=== PATIENT | male | born 1935 | race Caucasian/White ===

== ENCOUNTER 2020-07-15 19:12 | Inpatient (IN) ==
--- OUTSIDE RECORDS SUMMARY | 2020-07-15 19:14 | External Medical Summary | Continuity of Care Document ---
:1935 Author Name Melissa Johns Address Unavailable Unavailable , Care Team Providers Name Role Phone Unavailable Unavailable Unavailable Problems Active medical history not documented Allergies and Adverse Reactions Allergy history not documented Medications Medications not documented Procedures Procedures not documented Immunizations Immunizations not documented Plan of Treatment Planned Observations Planned Goals not documented Results No Known Results Results not documented
[2020-07-15 19:48] LABS: Appearance Urine Clear (Clear); Bacteria Urine Automated Negative (Negative); Bilirubin Urine Negative (Negative); Blood Urine 1+ (Negative); Cast Urine Automated 0 /lpf (0-5); Color Urine Yellow; Epithelial Cell Urine Auto 0-5 /lpf (0-5); Glucose Urine UA Negative (Negative); Ketones Urine Negative (Negative); Leukocyte Esterase Urine Negative (Negative); Nitrite Urine Negative (Negative); RBC Urine Automated 0-4 /hpf (0-4); Specific Gravity Urine 1.013 (1.000-1.030); Urobilinogen Urine Negative (Negative); pH Urine 7.5 (4.5-7.5)
[2020-07-15 19:50] LABS: Protein Urine 3+ (Negative)
[2020-07-15 20:17] LABS: Base Excess VBG 2.8 mEq/L; HCO3 VBG 29 mmol/L; PCO2 VBG 55 mmHg (38-50); PO2 VBG 27 mmHg; pH VBG 7.35 (7.36-7.41)
[2020-07-15 20:19] LABS: Basophils # (auto) 0.01 K/uL (0-0.2); Basophils % (auto) 0.2 %; Eosinophils # (auto) 0.11 K/uL (0-0.5); Eosinophils % (auto) 2.6 %; Hematocrit (blood only) 35.1 % (42-52); Hemoglobin 11.1 g/dL (14.0-18.0); Lymphocytes # (auto) 0.81 K/uL (1.2-3.4); Lymphocytes % (auto) 19.3 %; Mean Corpuscular Hemoglobin 32.7 pg (25-34); Mean Corpuscular Hgb Conc 31.6 g/dL (32-36); Mean Corpuscular Volume 103.5 fL (80-100); Mean Platelet Volume 10.1 fL (7.4-10.4); Monocytes # (auto) 0.31 K/uL (0.11-0.59); Monocytes % (auto) 7.4 %; Neutrophils # (auto) 2.95 K/uL (1.4-6.5); Neutrophils % (auto) 70.5 %; Platelet Count 198 K/uL (130-400); RDW Coefficient of Variation 16.7 % (11.5-14.5); Red Blood Count 3.39 M/uL (4.7-6.1); White Blood Count 4.19 K/uL (4.8-10.8)
--- NOTE | 2020-07-15 20:19 | Emergency Department Note ---
History of Present Illness General Chief Complaint: Shortness of Breath/Dyspnea Stated Complaint: SOB, HX OF CHF Time Seen by Provider: 07/15/20 19:27 History of Present Illness Provider Complaint: shortness of breath Onset (ago): day(s) (4) Severity: moderate Consistency/Duration: + progressively worsening Maximum Pain Intensity: 0 Current Pain Intensity: 0 Relieved By: + upright position Exacerbated By: + lying flat, + exertion and + coughing Context: + medication noncompliance (Recent changes in his medications); no recent illness and no CO exposure Known history of: congestive heart failure Associated symptoms: + cough and + orthopnea; no chest pain, no pain with inspiration, no wheezing, no paresthesias, no palpitations, no diaphoresis, no syncope, no chest congestion, no dizziness and no lightheadedness Home Medications Medication Instructions Recorded Confirmed Type acetaminophen 500 mg PO Q6H PRN 07/15/20 07/15/20 History allopurinol 300 mg PO DAILY 07/15/20 07/15/20 History amoxicillin See Rx Instructions .ROUTE 07/15/20 07/15/20 History .COMPLEX PRN calcitriol 0.25 mcg PO 3XWK 07/15/20 07/15/20 History cholecalciferol (vitamin D3) 50 mcg PO DAILY 07/15/20 07/15/20 History [Vitamin D3] cyanocobalamin (vitamin B-12) 1,000 mcg PO DAILY 07/15/20 07/15/20 History [Vitamin B-12] cyclobenzaprine 10 mg PO TID PRN 07/15/20 07/15/20 History ezetimibe 10 mg PO DAILY 07/15/20 07/15/20 History famotidine 20 mg PO DAILY PRN 07/15/20 07/15/20 History furosemide 40 mg PO BID 07/15/20 07/15/20 History metoprolol succinate 12.5 mg PO DAILY 07/15/20 07/15/20 History multivitamin,zk-[id number]-min 1 tab PO DAILY 07/15/20 07/15/20 History [Multivitamin And Mineral] rosuvastatin 10 mg PO HS 07/15/20 07/15/20 History tamsulosin 0.4 mg PO BID 07/15/20 07/15/20 History vitamin B complex [Super B-50] 1 cap PO DAILY 07/15/20 07/15/20 History warfarin 2.5 mg PO 3XWK 07/15/20 07/15/20 History warfarin 5 mg PO 4XWK 07/15/20 07/15/20 History Allergies Allergy/AdvReac Type Severity Reaction Status Date / Time amlodipine [From [facility]] Allergy Intermediate Edema Verified 07/15/20 21:54 bismuth subsalicylate Allergy Unknown Unknown Verified 07/15/20 21:54 naproxen AdvReac Mild GI UPSET, Verified 07/15/20 21:54 HODGES THROAT Past Med/Surg History Medical History (Updated 07/16/20 @ 00:09 by Jerry Rinaldi) CHF (congestive heart failure) No pertinent family history Surgical History (Updated 07/15/20 @ 20:15 by Jerry Rinaldi) No pertinent past surgical history Social History Smoking Status: Former smoker Feels Safe at Home: Yes Review of Systems A total of 10 systems reviewed and were otherwise negative Physical Exam Vital Signs: Vital Signs - 24 hr 07/15/20 19:21 07/15/20 19:50 07/15/20 20:05 Temperature 36.4 C L Temperature Source Temporal Artery Sc an Pulse Rate 79 Pulse Rate from Sp O2 Sensor Respiratory Rate 18 Respiratory Effort / Characteristics Non-Labored Respiratory Depth Normal Blood Pressure 142/87 H Blood Pressure Bettye n 105 Pulse Oximetry 96 Oxygen Delivery Me thod Room Air Room Air Room Air Oxygen Flow Rate Sepsis Recent Feve r Within 48 Hours No Sepsis New/Unexpla ined Change in Men flako Status No Sepsis Action Take n by Nursing No Action Required Oxygen Flow Rate - Titration Pulse Oximetry Pos t Tiitration 07/15/20 20:30 07/15/20 21:00 07/15/20 21:31 Temperature Temperature Source Pulse Rate 87 89 90 Pulse Rate from Sp O2 Sensor 89 87 90 Respiratory Rate 21 16 19 Respiratory Effort / Characteristics Respiratory Depth Blood Pressure 163/94 H 149/96 H 154/79 H Blood Pressure Bettye n 114 116 101 Pulse Oximetry 95 90 Oxygen Delivery Me thod Room Air Oxygen Flow Rate Sepsis Recent Feve r Within 48 Hours Sepsis New/Unexpla ined Change in Men flako Status Sepsis Action Take n by Nursing Oxygen Flow Rate - Titration Pulse Oximetry Pos t Tiitration 07/15/20 22:00 07/15/20 22:30 07/15/20 23:00 Temperature Temperature Source Pulse Rate 91 H 92 H 92 H Pulse Rate from Sp O2 Sensor 93 H 93 H 91 H Respiratory Rate 24 16 25 H Respiratory Effort / Characteristics Respiratory Depth Blood Pressure 172/101 H 169/88 H 190/110 H Blood Pressure Bettye n 133 132 146 Pulse Oximetry Oxygen Delivery Me thod Oxygen Flow Rate Sepsis Recent Feve r Within 48 Hours Sepsis New/Unexpla ined Change in Men flako Status Sepsis Action Take n by Nursing Oxygen Flow Rate - Titration Pulse Oximetry Pos t Tiitration 07/15/20 23:16 Temperature Temperature Source Pulse Rate Pulse Rate from Sp O2 Sensor Respiratory Rate Respiratory Effort / Characteristics Respiratory Depth Blood Pressure Blood Pressure Bettye n Pulse Oximetry 90 Oxygen Delivery Me thod Nasal Cannula Oxygen Flow Rate 0 Sepsis Recent Feve r Within 48 Hours Sepsis New/Unexpla ined Change in Men flako Status Sepsis Action Take n by Nursing Oxygen Flow Rate - Titration 2 Pulse Oximetry Pos t Tiitration 95 Physical Exam: Physical Exam GENERAL: He is oriented to person, place, and time. He appears well-developed and well-nourished. He does not appear distressed. HENT: Exam performed. - Head: Normocephalic and atraumatic. - Right Ear: External ear normal. No mastoid tenderness. - Left Ear: External ear normal. No mastoid tenderness. - Mouth/Throat: The oropharynx is clear and moist. No trismus in the jaw. No dental abscesses or uvula swelling. No oropharyngeal exudate or tonsillar abscesses. EYES: Conjunctivae and EOM are normal. Pupils are equal, round, and reactive to light. Right eye exhibits no discharge. Left eye exhibits no discharge. No scleral icterus. NECK: Normal range of motion. Neck supple. No JVD present. No spinous process tenderness present. No carotid bruit present. No rigidity. No tracheal deviation and normal range of motion present. No Brudzinski's sign and no Kernig's sign noted. CV: Normal rate, regular rhythm, normal heart sounds and intact distal pulses. Palpable radial pulses bue. PULM/CHEST: Diminished breath sounds bilaterally. - Chest Wall: He exhibits no tenderness. ABD: The abdomen is soft. Bowel sounds are normal. He has no distension. No mass is present. There is no tenderness. There is no rebound, no guarding, no Ayala's sign and no tenderness at McBurney's point. Rovsig negative. MUSC/SKEL: Normal range of motion. 3+ pitting edema of the bilateral lower extremities. LYMPH: No cervical adenopathy. NEURO: He is alert and oriented to person, place, and time. He has normal strength. No cranial nerve deficit or sensory deficit. Coordination and gait normal. GCS eye subscore is 4. GCS verbal subscore is 5. GCS motor subscore is 6. Cerebellar tests wnl. SKIN: Skin is warm and dry. He is not diaphoretic. PSYCH: He has a normal mood and affect. Behavior is normal. Judgment and thought content normal. Course Course 1926: The patient was evaluated in room B9. A complete history and physical exam was performed. Cardiac monitoring: An order was placed for continuous cardiac monitoring. The monitor shows a rate of 80 with sinus rhythm Patient was seen in full airborne precautions. Patient was seen in N95's, gloves, gowns, face shield by myself and staff. 2100: Vital signs stable. Labs show creatinine of 3.55. proBNP elevated 9950 and troponin elevated 0.151. COVID-19 swab negative. Chest x-ray does show cardiomegaly with CHF. Patient will be admitted to the hospitalist service. Dr. Oneal notified. Administered Medications Discontinued Medications Furosemide (Furosemide 40 Mg/4 Ml Vial) 40 mg IV NOW STA Stop: 07/15/20 20:59 Last Admin: 07/15/20 21:13 Dose: 40 mg Documented by: [id number] Lidocaine HCl (Lidocaine 2% Jelly 5 Ml Tube) Confirm Administered Dose 5 ml .ROUTE .STK-MED ONE Stop: 07/15/20 21:24 Last Admin: 07/15/20 21:28 Dose: 5 ml Documented by: [id number] Medical Decision Making Laboratory Data Result diagrams: 07/15/20 19:53 07/15/20 19:53 Lab Results 07/15/20 07/15/20 07/15/20 Range/Units 19:38 19:53 19:53 WBC (4.8-10.8) K/uL RBC (4.7-6.1) M/uL Hgb (14.0-18.0) g/dL Hct (42-52) % MCV (80-100) fL MCH (25-34) pg MCHC (32-36) g/dL RDW Std Deviation (36.4-46.3) fL RDW Coeff of Alan (11.5-14.5) % Plt Count (130-400) K/uL MPV (7.4-10.4) fL Immature Gran % (Auto) % Neut % (Auto) % Lymph % (Auto) % [place] % (Auto) % Eos % (Auto) % Baso % (Auto) % Neut # (Auto) (1.4-6.5) K/uL Lymph # (Auto) (1.2-3.4) K/uL [place] # (Auto) (0.11-0.59) K/uL Eos # (Auto) (0-0.5) K/uL Baso # (Auto) (0-0.2) K/uL Immature Gran # (Auto) (0.00-0.02) K/uL PT (9.0-12.0) Seconds INR (0.9-1.1) APTT (21.0-31.0) Seconds PTT Ratio VBG pH (7.36-7.41) VBG pCO2 (38-50) mmHg VBG pO2 mmHg VBG HCO3 mmol/L VBG O2 Saturation % VBG Base Excess mEq/L Barometric Pressure mm/Hg Sodium 140 (136-145) mmol/L Potassium 4.6 (3.5-5.1) mmol/L Chloride 107 (98-107) mmol/L Carbon Dioxide 29 (21-32) mmol/L Anion Gap 4.0 (3-11) BUN 64 H (7-18) mg/dl Creatinine 3.55 H (0.6-1.4) mg/dl Est Cr Clr Drug Dosing 18.2 ml/min Est GFR ( Amer) 17.2 Est GFR (Non-Af Amer) 14.9 BUN/Creatinine Ratio 17.9 (10-20) Glucose 96 (70-99) mg/dl Lactate (0.4-2.0) mmol/L Calcium 8.8 (8.5-10.1) mg/dl Magnesium 2.5 H (1.8-2.4) mg/dl Total Bilirubin 0.4 (0.2-1) mg/dl AST 33 (15-37) U/L ALT 32 (12-78) U/L Alkaline Phosphatase 127 H (45-117) U/L Troponin I 0.151 H* (0-0.045) ng/ml NT-Pro-B Natriuret Pep 9958 H (0-1800) pg/ml Total Protein 6.9 (6.4-8.2) gm/dl Albumin 3.2 L (3.4-5.0) gm/dl Globulin 3.7 (2.5-4.0) gm/dl Albumin/Globulin Ratio 0.9 (0.9-2) Procalcitonin 0.06 (0-0.5) ng/ml Urine Color Yellow Urine Appearance Clear (Clear) Urine pH 7.5 (4.5-7.5) Ur Specific [place] 1.013 (1.000-1.030) Urine Protein 3+ H (Negative) Urine Glucose (UA) Negative (Negative) Urine Ketones Negative (Negative) Urine Blood 1+ H (Negative) Urine Nitrite Negative (Negative) Urine Bilirubin Negative (Negative) Urine Urobilinogen Negative (Negative) Ur Leukocyte Esterase Negative (Negative) Urine WBC (Auto) 1-5 (0-5) /hpf Urine RBC (Auto) 0-4 (0-4) /hpf U Hyaline Cast (Auto) 0 (0-5) /lpf U Epithel Cells (Auto) 0-5 (0-5) /lpf Urine Bacteria (Auto) Negative (Negative) COVID-19 Eval Order SARS-CoV-2, RNA, NAAT (NEGATIVE) 07/15/20 07/15/20 07/15/20 Range/Units 19:53 19:53 19:53 WBC 4.19 L (4.8-10.8) K/uL RBC 3.39 L (4.7-6.1) M/uL Hgb 11.1 L (14.0-18.0) g/dL Hct 35.1 L (42-52) % MCV 103.5 H (80-100) fL MCH 32.7 (25-34) pg MCHC 31.6 L (32-36) g/dL RDW Std Deviation 63.0 H (36.4-46.3) fL RDW Coeff of Alan 16.7 H (11.5-14.5) % Plt Count 198 (130-400) K/uL MPV 10.1 (7.4-10.4) fL Immature Gran % (Auto) 0.0 % Neut % (Auto) 70.5 % Lymph % (Auto) 19.3 % [place] % (Auto) 7.4 % Eos % (Auto) 2.6 % Baso % (Auto) 0.2 % Neut # (Auto) 2.95 (1.4-6.5) K/uL Lymph # (Auto) 0.81 L (1.2-3.4) K/uL [place] # (Auto) 0.31 (0.11-0.59) K/uL Eos # (Auto) 0.11 (0-0.5) K/uL Baso # (Auto) 0.01 (0-0.2) K/uL Immature Gran # (Auto) 0.00 (0.00-0.02) K/uL PT 30.5 H (9.0-12.0) Seconds INR 3.1 H (0.9-1.1) APTT 35.9 H (21.0-31.0) Seconds PTT Ratio 1.3 VBG pH (7.36-7.41) VBG pCO2 (38-50) mmHg VBG pO2 mmHg VBG HCO3 mmol/L VBG O2 Saturation % VBG Base Excess mEq/L Barometric Pressure mm/Hg Sodium (136-145) mmol/L Potassium (3.5-5.1) mmol/L Chloride (98-107) mmol/L Carbon Dioxide (21-32) mmol/L Anion Gap (3-11) BUN (7-18) mg/dl Creatinine (0.6-1.4) mg/dl Est Cr Clr Drug Dosing ml/min Est GFR ( Amer) Est GFR (Non-Af Amer) BUN/Creatinine Ratio (10-20) Glucose (70-99) mg/dl Lactate 0.7 (0.4-2.0) mmol/L Calcium (8.5-10.1) mg/dl Magnesium (1.8-2.4) mg/dl Total Bilirubin (0.2-1) mg/dl AST (15-37) U/L ALT (12-78) U/L Alkaline Phosphatase (45-117) U/L Troponin I (0-0.045) ng/ml NT-Pro-B Natriuret Pep (0-1800) pg/ml Total Protein (6.4-8.2) gm/dl Albumin (3.4-5.0) gm/dl Globulin (2.5-4.0) gm/dl Albumin/Globulin Ratio (0.9-2) Procalcitonin (0-0.5) ng/ml Urine Color Urine Appearance (Clear) Urine pH (4.5-7.5) Ur Specific [place] (1.000-1.030) Urine Protein (Negative) Urine Glucose (UA) (Negative) Urine Ketones (Negative) Urine Blood (Negative) Urine Nitrite (Negative) Urine Bilirubin (Negative) Urine Urobilinogen (Negative) Ur Leukocyte Esterase (Negative) Urine WBC (Auto) (0-5) /hpf Urine RBC (Auto) (0-4) /hpf U Hyaline Cast (Auto) (0-5) /lpf U Epithel Cells (Auto) (0-5) /lpf Urine Bacteria (Auto) (Negative) COVID-19 Eval Order SARS-CoV-2, RNA, NAAT (NEGATIVE) 07/15/20 07/15/20 07/15/20 Range/Units 19:53 19:55 19:55 WBC (4.8-10.8) K/uL RBC (4.7-6.1) M/uL Hgb (14.0-18.0) g/dL Hct (42-52) % MCV (80-100) fL MCH (25-34) pg MCHC (32-36) g/dL RDW Std Deviation (36.4-46.3) fL RDW Coeff of Alan (11.5-14.5) % Plt Count (130-400) K/uL MPV (7.4-10.4) fL Immature Gran % (Auto) % Neut % (Auto) % Lymph % (Auto) % [place] % (Auto) % Eos % (Auto) % Baso % (Auto) % Neut # (Auto) (1.4-6.5) K/uL Lymph # (Auto) (1.2-3.4) K/uL [place] # (Auto) (0.11-0.59) K/uL Eos # (Auto) (0-0.5) K/uL Baso # (Auto) (0-0.2) K/uL Immature Gran # (Auto) (0.00-0.02) K/uL PT (9.0-12.0) Seconds INR (0.9-1.1) APTT (21.0-31.0) Seconds PTT Ratio VBG pH 7.35 L (7.36-7.41) VBG pCO2 55 H (38-50) mmHg VBG pO2 27 mmHg VBG HCO3 29 mmol/L VBG O2 Saturation < 60.0 % VBG Base Excess 2.8 mEq/L Barometric Pressure 734.0 mm/Hg Sodium (136-145) mmol/L Potassium (3.5-5.1) mmol/L Chloride (98-107) mmol/L Carbon Dioxide (21-32) mmol/L Anion Gap (3-11) BUN (7-18) mg/dl Creatinine (0.6-1.4) mg/dl Est Cr Clr Drug Dosing ml/min Est GFR ( Amer) Est GFR (Non-Af Amer) BUN/Creatinine Ratio (10-20) Glucose (70-99) mg/dl Lactate (0.4-2.0) mmol/L Calcium (8.5-10.1) mg/dl Magnesium (1.8-2.4) mg/dl Total Bilirubin (0.2-1) mg/dl AST (15-37) U/L ALT (12-78) U/L Alkaline Phosphatase (45-117) U/L Troponin I (0-0.045) ng/ml NT-Pro-B Natriuret Pep (0-1800) pg/ml Total Protein (6.4-8.2) gm/dl Albumin (3.4-5.0) gm/dl Globulin (2.5-4.0) gm/dl Albumin/Globulin Ratio (0.9-2) Procalcitonin (0-0.5) ng/ml Urine Color Urine Appearance (Clear) Urine pH (4.5-7.5) Ur Specific [place] (1.000-1.030) Urine Protein (Negative) Urine Glucose (UA) (Negative) Urine Ketones (Negative) Urine Blood (Negative) Urine Nitrite (Negative) Urine Bilirubin (Negative) Urine Urobilinogen (Negative) Ur Leukocyte Esterase (Negative) Urine WBC (Auto) (0-5) /hpf Urine RBC (Auto) (0-4) /hpf U Hyaline Cast (Auto) (0-5) /lpf U Epithel Cells (Auto) (0-5) /lpf Urine Bacteria (Auto) (Negative) COVID-19 Eval Order Covid19 IDNow [facility] SARS-CoV-2, RNA, NAAT NEGATIVE (NEGATIVE) Imaging Data Radiologist's Impression: XR chest 1V portable HISTORY: 85 years-old Male SEPSIS acute sepsis COMPARISON: Chest radiographs 05/01/2006 TECHNIQUE: Portable AP view of the chest FINDINGS: Cardiac silhouette is enlarged. Prior median sternotomy and CABG. Left midlung with bibasilar airspace opacities. Pulmonary vascular congestion. Trace right and small left pleural effusions. No pneumothorax. Degenerative changes of the shoulders and spine. IMPRESSION: 1. Cardiomegaly with pulmonary vascular congestion. 2. Left midlung with bibasilar ill-defined airspace opacities are suspicious for an infectious or inflammatory pneumonitis. 3. Trace right and small left pleural effusions. ACT 112: Negative or not required by law. The above report was generated using voice recognition software. It may contain grammatical, syntax or spelling errors. Electronically signed by: Ketan Ambrose M.D. 07/15/2020 8:42 PM Dictated: 07/15/202039Transcribed: 07/15/202039 ECG Data Interpretation: EKG shows atrial fibrillation with rate of 78. QRS [address] elevation or ST depression. Head Trauma GCS Score: 15 MDM Narrative 192: The patient was evaluated in room B9. A complete history and physical exam was performed. Cardiac monitoring: An order was placed for continuous cardiac monitoring. The monitor shows a rate of 80 with sinus rhythm Patient was seen in full airborne precautions. Patient was seen in N95's, gloves, gowns, face shield by myself and staff. 2100: Vital signs stable. Labs show creatinine of 3.55. proBNP elevated 9950 and troponin elevated 0.151. COVID-19 swab negative. Chest x-ray does show cardiomegaly with CHF. Patient will be admitted to the hospitalist service. Dr. Oneal notified. Impression & Plan CHF (congestive heart failure) Discharge Plan Visit Data Chief Complaint: Shortness of Breath/Dyspnea Stated Complaint: SOB, HX OF CHF ED Provider: Jerry Rinaldi Discharge Problem: CHF (congestive heart failure) Patient Disposition: Being Evaluated by Hospitalist Forms Stand Alone Forms: My [facility] Prescriptions Prescriptions: No Action furosemide 40 mg tablet 40 mg PO BID RF: 0 tamsulosin 0.4 mg capsule 0.4 mg PO BID RF: 0 allopurinol 300 mg tablet 300 mg PO DAILY RF: 0 metoprolol succinate 25 mg tablet extended release 24 hr 12.5 mg PO DAILY RF: 0 ezetimibe 10 mg tablet 10 mg PO DAILY RF: 0 rosuvastatin 10 mg tablet 10 mg PO HS RF: 0 calcitriol 0.25 mcg capsule 0.25 mcg PO 3XWK RF: 0 cyclobenzaprine 10 mg Tablet 10 mg PO TID PRN (Reason: Muscle Spasm) RF: 0 cyanocobalamin (vitamin B-12) [Vitamin B-12] 1,000 mcg Tablet 1,000 mcg PO DAILY RF: 0 acetaminophen 500 mg Tablet 500 mg PO Q6H PRN (Reason: Pain) RF: 0 famotidine 20 mg Tablet 20 mg PO DAILY PRN (Reason: Acid Reflux) RF: 0 warfarin 5 mg Tablet 5 mg PO 4XWK RF: 0 warfarin 5 mg Tablet 2.5 mg PO 3XWK RF: 0 Multivitamin And Mineral Tablet 1 tab PO DAILY RF: 0 cholecalciferol (vitamin D3) [Vitamin D3] 50 mcg (2,000 unit) Capsule 50 mcg PO DAILY RF: 0 vitamin B complex [Super B-50] Capsule 1 cap PO DAILY RF: 0 amoxicillin 500 mg capsule See Rx Instructions .ROUTE .COMPLEX PRN (Reason: Prior to Dental Appointments) RF: 0 Referrals Referrals: Justina Rogers DO [Primary Care Provider] - Discharge Problem: CHF (congestive heart failure) Qualifiers: Heart failure type: unspecified Heart failure chronicity: acute on chronic Qualified Code(s): I50.9 - Heart failure, unspecified
[2020-07-15 20:26] LABS: Oxygen Saturation VBG < 60.0 %
[2020-07-15 20:37] LABS: Albumin Level 3.2 gm/dl (3.4-5.0); BUN Creatinine Ratio 17.9 (10-20); Calcium 8.8 mg/dl (8.5-10.1); Creatinine Clr Calc Pharmacy 18.2 ml/min; Est GFR (African American) 17.2; Est GFR (Non-African American) 14.9; INR 3.1 (0.9-1.1); Magnesium 2.5 mg/dl (1.8-2.4); Partial Thromboplastin Ratio 1.3; Partial Thromboplastin Time 35.9 Seconds (21.0-31.0); Potassium 4.6 mmol/L (3.5-5.1); Prothrombin Time 30.5 Seconds (9.0-12.0)
--- NOTE | 2020-07-15 20:43 | XRay Report ---
XR chest 1V portable HISTORY: 85 years-old Male SEPSIS acute sepsis COMPARISON: Chest radiographs 05/01/2006 TECHNIQUE: Portable AP view of the chest FINDINGS: Cardiac silhouette is enlarged. Prior median sternotomy and CABG. Left midlung with bibasilar airspac e opacities. Pulmonary vascular congestion. Trace right and small left pleural effusions. No pneumoth orax. Degenerative changes of the shoulders and spine. IMPRESSION: 1. Cardiomegaly with pulmonary vascular congestion. 2. Left midlung with bibasilar ill-defined airspace opacities are suspicious for an infectious or inf lammatory pneumonitis. 3. Trace right and small left pleural effusions. ACT 112: Negative or not required by law. The above report was generated using voice recognition software. It may contain grammatical, syntax o r spelling errors. Electronically signed by: Ketan Ambrose M.D. 07/15/2020 8:42 PM
[2020-07-15 20:46] LABS: Albumin Globulin Ratio 0.9 (0.9-2); Bilirubin,Total 0.4 mg/dl (0.2-1); Globulin 3.7 gm/dl (2.5-4.0); Total Protein 6.9 gm/dl (6.4-8.2); Troponin I 0.151 ng/ml (0-0.045)
[2020-07-15] MEDS ORDERED: FUROSEMIDE 40 MG/4 ML VIAL IV STA ×2 (20:58→23:47)
[2020-07-15] MEDS ORDERED: LIDOCAINE 2% JELLY 5 ML TUBE ONE (21:23)
[2020-07-15] MEDS ORDERED: ALBUT/IPRATROP 3MG/0.5MG NEB 3 ML VIAL NEB STA (23:44)
[2020-07-15] MEDS ORDERED: HYDROmorphone INJ 1 MG/ML SYRINGE IV STA (23:44)
[2020-07-15] MEDS ORDERED: METOPROLOL TARTRATE 1 MG/ML VIAL IV STA (23:46)
[2020-07-15] MEDS ORDERED: ALBUMIN 25% 12.5 GM/50 ML VIAL IV ONE (23:47)
--- NOTE | 2020-07-15 23:56 | History & Physical Report ---
Date of Service July 15, 2020 Assessment & Plan (1) Decompensated heart failure: hx chronic diastolic heart failure Secondary to dietary indiscretion HTN, elevated secondary to discomfort and illness Troponin elevation secondary to decompensated heart failure in the setting of elevated blood pressure and baseline chronic kidney dysfunction hx CAD status post CABG valvular heart disease (mild /AR, mild to moderate MR, mild TR) atrial flutter/history of DVT on Coumadin, A. fib rate controlled, INR therapeutic pulmonary hypertension as per records chronic back pain status post surgery, chronic anemia, hemoglobin at baseline prostate cancer status post radiation past tobacco abuse PCU Lasix albumin Cardiology and Nephrology consultations RE decompensated heart failure in the setting of CKD (Patient requesting for coordinated care given potential confusion regarding diu retic regimen directed by multiple providers.) Fluid restriction, strict I/Os, daily weights, CHF education Analgesia, may need titration of home beta-argelia dose for BP control Follow troponin DVT prophylaxis. Coumadin INR goal between 2 and 3 Full code Text document was generated using [employer] voice recognition software. It may contain grammatical or spelling errors. Kindly contact undersigned for clarification of any documentation item in question. History of Present Illness Chief Complaint: Worsening shortness of breath Primary Care Provider: Justina Rogers, History obtained from patient and records. Medical history significant for chronic diastolic heart failure (EF 54%, TTE 2019), CAD status post CABG, valvular heart disease (mild /AR, mild to moderate MR, mild TR), HTN, atrial flutter/history of DVT on Coumadin, pulmonary hypertension as per records, CRI (baseline creatinine 3.5), chronic back pain status post surgery, chronic anemia (baseline hemoglobin 10-11), prostate cancer status post radiation, past tobacco abuse. Patient seen at [facility] Cardiology office on follow-up visit about 3 weeks ago on follow-up for decompensated heart failure. Improved volume status with titration of diuretics as per documentation. Low-dose beta-argelia started for history atrial flutter. Labs to be reviewed with nephrology for possible cardiorenal syndrome as per documentation. Outpatient CXR showed mild pulmonary edema and small bilateral pleural effusions. Irregular densities left lung may represent calcified pleural plaques. Consider follow-up chest CT for further evaluation if clinically ind icated. Patient noted worsening shortness of breath on exertion the last few days despite compliance with diuretic Rx and fluid restriction. Admits to some dietary indiscretion 'because of the holidays' as per patient. Fluid retention, no dramatic weight gain as per patient. No chest pain. No cough symptoms. Worsening back pain. Patient given IV Lasix at the ER for decompensated heart failure. Gross hematuria noted at the ER post Dc catheter placement attempts. 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 [employer] Allergies Allergy/AdvReac Type Severity Reaction Status Date / Time amlodipine [From [facility]] Allergy Intermediate Edema Verified 07/15/20 21:54 bismuth subsalicylate Allergy Unknown Unknown Verified 07/15/20 21:54 naproxen AdvReac Mild GI UPSET, Verified 07/15/20 21:54 HODGES THROAT Home Medications Medication Instructions Recorded Confirmed Type acetaminophen 500 mg PO Q6H PRN 07/15/20 07/15/20 History allopurinol 300 mg PO DAILY 07/15/20 07/15/20 History amoxicillin See Rx Instructions .ROUTE 07/15/20 07/15/20 History .COMPLEX PRN calcitriol 0.25 mcg PO 3XWK 07/15/20 07/15/20 History cholecalciferol (vitamin D3) 50 mcg PO DAILY 07/15/20 07/15/20 History [Vitamin D3] cyanocobalamin (vitamin B-12) 1,000 mcg PO DAILY 07/15/20 07/15/20 History [Vitamin B-12] cyclobenzaprine 10 mg PO TID PRN 07/15/20 07/15/20 History ezetimibe 10 mg PO DAILY 07/15/20 07/15/20 History famotidine 20 mg PO DAILY PRN 07/15/20 07/15/20 History furosemide 40 mg PO BID 07/15/20 07/15/20 History metoprolol succinate 12.5 mg PO DAILY 07/15/20 07/15/20 History multivitamin,tn-ejzi-Ls-FA-min 1 tab PO DAILY 07/15/20 07/15/20 History [Multivitamin And Mineral] rosuvastatin 10 mg PO HS 07/15/20 07/15/20 History tamsulosin 0.4 mg PO BID 07/15/20 07/15/20 History vitamin B complex [Super B-50] 1 cap PO DAILY 07/15/20 07/15/20 History warfarin 2.5 mg PO 3XWK 07/15/20 07/15/20 History warfarin 5 mg PO 4XWK 07/15/20 07/15/20 History Past Med/Surg History Medical History (Updated 07/16/20 @ 06:10 by Rajiv Mmcahon MD) CHF (congestive heart failure) No pertinent family history Surgical History (Updated 07/15/20 @ 20:15 by Jerry Rinaldi) No pertinent past surgical history Social History Smoking Status: Never smoker Second Hand Exposure: No; Do You Dip or Chew Tobacco: No; Tobacco Cessation Education Requested by Patient: No Hx Alcohol Use: Yes Alcohol type: wine Hx Substance Use: No Preferred Language: Hong Konger Communication Ability: Effective Coater Smoking Pipe Required: No Beliefs That Will Affect Care: None Current Living Situation: Spouse Current Living Situation Comment: Other Information That Helps Us Care for You: No Feels Safe at Home: Yes Safety Concerns: Feels Safe At This Time Assistive Devices: Hearing Aid - Bilateral and Walker Review of Systems Review of Systems: As per HPI, all 10 systems reviewed, all other ROS negative Physical Exam Physical Exam: GENERAL: uncomfortable, pleasant, obese, minimal respiratory distress SKIN: Pallor, warm HEENT: Pale palpebral conjunctivae, no ptosis, dry buccal mucosa NECK : Supple, no tenderness CHEST : Decreased breath sounds, no tenderness HEART : Irregular, systolic murmur ABDOMEN: Some distention, nontender BACK : Tenderness right low back EXTREMITIES : Bilateral LE swelling, no LE tenderness, no other conspicuous deformities noted NEUROLOGIC : Coherent, no facial asymmetry, no other gross focality Results & Data Results & Data ([facility]) Vital Signs (Past 12 Hours) Vital Signs Temp Pulse Resp BP Pulse Ox 07/15/20 23:16 90 07/15/20 23:00 92 H 25 H 190/110 H 07/15/20 22:30 92 H 16 169/88 H 07/15/20 22:00 91 H 24 172/101 H 07/15/20 21:31 90 19 154/79 H 07/15/20 21:00 89 16 149/96 H 90 07/15/20 20:30 87 21 163/94 H 95 07/15/20 19:21 36.4 C L 79 18 142/87 H 96 Laboratory Results Laboratory Results WBC 4.19 K/uL (4.8-10.8) L 07/15/20 19:53 RBC 3.39 M/uL (4.7-6.1) L 07/15/20 19:53 Hgb 11.1 g/dL (14.0-18.0) L 07/15/20 19:53 Hct 35.1 % (42-52) L 07/15/20 19:53 MCV 103.5 fL (80-100) H 07/15/20 19:53 MCH 32.7 pg (25-34) 07/15/20 19:53 MCHC 31.6 g/dL (32-36) L 07/15/20 19:53 RDW Std Deviation 63.0 fL (36.4-46.3) H 07/15/20 19:53 RDW Coeff of Alan 16.7 % (11.5-14.5) H 07/15/20 19:53 Plt Count 198 K/uL (130-400) 07/15/20 19:53 MPV 10.1 fL (7.4-10.4) 07/15/20 19:53 Immature Gran % (Auto) 0.0 % 07/15/20 19:53 Neut % (Auto) 70.5 % 07/15/20 19:53 Lymph % (Auto) 19.3 % 07/15/20 19:53 [place] % (Auto) 7.4 % 07/15/20 19:53 Eos % (Auto) 2.6 % 07/15/20 19:53 Baso % (Auto) 0.2 % 07/15/20 19:53 Neut # (Auto) 2.95 K/uL (1.4-6.5) 07/15/20 19:53 Lymph # (Auto) 0.81 K/uL (1.2-3.4) L 07/15/20 19:53 [place] # (Auto) 0.31 K/uL (0.11-0.59) 07/15/20 19:53 Eos # (Auto) 0.11 K/uL (0-0.5) 07/15/20 19:53 Baso # (Auto) 0.01 K/uL (0-0.2) 12/30/20 19:53 Immature Gran # (Auto) 0.00 K/uL (0.00-0.02) 07/15/20 19:53 PT 30.5 Seconds (9.0-12.0) H 07/15/20 19:53 INR 3.1 (0.9-1.1) H 07/15/20 19:53 APTT 35.9 Seconds (21.0-31.0) H 07/15/20 19:53 PTT Ratio 1.3 07/15/20 19:53 VBG pH 7.35 (7.36-7.41) L 07/15/20 19:53 VBG pCO2 55 mmHg (38-50) H 07/15/20 19:53 VBG pO2 27 mmHg 07/15/20 19:53 VBG HCO3 29 mmol/L 07/15/20 19:53 VBG O2 Saturation < 60.0 % 07/15/20 19:53 VBG Base Excess 2.8 mEq/L 07/15/20 19:53 Barometric Pressure 734.0 mm/Hg 07/15/20 19:53 Sodium 140 mmol/L (136-145) 07/15/20 19:53 Potassium 4.6 mmol/L (3.5-5.1) 07/15/20 19:53 Chloride 107 mmol/L (98-107) 07/15/20 19:53 Carbon Dioxide 29 mmol/L (21-32) 07/15/20 19:53 Anion Gap 4.0 (3-11) 07/15/20 19:53 BUN 64 mg/dl (7-18) H 07/15/20 19:53 Creatinine 3.55 mg/dl (0.6-1.4) H 07/15/20 19:53 Est Cr Clr Drug Dosing 18.2 ml/min 07/15/20 19:53 Est GFR ( Amer) 17.2 07/15/20 19:53 Est GFR (Non-Af Amer) 14.9 07/15/20 19:53 BUN/Creatinine Ratio 17.9 (10-20) 07/15/20 19:53 Glucose 96 mg/dl (70-99) 07/15/20 19:53 Lactate 0.7 mmol/L (0.4-2.0) 07/15/20 19:53 Calcium 8.8 mg/dl (8.5-10.1) 07/15/20 19:53 Magnesium 2.5 mg/dl (1.8-2.4) H 07/15/20 19:53 Total Bilirubin 0.4 mg/dl (0.2-1) 07/15/20 19:53 AST 33 U/L (15-37) 07/15/20 19:53 ALT 32 U/L (12-78) 07/15/20 19:53 Alkaline Phosphatase 127 U/L (45-117) H 07/15/20 19:53 Troponin I 0.151 ng/ml (0-0.045) H* 07/15/20 19:53 NT-Pro-B Natriuret Pep 9958 pg/ml (0-1800) H 07/15/20 19:53 Total Protein 6.9 gm/dl (6.4-8.2) 07/15/20 19:53 Albumin 3.2 gm/dl (3.4-5.0) L 07/15/20 19:53 Globulin 3.7 gm/dl (2.5-4.0) 07/15/20 19:53 Albumin/Globulin Ratio 0.9 (0.9-2) 07/15/20 19:53 Procalcitonin 0.06 ng/ml (0-0.5) 07/15/20 19:53 Urine Color Yellow 07/15/20 19:38 Urine Appearance Clear (Clear) 07/15/20 19:38 Urine pH 7.5 (4.5-7.5) 07/15/20 19:38 Ur Specific [place] 1.013 (1.000-1.030) 07/15/20 19:38 Urine Protein 3+ (Negative) H 07/15/20 19:38 Urine Glucose (UA) Negative (Negative) 07/15/20 19:38 Urine Ketones Negative (Negative) 07/15/20 19:38 Urine Blood 1+ (Negative) H 07/15/20 19:38 Urine Nitrite Negative (Negative) 07/15/20 19:38 Urine Bilirubin Negative (Negative) 07/15/20 19:38 Urine Urobilinogen Negative (Negative) 07/15/20 19:38 Ur Leukocyte Esterase Negative (Negative) 07/15/20 19:38 Urine WBC (Auto) 1-5 /hpf (0-5) 07/15/20 19:38 Urine RBC (Auto) 0-4 /hpf (0-4) 07/15/20 19:38 U Hyaline Cast (Auto) 0 /lpf (0-5) 07/15/20 19:38 U Epithel Cells (Auto) 0-5 /lpf (0-5) 07/15/20 19:38 Urine Bacteria (Auto) Negative (Negative) 07/15/20 19:38 COVID-19 Eval Order Covid19 [facility]Now [facility] 07/15/20 19:55 SARS-CoV-2, RNA, NAAT NEGATIVE (NEGATIVE) 07/15/20 19:55 Diagnostic Findings Chest x-ray : 1. Cardiomegaly with pulmonary vascular congestion. 2. Left midlung with bibasilar ill-defined airspace opacities are suspicious for an infectious or inflammatory pneumonitis. 3. Trace right and small left pleural effusions. CT abdomen pelvis initial read: Posterior fusion laminectomy defects L3-L5. No definite acute osseous traumatic injury. Cardiomegaly. Layering bilateral pleural effusions left greater than the right with left effusion measuring approximately 5.9 cm. IVC distention suggestive of positive fluid status/anasarca. Atrophic kidneys. No n ephrolithiasis. Brachytherapy beads prostate gland. Umbilical hernia. Diverticulosis. EKG as per my interpretation : Rate 80, A. fib, LAD, LAFB, LBBB Code Status & VTE Plan VTE Prophylaxis Plan VTE Prophylaxis will be ordered: Yes
[2020-07-16] MEDS: LIDOCAINE 5% 1 PATCH TD SCH ×2 (00:14→20:51)
[2020-07-16] MEDS ORDERED: ACETAMINOPHEN 325 MG TAB PO PRN (01:15)
[2020-07-16] MEDS ORDERED: PROMETHAZINE HCL 6.25 MG in SODIUM CHLORIDE 0.9% 50 ML IV PRN (01:15)
[2020-07-16] MEDS ORDERED: FUROSEMIDE 40 MG/4 ML VIAL IV ONE (01:15)
[2020-07-16] MEDS ORDERED: traMADol HCL 50 MG TABLET PO PRN (01:15)
[2020-07-16] MEDS ORDERED: FAMOTIDINE 20 MG TAB PO PRN (01:15)
[2020-07-16] MEDS ORDERED: CYCLOBENZAPRINE HCL 10 MG TAB PO PRN (01:15)
[2020-07-16] MEDS ORDERED: HYDROmorphone INJ 0.5 MG/0.5 ML SYR IV PRN (01:15)
[2020-07-16] MEDS ORDERED: Nursing to Pharmacy Communication SCH (01:45)
[2020-07-16 06:19] LABS: Basophils # (auto) 0.02 K/uL (0-0.2); Basophils % (auto) 0.5 %; Eosinophils # (auto) 0.09 K/uL (0-0.5); Eosinophils % (auto) 2.2 %; Hematocrit (blood only) 32.3 % (42-52); Hemoglobin 10.3 g/dL (14.0-18.0); Lymphocytes # (auto) 0.95 K/uL (1.2-3.4); Lymphocytes % (auto) 23.5 %; Mean Corpuscular Hemoglobin 32.8 pg (25-34); Mean Corpuscular Hgb Conc 31.9 g/dL (32-36); Mean Corpuscular Volume 102.9 fL (80-100); Mean Platelet Volume 10.4 fL (7.4-10.4); Monocytes % (auto) 7.4 %; Neutrophils # (auto) 2.68 K/uL (1.4-6.5); Neutrophils % (auto) 66.4 %; Platelet Count 187 K/uL (130-400); RDW Coefficient of Variation 16.8 % (11.5-14.5); RDW Standard Deviation 62.3 fL (36.4-46.3); Red Blood Count 3.14 M/uL (4.7-6.1); White Blood Count 4.04 K/uL (4.8-10.8)
[2020-07-16 06:25] LABS: INR 2.4 (0.9-1.1); Prothrombin Time 24.4 Seconds (9.0-12.0)
[2020-07-16 06:58] LABS: BUN Creatinine Ratio 18.7 (10-20); Est GFR (African American) 17.3; Est GFR (Non-African American) 14.9; Potassium 4.1 mmol/L (3.5-5.1)
--- NOTE | 2020-07-16 07:22 | CT Scan Report ---
CT OF THE ABDOMEN AND PELVIS WITHOUT CONTRAST CLINICAL HISTORY: worsening flank/back pain COMPARISON STUDY: No previous studies for comparison. TECHNIQUE: Axial images of the abdomen and pelvis were obtained without IV contrast. Images were revi ewed in the axial, sagittal, and coronal planes. Automated exposure control was utilized for the abundio dy. A dose lowering technique was utilized adhering to the principles of ALARA. FINDINGS: Moderate cardiomegaly is noted. Moderate bilateral pleural effusions are partially imaged. There is mild interlobular septal thickening. Subpleural opacities favor atelectasis. Multiple calcif ied pleural plaques are incidentally noted. No pneumatosis, free air or portal venous gas is present. Evaluation of the abdomen and pelvis is sub optimal on this unenhanced examination. There is anasarca. No biliary or pancreatic ductal dilatation is present. There is no peripancreatic or pericholecystic infiltration. Liver surface is slightly ir regular. There is moderate dilatation of the left renal pelvis without caliectasis. No ureteral calcu li are identified although distal ureters are obscured by streak artifact from bilateral hip arthropl asties. There is moderate to marked bilateral renal atrophy. There is no evidence for a bowel obstruc tion. Extensive left colon diverticulosis is noted without evidence for acute diverticulitis. The justen endix is normal. Brachytherapy seeds within the prostate gland are noted. Note is made of an umbilica l hernia which contains several small bowel loops and trace ascites. There is no resultant bowel obst ruction. Note is made of several mildly enlarged retroperitoneal lymph nodes. Index left iliac node o n image 280 measures 2 x 1 cm. Index left external iliac node on image 359 measures 9 mm in short axi s diameter. Postoperative findings within lumbar spine are noted posterior decompression and L3-L5 bi lateral pedicle screw fusion. There is levoscoliosis. Lumbar spine is suboptimally assessed by CT. Th ere is no acute fracture. Note is made of extensive osteophytosis at the right L1-L2 level. There is apparent bony erosion however the margins are sclerotic. There is mild adjacent infiltration. There i s gas within this disc space. IMPRESSION: 1. Moderate dilatation of the left renal pelvis without caliectasis. No ureteral calculi identified. This dilatation is probably chronic. Moderate to marked bilateral renal atrophy. 2. No acute lumbar spine fracture. Status post L3-L5 posterior decompression bilateral pedicle screw fusion. Levoscoliosis. Extensive osteophytosis at the right L1-L2 level with apparent bony erosion wi th sclerotic margins. Minimal adjacent infiltration. This erosion is chronic appearing and likely deg enerative. Chronic osteomyelitis is considered less likely but is within the differential. If suspici on for infectious process, an MRI is recommended. This finding will be called/faxed to the ordering p rovider at time of dictation. 3. Bilateral pleural effusions. Mild pulmonary edema. Anasarca. 4. Extensive colonic diverticulosis without evidence for acute diverticulitis. 5. Umbilical hernia which contains several small bowel loops. No resultant bowel obstruction. 6. Borderline enlarged retroperitoneal lymph nodes. ACT 112: Negative or not required by law. Electronically signed by: César Vasquez M.D. 07/16/2020 7:20 AM
[2020-07-16] MEDS ORDERED: FUROSEMIDE 80 MG in SYRINGE 0 ML IV ONE (08:00)
[2020-07-16] MEDS ORDERED: ALBUMIN 25% 12.5 GM/50 ML VIAL IV ONE (08:00)
--- NOTE | 2020-07-16 10:00 | Cardiology Consultation ---
Date of Consultation July 16, 2020 Assessment & Plan (1) Acute on chronic diastolic (congestive) heart failure: (2) Cardiorenal syndrome: (3) Atrial flutter, chronic: (4) Moderate aortic stenosis: (5) CKD (chronic kidney disease) stage 4, GFR 15-29 ml/min: 85-year-old patient admitted with acute decompensated diastolic heart failure in the setting of chronic kidney disease stage IV. Refractory to outpatient oral furosemide plus metolazone. Clinically responding to IV furosemide. He received a dose of 80 mg this morning. We will continue 80 mg twice daily today. Repeat basic metabolic panel in a.m. Follow GFR, daily weight, electrolytes. Heart rate controlled on telemetry. Continue low-dose beta-argelia therapy and warfarin for anticoagulation. Goal INR 2.0-3.0 for history of DVT and atrial flutter. No indication for repeat echocardiogram at this time. History of Present Illness Reason for Consultation: CHF Requesting Physician: Dr. Salamanca Attending Physician: Stephanie Harp DO History of Present Illness 85-year-old patient presented emergency department with progressive shortness of breath. Patiently evaluated in the cardiology clinic as a new patient regarding decompensated diastolic heart failure. Carries a history of coronary artery bypass grafting [facility], moderate aortic stenosis, chronic anticoagulation due to history of left lower extremity DVT and stage IV kidney disease. Metoprolol added during recent office visit 06/23/2020. Outpatient furosemide dose 40 mg twice daily. Patient reports progressive dyspnea over the past few days. + Orthopnea. He was having difficulty performing activities of daily living which prompted his evaluation in the ER. In the ED he was treated with 40 of Lasix x2 followed by an 80 mg dose of IV Lasix this morning. His fluid balance is -1500 cc since adm ission. He is feeling better today. Previously noted orthopnea has resolved. Edema improved. Assess his home weight regularly. No recent weight gain, however, notes significant dietary indiscretions over the holiday consuming excessive sodium on nearly a daily basis. Denies chest pain or heaviness. No palpitations, lightheadedness, dizziness, syncope, or near syncope. Telemetry reveals atrial flutter with average heart rate of 80 to 85 bpm. Allergies Allergy/AdvReac Type Severity Reaction Status Date / Time amlodipine [From [facility]] Allergy Intermediate Edema Verified 07/15/20 21:54 bismuth subsalicylate Allergy Unknown Unknown Verified 07/15/20 21:54 naproxen AdvReac Mild GI UPSET, Verified 07/15/20 21:54 HODGES THROAT Home Medications Medication Instructions Recorded Confirmed Type acetaminophen 500 mg PO Q6H PRN 07/15/20 07/15/20 History allopurinol 300 mg PO DAILY 07/15/20 07/15/20 History amoxicillin See Rx Instructions .ROUTE 07/15/20 07/15/20 History .COMPLEX PRN calcitriol 0.25 mcg PO 3XWK 07/15/20 07/15/20 History cholecalciferol (vitamin D3) 50 mcg PO DAILY 07/15/20 07/15/20 History [Vitamin D3] cyanocobalamin (vitamin B-12) 1,000 mcg PO DAILY 07/15/20 07/15/20 History [Vitamin B-12] cyclobenzaprine 10 mg PO TID PRN 07/15/20 07/15/20 History ezetimibe 10 mg PO DAILY 07/15/20 07/15/20 History famotidine 20 mg PO DAILY PRN 07/15/20 07/15/20 History furosemide 40 mg PO BID 07/15/20 07/15/20 History metoprolol succinate 12.5 mg PO DAILY 07/15/20 07/15/20 History multivitamin,go-zpil-Fb-FA-min 1 tab PO DAILY 07/15/20 07/15/20 History [Multivitamin And Mineral] rosuvastatin 10 mg PO HS 07/15/20 07/15/20 History tamsulosin 0.4 mg PO BID 07/15/20 07/15/20 History vitamin B complex [Super B-50] 1 cap PO DAILY 07/15/20 07/15/20 History warfarin 2.5 mg PO 3XWK 07/15/20 07/15/20 History warfarin 5 mg PO 4XWK 07/15/20 07/15/20 History Patient History Medical History CHF (congestive heart failure) No pertinent family history Surgical History No pertinent past surgical history Social History (Reviewed 07/16/20 @ 09:55 by GARLAND Sánchez Smoking Status: Never smoker Second Hand Exposure: No; Do You Dip or Chew Tobacco: No; Tobacco Cessation Education Requested by Patient: No Hx Alcohol Use: Yes Alcohol type: wine Hx Substance Use: No Preferred Language: Lao Communication Ability: Effective 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 Required: No Beliefs That Will Affect Care: None Current Living Situation: Spouse Current Living Situation Comment: Other Information That Helps Us Care for You: No Feels Safe at Home: Yes Safety Concerns: Feels Safe At This Time Assistive Devices: Hearing Aid - Left, Hearing Aid - Right and Walker Review of Systems Review of Systems: All systems reviewed & are unremarkable except as noted in Subjective Physical Exam Constitutional: well nourished and + ill appearing; no acute distress Respiratory: normal respiratory effort; no respiratory distress, no labored breathing and no retractions Auscultation: + crackles (Scant crackles at the right base); no rhonchi and no wheezes Cardiovascular: Rate/Rhythm: regular rhythm (With ectopy) Heart Sounds: normal S1, normal S2 and + murmur (3/6 low pitched mid peaking systolic ejection murmur heard best at the righ) Vessels: no JVD and no carotid bruit Extremities: + edema (Mild, 1+ bilateral pedal and ankle edema with stasis changes) Gastrointestinal (Abdomen): Inspection/Auscultation: normal bowel sounds; abdomen not distended Percussion/Palpation: abdomen soft; abdomen nontender, no guarding and abdomen not rigid Neurologic: moves all extremities; no focal motor deficits Psychiatric: A+Ox3, euthymic affect Results & Data ([facility]) Vital Signs (Past 12 Hours) Vital Signs Temp Pulse Pulse Resp BP BP Pulse Ox 07/16/20 08:16 36.6 C 87 20 124/75 93 07/16/20 03:43 36.8 C 90 16 124/75 93 07/16/20 01:45 80 16 96 07/16/20 01:18 36.5 C 76 20 142/88 H 95 07/16/20 00:28 80 18 150/106 H 93 07/16/20 00:16 92 H 178/104 H 07/16/20 00:00 86 21 178/104 H 94 07/15/20 23:31 20 158/98 H 98 07/15/20 23:16 90 07/15/20 23:00 92 H 25 H 190/110 H 07/15/20 22:30 92 H 16 169/88 H 07/15/20 22:00 91 H 24 172/101 H
[2020-07-16] MEDS: VITAMIN B COMPLEX TAB PO SCH (10:01)
[2020-07-16] MEDS: CEROVITE ADV FORMULA TAB PO SCH (10:02)
[2020-07-16] MEDS: METOPROLOL SUCC 25MG EXT REL TAB PO SCH (10:02)
[2020-07-16] MEDS: TAMSULOSIN HCL 0.4 MG CAP PO SCH ×2 (10:02→20:51)
[2020-07-16] MEDS: EZETIMIBE 10 MG TABLET PO SCH (10:03)
[2020-07-16] MEDS: CYANOCOBALAMIN 500 MCG TABLET (VITAMIN B-12) PO SCH (10:03)
[2020-07-16] MEDS: CHOLECALCIFEROL 1,000 UNITS 25 MCG TAB PO SCH (10:03)
[2020-07-16] MEDS: allopurinoL 300 MG TAB PO SCH (10:04)
--- NOTE | 2020-07-16 11:17 | Electrocardiogram Report ---
Test Reason : Blood Pressure : / mmHG Vent. Rate : 078 BPM Atrial Rate : 089 BPM P-R Int : 000 ms QRS Dur : 126 ms QT Int : 408 ms P-R-T Axes : 000 -64 -23 degrees QTc Int : 465 ms Atrial fibrillation Left axis deviation Non-specific intra-ventricular conduction delay Poor R wave progression, consider anterior VA vs. lead placement vs. LVH Abnormal ECG When compared with ECG of 01-MAY-2006 12:17, Atrial fibrillation has replaced Sinus rhythm Vent. rate has increased BY 26 BPM Criteria for Inferior infarct are no longer Present Confirmed by Sergio Hong ([id number]) on 07/16/2020 11:17:05 AM Referred By: REFERRED SELF Confirmed By:Jhoan Hong
--- NOTE | 2020-07-16 15:28 | Nephrology Consultation ---
Date of Consultation July 16, 2020 Assessment & Plan (1) CKD (chronic kidney disease) stage 4, GFR 15-29 ml/min: Patient with CKD stage IV with nephrotic range proteinuria for several years. Patient is close to needing dialysis although no indication for dialysis at the moment. He is okay with dialysis if needed. Patient is making urine and responding well to diuresis. Renal function remains at baseline. -We will monitor daily for dialysis need -Daily BMP -Monitor input output (2) Acute on chronic diastolic (congestive) heart failure: Patient with acute on chronic diastolic CHF likely due to dietary indiscretion. He failed outpatient diuretic regimen. -Continue Lasix IV 80 mg twice daily with goal net negative at least 1 L. -Monitor daily standing weight -Stop albumin which is extra salt load History of Present Illness Reason for Consultation: CKD, volume overload Requesting Physician: Stephanie Harp DO Attending Physician: Stephanie Harp DO History of Present Illness This is 85-year-old male with history of hypertension, coronary disease status post CABG, a flutter, diastolic CHF with EF of 54%,BPH, remote prostate cancer in 1991 status post brachytherapy and CKD stage IV with baseline creatinine of 3.5 who was admitted on 07/15/2020 with shortness of breath. Home dose of Lasix is 40 mg twice daily. Patient has had progressively worsening shortness of breath and weakness. He was also started on metoprolol 12.5 mg recently. In the emergency room he received Lasix 80 mg and another dose this morning. He has made about a liter of urine. He had 3 failed attempts at catheterization. He now has a condom catheter. Urine in the urine bag is bloody. He has mild shortness of breath. He is leg swelling. He has right leg pain which is chronic. No diarrhea or vomiting. He denied NSAID use. Chest x-ray in the emergency room showed cardiomegaly and pulmonary vascular congestion creatinine on admission around 3.5 and hemoglobin of 10.3. Allergies Allergy/AdvReac Type Severity Reaction Status Date / Time amlodipine [From [facility]] Allergy Intermediate Edema Verified 07/15/20 21:54 bismuth subsalicylate Allergy Unknown Unknown Verified 07/15/20 21:54 naproxen AdvReac Mild GI UPSET, Verified 07/15/20 21:54 [facility]GES THRO[employer] Home Medications Medication Instructions Recorded Confirmed Type acetaminophen 500 mg PO Q6H PRN 07/15/20 07/15/20 History allopurinol 300 mg PO DAILY 07/15/20 07/15/20 History amoxicillin See Rx Instructions .ROUTE 07/15/20 07/15/20 History .COMPLEX PRN calcitriol 0.25 mcg PO 3XWK 07/15/20 07/15/20 History cholecalciferol (vitamin D3) 50 mcg PO DAILY 07/15/20 07/15/20 History [Vitamin D3] cyanocobalamin (vitamin B-12) 1,000 mcg PO DAILY 07/15/20 07/15/20 History [Vitamin B-12] cyclobenzaprine 10 mg PO TID PRN 07/15/20 07/15/20 History ezetimibe 10 mg PO DAILY 07/15/20 07/15/20 History famotidine 20 mg PO DAILY PRN 07/15/20 07/15/20 History furosemide 40 mg PO BID 07/15/20 07/15/20 History metoprolol succinate 12.5 mg PO DAILY 07/15/20 07/15/20 History multivitamin,[id number]-Fc-[id number]-min 1 tab PO DAILY 07/15/20 07/15/20 History [Multivitamin And Mineral] rosuvastatin 10 mg PO HS 07/15/20 07/15/20 History tamsulosin 0.4 mg PO BID 07/15/20 07/15/20 History vitamin B complex [Super B-50] 1 cap PO DAILY 07/15/20 07/15/20 History warfarin 2.5 mg PO 3XWK 07/15/20 07/15/20 History warfarin 5 mg PO 4XWK 07/15/20 07/15/20 History Patient History Medical History CHF (congestive heart failure) No pertinent family history Surgical History No pertinent past surgical history Social History Smoking Status: Never smoker Second Hand Exposure: No; Do You Dip or Chew Tobacco: No; Tobacco Cessation Education Requested by Patient: No Hx Alcohol Use: Yes Alcohol type: wine Hx Substance Use: No Preferred Language: Greenlandic Communication Ability: Effective Instrumental Teacher Required: No Beliefs That Will Affect Care: None Current Living Situation: Spouse Current Living Situation Comment: Other Information That Helps Us Care for You: No Feels Safe at Home: Yes Safety Concerns: Feels Safe At This Time Assistive Devices: Hearing Aid - Left, Hearing Aid - Right and Walker Review of Systems Review of Systems: All systems reviewed & are unremarkable except as noted in HPI & below Physical Exam Physical Exam: General exam: Appears comfortable, no acute distress HEENT: Pupils are equal and reactive to light Neck: No JVD, neck is supple trachea is midline Respiratory system: Clear breath sounds bilaterally. Gastrointestinal: Abdomen is soft, non distended, non tender, bowel sounds are present CVS: Regular rate and rhythm. No murmurs, rubs or gallops Musculoskeletal: No joint or muscle tenderness Extremities: Non tender, 1+ edema, peripheral pulses are present Neuro: Oriented, no tremors, no focal neurological deficits Skin: No rashes Results & Data ([facility]) Vital Signs (Past 12 Hours) Vital Signs Temp Pulse Pulse Resp BP Pulse Ox 07/16/20 15:09 36.4 C L 82 16 92/54 L 100 07/16/20 13:06 36.6 C 84 20 124/72 90 07/16/20 08:16 36.6 C 87 20 124/75 93 07/16/20 08:00 78 07/16/20 03:43 36.8 C 90 16 124/75 93 Laboratory Results 07/16/20 05:58 07/15/20 07/15/20 07/16/20 19:53 19:53 05:58 WBC 4.19 L 4.04 L RBC 3.39 L 3.14 L MCV 103.5 H 102.9 H MCH 32.7 32.8 MCHC 31.6 L 31.9 L RDW Std Deviation 63.0 H 62.3 H RDW Coeff of Alan 16.7 H 16.8 H Plt Count 198 187 MPV 10.1 10.4 Albumin 3.2 L
--- NOTE | 2020-07-16 16:38 | Hospitalist Progress Note ---
Date of Service July 16, 2020 Assessment & Plan (1) Cardiorenal syndrome: per cardiology and nephrology recommendations as below. (2) Acute on chronic diastolic (congestive) heart failure: Recent onset dyspnea and orthopnea refractory to outpatient furosemide and metolazone. Cardiology consulted and patient is now responding to intravenous furosemide. Daily lytes, renal function. (3) CKD (chronic kidney disease) stage 4, GFR 15-29 ml/min: at baseline. Chronic nephrotic range proteinuria (4) Moderate aortic stenosis: (5) Atrial flutter, chronic: Rate controlled on metoprolol. INR therapeutic on warfarin. (6) Low back strain: Patient reports trauma to back followed by pain. No evidence of nw neurologic compromise or infection. Reviewed CT scan. Scheduled Tylenol. PRN valium for muscle relaxer as needed for severe pain-no cyclobenzaprine. Myoflex topical sports gel PRN, ICE TID and as tolerated. PT/OT. (7) DVT prophylaxis: Warfarin Full Code Dispo-per PT/OT recommendations. Stephanie Harp DO [facility] Hospitalist Admission and Anticipated Discharge Date Admission Date: July 15, 2020 Subjective cc: decompensated heart failure -patient is feeling better today -describes extreme fatigue with metolazone at home -feels less somnolent -diuresing well with Lasix IV -reports back pain x 10-14 days after injuring it lifting a heavy object. 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 Last surgery was 3-4 years ago and he denies any pain since that time. -he does use Flexeril for the occasional spasm, but states he hasn't tried that this time. -he feels Tylenol works well for him but he didn't want to take anything he wasn't supposed to. Review of Systems Review of Systems: All systems reviewed & are unremarkable except as noted in Subjective Physical Exam Physical Exam: CONSTITUTIONAL: WNWD, vitals as above, generally well- appearing EYES: normal conjunctivae, no scleral icterus ENT: external ear and nose normal, MMM RESPIRATORY: clear to auscultation bilaterally, no crackles, rales or wheezes, normal respiratory effort CARDIOVASCULAR: regular rate and rhythm, S1 and 2 heard without murmurs, gallops or rubs, no JVD, no peripheral edema GASTROINTESTINAL: soft, nontender, nondistended, no guarding MUSCULOSKELETAL: lower back TTP along paraspinal lumbar musculature and around PSIS bilaterally. Decreased sendation/numbness to left thigh and medial calf compared to right leg. Lower extremities strength 5/5 throughout, head is normocephalic and atraumatic SKIN: warm and dry NEUROLOGIC: CN 2-12 grossly intact, sensory deficit as above (chronic), normal cognition, normal speech PSYCHIATRIC: alert cooperative and oriented to person, place and time. Results & Data Results & Data ([facility]) Vital Signs (Past 12 Hours) Vital Signs Temp Pulse Pulse Resp BP Pulse Ox 07/16/20 15:09 36.4 C L 82 16 92/54 L 100 07/16/20 15:00 81 07/16/20 13:06 36.6 C 84 20 124/72 90 07/16/20 08:16 36.6 C 87 20 124/75 93 07/16/20 08:00 78 Laboratory Results Short CBC 07/15/20 07/16/20 Range/Units 19:53 05:58 WBC 4.19 L 4.04 L (4.8-10.8) K/uL Hgb 11.1 L 10.3 L (14.0-18.0) g/dL Hct 35.1 L 32.3 L (42-52) % Plt Count 198 187 (130-400) K/uL BMP 07/15/20 07/16/20 19:53 05:58 Sodium 140 142 Potassium 4.6 4.1 Chloride 107 108 H Carbon Dioxide 29 29 BUN 64 H 66 H Creatinine 3.55 H 3.54 H Glucose 96 95 Calcium 8.8 9.0 Cardiac Enzymes 07/15/20 07/16/20 Range/Units 19:53 06:47 Troponin I 0.151 H* 0.239 H* (0-0.045) ng/ml Liver Function 07/15/20 Range/Units 19:53 Total Bilirubin 0.4 (0.2-1) mg/dl AST 33 (15-37) U/L ALT 32 (12-78) U/L Alkaline Phosphatase 127 H (45-117) U/L Albumin 3.2 L (3.4-5.0) gm/dl Urine 07/15/20 Range/Units 19:38 Urine Color Yellow Urine Appearance Clear (Clear) Urine pH 7.5 (4.5-7.5) Ur Specific Rice 1.013 (1.000-1.030) Urine Protein 3+ H (Negative) Urine Glucose (UA) Negative (Negative) Medications Administered Current Inpatient Medications Acetaminophen (Acetaminophen 325 Mg Tab) 650 mg PO Q4H PRN PRN Reason: Pain or Fever Stop: 08/15/20 01:14 Allopurinol (Allopurinol 300 Mg Tab) 300 mg PO DAILY [facility] Stop: 08/15/20 08:59 Last Admin: 07/16/20 10:04 Dose: 300 mg Documented by: Calcitriol (Calcitriol 0.25 Mcg Capsule) 0.25 mcg PO MoWeFr@0900 [facility] Stop: 08/16/20 08:59 Cyanocobalamin (Cyanocobalamin 500 Mcg Tablet (Vitamin B-12)) 1,000 mcg PO DAILY [facility] Stop: 08/15/20 08:59 Last Admin: 07/16/20 10:03 Dose: 1,000 mcg Documented by: Cyclobenzaprine HCl (Cyclobenzaprine Hcl 10 Mg Tab) 10 mg PO TID PRN PRN Reason: Muscle Spasm Stop: 08/15/20 01:14 Ezetimibe (Ezetimibe 10 Mg Tablet) 10 mg PO DAILY [facility] Stop: 08/15/20 08:59 Last Admin: 07/16/20 10:03 Dose: 10 mg Documented by: Famotidine (Famotidine 20 Mg Tab) 20 mg PO DAILY PRN PRN Reason: Acid Reflux Stop: 08/15/20 01:14 Hydromorphone HCl (Hydromorphone Inj 0.5 Mg/0.5 Ml Syr) 0.25 mg IV Q3H PRN PRN Reason: Pain Stop: 07/30/20 01:14 Promethazine HCl 6.25 mg/ (Sodium Chloride) 50.25 mls @ 201 mls/hr IV Q6H PRN PRN Reason: Nausea And Vomiting Stop: 08/15/20 01:14 Lidocaine (Lidocaine 5% 1 Patch) 1 patch TD HS [facility] Stop: 08/14/20 23:44 Last Admin: 07/16/20 00:14 Dose: 1 patch Documented by: Metoprolol Succinate (Metoprolol Succ 25mg Ext Rel Tab) 12.5 mg PO DAILY [facility] Stop: 08/15/20 08:59 Last Admin: 07/16/20 10:02 Dose: 12.5 mg Documented by: Miscellaneous (Remove Lidoderm Patch) 1 ea N/A QAM [facility] Stop: 08/15/20 08:59 Last Admin: 07/16/20 10:04 Dose: 1 ea Documented by: Multivitamins/Minerals (Cerovite Adv Formula Tab) 1 tab PO DAILY [facility] Stop: 08/15/20 08:59 Last Admin: 07/16/20 10:02 Dose: 1 tab Documented by: Rosuvastatin Calcium (Rosuvastatin Calcium 10 Mg Tab) 10 mg PO HS [facility] Stop: 08/15/20 20:59 Tamsulosin HCl (Tamsulosin Hcl 0.4 Mg Cap) 0.4 mg PO BID [facility] Stop: 08/15/20 08:59 Last Admin: 07/16/20 10:02 Dose: 0.4 mg Documented by: Tramadol HCl (Tramadol Hcl 50 Mg Tablet) 25 - 50 mg PO Q4H PRN PRN Reason: Pain Stop: 08/15/20 01:14 Vitamin B Complex (Vitamin B Complex Tab) 1 tab PO DAILY [facility] Stop: 08/15/20 08:59 Last Admin: 07/16/20 10:01 Dose: 1 tab Documented by: Vitamin D (Cholecalciferol 1,000 Units 25 Mcg Tab) 2,000 units PO DAILY [facility] Stop: 08/15/20 08:59 Last Admin: 07/16/20 10:03 Dose: 2,000 units Documented by:
[2020-07-16] MEDS ORDERED: TROLAMINE SALICYLATE 10% CRM 255 APPLN/85 GM TUBE EXT PRN (16:39)
[2020-07-16] MEDS: ACETAMINOPHEN 500 MG TAB PO SCH (17:07)
[2020-07-16] MEDS: ROSUVASTATIN CALCIUM 10 MG TAB PO SCH (20:50)
[2020-07-16] MEDS: diazePAM 2 MG TABLET PO PRN (20:56)
[2020-07-17] MEDS: ACETAMINOPHEN 500 MG TAB PO SCH ×4 (00:45→14:55)
[2020-07-17 06:46] LABS: INR 1.8 (0.9-1.1); Prothrombin Time 18.6 Seconds (9.0-12.0)
[2020-07-17 07:24] LABS: BUN Creatinine Ratio 17.8 (10-20); Calcium 8.9 mg/dl (8.5-10.1); Creatinine Clr Calc Pharmacy 17.5 ml/min; Est GFR (Non-African American) 14.7; Magnesium 2.3 mg/dl (1.8-2.4)
[2020-07-17] MEDS ORDERED: CALCITRIOL 0.25 MCG CAPSULE PO SCH (09:00)
[2020-07-17] MEDS: VITAMIN B COMPLEX TAB PO SCH (09:41)
[2020-07-17] MEDS: CEROVITE ADV FORMULA TAB PO SCH (09:41)
[2020-07-17] MEDS: EZETIMIBE 10 MG TABLET PO SCH (09:41)
[2020-07-17] MEDS: allopurinoL 300 MG TAB PO SCH (09:41)
[2020-07-17] MEDS: TAMSULOSIN HCL 0.4 MG CAP PO SCH ×2 (09:41→21:39)
[2020-07-17] MEDS: METOPROLOL SUCC 25MG EXT REL TAB PO SCH (09:42)
[2020-07-17] MEDS: CYANOCOBALAMIN 500 MCG TABLET (VITAMIN B-12) PO SCH (09:42)
[2020-07-17] MEDS: CHOLECALCIFEROL 1,000 UNITS 25 MCG TAB PO SCH (09:43)
--- NOTE | 2020-07-17 12:17 | Cardiology Progress Note ---
Date of Service July 17, 2020 Assessment & Plan (1) Acute on chronic diastolic (congestive) heart failure: (2) Cardiorenal syndrome: (3) Atrial flutter, chronic: (4) Moderate aortic stenosis: (5) CKD (chronic kidney disease) stage 4, GFR 15-29 ml/min: Patient improved with IV diuretic therapy. Edema has nearly resolved with 10 pound weight loss since admission. Respiratory status improved. Recommend two- step prior to discharge for assessment of ambulatory oxygen requirements. Afterward, he may be discharged home from a cardiovascular perspective. Titrate outpatient furosemide to 80 mg in the morning, 40 mg in the evening. Close cardiology follow-up in 1 week. Repeat BMP 1 week post discharge. Other cardiovascular medications may be continued as previously ordered. Dose Coumadin for goal INR of 2.0-3.0. Admission and Anticipated Discharge Date Admission Date: July 15, 2020 Subjective Patient seen and examined the bedside. Fluid balance -1400 cc overnight. Feeling much better from a cardiovascular perspective. Edema improved. Orthopnea has resolved. Renal function remained stable. Requesting discharge if possible. Denies chest pain or shortness of breath. Review of Systems Review of Systems: All systems reviewed & are unremarkable except as noted in Subjective Physical Exam Constitutional: well nourished and + ill appearing; no acute distress Respiratory: normal respiratory effort; no respiratory distress, no labored breathing and no retractions Auscultation: no crackles (Scant crackles at the right base), no rales, no rhonchi and no wheezes Cardiovascular: Rate/Rhythm: regular rhythm (With ectopy) Heart Sounds: normal S1, normal S2 and + murmur (3/6 low pitched mid peaking systolic ejection murmur heard best at the righ) Vessels: no JVD and no carotid bruit Extremities: no edema (Stasis changes noted) Gastrointestinal (Abdomen): Inspection/Auscultation: normal bowel sounds; abdomen not distended Percussion/Palpation: abdomen soft; abdomen nontender, no guarding and abdomen not rigid Neurologic: moves all extremities; no focal motor deficits Psychiatric: A+Ox3, euthymic affect Results & Data ([facility]) Vital Signs (Past 12 Hours) Vital Signs Temp Pulse Resp BP Pulse Ox 07/17/20 11:06 36.8 C 73 20 127/74 94 07/17/20 07:30 36.9 C 87 19 120/66 95 07/17/20 04:26 36.5 C 90 18 109/65 94
[2020-07-17] MEDS ORDERED: WARFARIN SOD 5 MG TAB PO SCH (16:00)
--- NOTE | 2020-07-17 16:29 | Hospitalist Progress Note ---
Date of Service July 17, 2020 Assessment & Plan (1) Cardiorenal syndrome: (2) Acute on chronic diastolic (congestive) heart failure: responded well to overnight diuresis. Switched him over to oral furosemide at a slightly higher dose. Making urine and at his baseline creatinine. BMP in one week per Nephro (3) CKD (chronic kidney disease) stage 4, GFR 15-29 ml/min: at baseline. Chronic nephrotic range proteinuria (4) Moderate aortic stenosis: (5) Atrial flutter, chronic: Rate controlled on metoprolol. INR therapeutic on warfarin. (6) Low back strain: Patient reports trauma to back followed by pain. No evidence of new neurologic compromise or infection. Reviewed CT scan. Cont scheduled Tylenol and PRN valium. Myoflex topical sports gel PRN, ICE TID and as tolerated. PT/OT evaluations with his difficulty with ambulation today. (7) DVT prophylaxis: Warfarin Full Code Dispo-per PT/OT recommendations. Stephanie Harp DO [facility] Hospitalist Admission and Anticipated Discharge Date Admission Date: July 15, 2020 Subjective cc: 85 yo M with CHF and cardiorenal syndrome -improved SOB and swelling with overnight diuresis -still having significant back pain/spasms, states the Valium helped as a muscle relaxer, also likes the ice -2 step performed today and although he did well and didn't require home oxygen, he was having a fair amount of back pain with ambulation -PT/OT ordered to evaluate -he otherwise denies any symptoms Review of Systems Review of Systems: All systems reviewed & are unremarkable except as noted in Subjective Physical Exam Physical Exam: CONSTITUTIONAL: WNWD, vitals as above, generally well- appearing EYES: normal conjunctivae, no scleral icterus ENT: external ear and nose normal, MMM RESPIRATORY: clear to auscultation bilaterally, no crackles, rales or wheezes, normal respiratory effort CARDIOVASCULAR: regular rate and rhythm, S1 and 2 heard without murmurs, gallops or rubs, no JVD, no peripheral edema GASTROINTESTINAL: soft, nontender, nondistended, no guarding MUSCULOSKELETAL: lower back TTP along paraspinal lumbar musculature and around PSIS bilaterally-this is improved somewhat today. He has alot of tenderpoints. Decreased sedation/numbness to left thigh and medial calf compared to right leg. Lower extremities strength 5/5 throughout, head is normocephalic and atraumatic SKIN: warm and dry NEUROLOGIC: CN 2-12 grossly intact, sensory deficit as above (chronic), normal cognition, normal speech PSYCHIATRIC: alert cooperative and oriented to person, place and time. Results & Data Results & Data ([facility]) Vital Signs (Past 12 Hours) Vital Signs Temp Pulse Resp BP Pulse Ox 07/17/20 15:44 36.5 C 97 H 18 124/69 07/17/20 11:06 36.8 C 73 20 127/74 94 07/17/20 07:30 36.9 C 87 19 120/66 95 Laboratory Results BMP 07/17/20 06:21 Sodium 142 Potassium 4.0 Chloride 106 Carbon Dioxide 29 BUN 64 H Creatinine 3.59 H Glucose 92 Calcium 8.9 Medications Administered Current Inpatient Medications Acetaminophen (Acetaminophen 500 Mg Tab) 1,000 mg PO Q8@0000,0800,1600 [facility] Stop: 08/15/20 16:44 Last Admin: 07/17/20 14:55 Dose: 1,000 mg Documented by: Allopurinol (Allopurinol 300 Mg Tab) 300 mg PO DAILY [facility] Stop: 08/15/20 08:59 Last Admin: 07/17/20 09:41 Dose: 300 mg Documented by: Calcitriol (Calcitriol 0.25 Mcg Capsule) 0.25 mcg PO MoWeFr@0900 [facility] Stop: 08/16/20 08:59 Last Admin: 07/17/20 09:40 Dose: 0.25 mcg Documented by: Cyanocobalamin (Cyanocobalamin 500 Mcg Tablet (Vitamin B-12)) 1,000 mcg PO DAILY [facility] Stop: 08/15/20 08:59 Last Admin: 07/17/20 09:42 Dose: 1,000 mcg Documented by: Diazepam (Diazepam 2 Mg Tablet) 2 mg PO BID PRN PRN Reason: back spasm/pain Stop: 08/15/20 16:39 Last Admin: 07/17/20 21:39 Dose: 2 mg Documented by: Ezetimibe (Ezetimibe 10 Mg Tablet) 10 mg PO DAILY [facility] Stop: 08/15/20 08:59 Last Admin: 07/17/20 09:41 Dose: 10 mg Documented by: Famotidine (Famotidine 20 Mg Tab) 20 mg PO DAILY PRN PRN Reason: Acid Reflux Stop: 08/15/20 01:14 Furosemide (Furosemide 80 Mg Tab) 80 mg PO QAM [facility] Stop: 08/17/20 08:59 Furosemide (Furosemide 40 Mg Tab) 40 mg PO DAILY@1700 [facility] Stop: 08/16/20 16:59 Last Admin: 07/17/20 17:17 Dose: 40 mg Documented by: Promethazine HCl 6.25 mg/ (Sodium Chloride) 50.25 mls @ 201 mls/hr IV Q6H PRN PRN Reason: Nausea And Vomiting Stop: 08/15/20 01:14 Lidocaine (Lidocaine 5% 1 Patch) 1 patch TD [facility] Stop: 08/14/20 23:44 Last Admin: 07/17/20 21:39 Dose: 1 patch Documented by: Metoprolol Succinate (Metoprolol Succ 25mg Ext Rel Tab) 12.5 mg PO DAILY [facility] Stop: 08/15/20 08:59 Last Admin: 07/17/20 09:42 Dose: 12.5 mg Documented by: Miscellaneous (Remove Lidoderm Patch) 1 ea N/A [facility] Stop: 08/15/20 08:59 Last Admin: 07/17/20 09:43 Dose: 1 ea Documented by: Multivitamins/Minerals (Cerovite Adv Formula Tab) 1 tab PO DAILY [facility] Stop: 08/15/20 08:59 Last Admin: 07/17/20 09:41 Dose: 1 tab Documented by: Rosuvastatin Calcium (Rosuvastatin Calcium 10 Mg Tab) 10 mg PO [facility] Stop: 08/15/20 20:59 Last Admin: 07/17/20 21:38 Dose: 10 mg Documented by: Tamsulosin HCl (Tamsulosin Hcl 0.4 Mg Cap) 0.4 mg PO BID [facility] Stop: 08/15/20 08:59 Last Admin: 07/17/20 21:39 Dose: 0.4 mg Documented by: Trolamine Salicylate (Trolamine Salicylate 10% Crm 255 Appln/85 Gm Tube) 1 appln EXT TID PRN PRN Reason: back pain Stop: 08/15/20 16:38 Vitamin B Complex (Vitamin B Complex Tab) 1 tab PO DAILY [facility] Stop: 08/15/20 08:59 Last Admin: 07/17/20 09:41 Dose: 1 tab Documented by: Vitamin D (Cholecalciferol 1,000 Units 25 Mcg Tab) 2,000 units PO DAILY [facility] Stop: 08/15/20 08:59 Last Admin: 07/17/20 09:43 Dose: 2,000 units Documented by: Warfarin Sodium (Warfarin Sod 5 Mg Tab) 5 mg PO DAILY@1600 [facility] Stop: 08/16/20 15:59 Last Admin: 07/17/20 14:53 Dose: 5 mg Documented by:
[2020-07-17] MEDS ORDERED: FUROSEMIDE 40 MG TAB PO SCH (17:00)
--- NOTE | 2020-07-17 19:08 | Nephrology Progress Note ---
Date of Service July 17, 2020 Assessment & Plan (1) CKD (chronic kidney disease) stage 4, GFR 15-29 ml/min: Patient with CKD stage IV with nephrotic range proteinuria for several years>> baseline creatinien about 3-3.5. Patient is close to needing dialysis although no indication for dialysis at the moment. He is okay with dialysis if needed. Patient is making urine and responding well to diuresis. Renal function remains just above baseline. for possible d/c in am he tells me -Daily BMP -Monitor input output >>needs f/u appt w/ me w/in 2 wks of d/c -bmp w/in a week of d/c (2) Acute on chronic diastolic (congestive) heart failure: Patient with acute on chronic diastolic CHF likely due to dietary indiscretion. He failed outpatient diuretic regimen. now 1.8 L negative as of this am and has diuresed 5+ kg -agree w/ cardiology po diuretic regimen 80/40 -Monitor daily standing weight Admission and Anticipated Discharge Date Admission Date: July 15, 2020 Subjective seen on late afternoon rounds about 1640; on RA; c/o back strain/pain; did 2 step and no home 02 needed; confused ; also c/o PND/sinus L frontal pressure (chronic) Review of Systems Review of Systems: All systems reviewed & are unremarkable except as noted in Subjective Physical Exam Constitutional: well developed and well nourished; no acute distress Eyes: EOM intact bilaterally ENMT: Ears: no external ear abnormality Nose: no external nose abnormality Mouth: + dry oral mucous membranes Neck: no nuchal rigidity Respiratory: normal respiratory effort Auscultation: lungs clear to auscultation bilaterally and + diminished lung sounds Cardiovascular: Rate/Rhythm: regular rate and regular rhythm Heart Sounds: + murmur Extremities: + edema (trace ble) Gastrointestinal (Abdomen): Inspection/Auscultation: normal bowel sounds Percussion/Palpation: abdomen soft; abdomen nontender Musculoskeletal: Extremities: strength 5/5 throughout Skin: no rashes, warm and dry Neurologic: cabral, fluent speech, no tremor Psychiatric: Orientation: alert, oriented to person, oriented to place and cooperative Apperance: appropriately dressed Eye Contact: good eye contact Affect: + anxious affect Mood: + anxious mood Insight: + limited insight Judgement: + limited judgement Genitourinary: no pop Results & Data ([facility]) Vital Signs (Past 12 Hours) Vital Signs Temp Pulse Pulse Pulse Pulse Resp Resp 07/17/20 16:26 96 H 91 H 91 H 20 07/17/20 15:44 36.5 C 97 H 18 07/17/20 11:06 36.8 C 73 20 07/17/20 07:30 36.9 C 87 19 Resp Resp BP Pulse Ox Pulse Ox Pulse Ox Pulse Ox 07/17/20 16:26 18 18 91 92 93 07/17/20 15:44 124/69 07/17/20 11:06 127/74 94 07/17/20 07:30 120/66 95
[2020-07-17] MEDS: ROSUVASTATIN CALCIUM 10 MG TAB PO SCH (21:38)
[2020-07-17] MEDS: diazePAM 2 MG TABLET PO PRN (21:39)
[2020-07-17] MEDS: LIDOCAINE 5% 1 PATCH TD SCH (21:39)
[2020-07-18] MEDS: ACETAMINOPHEN 500 MG TAB PO SCH ×2 (00:39→08:24)
[2020-07-18 07:37] LABS: BUN Creatinine Ratio 17.5 (10-20); Calcium 9.4 mg/dl (8.5-10.1); Creatinine Clr Calc Pharmacy 18.7 ml/min; Est GFR (African American) 18.4; Est GFR (Non-African American) 15.9; Potassium 4.2 mmol/L (3.5-5.1)
[2020-07-18] MEDS: CYANOCOBALAMIN 500 MCG TABLET (VITAMIN B-12) PO SCH (08:24)
[2020-07-18] MEDS: EZETIMIBE 10 MG TABLET PO SCH (08:24)
[2020-07-18] MEDS: CHOLECALCIFEROL 1,000 UNITS 25 MCG TAB PO SCH (08:24)
[2020-07-18] MEDS: allopurinoL 300 MG TAB PO SCH (08:24)
[2020-07-18] MEDS: CEROVITE ADV FORMULA TAB PO SCH (08:24)
[2020-07-18] MEDS: VITAMIN B COMPLEX TAB PO SCH (08:25)
[2020-07-18] MEDS: METOPROLOL SUCC 25MG EXT REL TAB PO SCH (08:25)
[2020-07-18] MEDS: TAMSULOSIN HCL 0.4 MG CAP PO SCH (08:25)
[2020-07-18] MEDS ORDERED: FUROSEMIDE 80 MG TAB PO SCH (09:00)
--- NOTE | 2020-07-18 11:28 | Discharge Summary ---
Date of Service July 18, 2020 Admission HPI Per Admitting Provider History obtained from patient and records. Medical history significant for chronic diastolic heart failure (EF 54%, TTE 2019), CAD status post CABG, valvular heart disease (mild /AR, mild to moderate MR, mild TR), HTN, atrial flutter/history of DVT on Coumadin, pulmonary hypertension as per records, CRI (baseline creatinine 3.5), chronic back pain status post surgery, chronic anemia (baseline hemoglobin 10-11), prostate cancer status post radiation, past tobacco abuse. Patient seen at [facility] Cardiology office on follow-up visit about 3 weeks ago on follow-up for decompensated heart failure. Improved volume status with titration of diuretics as per documentation. Low-dose beta-argelia started for history atrial flutter. Labs to be reviewed with nephrology for possible cardiorenal syndrome as per documentation. Outpatient CXR showed mild pulmonary edema and small bilateral pleural effusions. Irregular densities left lung may represent calcified pleural plaques. Consider follow-up chest CT for further evaluation if clinically indicated. Patient noted worsening shortness of breath on exertion the last few days despite compliance with diuretic Rx and fluid restriction. Admits to some dietary indiscretion 'because of the holidays' as per patient. Fluid retention, no dramatic weight gain as per patient. No chest pain. No cough symptoms. Worsening back pain. Patient given IV Lasix at the ER for decompensated heart failure. Gross hematuria noted at the ER post Dc catheter placement attempts. Medical History as above Surgical History : Shoulder surgery, hip replacement, back surgery, urologic procedure Family History : Stroke, pancreatic cancer, heart disease Personal/Social history : Past tobacco abuse, occasional EtOH intake, retired [employer] Admission Exam Per Admitting Provider GENERAL: uncomfortable, pleasant, obese, minimal respiratory distress SKIN: Pallor, warm HEENT: Pale palpebral conjunctivae, no ptosis, dry buccal mucosa NECK : Supple, no tenderness CHEST : Decreased breath sounds, no tenderness HEART : Irregular, systolic murmur ABDOMEN: Some distention, nontender BACK : Tenderness right low back EXTREMITIES : Bilateral LE swelling, no LE tenderness, no other conspicuous deformities noted NEUROLOGIC : Coherent, no facial asymmetry, no other gross focality Principal Diagnosis Acute on chronic diastolic heart failure exacerbation Cardiorenal syndrome Acute back sprain CKD Stage IV Discharge Exam CONSTITUTIONAL: WNWD, vitals as above, generally well-appearing EYES: normal conjunctivae, no scleral icterus ENT: external ear and nose normal, MMM RESPIRATORY: clear to auscultation bilaterally, no crackles, rales or wheezes, normal respiratory effort CARDIOVASCULAR: regular rate and rhythm, S1 and 2 heard without murmurs, gallops or rubs, no JVD, no peripheral edema GASTROINTESTINAL: soft, nontender, nondistended, no guarding MUSCULOSKELETAL: numbness to right leg, moves all extremities equally, ambulates with walker at his baseline with physical therapy. SKIN: warm and dry NEUROLOGIC: CN 2-12 grossly intact, sensory deficit as above (chronic), normal cognition, normal speech PSYCHIATRIC: alert cooperative and oriented to person, place and time. Discharge Data Allergies Allergy/AdvReac Type Severity Reaction Status Date / Time amlodipine [From [facility]] Allergy Intermediate Edema Verified 07/15/20 21:54 bismuth subsalicylate Allergy Unknown Unknown Verified 07/15/20 21:54 naproxen AdvReac Mild GI UPSET, Verified 07/15/20 21:54 HODGES THROAT Consultations 07/15/20 21:09 ED Decision to Admit Stat 07/16/20 01:15 Consult Cardiology Routine 07/16/20 06:09 Consult Nephrology Routine Ordered Studies 07/15/20 23:46 CT abd pelvis wo con Urgent Hospital Course (1) Cardiorenal syndrome: Intravenous diuretic therapy started and was very effective overnight with resolution of peripheral edema and a 10 lb weight loss. Respiratory status improved. Oral Lasix was adjusted to 80mg qAM and 40mg qPM. Nephrology was consulted and monitored his status during this hospitalization. (2) Acute on chronic diastolic (congestive) heart failure: as above. (3) Low back strain: Patient reports trauma to back followed by pain. No evidence of new neurologic compromise or infection. Reviewed CT scan which revealed no acute lumbar spinal fracture, post operative state s/p L3-5 posterior decompression bilateral pedicle screw fusion, levoscoliosis, extensive osteophytosis at the right L1-2 level with bony erosion and sclerotic margins. The erosion appeared chronic and likely degenerative. Chronic osteomyelitis was in the differential diagnosis but was considered less likely. There was no suspicion of infection without fevers, chills, and with the history of a recent traumatic strain so MRI was not performed. He was placed on scheduled Tylenol with PRN Valium. He admittedly had not used cyclobenzaprine for this pain at home. He felt this was helpful for him in conjunction with Myoflex topical sports gel PRN, ICE TID and as tolerated. Physical therapy evaluated him prior to discharge and he was ambulating at his baseline with a walker. Outpatient PCP followup recommended. May benefit from an outpatient PT regimen. (4) CKD (chronic kidney disease) stage 4, GFR 15-29 ml/min: at baseline. Chronic nephrotic range proteinuria (5) Atrial flutter, chronic: Rate controlled on metoprolol. INR therapeutic on warfarin. At time of discharge he was mentating and ambulating at baseline and was tolerating PO. His original symptoms were improved and he was oxygenating well on room air, having passed a two step respiratory test. He was hemodynamically stable and afebrile and was sent home in stable condition with close primary care followup recommeded. Total Time Total Time Spent Total Time Spent (In Minutes): 60 Total Time Includes: Examination of the Patient, Discharge Planning, Medication Reconciliation and Communication With Other Providers Discharge Plan Discharge Items Patient Disposition: Home - Home Health Services Reason For Visit: CHF Discharge Diagnosis: Acute on chronic diastolic heart failure exacerbation Cardiorenal syndrome Acute back sprain CKD Stage IV Condition on Discharge: Good Activity: Resume your previous activity Non-emergency contact: Primary Care Provider Call non-emergency contact if: you have any medication questions, your symptoms worsen, your pain is not controlled, your pain is worsening, your pain is unusual for you, your pain is concerning for you and you have a fever Follow-up/Referrals: Justina Rogers DO [Primary Care Provider] - 07/20/20 12:20 pm Diet: Heart Healthy Fluids: 2000ml (8 cups) Addtl Attending Provider Instructions: Please take all medications as instructed below. Please note the change in your FUROSEMIDE dosage. Per Dr. Johnson's request, please have your primary care physician (PCP) order each BASIC METABOLIC PANEL and cc the results to Dr. Stephy Figueroa. It is recommended that you follow-up with your PCP within one week of discharge. You are currently scheduled at the following time and date: 07/20/2020 12:20 P Justina Rogers DO [facility] It is recommended that you continue taking TYLENOL (ACETAMINOPHEN) 1000mg every 8 hours for the next week. DO NOT EXCEED 3000MG (3 GRAMS) IN 24 HOURS. Additionally, continue using Biofreeze and ice as tolerated and consider an outpatient scheduled physical therapy regimen. Please follow-up closely with your anticoagulation clinic some time in the next week to recheck your INR level for goal 2-3. It was a pleasure taking care of you! Please call if you have any questions or problems. You can reach a [facility] hospitalist on duty at [facility] 24 hours a day by calling [phone]. Take care of yourself. Stephanie Harp, [facility] Pending Studies at Discharge: No Stand-Alone Forms: My [facility] Medications and DC Order Prescriptions: New furosemide 40 mg Tablet 40 mg PO DAILY@1700 Qty: 30 RF: 1 furosemide 80 mg Tablet 80 mg PO QAM Qty: 30 RF: 1 Continued tamsulosin 0.4 mg capsule 0.4 mg PO BID RF: 0 allopurinol 300 mg tablet 300 mg PO DAILY RF: 0 metoprolol succinate 25 mg tablet extended release 24 hr 12.5 mg PO DAILY RF: 0 ezetimibe 10 mg tablet 10 mg PO DAILY RF: 0 rosuvastatin 10 mg tablet 10 mg PO HS RF: 0 calcitriol 0.25 mcg capsule 0.25 mcg PO 3XWK RF: 0 cyclobenzaprine 10 mg Tablet 10 mg PO TID PRN (Reason: Muscle Spasm) RF: 0 cyanocobalamin (vitamin B-12) [Vitamin B-12] 1,000 mcg Tablet 1,000 mcg PO DAILY RF: 0 acetaminophen 500 mg Tablet 500 mg PO Q6H PRN (Reason: Pain) RF: 0 famotidine 20 mg Tablet 20 mg PO DAILY PRN (Reason: Acid Reflux) RF: 0 warfarin 5 mg Tablet 5 mg PO 4XWK RF: 0 warfarin 5 mg Tablet 2.5 mg PO 3XWK RF: 0 multivitamin,ci-jvll-Dx-FA-min Tablet 1 tab PO DAILY RF: 0 cholecalciferol (vitamin D3) [Vitamin D3] 50 mcg (2,000 unit) Capsule 50 mcg PO DAILY RF: 0 vitamin B complex Capsule 1 cap PO DAILY RF: 0 amoxicillin 500 mg capsule See Rx Instructions .ROUTE .COMPLEX PRN (Reason: Prior to Dental Appointments) RF: 0 Discontinued furosemide 40 mg tablet 40 mg PO BID RF: 0 Discharge Orders: Discharge Order (Routine); Ordered 07/18/20 Ordered By: Stephanie Jones/Other Patient Handouts: Heart Failure: Tracking Your Weight, Heart Failure Dc Admission Data Admit Date/Time: 07/15/20 23:50 Attending Provider: Stephanie Harp Admit Provider: Rajiv Mcmahon Primary Care Provider: Justina Rogers Other Providers: Jesse Camarena Japheth E. Other Interventions: Discharge Summary Assessment (RN) Last Done: 07/18/20 11:38
== END 2020-07-18 12:05 | disposition home health service (06) | DRG 291 ==
LOC: ED 19:12 → 2S 23:50

== ENCOUNTER 2022-11-25 20:35 | Inpatient (IN) ==
[2022-11-25] MEDS ORDERED: fentaNYL citrate PF 100 MCG/2 ML VIAL IV STA (21:42)
[2022-11-25] MEDS ORDERED: ONDANSETRON INJ 2 MG/ML 2 ML VIAL IV STA (21:42)
[2022-11-25 22:13] LABS: Basophils # (auto) 0.03 K/uL (0-0.2); Basophils % (auto) 0.6 %; Eosinophils # (auto) 0.09 K/uL (0-0.50); Eosinophils % (auto) 1.9 %; Hematocrit (blood only) 32.9 % (42.0-52.0); Hemoglobin 10.8 g/dl (14.0-18.0); Immature Granulocytes # (auto) 0.04 K/uL (0.01-0.20); Immature Granulocytes % (auto) 0.8 %; Lymphocytes % (auto) 14.6 %; Mean Corpuscular Hemoglobin 33.6 pg (25.0-34.0); Mean Corpuscular Hgb Conc 32.8 g/dL (32.0-36.0); Mean Corpuscular Volume 102.5 fL (80.0-100.0); Mean Platelet Volume 10.9 fL (9.4-12.4); Monocytes # (auto) 0.38 K/uL (0.11-0.59); Monocytes % (auto) 7.9 %; Neutrophils # (auto) 3.57 K/uL (1.40-6.50); Neutrophils % (auto) 74.2 %; Platelet Count 189 K/uL (130-400); RDW Coefficient of Variation 15.9 % (11.5-14.5); Red Blood Count 3.21 M/uL (4.70-6.10); White Blood Count 4.81 K/ul (4.8-10.8)
[2022-11-25 22:28] LABS: Albumin Globulin Ratio 1.3 (0.9-2); Albumin Level 3.8 gm/dl (3.4-5.0); BUN Creatinine Ratio 17.7 (10-20); Bilirubin,Total 0.5 mg/dl (0.2-1.0); Calcium 8.9 mg/dl (8.6-10.3); Creatinine Clr Calc Pharmacy 14.2 ml/min; Est GFR (African American) 13.3 ml/min; Est GFR (Non-African American) 11.4 ml/min; Potassium 4.7 mmol/L (3.5-5.1); Total Protein 6.8 gm/dl (6.0-8.3)
[2022-11-25 22:43] LABS: INR 2.7 (0.9-1.1); Prothrombin Time 27.5 Seconds (9.0-12.0)
--- NOTE | 2022-11-25 22:43 | CT Scan Report ---
Exam(s): CT L SPINE EXAM: CT Lumbar Spine Without Intravenous Contrast CLINICAL HISTORY: Trauma. TECHNIQUE: Axial computed tomography images of the lumbar spine without intravenous contrast. Automated exposure control was utilized for the study. A dose lowering technique was utilized adhering to the principles of ALARA. COMPARISON: No relevant prior studies available. FINDINGS: Vertebrae: No definite acute osseous traumatic injury. There is scoliosis, convex left, centered at the L3 vertebral body level with the modified Mendoza angle measuring 30 between the superior endplate of T12 and the superior endplate of L5. There is partial degenerative fusion of the right lateral L2-3 intervertebral disc. There is severe degenerative changes at L1-2. There is moderately severe degenerative changes at T12- L1 and mild degenerative changes of the L1-2. Discs/spinal canal/neural foramina: There is posterior fusion with pedicle screws and paraspinal rods from L3-L5 levels. Interbody cages noted at L4-5 level. Laminectomy defects are identified at these levels. Evaluation the central canal is limited without intrathecal contrast. However, there is suggestion of some canal narrowing at L1-2 level secondary to annular disc bulge and facet hypertrophic changes with a trefoil appearance. There is at least moderate osseous neural foraminal encroachment suggested involving the right L1-2 neural foramina. Soft tissues: No significant acute paraspinal soft tissue abnormality identified. IMPRESSION: 1. No acute osseous traumatic injury involving the lumbar spine. Postsurgical changes from L3-L5 with posterior fusion and laminectomies noted. 3. Multilevel chronic disc spondylosis, most severe at L1-2 level. Scoliosis, convex left. Chronic canal narrowing and neural foraminal encroachment, as noted above. No acute component suspected. Electronically signed by: Sam Baldwin MD 11/25/22 22:43 PM
--- NOTE | 2022-11-25 22:45 | CT Scan Report ---
Exam(s): CT C SPINE EXAM: CT Cervical Spine Without Intravenous Contrast CLINICAL HISTORY: Trauma. TECHNIQUE: Axial computed tomography images of the cervical spine without intravenous contrast. Automated exposure control was utilized for the study. A dose lowering technique was utilized adhering to the principles of ALARA. COMPARISON: No relevant prior studies available. FINDINGS: Vertebrae: The vertebral bodies are intact without acute osseous traumatic injury. No anterolisthesis or retrolisthesis is identified. The facet joints are well aligned without subluxation or dislocation. The pedicles, transverse processes and spinous processes are intact. Facet hypertrophic changes noted at several levels, chronic in appearance. Discs/spinal canal/neural foramina: Disc space narrowing with marginal hypertrophic changes noted from C3-4 through C6-7. No acute osseous canal narrowing noted. Chronic appearing osseous neural foraminal encroachment noted at several levels bilaterally. Soft tissues: Unremarkable. IMPRESSION: No acute osseous traumatic injury or significant abnormal alignment involving the cervical spine. Incidental multilevel chronic degenerative changes. Electronically signed by: Sam Baldwin MD 11/25/22 22:44 PM
--- NOTE | 2022-11-25 22:47 | CT Scan Report ---
Exam(s): CT HEAD Without Contrast EXAM: CT Head Without Intravenous Contrast CLINICAL HISTORY: Trauma. TECHNIQUE: Axial computed tomography images of the head/brain without intravenous contrast. Automated exposure control was utilized for the study. A dose lowering technique was utilized adhering to the principles of ALARA. COMPARISON: No relevant prior studies available. FINDINGS: Brain: No intracranial hemorrhage. No significant mass effect. No cortical infarct. Underlying parenchymal involutional changes and periventricular deep white matter hypodense changes noted. Ventricles: Unremarkable. No ventriculomegaly. Bones/joints: Unremarkable. No acute fracture. Soft tissues: No significant overlying acute traumatic soft tissue abnormality. No radiopaque foreign body. Sinuses: Unremarkable as visualized. No acute sinusitis. Mastoid air cells: Unremarkable as visualized. No mastoid effusion. IMPRESSION: No acute intracranial process identified. Chronic underlying presumed incidental age-related findings, as noted above. Electronically signed by: Sam Baldwin MD 11/25/22 22:46 PM
[2022-11-25] MEDS ORDERED: XYLOCAINE 1%/SOD BICARB 20 ML VIAL INFIL ONE (23:05)
--- NOTE | 2022-11-25 23:23 | Emergency Department Note ---
Impression & Plan Accidental fall, Low back strain, CHI (closed head injury), Laceration of left ear, Skin tear of left forearm without complication ED Provider Note INFORMANT: Patient and ED PROVIDER(S): Oral Maurice MD CHIEF COMPLAINT: Fall PLAN: Disposition: Admitted Condition: Good Outpatient prescription management: none Referral: None MEDICAL DECISION MAKING: Patient presented because of a fall. He had a laceration to the left ear and skin tear noted on the left arm. No bony deformity of the left arm. Patient underwent head CT and neck CT imaging. This was negative. Patient had low back pain and spasms as well. He has had a problem with spasms in the past per the and patient. He was treated with a dose of fentanyl. He was also noted prior to that to have fluctuating O2 levels. Patient was placed on nasal cannula oxygen. Patient has significant degenerative changes and postsurgical changes in the lumbar spine but no evidence of acute fracture per radiology. Patient was barely able to ambulate but had significant hypoxia with this. I discussed the issue with the patient's and patient. I do not believe the patient will be safe for discharge given the oxygen level. I believe is related to his CHF. On record review the patient does have a significant cardiac history. I discussed this with the and patient and the was in agree ment. Eventually the patient agreed to stay in the hospital. Chest x-ray does show cardiomegaly and CHF. No pneumothorax. [facility] was evaluated and admitted for further management. Patient's skin tears and ear laceration closed by my PA Jesus Manuel. Please see his note. Discussed with manager consumer After review of the information above and other included data, I feel the patient requires admission Triage Nursing notes reviewed and agree them. Vital Signs: reviewed and remarkable for hypoxia. Prior /Outside records reviewed: Prior cardiology admission record reviewed. Differential diagnosis: Fracture, dislocation, contusion, intra-abdominal, pneumothorax, intrathoracic, intracranial, neurologic, compartment syndrome, rhabdomyolysis, as well as other pathologies. Diagnostics, as interpreted by me: ECG: Twelve-lead ECG reveals atrial fibrillation at 72 bpm. Left axis deviation left bundle branch block. No ST elevation. Cardiac Monitoring: Cardiac monitoring ordered by me: The patient was placed on continuous cardiac monitoring and observed. It revealed a atrial fibrillation at 95 beats per minute. Medical decision rules: none Imaging studies: CT scan of the head, neck and lumbar spine negative for acute trauma. Chest x-ray reveals cardiomegaly and mild pulmonary edema. HPI: The patient is a 87year old male who presents to the Emergency Room with complaints of a fall. This started just prior to arrival and is described as accidental. Patient states his walker caught on the sidewalk and he fell over. He struck the left side of his head.. The patient also notes the following associated symptoms, low back pain in the lumbar region, laceration to the left ear, and skin tears on the left forearm. The patient has had a c-collar placed and dressings applied to the wounds for relieving factors. Current pain is rated as 9/10. Patient states his back feels like it spasming. He notes having a problem with back spasms. He normally takes Flexeril. Pt denies LOC, headache, visual changes, neck pain, chest pain, breathing difficulties, nausea, vomiting, abdominal pain, extremity pain, numbness, weakness, active bleeding, or other complaints. PAST MEDICAL HISTORY: See Below, CHF, CKD PAST SURGICAL HISTORY: See Below, lumbar fusion x2 SOCIAL HISTORY: See Below, HOME MEDICATIONS: See Below ALLERGIES: See Below VITALS: See Below PHYSICAL EXAMINATION: GENERAL: Awake, alert, uncomfortable appearing, mild distress HEAD: Normocephalic, atraumatic. No stephens sign. No raccoon eyes. EYES: Normal conjunctiva. PERRL. EARS: Contusion and laceration noted the left pinna. NOSE: Atraumatic OROPHARYNX: Lips, tongue, and mucosa unremarkable. No erythema or exudate. NECK: Inspection normal. No tracheal deviation or JVD. No posterior midline tenderness. No step offs noted. Cervical collar in place RESPIRATORY: CTA bilaterally. Breath sounds equal. No wheezes. No rhonchi. Normal respiratory effort. CARDIAC: Reg rate, irregular rhythm. No murmurs. No rubs. ABDOMEN: Inspection reveals no abnormalities. Soft, non distended. No tenderness to palpation. No hernias. BACK: No midline step offs but moderate tenderness to palpation. Unremarkable. PELVIS: Stable to rock. SKIN: Normal. LYMPH: No adenopathy. MUSCULOSKELETAL: Upper and lower extremities are atraumatic. 2-3+ lower extremity edema which patient states is chronic. NEURO: GCS 15. Normal sensorium. No sensory or motor deficits noted. Past Med/Surg History Medical History CHF (congestive heart failure) Decompensated heart failure No pertinent family history Surgical History No pertinent past surgical history Social History Smoking Status: Former smoker Tobacco Type: Smokeless Tobacco (Dip or Chew) Second Hand Exposure: No; Do You Dip or Chew Tobacco: No; Hx Alcohol Use: Yes Alcohol type: wine Hx Substance Use: No Preferred Language: Burkinan Communication Ability: Effective Hearing Ability: Use of Hearing Aid Central Services Tech Required: No Beliefs That Will Affect Care: None marital status: Current Living Situation: Spouse Current Living Situation Comment: Feels Safe at Home: Yes Diet: low salt caffeine: Yes during the past year weight has: remained stable Assistive Devices: Glasses and Hearing Aid - Bilateral Allergies Allergies Allergy/AdvReac Type Severity Reaction Status Date / Time amlodipine [From [facility]] Allergy Intermediate Edema Verified 11/26/22 03:03 bismuth subsalicylate Allergy Unknown Unknown Verified 11/26/22 03:03 naproxen AdvReac Mild GI UPSET, Verified 11/26/22 03:03 HODGES THROAT Home Meds Home Medications Medication Instructions Recorded Confirmed acetaminophen 500 mg tablet 500 mg PO Q6H PRN Pain 07/15/20 11/26/22 amoxicillin 500 mg capsule See Rx Instructions .Route 07/15/20 11/26/22 .COMPLEX PRN Prior to Dental Appointments cholecalciferol (vitamin D3) 50 50 mcg PO DAILY 07/15/20 11/26/22 mcg (2,000 unit) capsule (Vitamin D3) cyclobenzaprine 10 mg tablet 10 mg PO TID PRN Muscle Spasm 07/15/20 11/26/22 ezetimibe 10 mg tablet 10 mg PO DAILY 07/15/20 11/26/22 famotidine 20 mg tablet 20 mg PO DAILY PRN Acid Reflux 07/15/20 11/26/22 metoprolol succinate 25 mg 12.5 mg PO DAILY 07/15/20 11/26/22 tablet,extended release 24 hr multivitamin,oc-xest-Ai-FA-min 1 tab PO DAILY 07/15/20 11/26/22 rosuvastatin 10 mg tablet 10 mg PO HS 07/15/20 11/26/22 tamsulosin 0.4 mg capsule 0.4 mg PO BID 07/15/20 11/26/22 warfarin 5 mg tablet 5 mg PO DIRECTED 07/15/20 11/26/22 furosemide 80 mg tablet 80 mg PO BID 10/04/22 11/26/22 allopurinol 100 mg tablet 200 mg PO QAM 11/26/22 11/26/22 ceramides 1,3,6-II (CeraVe topical 1 applic topical DIRECTED PRN 11/26/22 11/26/22 cream) .affected area diclofenac sodium 1 % topical gel 1 ea topical BID PRN .back pain, 11/26/22 11/26/22 muscle pain melatonin 5 mg tablet 5 mg PO HS PRN Sleep 11/26/22 11/26/22 montelukast 10 mg tablet 10 mg PO QPM 11/26/22 11/26/22 triamcinolone acetonide 0.1 % 1 applic topical BID PRN .itchy 11/26/22 11/26/22 topical ointment legs Results & Data (ED) Vital Signs Vital Signs - 24 hr 11/25/22 20:43 11/25/22 21:12 11/26/22 01:23 Temperature 36.4 C L Temperature Source Oral Pulse Rate 78 76 96 H Pulse Rate [Apical] Blood Pressure 132/75 Blood Pressure Mean 94 Pulse Oximetry 92 Oxygen Delivery Method Room Air Oxygen Flow Rate Sepsis Recent Fever Within 48 Hours No Sepsis New/Unexplained Change in Mental Status No Sepsis Action Taken by Nursing No Action Required 11/26/22 02:30 11/26/22 02:35 Temperature Temperature Source Pulse Rate 90 Pulse Rate [Apical] 95 H Blood Pressure Blood Pressure Mean Pulse Oximetry 81 L 94 Oxygen Delivery Method Room Air Nasal Cannula Oxygen Flow Rate 3 4 Sepsis Recent Fever Within 48 Hours Sepsis New/Unexplained Change in Mental Status Sepsis Action Taken by Nursing Laboratory Data 11/25/22 20:50 11/25/22 20:50 Lab Results 11/25/22 11/25/22 11/25/22 Range/Units 20:50 20:50 20:50 WBC 4.81 (4.8-10.8) K/ul RBC 3.21 L (4.70-6.10) M/uL Hgb 10.8 L (14.0-18.0) g/dl Hct 32.9 L (42.0-52.0) % MCV 102.5 H (80.0-100.0) fL MCH 33.6 (25.0-34.0) pg MCHC 32.8 (32.0-36.0) g/dL RDW Std Deviation 60.0 H (36.4-46.3) fL RDW Coeff of Alan 15.9 H (11.5-14.5) % Plt Count 189 (130-400) K/uL MPV 10.9 (9.4-12.4) fL Immature Gran % (Auto) 0.8 % Neut % (Auto) 74.2 % Lymph % (Auto) 14.6 % Livingston % (Auto) 7.9 % Eos % (Auto) 1.9 % Baso % (Auto) 0.6 % Neut # (Auto) 3.57 (1.40-6.50) K/uL Lymph # (Auto) 0.70 L (1.2-3.4) K/uL Livingston # (Auto) 0.38 (0.11-0.59) K/uL Eos # (Auto) 0.09 (0-0.50) K/uL Baso # (Auto) 0.03 (0-0.2) K/uL Immature Gran # (Auto) 0.04 (0.01-0.20) K/uL PT 27.5 H (9.0-12.0) Seconds INR 2.7 H (0.9-1.1) ABG pH (7.35-7.45) ABG pCO2 (35-46) mmHg ABG pO2 (80-95) mmHg ABG HCO3 (19-24) mmol/L ABG O2 Saturation (90-95) % ABG Base Excess (-9-1.8) mEq/L Sodium 134 L (136-145) mmol/L Potassium 4.7 (3.5-5.1) mmol/L Chloride 97 L (98-107) mmol/L Carbon Dioxide 27 (21-32) mmol/L Anion Gap 10 (3-11) BUN 77 H (6-23) mg/dl Creatinine 4.36 H (0.6-1.4) mg/dl Est Cr Clr Drug Dosing 14.2 ml/min Est GFR ( Amer) 13.3 ml/min Est GFR (Non-Af Amer) 11.4 ml/min BUN/Creatinine Ratio 17.7 (10-20) Glucose 102 H (70-99(Fasting)) mg/dl Calcium 8.9 (8.6-10.3) mg/dl Magnesium 2.4 (1.7-2.4) mg/dl Total Bilirubin 0.5 (0.2-1.0) mg/dl AST 40 H (13-39) U/L ALT 28 (7-52) U/L Alkaline Phosphatase 132 H (34-104) U/L Total Protein 6.8 (6.0-8.3) gm/dl Albumin 3.8 (3.4-5.0) gm/dl Globulin 3.0 (2.5-4.0) gm/dl Albumin/Globulin Ratio 1.3 (0.9-2) SARS-CoV-2, RNA, NAAT (NEGATIVE) 11/25/22 11/26/22 Range/Units 21:51 02:57 WBC (4.8-10.8) K/ul RBC (4.70-6.10) M/uL Hgb (14.0-18.0) g/dl Hct (42.0-52.0) % MCV (80.0-100.0) fL MCH (25.0-34.0) pg MCHC (32.0-36.0) g/dL RDW Std Deviation (36.4-46.3) fL RDW Coeff of Alan (11.5-14.5) % Plt Count (130-400) K/uL MPV (9.4-12.4) fL Immature Gran % (Auto) % Neut % (Auto) % Lymph % (Auto) % Livingston % (Auto) % Eos % (Auto) % Baso % (Auto) % Neut # (Auto) (1.40-6.50) K/uL Lymph # (Auto) (1.2-3.4) K/uL Livingston # (Auto) (0.11-0.59) K/uL Eos # (Auto) (0-0.50) K/uL Baso # (Auto) (0-0.2) K/uL Immature Gran # (Auto) (0.01-0.20) K/uL PT (9.0-12.0) Seconds INR (0.9-1.1) ABG pH 7.35 (7.35-7.45) ABG pCO2 48 H (35-46) mmHg ABG pO2 64 L (80-95) mmHg ABG HCO3 27 H (19-24) mmol/L ABG O2 Saturation 92.3 (90-95) % ABG Base Excess 0.3 (-9-1.8) mEq/L Sodium (136-145) mmol/L Potassium (3.5-5.1) mmol/L Chloride (98-107) mmol/L Carbon Dioxide (21-32) mmol/L Anion Gap (3-11) BUN (6-23) mg/dl Creatinine (0.6-1.4) mg/dl Est Cr Clr Drug Dosing ml/min Est GFR ( Amer) ml/min Est GFR (Non-Af Amer) ml/min BUN/Creatinine Ratio (10-20) Glucose (70-99(Fasting)) mg/dl Calcium (8.6-10.3) mg/dl Magnesium (1.7-2.4) mg/dl Total Bilirubin (0.2-1.0) mg/dl AST (13-39) U/L ALT (7-52) U/L Alkaline Phosphatase (34-104) U/L Total Protein (6.0-8.3) gm/dl Albumin (3.4-5.0) gm/dl Globulin (2.5-4.0) gm/dl Albumin/Globulin Ratio (0.9-2) SARS-CoV-2, RNA, NAAT NEGATIVE (NEGATIVE) Administered Medications Discontinued Medications Fentanyl Citrate (Fentanyl Citrate Pf 100 Mcg/2 Ml Vial) 50 mcg IV NOW STA Stop: 11/25/22 21:43 Last Admin: 11/25/22 21:46 Dose: 50 mcg Documented By: MED Lidocaine HCl (Xylocaine 1%/Sod Bicarb 20 Ml Vial) 20 ml INFIL NOW ONE Stop: 11/25/22 23:06 Last Admin: 11/25/22 23:22 Dose: 20 ml Documented By: MED Ondansetron HCl (Ondansetron Inj 2 Mg/Ml 2 Ml Vial) 4 mg IV NOW STA Stop: 11/25/22 21:43 Last Admin: 11/25/22 21:48 Dose: 4 mg Documented By: ROSITA Imaging Data Radiologist's Impression: Cervical Spine CT 11/25/22 21:42 Exam(s): CT C SPINE EXAM: CT Cervical Spine Without Intravenous Contrast CLINICAL HISTORY: Trauma. TECHNIQUE: Axial computed tomography images of the cervical spine without intravenous contrast. Automated exposure control was utilized for the study. A dose lowering technique was utilized adhering to the principles of ALARA. COMPARISON: No relevant prior studies available. FINDINGS: Vertebrae: The vertebral bodies are intact without acute osseous traumatic injury. No anterolisthesis or retrolisthesis is identified. The facet joints are well aligned without subluxation or dislocation. The pedicles, transverse processes and spinous processes are intact. Facet hypertrophic changes noted at several levels, chronic in appearance. Discs/spinal canal/neural foramina: Disc space narrowing with marginal hypertrophic changes noted from C3-4 through C6-7. No acute osseous canal narrowing noted. Chronic appearing osseous neural foraminal encroachment noted at several levels bilaterally. Soft tissues: Unremarkable. IMPRESSION: No acute osseous traumatic injury or significant abnormal alignment involving the cervical spine. Incidental multilevel chronic degenerative changes. Electronically signed by: Sam Baldwin MD 11/25/22 22:[address] 11/25/22 21:42 Exam(s): CT HEAD Without Contrast EXAM: CT Head Without Intravenous Contrast CLINICAL HISTORY: Trauma. TECHNIQUE: Axial computed tomography images of the head/brain without intravenous contrast. Automated exposure control was utilized for the study. A dose lowering technique was utilized adhering to the principles of ALARA. COMPARISON: No relevant prior studies available. FINDINGS: Brain: No intracranial hemorrhage. No significant mass effect. No cortical infarct. Underlying parenchymal involutional changes and periventricular deep white matter hypodense changes noted. Ventricles: Unremarkable. No ventriculomegaly. Bones/joints: Unremarkable. No acute fracture. Soft tissues: No significant overlying acute traumatic soft tissue abnormality. No radiopaque foreign body. Sinuses: Unremarkable as visualized. No acute sinusitis. Mastoid air cells: Unremarkable as visualized. No mastoid effusion. IMPRESSION: No acute intracranial process identified. Chronic underlying presumed incidental age-related findings, as noted above. Electronically signed by: Sam Baldwin MD 11/25/22 22:[address] 11/25/22 21:42 Exam(s): CT L SPINE EXAM: CT Lumbar Spine Without Intravenous Contrast CLINICAL HISTORY: Trauma. TECHNIQUE: Axial computed tomography images of the lumbar spine without intravenous contrast. Automated exposure control was utilized for the study. A dose lowering technique was utilized adhering to the principles of ALARA. COMPARISON: No relevant prior studies available. FINDINGS: Vertebrae: No definite acute osseous traumatic injury. There is scoliosis, convex left, centered at the L3 vertebral body level with the modified Mendoza angle measuring 30 between the superior endplate of T12 and the superior endplate of L5. There is partial degenerative fusion of the right lateral L2-3 intervertebral disc. There is severe degenerative changes at L1-2. There is moderately severe degenerative changes at T12- L1 and mild degenerative changes of the L1-2. Discs/spinal canal/neural foramina: There is posterior fusion with pedicle screws and paraspinal rods from L3-L5 levels. Interbody cages noted at L4-5 level. Laminectomy defects are identified at these levels. Evaluation the central canal is limited without intrathecal contrast. However, there is suggestion of some canal narrowing at L1-2 level secondary to annular disc bulge and facet hypertrophic changes with a trefoil appearance. There is at least moderate osseous neural foraminal encroachment suggested involving the right L1-2 neural foramina. Soft tissues: No significant acute paraspinal soft tissue abnormality identified. IMPRESSION: 1. No acute osseous traumatic injury involving the lumbar spine. Postsurgical changes from L3-L5 with posterior fusion and laminectomies noted. 3. Multilevel chronic disc spondylosis, most severe at L1-2 level. Scoliosis, convex left. Chronic canal narrowing and neural foraminal encroachment, as noted above. No acute component suspected. Electronically signed by: Sam Baldwin MD 11/25/22 22:43 PM Discharge Plan Visit Data Chief Complaint: Fall Stated Complaint: FALL, HIT HEAD AND HIP ED Provider: Oral Maurice Discharge Problem: Accidental fall, Low back strain, CHI (closed head injury), Laceration of left ear, Skin tear of left forearm without complication Discharge Instructions Krames/Other Patient Handouts: ED FACIAL LACERATION Suture Tape, ED Skin Tear (Skin Avulsion) Activity Restrictions/Additional Instructions: Ear laceration Keep a thin layer of bacitracin ointment applied to the ear until the sutures are removed. Do not do anything that would cause the stitches to pull out. Do not swim or submerge your head under water. Suture removal should occur in 7-10 days. You can shower after 24 hours. Once the stitches are removed, the laceration is most prone to opening back up because it is not fully healed. Be cautious with the laceration until it is fully healed. Watch for signs and symptoms of infection including but not limited to: spreading skin redness, worsening pain, worsening swelling, red streaks, pus drainage, wound pulling apart. Forearm skin tear For the forearm wounds, gently change the dressing every 24-48 hours with Telfa nonstick gauze and wrapped with roll gauze. You may need to gently irrigate the gauze to allow it to detach from the wound. May need to follow-up with wound care Forms Stand Alone Forms: My [facility] Prescriptions Prescriptions: No Action furosemide 80 mg tablet 80 mg PO BID tamsulosin 0.4 mg capsule 0.4 mg PO BID metoprolol succinate 25 mg tablet extended release 24 hr 12.5 mg PO DAILY Rx Instructions: TAKE HALF A TABLET (12.5 MG) DAILY ezetimibe 10 mg tablet 10 mg PO DAILY rosuvastatin 10 mg tablet 10 mg PO HS cyclobenzaprine 10 mg Tablet 10 mg PO TID PRN (Reason: Muscle Spasm) acetaminophen 500 mg Tablet 500 mg PO Q6H PRN (Reason: Pain) famotidine 20 mg Tablet 20 mg PO DAILY PRN (Reason: Acid Reflux) warfarin 5 mg Tablet 5 mg PO DIRECTED Rx Instructions: DIRECTED TO TAKE BY ANTICOAGULATION CLINIC/ multivitamin,ik-wdov-Ku-FA-min Tablet 1 tab PO DAILY cholecalciferol (vitamin D3) [Vitamin D3] 50 mcg (2,000 unit) Capsule 50 mcg PO DAILY amoxicillin 500 mg capsule See Rx Instructions .ROUTE .COMPLEX PRN (Reason: Prior to Dental Appointments) Rx Instructions: TAKE 4 CAPSULES (2000 MG) ONE HOUR PRIOR TO DENTAL APPOINTMENT allopurinol 100 mg tablet 200 mg PO QAM triamcinolone acetonide 0.1 % ointment 1 applic TOPICAL BID PRN (Reason: .itchy legs) montelukast 10 mg tablet 10 mg PO QPM CeraVe Cream 1 applic TOPICAL DIRECTED PRN (Reason: .affected area) diclofenac sodium 1 % gel 1 ea TOPICAL BID PRN (Reason: .back pain, muscle pain) melatonin 5 mg Tablet 5 mg PO HS PRN (Reason: Sleep) Referrals Referrals: Wojciech Palmer MD [Primary Care Provider] -
--- NOTE | 2022-11-26 01:15 | Emergency Department Note ---
ED Visit Note I was asked by ED attending Dr. Maurice to evaluate and potentially repair the patient's wounds located on his left ear and left forearm. Most recent tetanus 2017 per chart review Left ear laceration repair performed by myself: Description: 1.5 cm, irregular right angle laceration located on the helix extending onto the antihelix. Persistent venous bleeding present. Not through and through. Procedure: Wound was anesthetized with 2 mL lidocaine 1%. Wound was copiously irrigated with sterile saline. Draped with a sterile towel. Repaired with 3, 5-0 nylon simple interrupted sutures. Dressed with bacitracin ointment. Hemostasis achieved. No evidence of an auricular hematoma. Skin tears on left forearm repaired by myself: Description: Multiple skin tears on the left forearm with persistent capillary bleeding. Procedure: Irregular nonsalvageable pieces of skin were resected. Wound bed was copiously irrigated with sterile saline. Skin tear was reapproximated as best as possible with what was where the remaining. A total of 8 Steri-Strips were secured using tincture of benzoin and then Dermabond was placed on either side of the wound to further secure the Steri-Strips. Dressed with Telfa and roll gauze. Ear sutures will need to be removed in 7 to 10 days. May need to follow-up with wound care secondary to the skin tears. Wound care instructions outlined Please refer to Dr. Maurice's note for full details on ED evaluation, management, and disposition - HALEIGH Kumar
[2022-11-26 03:08] LABS: Base Excess ABG 0.3 mEq/L (-9-1.8); HCO3 ABG 27 mmol/L (19-24); Oxygen Saturation ABG 92.3 % (90-95); PCO2 ABG 48 mmHg (35-46); PO2 ABG 64 mmHg (80-95); pH ABG 7.35 (7.35-7.45)
[2022-11-26] MEDS ORDERED: FUROSEMIDE 40 MG/4 ML VIAL IV ONE (03:16)
[2022-11-26] MEDS ORDERED: ALBUMIN 25% 25 GM/100 ML VIAL IV ONE (03:16)
[2022-11-26 03:17] LABS: Magnesium 2.4 mg/dl (1.7-2.4)
[2022-11-26] MEDS ORDERED: LEVALBUTEROL 1.25 MG/3 ML NEB NEB STA (03:32)
[2022-11-26] MEDS ORDERED: IPRATROPIUM BROMIDE NEB SOLN 0.02% 2.5 ML VIAL INH STA (03:32)
[2022-11-26] MEDS ORDERED: XOPENEX/ATROVENT 1.25mg/0.5MG NEB COMBO NEB STA (03:32)
--- NOTE | 2022-11-26 03:35 | History & Physical Report ---
Date of Service November 26, 2022 Assessment & Plan (1) Acute hypoxemic respiratory failure: Plan: Secondary to subacute decompensated heart failure History diastolic dysfunction/cardiorenal syndrome Underlying pulmonary hypertension Troponin elevation secondary to above hx CAD status post CABG valvular heart disease (moderate /AR, mild MR/MS) HTN, stable AF/history of DVT on Coumadin, INR therapeutic chronic back pain status post surgery chronic anemia, hemoglobin at baseline chronic venous insufficiency prostate cancer status post radiation Ambulatory dysfunction past tobacco abuse PCU Supplemental O2 Lasix albumin, stat nebs Fluid restriction Nephrology consultations RE cardiorenal syndrome Fluid restriction, strict I/Os, daily weights, CHF education Follow troponin PT OT eval once medically stable DVT prophylaxis. Coumadin INR goal between 2 and 3 if hemoglobin stable following recent injuries DNR Total critical care time was 40 minutes. Patient requests for to be updated of plan of care. Ms. Lyudmila Carrion, [phone]. Text document was generated using [employer] voice recognition software. It may contain grammatical or spelling errors. Kindly contact undersigned for clarification of any documentation item in question. History of Present Illness Chief Complaint: Fall Primary Care Provider: Wojciech Palmer MD History obtained from patient and records. Medical history significant for chronic diastolic heart failure (EF 55-59%, TTE 2022), CAD status post CABG, valvular heart disease (moderate /AR, mild MR/MS), HTN, atrial flutter/history of DVT on Coumadin, pulmonary hypertension as per records, CRI (baseline creatinine 4s), chronic back pain status post surgery, chronic anemia (baseline hemoglobin 10-11), chronic venous insufficiency, prostate cancer status post radiation, past tobacco abuse. Last confinement August 06 for decompensated heart failure, cardiorenal syndrome. Patient falling at home the last few weeks. Shortness of breath on exertion/fatigue with motion. Fluid retention. Patient denies chest pain. Trying to comply with instructions from deputy attorney general. Some discussion about peritoneal dialysis as per patient. [facility]. Volume overload attributed to end-stage kidney disease, mixed valvular heart disease. Refractory Specialist was to contact patient's deputy attorney general to expedite dialysis preparations as per documentation. Last night, patient walker got caught on the carpet causing him to fall over. Left sided head trauma resulting in left ear laceration and left forearm skin tears. No syncope/LOC. Patient denies chest pain. Usual SOB. Achy back pain. Patient brought to the ER for evaluation. Left ear and forearm lacerations repaired. O2 sats noted to be 80s on room air. 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 Allergies Allergy/AdvReac Type Severity Reaction Status Date / Time amlodipine [From [facility]] Allergy Intermediate Edema Verified 11/26/22 03:03 bismuth subsalicylate Allergy Unknown Unknown Verified 11/26/22 03:03 naproxen AdvReac Mild GI UPSET, Verified 11/26/22 03:03 HODGES THROAT Home Medications Medication Instructions Recorded Confirmed Type acetaminophen 500 mg tablet 500 mg PO Q6H PRN Pain 07/15/20 11/26/22 History amoxicillin 500 mg capsule See Rx Instructions .Route 07/15/20 11/26/22 History .COMPLEX PRN Prior to Dental Appointments cholecalciferol (vitamin D3) 50 50 mcg PO DAILY 07/15/20 11/26/22 History mcg (2,000 unit) capsule (Vitamin D3) cyclobenzaprine 10 mg tablet 10 mg PO TID PRN Muscle Spasm 07/15/20 11/26/22 History ezetimibe 10 mg tablet 10 mg PO DAILY 07/15/20 11/26/22 History famotidine 20 mg tablet 20 mg PO DAILY PRN Acid Reflux 07/15/20 11/26/22 History metoprolol succinate 25 mg 12.5 mg PO DAILY 07/15/20 11/26/22 History tablet,extended release 24 hr multivitamin,px-etlh-Au-FA-min 1 tab PO DAILY 07/15/20 11/26/22 History rosuvastatin 10 mg tablet 10 mg PO HS 07/15/20 11/26/22 History tamsulosin 0.4 mg capsule 0.4 mg PO BID 07/15/20 11/26/22 History warfarin 5 mg tablet 5 mg PO DIRECTED 07/15/20 11/26/22 History furosemide 80 mg tablet 80 mg PO BID 10/04/22 11/26/22 History allopurinol 100 mg tablet 200 mg PO QAM 11/26/22 11/26/22 History ceramides 1,3,6-II (CeraVe topical 1 applic topical DIRECTED PRN 11/26/22 11/26/22 History cream) .affected area diclofenac sodium 1 % topical gel 1 ea topical BID PRN .back pain, 11/26/22 11/26/22 History muscle pain melatonin 5 mg tablet 5 mg PO HS PRN Sleep 11/26/22 11/26/22 History montelukast 10 mg tablet 10 mg PO QPM 11/26/22 11/26/22 History triamcinolone acetonide 0.1 % 1 applic topical BID PRN .itchy 11/26/22 11/26/22 History topical ointment legs Past Med/Surg History Medical History CHF (congestive heart failure) Decompensated heart failure No pertinent family history Surgical History No pertinent past surgical history Social History Smoking Status: Former smoker Tobacco Type: Smokeless Tobacco (Dip or Chew) Second Hand Exposure: No; Do You Dip or Chew Tobacco: No; Preferred Language: Armenian Communication Ability: Effective Hearing Ability: Use of Hearing Aid Surgeon Chief Required: No Beliefs That Will Affect Care: None marital status: Current Living Situation: Spouse Current Living Situation Comment: Other Information That Helps Us Care for You: No Feels Safe at Home: Yes Safety Concerns: Feels Safe At This Time Diet: low salt caffeine: Yes during the past year weight has: remained stable Assistive Devices: Hearing Aid - Bilateral Review of Systems Review of Systems: As per HPI, all other systems reviewed and negative Physical Exam Physical Exam: GENERAL: pleasant, obese, hard of hearing, minimal respiratory distress SKIN: Pallor, warm HEENT: Pale palpebral conjunctivae, no ptosis, dry buccal mucosa, nasal cannula in place NECK : Supple, short neck, no tenderness CHEST : Decreased breath sounds, scattered crackles, no tenderness HEART : Irregular, systolic murmur ABDOMEN: Some distention, nontender EXTREMITIES : Bilateral LE swelling, no LE tenderness, no other conspicuous deformities noted NEUROLOGIC : Coherent, no facial asymmetry, hard of hearing, gait and stance not assessed Results & Data Results & Data Vital Signs (Past 12 Hours) Vital Signs Temp Pulse Pulse BP Pulse Ox O2 Del Method O2 Flow Rate 11/26/22 02:35 95 H 94 Nasal Cannula 4 11/26/22 02:30 90 81 L Room Air 3 11/26/22 01:23 96 H 11/25/22 21:12 76 11/25/22 20:43 36.4 C L 78 132/75 92 Room Air Laboratory Results Laboratory Results WBC 4.81 K/ul (4.8-10.8) 11/25/22 20:50 RBC 3.21 M/uL (4.70-6.10) L 11/25/22 20:50 Hgb 10.8 g/dl (14.0-18.0) L 11/25/22 20:50 Hct 32.9 % (42.0-52.0) L 11/25/22 20:50 MCV 102.5 fL (80.0-100.0) H 11/25/22 20:50 MCH 33.6 pg (25.0-34.0) 11/25/22 20:50 MCHC 32.8 g/dL (32.0-36.0) 11/25/22 20:50 RDW Std Deviation 60.0 fL (36.4-46.3) H 11/25/22 20:50 RDW Coeff of Alan 15.9 % (11.5-14.5) H 11/25/22 20:50 Plt Count 189 K/uL (130-400) 11/25/22 20:50 MPV 10.9 fL (9.4-12.4) 11/25/22 20:50 Immature Gran % (Auto) 0.8 % 11/25/22 20:50 Neut % (Auto) 74.2 % 11/25/22 20:50 Lymph % (Auto) 14.6 % 11/25/22 20:50 [place] % (Auto) 7.9 % 11/25/22 20:50 Eos % (Auto) 1.9 % 11/25/22 20:50 Baso % (Auto) 0.6 % 11/25/22 20:50 Neut # (Auto) 3.57 K/uL (1.40-6.50) 11/25/22 20:50 Lymph # (Auto) 0.70 K/uL (1.2-3.4) L 11/25/22 20:50 [place] # (Auto) 0.38 K/uL (0.11-0.59) 11/25/22 20:50 Eos # (Auto) 0.09 K/uL (0-0.50) 11/25/22 20:50 Baso # (Auto) 0.03 K/uL (0-0.2) 11/25/22 20:50 Immature Gran # (Auto) 0.04 K/uL (0.01-0.20) 11/25/22 20:50 PT 27.5 Seconds (9.0-12.0) H 11/25/22 20:50 INR 2.7 (0.9-1.1) H 11/25/22 20:50 ABG pH 7.35 (7.35-7.45) 11/26/22 02:57 ABG pCO2 48 mmHg (35-46) H 11/26/22 02:57 ABG pO2 64 mmHg (80-95) L 11/26/22 02:57 ABG HCO3 27 mmol/L (19-24) H 11/26/22 02:57 ABG O2 Saturation 92.3 % (90-95) 11/26/22 02:57 ABG Base Excess 0.3 mEq/L (-9-1.8) 11/26/22 02:57 Sodium 134 mmol/L (136-145) L 11/25/22 20:50 Potassium 4.7 mmol/L (3.5-5.1) 11/25/22 20:50 Chloride 97 mmol/L (98-107) L 11/25/22 20:50 Carbon Dioxide 27 mmol/L (21-32) 11/25/22 20:50 Anion Gap 10 (3-11) 11/25/22 20:50 BUN 77 mg/dl (6-23) H 11/25/22 20:50 Creatinine 4.36 mg/dl (0.6-1.4) H 11/25/22 20:50 Est Cr Clr Drug Dosing 14.2 ml/min 11/25/22 20:50 Est GFR ( Amer) 13.3 ml/min 11/25/22 20:50 Est GFR (Non-Af Amer) 11.4 ml/min 11/25/22 20:50 BUN/Creatinine Ratio 17.7 (10-20) 11/25/22 20:50 Glucose 102 mg/dl (70-99(Fasting)) H 11/25/22 20:50 Calcium 8.9 mg/dl (8.6-10.3) 11/25/22 20:50 Magnesium 2.4 mg/dl (1.7-2.4) 11/25/22 20:50 Total Bilirubin 0.5 mg/dl (0.2-1.0) 11/25/22 20:50 AST 40 U/L (13-39) H 11/25/22 20:50 ALT 28 U/L (7-52) 11/25/22 20:50 Alkaline Phosphatase 132 U/L (34-104) H 11/25/22 20:50 Total Protein 6.8 gm/dl (6.0-8.3) 11/25/22 20:50 Albumin 3.8 gm/dl (3.4-5.0) 11/25/22 20:50 Globulin 3.0 gm/dl (2.5-4.0) 11/25/22 20:50 Albumin/Globulin Ratio 1.3 (0.9-2) 11/25/22 20:50 SARS-CoV-2, RNA, NAAT NEGATIVE (NEGATIVE) 11/25/22 21:[address] 11/25/22 21:42 Exam(s): CT C SPINE EXAM: CT Cervical Spine Without Intravenous Contrast CLINICAL HISTORY: Trauma. TECHNIQUE: Axial computed tomography images of the cervical spine without intravenous contrast. Automated exposure control was utilized for the study. A dose lowering technique was utilized adhering to the principles of ALARA. COMPARISON: No relevant prior studies available. FINDINGS: Vertebrae: The vertebral bodies are intact without acute osseous traumatic injury. No anterolisthesis or retrolisthesis is identified. The facet joints are well aligned without subluxation or dislocation. The pedicles, transverse processes and spinous processes are intact. Facet hypertrophic changes noted at several levels, chronic in appearance. Discs/spinal canal/neural foramina: Disc space narrowing with marginal hypertrophic changes noted from C3-4 through C6-7. No acute osseous canal narrowing noted. Chronic appearing osseous neural foraminal encroachment noted at several levels bilaterally. Soft tissues: Unremarkable. IMPRESSION: No acute osseous traumatic injury or significant abnormal alignment involving the cervical spine. Incidental multilevel chronic degenerative changes. Electronically signed by: Sam Baldwin MD 11/25/22 22:[address] 11/25/22 21:42 Exam(s): CT HEAD Without Contrast EXAM: CT Head Without Intravenous Contrast CLINICAL HISTORY: Trauma. TECHNIQUE: Axial computed tomography images of the head/brain without intravenous contrast. Automated exposure control was utilized for the study. A dose lowering technique was utilized adhering to the principles of ALARA. COMPARISON: No relevant prior studies available. FINDINGS: Brain: No intracranial hemorrhage. No significant mass effect. No cortical infarct. Underlying parenchymal involutional changes and periventricular deep white matter hypodense changes noted. Ventricles: Unremarkable. No ventriculomegaly. Bones/joints: Unremarkable. No acute fracture. Soft tissues: No significant overlying acute traumatic soft tissue abnormality. No radiopaque foreign body. Sinuses: Unremarkable as visualized. No acute sinusitis. Mastoid air cells: Unremarkable as visualized. No mastoid effusion. IMPRESSION: No acute intracranial process identified. Chronic underlying presumed incidental age-related findings, as noted above. Electronically signed by: Sam Baldwin MD 11/25/22 22:[address] 11/25/22 21:42 Exam(s): CT L SPINE EXAM: CT Lumbar Spine Without Intravenous Contrast CLINICAL HISTORY: Trauma. TECHNIQUE: Axial computed tomography images of the lumbar spine without intravenous contrast. Automated exposure control was utilized for the study. A dose lowering technique was utilized adhering to the principles of ALARA. COMPARISON: No relevant prior studies available. FINDINGS: Vertebrae: No definite acute osseous traumatic injury. There is scoliosis, convex left, centered at the L3 vertebral body level with the modified Mendoza angle measuring 30 between the superior endplate of T12 and the superior endplate of L5. There is partial degenerative fusion of the right lateral L2-3 intervertebral disc. There is severe degenerative changes at L1-2. There is moderately severe degenerative changes at T12- L1 and mild degenerative changes of the L1-2. Discs/spinal canal/neural foramina: There is posterior fusion with pedicle screws and paraspinal rods from L3-L5 levels. Interbody cages noted at L4-5 level. Laminectomy defects are identified at these levels. Evaluation the central canal is limited without intrathecal contrast. However, there is suggestion of some canal narrowing at L1-2 level secondary to annular disc bulge and facet hypertrophic changes with a trefoil appearance. There is at least moderate osseous neural foraminal encroachment suggested involving the right L1-2 neural foramina. Soft tissues: No significant acute paraspinal soft tissue abnormality identified. IMPRESSION: 1. No acute osseous traumatic injury involving the lumbar spine. Postsurgical changes from L3-L5 with posterior fusion and laminectomies noted. 3. Multilevel chronic disc spondylosis, most severe at L1-2 level. Scoliosis, convex left. Chronic canal narrowing and neural foraminal encroachment, as noted above. No acute component suspected. Electronically signed by: Sam Baldwin MD 11/25/22 22:43 PM Diagnostic Findings Chest x-ray per my interpretation cardiomegaly, congestion EKG as per my interpretation : Rate 70, A-fib, LAD, LAFB, LBBB
[2022-11-26 03:56] LABS: Troponin I High Sensitivity 140.6 pg/ml (0-20)
[2022-11-26 04:30] LABS: Allen Test Pos (Pos)
[2022-11-26] MEDS ORDERED: LIDOCAINE 2% JELLY 5 ML TUBE EXT ONE (05:01)
[2022-11-26] MEDS ORDERED: NITROGLYCERIN SL 0.4 MG/TAB TAB SL PRN (06:05)
[2022-11-26] MEDS ORDERED: traMADol HCL 50 MG TABLET PO PRN (06:05)
[2022-11-26] MEDS ORDERED: DICLOFENAC SOD 1% GEL 100 GM TUBE EXT PRN (06:16)
[2022-11-26 06:50] LABS: Calcium 9.1 mg/dl (8.6-10.3); Creatinine Clr Calc Pharmacy 14.3 ml/min; Est GFR (African American) 13.4 ml/min; Est GFR (Non-African American) 11.5 ml/min; Potassium 4.7 mmol/L (3.5-5.1)
[2022-11-26 07:02] LABS: Basophils # (auto) 0.02 K/uL (0-0.2); Basophils % (auto) 0.3 %; Eosinophils # (auto) 0.05 K/uL (0-0.50); Eosinophils % (auto) 0.7 %; Hemoglobin 10.7 g/dl (14.0-18.0); Immature Granulocytes # (auto) 0.03 K/uL (0.01-0.20); Immature Granulocytes % (auto) 0.4 %; Lymphocytes # (auto) 0.38 K/uL (1.2-3.4); Lymphocytes % (auto) 5.2 %; Mean Corpuscular Hemoglobin 33.2 pg (25.0-34.0); Mean Corpuscular Hgb Conc 33.4 g/dL (32.0-36.0); Mean Corpuscular Volume 99.4 fL (80.0-100.0); Mean Platelet Volume 10.9 fL (9.4-12.4); Monocytes # (auto) 0.42 K/uL (0.11-0.59); Monocytes % (auto) 5.8 %; Neutrophils # (auto) 6.34 K/uL (1.40-6.50); Neutrophils % (auto) 87.6 %; Platelet Count 183 K/uL (130-400); RDW Coefficient of Variation 15.8 % (11.5-14.5); RDW Standard Deviation 57.6 fL (36.4-46.3); Red Blood Count 3.22 M/uL (4.70-6.10); White Blood Count 7.24 K/ul (4.8-10.8)
[2022-11-26 07:26] LABS: INR 2.7 (0.9-1.1); Prothrombin Time 27.7 Seconds (9.0-12.0)
--- NOTE | 2022-11-26 08:57 | Nephrology Consultation ---
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 Renal function remains just above baseline, 2/ Progression of ckd / Acutr on chronic HF - Increase lasix to 80 mg IV bid. -Daily BMP/ I/O and weights prefebly on the same scale. >>needs f/u appt w/ Dr Orr w/in 1 wks of d/c with repeat CMP. (2) Acute hypoxemic respiratory failure: 2/ ckd Progression/ CHF excerbation - Diuretic as above (3) Acute on chronic diastolic (congestive) heart failure: History of Present Illness Reason for Consultation: Fluid overload, Rafael on CKD 4/5 Attending Physician: Connor Patrick MD History of Present Illness 87-year-old male who presented to the ER with increased shortness of breath with fatigue over the last few days.He also had repeated epidosed of " falls' over the last few weeks.Colten suffered a mechanical fall last night leading to L ear lacerations and L forearm skin tears , He was noted to have saturations of 80% in the ER.He receive one dose to 80 mg Iv lasix.Still passing urine, Sr was elevated to mid 4.0's ( basline mid to late3.0's), k was safe.Bilateral pedal edema as before.He is on home dose of lasix 80 mg bid PMH of hypertension, coronary disease status post CABG, a flutter, diastolic CHF with EF of 54%,BPH, remote prostate cancer in 1991 status post brachytherapy and CKD stage IV with baseline creatinine of 3.5 He has right leg pain and wounds which is chronic. No diarrhea or vomiting. He denied NSAID use. Chest x-ray in the emergency room showed cardiomegaly and pulmonary vascular congestion.He is been worked up for PD. Allergies Allergy/AdvReac Type Severity Reaction Status Date / Time amlodipine [From [facility]] Allergy Intermediate Edema Verified 11/26/22 03:03 bismuth subsalicylate Allergy Unknown Unknown Verified 11/26/22 03:03 naproxen AdvReac Mild GI UPSET, Verified 11/26/22 03:03 HODGES THROAT Home Medications Medication Instructions Recorded Confirmed Type acetaminophen 500 mg tablet 500 mg PO Q6H PRN Pain 07/15/20 11/26/22 History amoxicillin 500 mg capsule See Rx Instructions .Route 07/15/20 11/26/22 History .COMPLEX PRN Prior to Dental Appointments cholecalciferol (vitamin D3) 50 50 mcg PO DAILY 07/15/20 11/26/22 History mcg (2,000 unit) capsule (Vitamin D3) cyclobenzaprine 10 mg tablet 10 mg PO TID PRN Muscle Spasm 07/15/20 11/26/22 History ezetimibe 10 mg tablet 10 mg PO DAILY 07/15/20 11/26/22 History famotidine 20 mg tablet 20 mg PO DAILY PRN Acid Reflux 07/15/20 11/26/22 History metoprolol succinate 25 mg 12.5 mg PO DAILY 07/15/20 11/26/22 History tablet,extended release 24 hr multivitamin,mo-sojq-Ls-FA-min 1 tab PO DAILY 07/15/20 11/26/22 History rosuvastatin 10 mg tablet 10 mg PO HS 07/15/20 11/26/22 History tamsulosin 0.4 mg capsule 0.4 mg PO BID 07/15/20 11/26/22 History warfarin 5 mg tablet 5 mg PO DIRECTED 07/15/20 11/26/22 History furosemide 80 mg tablet 80 mg PO BID 10/04/22 11/26/22 History allopurinol 100 mg tablet 200 mg PO QAM 11/26/22 11/26/22 History ceramides 1,3,6-II (CeraVe topical 1 applic topical DIRECTED PRN 11/26/22 11/26/22 History cream) .affected area diclofenac sodium 1 % topical gel 1 ea topical BID PRN .back pain, 11/26/22 11/26/22 History muscle pain melatonin 5 mg tablet 5 mg PO HS PRN Sleep 11/26/22 11/26/22 History montelukast 10 mg tablet 10 mg PO QPM 11/26/22 11/26/22 History triamcinolone acetonide 0.1 % 1 applic topical BID PRN .itchy 11/26/22 11/26/22 History topical ointment legs Patient History Medical History CHF (congestive heart failure) Decompensated heart failure No pertinent family history Surgical History No pertinent past surgical history Social History Smoking Status: Former smoker Tobacco Type: Smokeless Tobacco (Dip or Chew) Second Hand Exposure: No; Do You Dip or Chew Tobacco: No; Preferred Language: Syriac Communication Ability: Effective Hearing Ability: Use of Hearing Aid Stopperer Assembler Required: No Beliefs That Will Affect Care: None marital status: Current Living Situation: Spouse Current Living Situation Comment: Other Information That Helps Us Care for You: No Feels Safe at Home: Yes Safety Concerns: Feels Safe At This Time Diet: low salt caffeine: Yes during the past year weight has: remained stable Assistive Devices: Hearing Aid - Bilateral Review of Systems Review of Systems: SOB at baseline. Bilateral pedal edema Physical Exam Physical Exam: General exam:In mild Respiratory distress HEENT: Pupils are equal and reactive to light Neck: No JVD, neck is supple trachea is midline Respiratory system: decreased entry bilaterally, Gastrointestinal: Abdomen is soft, non distended, non tender, bowel sounds are present CVS: Regular rate and rhythm. No murmurs, rubs or gallops Musculoskeletal: No joint or muscle tenderness Extremities: Non tender, 1+ edema, peripheral pulses are present Results & Data Vital Signs (Past 12 Hours) Vital Signs Temp Pulse Pulse Resp BP Pulse Ox Pulse Ox 11/26/22 07:10 36.9 C 115 H 20 138/96 94 11/26/22 05:45 99 H 11/26/22 06:36 36.5 C 101 H 20 137/92 92 11/26/22 06:21 11/26/22 06:05 91 11/26/22 04:27 93 H 122/70 97 11/26/22 02:35 95 H 94 11/26/22 02:30 90 81 L 11/26/22 01:23 96 H 11/25/22 21:12 76 O2 Del Method O2 Del Method O2 Flow Rate O2 Flow Rate 11/26/22 07:10 Oxymask 6 11/26/22 05:45 11/26/22 06:36 Oxymask 6 11/26/22 06:21 Oxymask 6 11/26/22 06:05 Oxymask 6 11/26/22 04:27 Nasal Cannula 4 11/26/22 02:35 Nasal Cannula 4 11/26/22 02:30 Room Air 3 11/26/22 01:23 11/25/22 21:12 Laboratory Results 11/26/22 06:12 11/26/22 06:12
--- NOTE | 2022-11-26 09:07 | XRay Report ---
XR chest 1V portable CLINICAL HISTORY: hypoxia TECHNIQUE: Single frontal radiograph of the chest was obtained. Comparison: Comparison is made to chest radiograph 07/15/2020 FINDINGS: Median sternotomy wires are unchanged. Cardiomegaly is noted. There is prominence and cephalization o f the vasculature with Mary Lou B lines seen. Retrocardiac airspace opacity is seen. IMPRESSION: 1. Cardiomegaly and moderate pulmonary edema. 2. Left retrocardiac airspace opacity may represent atelectasis, pneumonia, and/or aspiration. ACT 112: Negative or not required by law. Electronically signed by: Gilberto Toth M.D. 11/26/2022 9:06 AM
[2022-11-26] MEDS: allopurinoL 100 MG TAB PO SCH (10:44)
[2022-11-26] MEDS: TAMSULOSIN HCL 0.4 MG CAP PO SCH ×2 (10:45→20:10)
[2022-11-26] MEDS: METOPROLOL SUCC 25MG EXT REL TAB PO SCH (10:45)
[2022-11-26] MEDS: MULTIVITAMIN CHEWABLE TAB PO SCH (10:45)
[2022-11-26] MEDS: EZETIMIBE 10 MG TABLET PO SCH (10:46)
--- NOTE | 2022-11-26 14:24 | Communication Note ---
Date of Service: November 26, 2022 Patient seen and examined at bedside. He appears to be slightly lethargic but easily awake able. He is oriented to self and place. On examination Constitutional: Lethargic, easily awake able. Oriented to self and place. Respiratory: Bilateral basilar crackles Cardiovascular: RRR, no murmur, no edema Vessels: no JVD or carotid bruit Chest: normal inspection of chest Abdomen: normal bowel sounds, soft, nontender, no hepatosplenomegaly Musculoskeletal: no cyanosis or clubbing, extremities motor strength 5/5 Skin: no rashes, warm and dry normal turgor Neurologic: Grossly intact Psychiatric: A+Ox3, euthymic affect Lymphatic: no cervical or axillary lymphadenopathy : deferred Acute hypoxic respiratory failure secondary to diastolic heart failure Cardiorenal syndrome On Lasix 80 mg IV twice daily Strict ROXANA's Daily weights PT OT digna
[2022-11-26] MEDS: FUROSEMIDE 40 MG/4 ML VIAL IV SCH (16:50)
[2022-11-26] MEDS: MONTELUKAST SODIUM 10 MG TABLET PO SCH (20:10)
[2022-11-26] MEDS: ROSUVASTATIN CALCIUM 10 MG TAB PO SCH (20:10)
[2022-11-27 03:51] LABS: Basophils # (auto) 0.02 K/uL (0-0.2); Basophils % (auto) 0.3 %; Eosinophils # (auto) 0.11 K/uL (0-0.50); Eosinophils % (auto) 1.8 %; Hematocrit (blood only) 30.5 % (42.0-52.0); Hemoglobin 9.5 g/dl (14.0-18.0); Immature Granulocytes # (auto) 0.02 K/uL (0.01-0.20); Immature Granulocytes % (auto) 0.3 %; Lymphocytes # (auto) 0.38 K/uL (1.2-3.4); Lymphocytes % (auto) 6.1 %; Mean Corpuscular Hemoglobin 33.1 pg (25.0-34.0); Mean Corpuscular Hgb Conc 31.1 g/dL (32.0-36.0); Mean Corpuscular Volume 106.3 fL (80.0-100.0); Monocytes # (auto) 0.44 K/uL (0.11-0.59); Monocytes % (auto) 7.1 %; Neutrophils # (auto) 5.24 K/uL (1.40-6.50); Neutrophils % (auto) 84.4 %; Platelet Count 154 K/uL (130-400); RDW Standard Deviation 62.1 fL (36.4-46.3); Red Blood Count 2.87 M/uL (4.70-6.10); White Blood Count 6.21 K/ul (4.8-10.8)
[2022-11-27 04:24] LABS: Albumin Globulin Ratio 1.3 (0.9-2); Albumin Level 3.3 gm/dl (3.4-5.0); BUN Creatinine Ratio 17.9 (10-20); Bilirubin,Total 0.6 mg/dl (0.2-1.0); Calcium 8.6 mg/dl (8.6-10.3); Creatinine Clr Calc Pharmacy 13.5 ml/min; Est GFR (African American) 12.5 ml/min; Est GFR (Non-African American) 10.8 ml/min; Globulin 2.6 gm/dl (2.5-4.0); Potassium 4.7 mmol/L (3.5-5.1); Total Protein 5.9 gm/dl (6.0-8.3)
[2022-11-27] MEDS: allopurinoL 100 MG TAB PO SCH (07:23)
[2022-11-27] MEDS: FUROSEMIDE 40 MG/4 ML VIAL IV SCH ×2 (07:24→17:27)
[2022-11-27] MEDS: EZETIMIBE 10 MG TABLET PO SCH (07:24)
[2022-11-27] MEDS: METOPROLOL SUCC 25MG EXT REL TAB PO SCH (07:24)
[2022-11-27] MEDS: TAMSULOSIN HCL 0.4 MG CAP PO SCH ×2 (07:25→20:52)
[2022-11-27] MEDS: MULTIVITAMIN CHEWABLE TAB PO SCH (07:25)
[2022-11-27] MEDS: ACETAMINOPHEN 500 MG TAB PO PRN ×2 (07:27→14:05)
--- NOTE | 2022-11-27 08:52 | Nephrology Progress Note ---
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 Renal function remains above baseline, 2/ Progression of ckd / Acute on chronic HF - Renal functions continue to decline, UOP improved but not as expected -Continue on lasix to 80 mg IV bid.He will need dialysis fairly soon, e lectrolytes wnl -Daily BMP/ I/O and weights prefebly on the same scale. -Will be assesed in am regarding starting dialysis this admission/ discharge with early f/u. (2) Acute hypoxemic respiratory failure: Plan: 2/ ckd Progression/ CHF excerbation - Diuretic as above (3) Acute on chronic diastolic (congestive) heart failure: Admission and Anticipated Discharge Date Admission Date: November 26, 2022 Subjective Sob at and pedal edema at baseline. Review of Systems Review of Systems: SOB at baseline. Bilateral pedal edema Physical Exam Physical Exam: General exam:In mild Respiratory distress HEENT: Pupils are equal and reactive to light Neck: No JVD, neck is supple trachea is midline Respiratory system: decreased entry bilaterally, Gastrointestinal: Abdomen is soft, non distended, non tender, bowel sounds are present CVS: Regular rate and rhythm. No murmurs, rubs or gallops Musculoskeletal: No joint or muscle tenderness Extremities: Non tender, 1+ edema, peripheral pulses are present Results & Data Vital Signs (Past 12 Hours) Vital Signs Temp Pulse Pulse Resp BP BP Pulse Ox 11/27/22 07:17 37 C 85 18 106/74 98 11/27/22 03:51 36.5 C 82 18 111/55 L 95 11/26/22 22:09 73 11/26/22 23:19 36.9 C 87 22 120/69 97 O2 Del Method O2 Flow Rate 11/27/22 07:17 Oxymask 7 11/27/22 03:51 Oxymask 15 11/26/22 22:09 11/26/22 23:19 Oxymask 14 Laboratory Results 11/27/22 02:49 11/27/22 02:49
--- NOTE | 2022-11-27 12:25 | Hospitalist Progress Note ---
Date of Service November 27, 2022 Assessment & Plan (1) Acute hypoxemic respiratory failure: Plan: Secondary to acute decompensated heart failure CKD stage IV Past medical history of chronic diastolic heart failure, CAD status post CABG, valvular heart disease, a flutter, DVT on Coumadin, CKD (baseline creatinine of 4) presented to the hospital after a fall at home when his walker got caught on the carpet. No loss of consciousness/syncope. Also reported shortness of breath on presentation On presentation, he was saturating 81% in room air Underwent laceration repair on left ear in the ED Recently seen in cardiology office 3 days prior to admission. Cardiology contacted patient's nephrology to expedite dialysis in preparation. Chest x-ray on admission personally reviewed; cardiomegaly with pulmonary edema BNP of 559 Creatinine of 4.3-4.5 which is his baseline Nephrology on board recommend Lasix 80 mg IV twice daily. Strict ROXANA's. Weaned off supplemental oxygenation as tolerated. Dialysis to be started this admission/discharge with early follow-up. Fluid restriction. PT OT ordered Elevated troponin secondary to demand ischemia Moderate to severe EKG on admission personally reviewed; A-fib with ventricular rate of 72. QTc of 453. High sensitive troponin peaked to 282 and down trended to 241. 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 Chronic conditions; A-fib/history of DVT on Coumadincontinue on Coumadin; INR therapeutic chronic back pain status post surgery chronic anemia, hemoglobin at baseline chronic venous insufficiency prostate cancer status post radiation Ambulatory dysfunction past tobacco abuse DVT prophylaxis; Coumadin CODE STATUS DNR/DNI Dispositiondepending on PT OT recommendation and following clinical course. Time spent evaluating patient, direct bedside care, chart review, placing orders, interpretation of diagnostic studies, discussion with consultants, patient, and family members, as well as other required patient management activities is 60 minutes Please note the above document was generated using voice recognition software. It may contain grammatical, syntax or spelling errors. Any formal questions or concerns about the content, text or information contained within the body of this dictation should be directly addressed to the provider for clarification Admission and Anticipated Discharge Date Admission Date: November 26, 2022 Subjective Patient seen and examined at bedside. He is sitting up on the bed; not in any distress. Oxygen requirement slightly improved to 4L/min by nasal cannula. Urine output of 1200 cc in last 24 hours. Review of Systems Review of Systems: All systems reviewed & are unremarkable except as noted in Subjective Physical Exam Physical Exam: Constitutional: Awake, alert, oriented x3. Head: Normocephalic, Atraumatic Eyes: PERRL, conjunctivae normal, anicteric sclerae ENMT: Sutures intact in left ear. Neck: trachea midline, no thyromegaly normal visual inspection Respiratory: Bilateral basilar crackles. Cardiovascular: RRR, no murmur, no edema Vessels: no JVD or carotid bruit Chest: normal inspection of chest Abdomen: normal bowel sounds, soft, nontender, no hepatosplenomegaly Musculoskeletal: no cyanosis or clubbing, extremities motor strength 5/5. Trace pitting edema Skin: no rashes, warm and dry normal turgor Neurologic: PERRL, EOMI, accommodation nl, no face palsy, no dysarthria CN's II- XI intact bilaterally and moves all extremities Psychiatric: A+Ox3, euthymic affect Lymphatic: no cervical or axillary lymphadenopathy : deferred Results & Data Results & Data Vital Signs (Past 12 Hours) Vital Signs Temp Pulse Resp BP BP Pulse Ox O2 Del Method 11/27/22 11:04 37.4 C 74 18 93/50 L 98 Nasal Cannula 11/27/22 10:04 Nasal Cannula 11/27/22 07:17 37 C 85 18 106/74 98 Oxymask 11/27/22 03:51 36.5 C 82 18 111/55 L 95 Oxymask O2 Flow Rate 11/27/22 11:04 4 11/27/22 10:04 6 11/27/22 07:17 7 11/27/22 03:51 15 Laboratory Results Laboratory Results WBC 6.21 K/ul (4.8-10.8) 11/27/22 02:49 RBC 2.87 M/uL (4.70-6.10) L 11/27/22 02:49 Hgb 9.5 g/dl (14.0-18.0) L 11/27/22 02:49 Hct 30.5 % (42.0-52.0) L 11/27/22 02:49 MCV 106.3 fL (80.0-100.0) H D 11/27/22 02:49 MCH 33.1 pg (25.0-34.0) 11/27/22 02:49 MCHC 31.1 g/dL (32.0-36.0) L 11/27/22 02:49 RDW Std Deviation 62.1 fL (36.4-46.3) H 11/27/22 02:49 RDW Coeff of Alan 16.0 % (11.5-14.5) H 11/27/22 02:49 Plt Count 154 K/uL (130-400) 11/27/22 02:49 MPV 11.0 fL (9.4-12.4) 11/27/22 02:49 Immature Gran % (Auto) 0.3 % 11/27/22 02:49 Neut % (Auto) 84.4 % 11/27/22 02:49 Lymph % (Auto) 6.1 % 11/27/22 02:49 Crenshaw % (Auto) 7.1 % 11/27/22 02:49 Eos % (Auto) 1.8 % 11/27/22 02:49 Baso % (Auto) 0.3 % 11/27/22 02:49 Neut # (Auto) 5.24 K/uL (1.40-6.50) 11/27/22 02:49 Lymph # (Auto) 0.38 K/uL (1.2-3.4) L 11/27/22 02:49 [place] # (Auto) 0.44 K/uL (0.11-0.59) 11/27/22 02:49 Eos # (Auto) 0.11 K/uL (0-0.50) 11/27/22 02:49 Baso # (Auto) 0.02 K/uL (0-0.2) 11/27/22 02:49 Immature Gran # (Auto) 0.02 K/uL (0.01-0.20) 11/27/22 02:49 PT 27.7 Seconds (9.0-12.0) H 11/26/22 06:12 INR 2.7 (0.9-1.1) H 11/26/22 06:12 ABG pH 7.35 (7.35-7.45) 11/26/22 02:57 ABG pCO2 48 mmHg (35-46) H 11/26/22 02:57 ABG pO2 64 mmHg (80-95) L 11/26/22 02:57 ABG HCO3 27 mmol/L (19-24) H 11/26/22 02:57 ABG O2 Saturation 92.3 % (90-95) 11/26/22 02:57 ABG Base Excess 0.3 mEq/L (-9-1.8) 11/26/22 02:57 Devin Test Pos (Pos) 11/26/22 02:57 Oxygen Given 4L 11/26/22 02:57 Sodium 136 mmol/L (136-145) 11/27/22 02:49 Potassium 4.7 mmol/L (3.5-5.1) 11/27/22 02:49 Chloride 100 mmol/L (98-107) 11/27/22 02:49 Carbon Dioxide 29 mmol/L (21-32) 11/27/22 02:49 Anion Gap 7 (3-11) 11/27/22 02:49 BUN 82 mg/dl (6-23) H 11/27/22 02:49 Creatinine 4.57 mg/dl (0.6-1.4) H* 11/27/22 02:49 Est Cr Clr Drug Dosing 13.5 ml/min 11/27/22 02:49 Est GFR ( Amer) 12.5 ml/min 11/27/22 02:49 Est GFR (Non-Af Amer) 10.8 ml/min 11/27/22 02:49 BUN/Creatinine Ratio 17.9 (10-20) 11/27/22 02:49 Glucose 106 mg/dl (70-99(Fasting)) H 11/27/22 02:49 Calcium 8.6 mg/dl (8.6-10.3) 11/27/22 02:49 Magnesium 2.4 mg/dl (1.7-2.4) 11/25/22 20:50 Total Bilirubin 0.6 mg/dl (0.2-1.0) 11/27/22 02:49 AST 24 U/L (13-39) 11/27/22 02:49 ALT 18 U/L (7-52) 11/27/22 02:49 Alkaline Phosphatase 91 U/L (34-104) 11/27/22 02:49 Total Creatine Kinase 266 U/L (30-223) H 11/25/22 20:50 Troponin I High Sens 241.6 pg/ml (0-20) H* 11/27/22 07:56 B-Natriuretic Peptide 559 pg/ml (0-100) H 11/26/22 02:57 Total Protein 5.9 gm/dl (6.0-8.3) L 11/27/22 02:49 Albumin 3.3 gm/dl (3.4-5.0) L 11/27/22 02:49 Globulin 2.6 gm/dl (2.5-4.0) 11/27/22 02:49 Albumin/Globulin Ratio 1.3 (0.9-2) 11/27/22 02:49 SARS-CoV-2, RNA, NAAT NEGATIVE (NEGATIVE) 11/25/22 21:[address] 11/25/22 21:42 Exam(s): CT C SPINE EXAM: CT Cervical Spine Without Intravenous Contrast CLINICAL HISTORY: Trauma. TECHNIQUE: Axial computed tomography images of the cervical spine without intravenous contrast. Automated exposure control was utilized for the study. A dose lowering technique was utilized adhering to the principles of ALARA. COMPARISON: No relevant prior studies available. FINDINGS: Vertebrae: The vertebral bodies are intact without acute osseous traumatic injury. No anterolisthesis or retrolisthesis is identified. The facet joints are well aligned without subluxation or dislocation. The pedicles, transverse processes and spinous processes are intact. Facet hypertrophic changes noted at several levels, chronic in appearance. Discs/spinal canal/neural foramina: Disc space narrowing with marginal hypertrophic changes noted from C3-4 through C6-7. No acute osseous canal narrowing noted. Chronic appearing osseous neural foraminal encroachment noted at several levels bilaterally. Soft tissues: Unremarkable. IMPRESSION: No acute osseous traumatic injury or significant abnormal alignment involving the cervical spine. Incidental multilevel chronic degenerative changes. Electronically signed by: Sam Baldwin MD 11/25/22 22:[address] 11/25/22 21:42 Exam(s): CT HEAD Without Contrast EXAM: CT Head Without Intravenous Contrast CLINICAL HISTORY: Trauma. TECHNIQUE: Axial computed tomography images of the head/brain without intravenous contrast. Automated exposure control was utilized for the study. A dose lowering technique was utilized adhering to the principles of ALARA. COMPARISON: No relevant prior studies available. FINDINGS: Brain: No intracranial hemorrhage. No significant mass effect. No cortical infarct. Underlying parenchymal involutional changes and periventricular deep white matter hypodense changes noted. Ventricles: Unremarkable. No ventriculomegaly. Bones/joints: Unremarkable. No acute fracture. Soft tissues: No significant overlying acute traumatic soft tissue abnormality. No radiopaque foreign body. Sinuses: Unremarkable as visualized. No acute sinusitis. Mastoid air cells: Unremarkable as visualized. No mastoid effusion. IMPRESSION: No acute intracranial process identified. Chronic underlying presumed incidental age-related findings, as noted above. Electronically signed by: Sam Baldwin MD 11/25/22 22:[address] 11/25/22 21:42 Exam(s): CT L SPINE EXAM: CT Lumbar Spine Without Intravenous Contrast CLINICAL HISTORY: Trauma. TECHNIQUE: Axial computed tomography images of the lumbar spine without intravenous contrast. Automated exposure control was utilized for the study. A dose lowering technique was utilized adhering to the principles of ALARA. COMPARISON: No relevant prior studies available. FINDINGS: Vertebrae: No definite acute osseous traumatic injury. There is scoliosis, convex left, centered at the L3 vertebral body level with the modified Mendoza angle measuring 30 between the superior endplate of T12 and the superior endplate of L5. There is partial degenerative fusion of the right lateral L2-3 intervertebral disc. There is severe degenerative changes at L1-2. There is moderately severe degenerative changes at T12- L1 and mild degenerative changes of the L1-2. Discs/spinal canal/neural foramina: There is posterior fusion with pedicle screws and paraspinal rods from L3-L5 levels. Interbody cages noted at L4-5 level. Laminectomy defects are identified at these levels. Evaluation the central canal is limited without intrathecal contrast. However, there is suggestion of some canal narrowing at L1-2 level secondary to annular disc bulge and facet hypertrophic changes with a trefoil appearance. There is at least moderate osseous neural foraminal encroachment suggested involving the right L1-2 neural foramina. Soft tissues: No significant acute paraspinal soft tissue abnormality identified. IMPRESSION: 1. No acute osseous traumatic injury involving the lumbar spine. Postsurgical changes from L3-L5 with posterior fusion and laminectomies noted. 3. Multilevel chronic disc spondylosis, most severe at L1-2 level. Scoliosis, convex left. Chronic canal narrowing and neural foraminal encroachment, as noted above. No acute component suspected. Electronically signed by: Sam Baldwin MD 11/25/22 22:43 PM Chest X-Ray 11/26/22 02:13 XR chest 1V portable CLINICAL HISTORY: hypoxia TECHNIQUE: Single frontal radiograph of the chest was obtained. Comparison: Comparison is made to chest radiograph 07/15/2020 FINDINGS: Median sternotomy wires are unchanged. Cardiomegaly is noted. There is prominence and cephalization of the vasculature with Mary Lou B lines seen. Retrocardiac airspace opacity is seen. IMPRESSION: 1. Cardiomegaly and moderate pulmonary edema. 2. Left retrocardiac airspace opacity may represent atelectasis, pneumonia, and/or aspiration. ACT 112: Negative or not required by law. Electronically signed by: Gilberto Toth M.D. 11/26/2022 9:06 AM
--- NOTE | 2022-11-27 20:14 | Electrocardiogram Report ---
Test Reason : Blood Pressure : / mmHG Vent. Rate : 072 BPM Atrial Rate : 000 BPM P-R Int : 000 ms QRS Dur : 136 ms QT Int : 414 ms P-R-T Axes : 000 -61 026 degrees QTc Int : 453 ms Atrial fibrillation Left axis deviation Left bundle branch block Abnormal ECG When compared with ECG of 15-JUL-2020 19:44, No significant change was found Confirmed by David Alamo ([id number]) on 11/27/2022 8:13:58 PM Referred By: REFERRED SELF Confirmed By:David Alamo
[2022-11-27] MEDS: ROSUVASTATIN CALCIUM 10 MG TAB PO SCH (20:52)
[2022-11-27] MEDS: MONTELUKAST SODIUM 10 MG TABLET PO SCH (20:52)
--- NOTE | 2022-11-28 06:35 | Electrocardiogram Report ---
Test Reason : Blood Pressure : / mmHG Vent. Rate : 057 BPM Atrial Rate : 054 BPM P-R Int : 000 ms QRS Dur : 148 ms QT Int : 462 ms P-R-T Axes : 000 -51 -10 degrees QTc Int : 449 ms Sinus rhythm with PACs Left axis deviation Left bundle branch block Abnormal ECG When compared with ECG of 25-NOV-2022 20:53, (unconfirmed) No significant change Confirmed by David Alamo ([id number]) on 11/28/2022 6:34:56 AM Referred By: REFERRED SELF Confirmed By:David Alamo
[2022-11-28] MEDS: TAMSULOSIN HCL 0.4 MG CAP PO SCH ×2 (07:58→20:17)
[2022-11-28] MEDS: allopurinoL 100 MG TAB PO SCH (07:58)
[2022-11-28] MEDS: FAMOTIDINE 20 MG TAB PO PRN (07:58)
[2022-11-28] MEDS: METOPROLOL SUCC 25MG EXT REL TAB PO SCH (07:59)
[2022-11-28] MEDS: MULTIVITAMIN CHEWABLE TAB PO SCH (07:59)
[2022-11-28] MEDS: EZETIMIBE 10 MG TABLET PO SCH (08:00)
[2022-11-28 08:04] LABS: Basophils # (auto) 0.03 K/uL (0-0.2); Basophils % (auto) 0.5 %; Eosinophils # (auto) 0.16 K/uL (0-0.50); Eosinophils % (auto) 2.5 %; Hematocrit (blood only) 29.2 % (42.0-52.0); Hemoglobin 9.6 g/dl (14.0-18.0); Immature Granulocytes # (auto) 0.02 K/uL (0.01-0.20); Immature Granulocytes % (auto) 0.3 %; Lymphocytes # (auto) 0.51 K/uL (1.2-3.4); Mean Corpuscular Hemoglobin 33.6 pg (25.0-34.0); Mean Corpuscular Hgb Conc 32.9 g/dL (32.0-36.0); Mean Corpuscular Volume 102.1 fL (80.0-100.0); Mean Platelet Volume 10.9 fL (9.4-12.4); Monocytes # (auto) 0.56 K/uL (0.11-0.59); Monocytes % (auto) 8.8 %; Neutrophils # (auto) 5.08 K/uL (1.40-6.50); Neutrophils % (auto) 79.9 %; Platelet Count 148 K/uL (130-400); RDW Coefficient of Variation 15.9 % (11.5-14.5); RDW Standard Deviation 59.4 fL (36.4-46.3); Red Blood Count 2.86 M/uL (4.70-6.10); White Blood Count 6.36 K/ul (4.8-10.8)
[2022-11-28] MEDS: ACETAMINOPHEN 500 MG TAB PO PRN (08:09)
--- NOTE | 2022-11-28 08:27 | Cardiology Consultation ---
Date of Consultation November 28, 2022 Assessment & Plan (1) Acute hypoxemic respiratory failure: (2) CKD (chronic kidney disease) stage 4, GFR 15-29 ml/min: (3) Acute on chronic diastolic (congestive) heart failure: (4) Cardiorenal syndrome: -Cause of hypoxic respiratory failure multifactorial given end-stage renal disease resulting in fluid retention/acute on chronic HFpEF. Not responding well to IV diuretics. Nephrology following. (5) Afib: -Paroxysmal atrial fibrillation, known diagnosis. On Coumadin as an outpatient. Also on Coumadin due to history of DVT. -Currently maintaining sinus rhythm on monitor. Converted from A-fib to sinus rhythm with PACs on 11/27 around 8 AM. (6) LBBB (left bundle branch block): -Chronic (7) CAD (coronary artery disease): -History of coronary artery disease status post CABG in 2000. History of ischemic cardiomyopathy. LVEF preserved at 55 to 60% on recent echo. (8) Aortic stenosis: -Valvular heart disease with mild to moderate MR and TR in the past. Moderate to severe aortic stenosis with aortic regurgitation. Plan PLAN: Medically complex 87-year-old male with a past medical history of chronic diastolic CHF to secondary mixed valvular heart disease with preserved LV systolic function, history of coronary artery disease status post CABG as well as end-stage renal disease who presented with acute respiratory failure. 1. Appreciate nephrology input regarding IV diuretic dosing. Currently being evaluated for possible dialysis. 2. 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 No changes/recommendations from a cardiology standpoint at this time. Will continue to monitor valve as an outpatient. Case discussed with Dr. Jordan. Supervising Physician Co-Signing Physician Notes Patient was seen and personally examined. Full assessment as above he is an 87-year-old male with longstanding stage IV5 renal disease disease with nephrotic syndrome. Underlying cardiac issues include ischemic heart disease with preserved LV systolic function mixed aortic valve disease with aortic insufficiency and moderate to severe aortic stenosis. Patient has had declining function overall gradually over the past several months and presented after mechanical fall and hypoxic respiratory failure secondary to volume overload. Patient has responded symptomatically to diuretics though renal function to the point where requiring dialysis is imminent. Volume status will be addressed at dialysis. Aortic valve disease will affect blood pressures during dialysis but hypertension history will certainly aid Troponins are elevated but flat and not consistent with acute coronary syndrome History of Present Illness Reason for Consultation: Respiratory failure Requesting Physician: Geovany Ericksonist Attending Physician: Connor Patrick MD History of Present Illness Medically complex 87-year-old male with a past medical history of chronic diastolic CHF to secondary mixed valvular heart disease with preserved LV systolic function, history of coronary artery disease status post CABG as well as end-stage renal disease. Was evaluated by Dr. Norman in our outpatient clinic on 11/23- at this time he was volume overloaded, given end-stage renal disease he reached out to nephrology who adjusted diuretics with tentative plans for dialysis in the near future. Unfortunately symptoms progressed and he presented to the [facility] emergency department, treated with IV Lasix in the emergency department. Nephrology was consulted-IV Lasix was increased. Patient not responding to IV Lasix and was transitioned to IV Bumex plus metolazone. Plans to start dialysis this admission versus at discharge. Not PD candidate due to large umbilical hernia- per nephro. An echocardiogram was performed showing preserved LV systolic function of 55 to 60%, moderate aortic stenosis and mild mitral regurgitation. High-sensitivity troponins elevated chronically. Peaked at 289, trending down. Upon entrance into the room patient sitting in the chair- expresses frustration with "medical care". Denies shortness of breath, but is requiring supplemental o2 to maintain o2 sats. Becomes mildly dyspneic with conversation. States "I am ready for dialysis". + orthopnea and lower extremity edema. Has chronic venous insufficiency. No chest pain, palpitations, or lightheadedness. I&O: -1L Weight: 96.8 kg >> 97 kg TELE: SR with PACs 60-70s. Converted from PAF to NSR on 11/27 at 0753 am. Primary outpatient retanner: Dr. Norman Past medical History: Chronic diastolic CHF Mixed valvular heart disease, aortic and mitral stenosis/regurgitation Coronary artery disease with h/o ischemic cardiomyopathy, [place] [facility] [place] block Permanent atrial fibrillation, on Coumadin History of DVT Chronic venous insufficiency CKD stage 4 vs ESRD, follows with nephrology Allergies Allergy/AdvReac Type Severity Reaction Status Date / Time amlodipine [From Norvasc] Allergy Intermediate Edema Verified 11/26/22 03:03 bismuth subsalicylate Allergy Unknown Unknown Verified 11/26/22 03:03 naproxen AdvReac Mild GI UPSET, Verified 11/26/22 03:03 HODGES THROAT Home Medications Medication Instructions Recorded Confirmed Type acetaminophen 500 mg tablet 500 mg PO Q6H PRN Pain 07/15/20 11/26/22 History amoxicillin 500 mg capsule See Rx Instructions .Route 07/15/20 11/26/22 History .COMPLEX PRN Prior to Dental Appointments cholecalciferol (vitamin D3) 50 50 mcg PO DAILY 07/15/20 11/26/22 History mcg (2,000 unit) capsule (Vitamin D3) cyclobenzaprine 10 mg tablet 10 mg PO TID PRN Muscle Spasm 07/15/20 11/26/22 History ezetimibe 10 mg tablet 10 mg PO DAILY 07/15/20 11/26/22 History famotidine 20 mg tablet 20 mg PO DAILY PRN Acid Reflux 07/15/20 11/26/22 History metoprolol succinate 25 mg 12.5 mg PO DAILY 07/15/20 11/26/22 History tablet,extended release 24 hr multivitamin,nn-dnee-Qu-FA-min 1 tab PO DAILY 07/15/20 11/26/22 History rosuvastatin 10 mg tablet 10 mg PO HS 07/15/20 11/26/22 History tamsulosin 0.4 mg capsule 0.4 mg PO BID 07/15/20 11/26/22 History warfarin 5 mg tablet 5 mg PO DIRECTED 07/15/20 11/26/22 History furosemide 80 mg tablet 80 mg PO BID 10/04/22 11/26/22 History allopurinol 100 mg tablet 200 mg PO QAM 11/26/22 11/26/22 History ceramides 1,3,6-II (CeraVe topical 1 applic topical DIRECTED PRN 11/26/22 11/26/22 History cream) .affected area diclofenac sodium 1 % topical gel 1 ea topical BID PRN .back pain, 11/26/22 11/26/22 History muscle pain melatonin 5 mg tablet 5 mg PO HS PRN Sleep 11/26/22 11/26/22 History montelukast 10 mg tablet 10 mg PO QPM 11/26/22 11/26/22 History triamcinolone acetonide 0.1 % 1 applic topical BID PRN .itchy 11/26/22 11/26/22 History topical ointment legs Patient History Medical History CHF (congestive heart failure) Decompensated heart failure ESRD (end stage renal disease) No pertinent family history Surgical History No pertinent past surgical history Social History Smoking Status: Former smoker Tobacco Type: Smokeless Tobacco (Dip or Chew) Second Hand Exposure: No; Do You Dip or Chew Tobacco: No; Preferred Language: Cuban Communication Ability: Effective Hearing Ability: Use of Hearing Aid Supervisor Solder Making Required: No Beliefs That Will Affect Care: None marital status: Current Living Situation: Spouse Current Living Situation Comment: Other Information That Helps Us Care for You: No Feels Safe at Home: Yes Safety Concerns: Feels Safe At This Time Diet: low salt caffeine: Yes during the past year weight has: remained stable Assistive Devices: Walker Review of Systems Review of Systems: All systems reviewed & are unremarkable except as noted in HPI & below Physical Exam Constitutional: WD/WN, vitals as above no acute distress Eyes: PERRL, conjunctivae normal, anicteric sclerae Neck: normal visual inspection and trachea midline Respiratory: + tachypneic; no cough Auscultation: + diminished lung sounds Cardiovascular: Rate/Rhythm: regular rate and regular rhythm Heart Sounds: normal S1, normal S2 and + murmur (+3/6 systolic murmur) Vessels: + JVD Extremities: + edema (+2 BL pitting with venous stasis changes. ) Gastrointestinal (Abdomen): Inspection/Auscultation: + abdomen distended Skin: Trauma: + abrasion (LEFT arm, dressing intact ) Psychiatric: A+Ox3, euthymic affect Results & Data Vital Signs (Past 12 Hours) Vital Signs Temp Pulse Pulse Resp BP Pulse Ox O2 Del Method 11/28/22 07:51 36.7 C 73 18 119/77 92 Nasal Cannula 11/28/22 07:22 75 11/28/22 04:27 36.7 C 73 18 109/58 L 90 Oxymask 11/27/22 22:06 67 11/27/22 23:09 36.6 C 68 18 120/65 95 Nasal Cannula 11/27/22 20:50 Nasal Cannula O2 Flow Rate 11/28/22 07:51 4 11/28/22 07:22 11/28/22 04:27 8 11/27/22 22:06 11/27/22 23:09 11/27/22 20:50 4 Laboratory Results Cardiac Enzymes 11/27/22 11/28/22 Range/Units 07:56 07:06 AST 22 (13-39) U/L Troponin I High Sens 241.6 H* (0-20) pg/ml CBC 11/28/22 Range/Units 07:06 WBC 6.36 (4.8-10.8) K/ul RBC 2.86 L (4.70-6.10) M/uL Hgb 9.6 L (14.0-18.0) g/dl Hct 29.2 L (42.0-52.0) % Plt Count 148 (130-400) K/uL Neut # (Auto) 5.08 (1.40-6.50) K/uL Lymph # (Auto) 0.51 L (1.2-3.4) K/uL [place] # (Auto) 0.56 (0.11-0.59) K/uL Eos # (Auto) 0.16 (0-0.50) K/uL Baso # (Auto) 0.03 (0-0.2) K/uL Comprehensive Metabolic Panel 11/28/22 Range/Units 07:06 Sodium 135 L (136-145) mmol/L Potassium 4.7 (3.5-5.1) mmol/L Chloride 98 (98-107) mmol/L Carbon Dioxide 29 (21-32) mmol/L BUN 84 H (6-23) mg/dl Creatinine 4.87 H* D (0.6-1.4) mg/dl Glucose 90 (70-99(Fasting)) mg/dl Calcium 9.0 (8.6-10.3) mg/dl AST 22 (13-39) U/L ALT 19 (7-52) U/L Alkaline Phosphatase 77 (34-104) U/L Total Protein 5.9 L (6.0-8.3) gm/dl Albumin 3.3 L (3.4-5.0) gm/dl Intake and Output 11/27/22 11/28/22 11/28/22 22:59 06:59 14:59 Intake Total 200 / 550 Output Total 450 / 750 Balance -250 / -200 Intake: Oral 200 / 550 Output: Urine Amount (Catheter) 450 / 750 External 450 / 750 Other: Weight 97 kg Diagnostic Findings ECHO INPATIENT [facility] 11/26/2022 LVEF 55-60% Left and right atrium moderately dilated Mod to severe Mild MR and TR Echo OUTPATIENT 10/2022 The qualitative LV ejection fraction is 55-59% (normal). The right ventricular cavity is moderately dilated. The right ventricular systolic function is qualitatively normal. Moderate aortic valve stenosis is present. Moderate aortic valve regurgitation is present. [id number] mitral regurgitation. Mild mitral stenosis is present. Mild pulmonary hypertension is present. The estimated pulmonary artery systolic pressure is 46mm Hg. The aortic root is mildly enlarged. The proximal ascending thoracic aorta is mildly enlarged.
[2022-11-28 08:29] LABS: Albumin Globulin Ratio 1.3 (0.9-2); Albumin Level 3.3 gm/dl (3.4-5.0); BUN Creatinine Ratio 17.2 (10-20); Bilirubin,Total 0.6 mg/dl (0.2-1.0); Creatinine Clr Calc Pharmacy 12.7 ml/min; Est GFR (African American) 11.6 ml/min; Globulin 2.6 gm/dl (2.5-4.0); Potassium 4.7 mmol/L (3.5-5.1); Total Protein 5.9 gm/dl (6.0-8.3)
--- NOTE | 2022-11-28 10:15 | Nephrology Progress Note ---
Date of Service November 28, 2022 Assessment & Plan (1) ESRD (end stage renal disease): Plan: CKD5 w/ several years of nephrotic range proteinuria for several years>> volume overloaded with cardiorenal syndrome; PD planned; pt needs surgical eval of abdomen. >appreciate vascular eval both for possible PD catheter and for temporary HD access >> pt w/ large umbilical hernia/ not a PD candidate. >>not responding to 80 IV bid lasix >> changed to bumex 3 mg tid IV plus 2.5 mg daily metolazone -no indication at this time for K supplements -daily bmp >>daily STANDING weight ordered -tightened FR to 1.5L >>for tunneled dialysis catheter placement tomorrow and first treatment if there's time; pt wishes to dialyze at [facility] after hospital/rehab under my care; dialysis consent signed/ on chart. I spent > 40 minutes discussing dialysis modalties and goals of care with the patient and his as well as particulars of vascular access and outpatient hemodialysis plans/protocols w/ pt and his . (2) Acute hypoxemic respiratory failure: Plan: 2/2 ckd Progression/ HF exacerbation - Diuretic as above Admission and Anticipated Discharge Date Admission Date: November 26, 2022 Subjective RN reports minimal UOP; pt denies sob or orthopnea. endorses exertional dyspnea. no edema. + generslized weakness. Review of Systems Review of Systems: All systems reviewed & are unremarkable except as noted in Subjective Physical Exam Constitutional: well developed, well nourished, + frail appearing and cooperative; no acute distress Eyes: EOM intact bilaterally ENMT: Ears: no external ear abnormality Nose: no external nose abnormality Mouth: + dry oral mucous membranes Neck: no nuchal rigidity Respiratory: normal respiratory effort Auscultation: + diminished lung sounds Cardiovascular: Rate/Rhythm: regular rate and regular rhythm Heart Sounds: + murmur Extremities: no edema Gastrointestinal (Abdomen): Inspection/Auscultation: normal bowel sounds Percussion/Palpation: abdomen soft; abdomen nontender Musculoskeletal: Extremities: strength 5/5 throughout Skin: no rashes, warm and dry Neurologic: cabral, fluent speech, no tremor Psychiatric: Orientation: alert and oriented x 3 Speech: normal rate/rhythm/volume of speech Insight: + limited insight Judgment: + limited judgement Results & Data Vital Signs (Past 12 Hours) Vital Signs Temp Pulse Pulse Resp BP Pulse Ox O2 Del Method 11/28/22 07:51 36.7 C 73 18 119/77 92 Nasal Cannula 11/28/22 07:22 75 11/28/22 04:27 36.7 C 73 18 109/58 L 90 Oxymask 11/27/22 22:06 67 11/27/22 23:09 36.6 C 68 18 120/65 95 Nasal Cannula O2 Flow Rate 11/28/22 07:51 4 11/28/22 07:22 11/28/22 04:27 8 11/27/22 22:06 11/27/22 23:09 Laboratory Results 11/28/22 07:06 11/28/22 07:06
[2022-11-28] MEDS: BUMETANIDE 3 MG in SYRINGE 0 ML IV SCH ×3 (10:18→17:54)
--- NOTE | 2022-11-28 12:47 | Hospitalist Progress Note ---
Date of Service November 28, 2022 Assessment & Plan (1) Acute hypoxemic respiratory failure: Plan: Secondary to acute decompensated heart failure CKD stage V Past medical history of chronic diastolic heart failure, CAD status post CABG, valvular heart disease, a flutter, DVT on Coumadin, CKD (baseline creatinine of 4) presented to the hospital after a fall at home when his walker got caught on the carpet. No loss of consciousness/syncope. Also reported shortness of breath on presentation On presentation, he was saturating 81% in room air Underwent laceration repair on left ear in the ED Recently seen in cardiology office 3 days prior to admission. Cardiology contacted patient's nephrology to expedite dialysis in preparation. Chest x-ray on admission personally reviewed; cardiomegaly with pulmonary edema BNP of 559 Creatinine uptrending to 4.87. Discussed with nephrology; continue diuretics. Currently on Bumex 3 mg 3 times daily IV + 2.5 mg daily metolazone. Vascular surgery consulted for placement of HD catheter tomorrow AM. Weaned off supplemental oxygenation as tolerated. Fluid restriction. PT OT recommended rehab. Elevated troponin secondary to demand ischemia Moderate to severe EKG on admission personally reviewed; A-fib with ventricular rate of 72. QTc of 453. High sensitive troponin peaked to 282 and down trended to 241. 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 Cardiology consulted; appreciate recommendation. Chronic conditions; A-fib/history of DVT on CoumadinCoumadin on hold due to fall and laceration. Obtain PT/INR. Resume after procedure. chronic back pain status post surgery chronic anemia, hemoglobin at baseline chronic venous insufficiency prostate cancer status post radiation Ambulatory dysfunction past tobacco abuse DVT prophylaxis; Coumadin currently on hold for possible procedure tomorrow. CODE STATUS DNR/DNI Time spent evaluating patient, direct bedside care, chart review, placing orders, interpretation of diagnostic studies, discussion with consultants, patient, and family members, as well as other required patient management activities is 60 minutes Please note the above document was generated using voice recognition software. It may contain grammatical, syntax or spelling errors. Any formal questions or concerns about the content, text or information contained within the body of this dictation should be directly addressed to the provider for clarification Admission and Anticipated Discharge Date Admission Date: November 26, 2022 Subjective Patient seen and examined at bedside. He is sitting up on the bed at the side of the chair; not in any distress. Telemetry reviewed; maintaining sinus rhythm. No alarms. Review of Systems Review of Systems: All systems reviewed & are unremarkable except as noted in Subjective Physical Exam Physical Exam: Constitutional: Awake, alert, oriented x3. Head: Normocephalic, Atraumatic Eyes: PERRL, conjunctivae normal, anicteric sclerae ENMT: Sutures intact in left ear. Neck: trachea midline, no thyromegaly normal visual inspection Respiratory: Bilateral basilar crackles. Cardiovascular: RRR, no murmur, no edema Vessels: no JVD or carotid bruit Chest: normal inspection of chest Abdomen: normal bowel sounds, soft, nontender, no hepatosplenomegaly Musculoskeletal: no cyanosis or clubbing, extremities motor strength 5/5. Trace pitting edema Skin: no rashes, warm and dry normal turgor Neurologic: PERRL, EOMI, accommodation nl, no face palsy, no dysarthria CN's II- XI intact bilaterally and moves all extremities Psychiatric: A+Ox3, euthymic affect Lymphatic: no cervical or axillary lymphadenopathy : deferred Results & Data Results & Data Vital Signs (Past 12 Hours) Vital Signs Temp Pulse Pulse Resp BP Pulse Ox O2 Del Method 11/28/22 11:36 36.7 C 64 18 132/69 98 Nasal Cannula 11/28/22 09:45 Nasal Cannula 11/28/22 07:51 36.7 C 73 18 119/77 92 Nasal Cannula 11/28/22 07:22 75 11/28/22 04:27 36.7 C 73 18 109/58 L 90 Oxymask O2 Flow Rate 11/28/22 11:36 3 11/28/22 09:45 4 11/28/22 07:51 4 11/28/22 07:22 11/28/22 04:27 8 Laboratory Results Laboratory Results WBC 6.36 K/ul (4.8-10.8) 11/28/22 07:06 RBC 2.86 M/uL (4.70-6.10) L 11/28/22 07:06 Hgb 9.6 g/dl (14.0-18.0) L 11/28/22 07:06 Hct 29.2 % (42.0-52.0) L 11/28/22 07:06 MCV 102.1 fL (80.0-100.0) H 11/28/22 07:06 MCH 33.6 pg (25.0-34.0) 11/28/22 07:06 MCHC 32.9 g/dL (32.0-36.0) 11/28/22 07:06 RDW Std Deviation 59.4 fL (36.4-46.3) H 11/28/22 07:06 RDW Coeff of Alan 15.9 % (11.5-14.5) H 11/28/22 07:06 Plt Count 148 K/uL (130-400) 11/28/22 07:06 MPV 10.9 fL (9.4-12.4) 11/28/22 07:06 Immature Gran % (Auto) 0.3 % 11/28/22 07:06 Neut % (Auto) 79.9 % 11/28/22 07:06 Lymph % (Auto) 8.0 % 11/28/22 07:06 [place] % (Auto) 8.8 % 11/28/22 07:06 Eos % (Auto) 2.5 % 11/28/22 07:06 Baso % (Auto) 0.5 % 11/28/22 07:06 Neut # (Auto) 5.08 K/uL (1.40-6.50) 11/28/22 07:06 Lymph # (Auto) 0.51 K/uL (1.2-3.4) L 11/28/22 07:06 [place] # (Auto) 0.56 K/uL (0.11-0.59) 11/28/22 07:06 Eos # (Auto) 0.16 K/uL (0-0.50) 11/28/22 07:06 Baso # (Auto) 0.03 K/uL (0-0.2) 11/28/22 07:06 Immature Gran # (Auto) 0.02 K/uL (0.01-0.20) 11/28/22 07:06 PT 27.7 Seconds (9.0-12.0) H 11/26/22 06:12 INR 2.7 (0.9-1.1) H 11/26/22 06:12 ABG pH 7.35 (7.35-7.45) 11/26/22 02:57 ABG pCO2 48 mmHg (35-46) H 11/26/22 02:57 ABG pO2 64 mmHg (80-95) L 11/26/22 02:57 ABG HCO3 27 mmol/L (19-24) H 11/26/22 02:57 ABG O2 Saturation 92.3 % (90-95) 11/26/22 02:57 ABG Base Excess 0.3 mEq/L (-9-1.8) 11/26/22 02:57 Devin Test Pos (Pos) 11/26/22 02:57 Oxygen Given 4L 11/26/22 02:57 Sodium 135 mmol/L (136-145) L 11/28/22 07:06 Potassium 4.7 mmol/L (3.5-5.1) 11/28/22 07:06 Chloride 98 mmol/L (98-107) 11/28/22 07:06 Carbon Dioxide 29 mmol/L (21-32) 11/28/22 07:06 Anion Gap 8 (3-11) 11/28/22 07:06 BUN 84 mg/dl (6-23) H 11/28/22 07:06 Creatinine 4.87 mg/dl (0.6-1.4) H* D 11/28/22 07:06 Est Cr Clr Drug Dosing 12.7 ml/min 11/28/22 07:06 Est GFR ( Amer) 11.6 ml/min 11/28/22 07:06 Est GFR (Non-Af Amer) 10.0 ml/min 11/28/22 07:06 BUN/Creatinine Ratio 17.2 (10-20) 11/28/22 07:06 Glucose 90 mg/dl (70-99(Fasting)) 11/28/22 07:06 Calcium 9.0 mg/dl (8.6-10.3) 11/28/22 07:06 Magnesium 2.4 mg/dl (1.7-2.4) 11/25/22 20:50 Total Bilirubin 0.6 mg/dl (0.2-1.0) 11/28/22 07:06 AST 22 U/L (13-39) 11/28/22 07:06 ALT 19 U/L (7-52) 11/28/22 07:06 Alkaline Phosphatase 77 U/L (34-104) 11/28/22 07:06 Total Creatine Kinase 266 U/L (30-223) H 11/25/22 20:50 Troponin I High Sens 241.6 pg/ml (0-20) H* 11/27/22 07:56 B-Natriuretic Peptide 559 pg/ml (0-100) H 11/26/22 02:57 Total Protein 5.9 gm/dl (6.0-8.3) L 11/28/22 07:06 Albumin 3.3 gm/dl (3.4-5.0) L 11/28/22 07:06 Globulin 2.6 gm/dl (2.5-4.0) 11/28/22 07:06 Albumin/Globulin Ratio 1.3 (0.9-2) 11/28/22 07:06 SARS-CoV-2, RNA, NAAT NEGATIVE (NEGATIVE) 11/25/22 21:[address] 11/25/22 21:42 Exam(s): CT C SPINE EXAM: CT Cervical Spine Without Intravenous Contrast CLINICAL HISTORY: Trauma. TECHNIQUE: Axial computed tomography images of the cervical spine without intravenous contrast. Automated exposure control was utilized for the study. A dose lowering technique was utilized adhering to the principles of ALARA. COMPARISON: No relevant prior studies available. FINDINGS: Vertebrae: The vertebral bodies are intact without acute osseous traumatic injury. No anterolisthesis or retrolisthesis is identified. The facet joints are well aligned without subluxation or dislocation. The pedicles, transverse processes and spinous processes are intact. Facet hypertrophic changes noted at several levels, chronic in appearance. Discs/spinal canal/neural foramina: Disc space narrowing with marginal hypertrophic changes noted from C3-4 through C6-7. No acute osseous canal narrowing noted. Chronic appearing osseous neural foraminal encroachment noted at several levels bilaterally. Soft tissues: Unremarkable. IMPRESSION: No acute osseous traumatic injury or significant abnormal alignment involving the cervical spine. Incidental multilevel chronic degenerative changes. Electronically signed by: Sam Baldwin MD 11/25/22 22:[address] 11/25/22 21:42 Exam(s): CT HEAD Without Contrast EXAM: CT Head Without Intravenous Contrast CLINICAL HISTORY: Trauma. TECHNIQUE: Axial computed tomography images of the head/brain without intravenous contrast. Automated exposure control was utilized for the study. A dose lowering technique was utilized adhering to the principles of ALARA. COMPARISON: No relevant prior studies available. FINDINGS: Brain: No intracranial hemorrhage. No significant mass effect. No cortical infarct. Underlying parenchymal involutional changes and periventricular deep white matter hypodense changes noted. Ventricles: Unremarkable. No ventriculomegaly. Bones/joints: Unremarkable. No acute fracture. Soft tissues: No significant overlying acute traumatic soft tissue abnormality. No radiopaque foreign body. Sinuses: Unremarkable as visualized. No acute sinusitis. Mastoid air cells: Unremarkable as visualized. No mastoid effusion. IMPRESSION: No acute intracranial process identified. Chronic underlying presumed incidental age-related findings, as noted above. Electronically signed by: Sam Baldwin MD 11/25/22 22:[address] 11/25/22 21:42 Exam(s): CT L SPINE EXAM: CT Lumbar Spine Without Intravenous Contrast CLINICAL HISTORY: Trauma. TECHNIQUE: Axial computed tomography images of the lumbar spine without intravenous contrast. Automated exposure control was utilized for the study. A dose lowering technique was utilized adhering to the principles of ALARA. COMPARISON: No relevant prior studies available. FINDINGS: Vertebrae: No definite acute osseous traumatic injury. There is scoliosis, convex left, centered at the L3 vertebral body level with the modified Mendoza angle measuring 30 between the superior endplate of T12 and the superior endplate of L5. There is partial degenerative fusion of the right lateral L2-3 intervertebral disc. There is severe degenerative changes at L1-2. There is moderately severe degenerative changes at T12- L1 and mild degenerative changes of the L1-2. Discs/spinal canal/neural foramina: There is posterior fusion with pedicle screws and paraspinal rods from L3-L5 levels. Interbody cages noted at L4-5 level. Laminectomy defects are identified at these levels. Evaluation the central canal is limited without intrathecal contrast. However, there is suggestion of some canal narrowing at L1-2 level secondary to annular disc bulge and facet hypertrophic changes with a trefoil appearance. There is at least moderate osseous neural foraminal encroachment suggested involving the right L1-2 neural foramina. Soft tissues: No significant acute paraspinal soft tissue abnormality identified. IMPRESSION: 1. No acute osseous traumatic injury involving the lumbar spine. Postsurgical changes from L3-L5 with posterior fusion and laminectomies noted. 3. Multilevel chronic disc spondylosis, most severe at L1-2 level. Scoliosis, convex left. Chronic canal narrowing and neural foraminal encroachment, as noted above. No acute component suspected. Electronically signed by: Sam Baldwin MD 11/25/22 22:43 PM Chest X-Ray 11/26/22 02:13 XR chest 1V portable CLINICAL HISTORY: hypoxia TECHNIQUE: Single frontal radiograph of the chest was obtained. Comparison: Comparison is made to chest radiograph 07/15/2020 FINDINGS: Median sternotomy wires are unchanged. Cardiomegaly is noted. There is prominence and cephalization of the vasculature with Mary Lou B lines seen. Retrocardiac airspace opacity is seen. IMPRESSION: 1. Cardiomegaly and moderate pulmonary edema. 2. Left retrocardiac airspace opacity may represent atelectasis, pneumonia, and/or aspiration. ACT 112: Negative or not required by law. Electronically signed by: Gilberto Toth M.D. 11/26/2022 9:06 AM
[2022-11-28] MEDS: metOLazone 2.5 MG TABLET PO SCH (13:39)
[2022-11-28 15:07] LABS: INR 1.8 (0.9-1.1); Prothrombin Time 19.3 Seconds (9.0-12.0)
[2022-11-28] MEDS: MONTELUKAST SODIUM 10 MG TABLET PO SCH (20:17)
[2022-11-28] MEDS: ROSUVASTATIN CALCIUM 10 MG TAB PO SCH (20:18)
[2022-11-29] MEDS: BUMETANIDE 3 MG in SYRINGE 0 ML IV SCH ×3 (05:45→18:23)
[2022-11-29 07:48] LABS: Basophils # (auto) 0.02 K/uL (0-0.2); Basophils % (auto) 0.4 %; Eosinophils % (auto) 1.9 %; Hematocrit (blood only) 30.1 % (42.0-52.0); Hemoglobin 9.7 g/dl (14.0-18.0); Immature Granulocytes # (auto) 0.02 K/uL (0.01-0.20); Immature Granulocytes % (auto) 0.4 %; Lymphocytes # (auto) 0.39 K/uL (1.2-3.4); Lymphocytes % (auto) 7.5 %; Mean Corpuscular Hgb Conc 32.2 g/dL (32.0-36.0); Mean Corpuscular Volume 102.4 fL (80.0-100.0); Mean Platelet Volume 11.2 fL (9.4-12.4); Monocytes # (auto) 0.43 K/uL (0.11-0.59); Monocytes % (auto) 8.2 %; Neutrophils # (auto) 4.26 K/uL (1.40-6.50); Neutrophils % (auto) 81.6 %; Platelet Count 159 K/uL (130-400); RDW Coefficient of Variation 15.7 % (11.5-14.5); RDW Standard Deviation 59.1 fL (36.4-46.3); Red Blood Count 2.94 M/uL (4.70-6.10); White Blood Count 5.22 K/ul (4.8-10.8)
[2022-11-29] MEDS ORDERED: SODIUM CHLORIDE 0.9% 1000ML 1,000 ML IV PRN (08:05)
[2022-11-29] MEDS: EZETIMIBE 10 MG TABLET PO SCH (08:07)
[2022-11-29] MEDS: METOPROLOL SUCC 25MG EXT REL TAB PO SCH (08:07)
[2022-11-29] MEDS: MULTIVITAMIN CHEWABLE TAB PO SCH (08:08)
[2022-11-29 08:15] LABS: Albumin Globulin Ratio 1.2 (0.9-2); Albumin Level 3.2 gm/dl (3.4-5.0); Bilirubin,Total 0.8 mg/dl (0.2-1.0); Calcium 9.1 mg/dl (8.6-10.3); Creatinine Clr Calc Pharmacy 12.8 ml/min; Est GFR (African American) 11.7 ml/min; Est GFR (Non-African American) 10.1 ml/min; Globulin 2.7 gm/dl (2.5-4.0); Potassium 4.4 mmol/L (3.5-5.1); Total Protein 5.9 gm/dl (6.0-8.3)
[2022-11-29 08:43] LABS: INR 1.6 (0.9-1.1)
[2022-11-29] MEDS ORDERED: ceFAZolin 2000MG 2,000 MG/15 ML SYR IV ONE (09:00)
[2022-11-29] MEDS ORDERED: MIDAZOLAM HCL 1 MG/ML 2ML VIAL ONE (09:52)
[2022-11-29] MEDS ORDERED: LIDOCAINE 1% LOCAL 20 ML VIAL ONE (09:53)
[2022-11-29] MEDS ORDERED: HEPARIN SOD (PORCINE) 5,000 UNITS/ML VIAL ONE (09:53)
[2022-11-29] MEDS ORDERED: fentaNYL citrate PF 100 MCG/2 ML VIAL ONE (09:53)
--- NOTE | 2022-11-29 10:04 | Consultation ---
Date of Consultation November 29, 2022 Assessment & Plan (1) ESRD (end stage renal disease): At this point being that he has had increase in oxygen needs and now on 6l, would recommend a temporary catheter at this time for dialysis and plan on a permcath later this week after dialysis and his oxygen requirement has improved. I have discussed the risks options and benefits of the procedure with the patient. The patient understands the risks options and benefits and agrees to the procedure. History of Present Illness Reason for Consultation: End stage renal disease Attending Physician: Connor Patrick MD History of Present Illness This is an 87yo male with end stage renal disease. He is requiring increased oxygen due to retaining fluid. He is in need of acute dialysis at this time. Allergies Allergy/AdvReac Type Severity Reaction Status Date / Time amlodipine [From [facility]] Allergy Intermediate Edema Verified 11/26/22 03:03 bismuth subsalicylate Allergy Unknown Unknown Verified 11/26/22 03:03 naproxen AdvReac Mild GI UPSET, Verified 11/26/22 03:03 HODGES THROAT Home Medications Medication Instructions Recorded Confirmed Type acetaminophen 500 mg tablet 500 mg PO Q6H PRN Pain 07/15/20 11/26/22 History amoxicillin 500 mg capsule See Rx Instructions .Route 07/15/20 11/26/22 History .COMPLEX PRN Prior to Dental Appointments cholecalciferol (vitamin D3) 50 50 mcg PO DAILY 07/15/20 11/26/22 History mcg (2,000 unit) capsule (Vitamin D3) cyclobenzaprine 10 mg tablet 10 mg PO TID PRN Muscle Spasm 07/15/20 11/26/22 History ezetimibe 10 mg tablet 10 mg PO DAILY 07/15/20 11/26/22 History famotidine 20 mg tablet 20 mg PO DAILY PRN Acid Reflux 07/15/20 11/26/22 History metoprolol succinate 25 mg 12.5 mg PO DAILY 07/15/20 11/26/22 History tablet,extended release 24 hr multivitamin,bl-[id number]-min 1 tab PO DAILY 07/15/20 11/26/22 History rosuvastatin 10 mg tablet 10 mg PO HS 07/15/20 11/26/22 History tamsulosin 0.4 mg capsule 0.4 mg PO BID 07/15/20 11/26/22 History warfarin 5 mg tablet 5 mg PO DIRECTED 07/15/20 11/26/22 History furosemide 80 mg tablet 80 mg PO BID 10/04/22 11/26/22 History allopurinol 100 mg tablet 200 mg PO QAM 11/26/22 11/26/22 History ceramides 1,3,6-II (CeraVe topical 1 applic topical DIRECTED PRN 11/26/22 11/26/22 History cream) .affected area diclofenac sodium 1 % topical gel 1 ea topical BID PRN .back pain, 11/26/22 11/26/22 History muscle pain melatonin 5 mg tablet 5 mg PO HS PRN Sleep 11/26/22 11/26/22 History montelukast 10 mg tablet 10 mg PO QPM 11/26/22 11/26/22 History triamcinolone acetonide 0.1 % 1 applic topical BID PRN .itchy 11/26/22 11/26/22 History topical ointment legs Patient History Medical History CHF (congestive heart failure) Decompensated heart failure ESRD (end stage renal disease) No pertinent family history Surgical History No pertinent past surgical history Social History Smoking Status: Former smoker Tobacco Type: Smokeless Tobacco (Dip or Chew) Second Hand Exposure: No; Do You Dip or Chew Tobacco: No; Hx Substance Use: No Preferred Language: Chinese Communication Ability: Effective Hearing Ability: Use of Hearing Aid Job Superintendent Required: No Beliefs That Will Affect Care: None marital status: Current Living Situation: Spouse Current Living Situation Comment: Other Information That Helps Us Care for You: No Feels Safe at Home: Yes Safety Concerns: Feels Safe At This Time Diet: low salt caffeine: Yes during the past year weight has: remained stable Assistive Devices: Walker Review of Systems Review of Systems: All systems reviewed & are unremarkable except as noted in HPI & below Physical Exam Constitutional: WD/WN, vitals as above Respiratory: normal respiratory effort; no respiratory distress Auscultation: + diminished lung sounds Cardiovascular: Rate/Rhythm: regular rate and regular rhythm Extremities: normal capillary refill Gastrointestinal (Abdomen): Inspection/Auscultation: abdomen normal to inspection; abdomen not distended Percussion/Palpation: abdomen soft and + hernia Musculoskeletal: no cyanosis or clubbing, extremities motor strength 5/5 Neurologic: CN's II-XI intact bilaterally and moves all extremities Psychiatric: Orientation: alert and oriented x 3 Results & Data Vital Signs (Past 12 Hours) Vital Signs Temp Pulse Pulse Pulse Resp BP BP 11/29/22 08:00 72 11/29/22 08:00 11/29/22 08:00 11/29/22 08:36 36.7 C 72 22 133/68 11/29/22 07:04 37.1 C 74 19 115/63 11/29/22 03:17 36.8 C 81 105/61 11/28/22 22:18 70 11/28/22 23:00 36.4 C L 70 19 128/67 Pulse Ox Pulse Ox O2 Del Method O2 Del Method O2 Flow Rate O2 Flow Rate 11/29/22 08:00 11/29/22 08:00 Nasal Cannula 6 11/29/22 08:00 95 Nasal Cannula 6 11/29/22 08:36 91 Nasal Cannula 6 11/29/22 07:04 89 L Nasal Cannula 6 11/29/22 03:17 91 Nasal Cannula 4 11/28/22 22:18 11/28/22 23:00 91 Nasal Cannula 4
--- NOTE | 2022-11-29 10:26 | Pre Anesthesia Assessment ---
Date of Service November 29, 2022 Pre Sedation Assessment Vital Signs Temp Pulse Pulse Pulse Resp BP BP 11/29/22 08:00 72 11/29/22 08:00 11/29/22 08:00 11/29/22 08:36 36.7 C 72 22 133/68 11/29/22 07:04 37.1 C 74 19 115/63 11/29/22 03:17 36.8 C 81 105/61 11/28/22 22:18 70 11/28/22 23:00 36.4 C L 70 19 128/67 11/28/22 20:20 11/28/22 19:45 36.5 C 66 16 137/72 11/28/22 16:02 36.7 C 61 18 128/74 11/28/22 15:09 60 11/28/22 11:36 36.7 C 64 18 132/69 Pulse Ox Pulse Ox O2 Del Method O2 Del Method O2 Flow Rate O2 Flow Rate 11/29/22 08:00 11/29/22 08:00 Nasal Cannula 6 11/29/22 08:00 95 Nasal Cannula 6 11/29/22 08:36 91 Nasal Cannula 6 11/29/22 07:04 89 L Nasal Cannula 6 11/29/22 03:17 91 Nasal Cannula 4 11/28/22 22:18 11/28/22 23:00 91 Nasal Cannula 4 11/28/22 20:20 Nasal Cannula 4 11/28/22 19:45 91 Nasal Cannula 2 11/28/22 16:02 94 Nasal Cannula 3 11/28/22 15:09 11/28/22 11:36 98 Nasal Cannula 3 Cardiovascular RRR, no murmur, no edema Respiratory normal respiratory effort, lungs clear to auscultation Pre-Sedation Airway Assessment Smoking Status: Former smoker Hx Sleep Apnea: No Short, Thick Neck: No Thyromental Distance: > or= 3.5 Finger Breadths Oral Cavity: + Dentures Mallampati Class: III ASA: ASA3 NPO Status Date of Last Intake of Fluids: 11/29/22 Time of Last Intake of Fluids: 06:00 Date of Last Intake of Solid Food: 11/28/22 Time of Last Intake of Solid Foods: 17:00 Procedure Planning Contraindications for Sedation: none Current Medications Reviewed: Yes Notes The planned sedation has been discussed with the patient. Informed Consent was obtained. I have identified the patient, determined the appropriateness of sedation and have assessed the patient immediately prior to the procedure. All medicine(s) and interventions are by my order.
--- NOTE | 2022-11-29 10:44 | Post Anesthesia Assessment ---
Date of Service November 29, 2022 Post Sedation Assessment Vital Signs Temp Pulse Pulse Pulse Resp BP BP 11/29/22 10:42 67 18 119/69 11/29/22 10:40 70 18 131/64 11/29/22 10:35 69 18 146/76 H 11/29/22 10:30 68 18 147/78 H 11/29/22 08:00 72 11/29/22 08:00 11/29/22 08:00 11/29/22 08:36 36.7 C 72 22 133/68 11/29/22 07:04 37.1 C 74 19 115/63 11/29/22 03:17 36.8 C 81 105/61 11/28/22 22:18 70 11/28/22 23:00 36.4 C L 70 19 128/67 11/28/22 20:20 11/28/22 19:45 36.5 C 66 16 137/72 11/28/22 16:02 36.7 C 61 18 128/74 11/28/22 15:09 60 11/28/22 11:36 36.7 C 64 18 132/69 Pulse Ox Pulse Ox O2 Del Method O2 Del Method O2 Flow Rate O2 Flow Rate 11/29/22 10:42 93 Oxymask 10 11/29/22 10:40 92 Oxymask 10 11/29/22 10:35 92 Oxymask 10 11/29/22 10:30 94 Oxymask 6 11/29/22 08:00 11/29/22 08:00 Nasal Cannula 6 11/29/22 08:00 95 Nasal Cannula 6 11/29/22 08:36 91 Nasal Cannula 6 11/29/22 07:04 89 L Nasal Cannula 6 11/29/22 03:17 91 Nasal Cannula 4 11/28/22 22:18 11/28/22 23:00 91 Nasal Cannula 4 11/28/22 20:20 Nasal Cannula 4 11/28/22 19:45 91 Nasal Cannula 2 11/28/22 16:02 94 Nasal Cannula 3 11/28/22 15:09 11/28/22 11:36 98 Nasal Cannula 3 Recovery Score Activity: Moves 4 extremities Respiration: Deep Breath/Cough Circulation: +/-20% PreAnes Value Consciousness: Arouseable (by name) Oxygen Saturation: O2 needed for >90% Post Anesthesia Score: 8 Discharge Sedation Level of Care: Fast Track Phase II Post Sedation Plan On clinical assessment, the patient appears to have tolerated the sedation without complications. Patient is recovering as anticipated. Patient will continue to be monitored by nursing and may be discharged when sedation discharge criteria are met per below protocol. Upon Completions of procedure up to 15 minutes continue every 5 minute vital signs and the P.A.R. score; then discharge to a Phase I or Fast Track to Phase II per the following guidelines: * Discharge Patient to appropriate Phase II area if PAR is 8 or greater or return to pre- procedure baseline. The post - procedure orders will be as directed. * If PAR score is less than 8 or not return to pre-procedure baseline then patient will follow Phase I monitoring till PAR is reached for Phase II. The Phase I may be done in procedure room or may call to secure a Phase I area. * If naloxone or flumazenil are used for reversal, hold in Phase I for continued monitoring from when last reversal dose was given for a minimum of 60 minutes or longer pending the nurse and/or physician discretion of patient condition before discharge to Phase II. Please call the Sedation Physician to re-evaluate and complete post-note for discharge to Phase II area. Do NOT discharge from procedure sedation or Phase 1 until post- sedation evaluation note is complete by procedure /sedation MD Sedation Discharge Instructions to be given to the patient at discharge to home.
--- NOTE | 2022-11-29 10:52 | Operative Report ---
Post Operative Report Pre & Post Diagnosis Operation Date: 11/29/22 09:00 Pre-Op Diagnosis: Acute Kidney Injury Post-Op Diagnosis: Acute Kidney Injury I identified the patient and participated in the time-out.: Yes Procedure Operation Date: 11/29/22 09:00 Actual Procedures p Insertion of Temporary Dialysis Catheter, Ultrasound Localization of Right Femoral Vein, Moderate Sedation [id number](Right) - Benny Barroso MD Surgeon Benny Barroso MD Electronic Scale Assembler And Tester none Estimated Blood Loss 3 Findings Consistent with Post-Op Diagnosis Specimens none Anesthesia Type RN Sedation Complications none Disposition Accompanied Patient To Recovery: No Disposition: Recovery Room Indications This is an 87-year-old gentleman with end-stage renal disease with acute renal failure requiring dialysis. His oxygen requirements have increased and has difficulty laying flat. We therefore recommend a temporary catheter to be placed for dialysis purposes. I have discussed the risks options and benefits of the procedure with the patient. The patient understands the risks options and benefits and agrees to the procedure. Description of Procedure Patient was taken to the angio suite and placed in the supine position. The groin were prepped and draped in a sterile manner. The patient was identified and a timeout performed. Local anesthesia was then administered to the appropriate areas right groin. Ultrasound was then used to locate the right common femoral vein. The vein compressed easily, had no filing defects, and was patent. The vein was then punctured under direct ultrasound imaging. A guidewire was then passed centrally under fluoroscopic imaging. A stab wound was then made in the anterior chest wall and a 24 cm Mahurkar was passed. The catheter was then inserted over the wire and positioned in the iliac vein. The catheter was then sutured in place using nylon sutures. Both ports aspirated and flushed easily and were then packed with heparin. A sterile dressing was applied to the catheter. The patient left the operation room in satisfactory condition and tolerated the procedure well. All needle and sponge counts were correct at the end of the procedure. I attest to the content of the Intraoperative Record and any orders documented therein. Any exceptions are noted below.
[2022-11-29] MEDS: metOLazone 2.5 MG TABLET PO SCH (11:20)
[2022-11-29] MEDS: allopurinoL 100 MG TAB PO SCH (11:21)
[2022-11-29] MEDS: TAMSULOSIN HCL 0.4 MG CAP PO SCH ×2 (11:21→20:55)
[2022-11-29] MEDS ORDERED: WARFARIN SOD 5 MG TAB PO SCH ×2 (14:15→16:00)
--- NOTE | 2022-11-29 14:16 | Hospitalist Progress Note ---
Date of Service November 29, 2022 Assessment & Plan (1) Acute hypoxemic respiratory failure: Plan: Secondary to acute decompensated heart failure CKD stage V status post temporary HD catheter placement on 11/29/2022 Past medical history of chronic diastolic heart failure, CAD status post CABG, valvular heart disease, a flutter, DVT on Coumadin, CKD (baseline creatinine of 4) presented to the hospital after a fall at home when his walker got caught on the carpet. No loss of consciousness/syncope. Also reported shortness of breath on presentation On presentation, he was saturating 81% in room air Underwent laceration repair on left ear in the ED Recently seen in cardiology office 3 days prior to admission. Cardiology contacted patient's nephrology to expedite dialysis in preparation. Chest x-ray on admission personally reviewed; cardiomegaly with pulmonary edema BNP of 559 Creatinine is stable at 4.83. Discussed with nephrology; patient underwent HD catheter placement today. Will undergo hemodialysis. Weaned off supplemental oxygenation as tolerated. Fluid restriction. PT OT recommended rehab; case management on board Elevated troponin secondary to demand ischemia Moderate to severe EKG on admission personally reviewed; A-fib with ventricular rate of 72. QTc of 453. High sensitive troponin peaked to 282 and down trended to 241. He is maintaining sinus rhythm presently. 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 Discussed with cardiology; continue current management. Chronic conditions; A-fib/history of DVT on CoumadinPT/INR reviewed. Resume warfarin today. chronic back pain status post surgery chronic anemia, hemoglobin at baseline chronic venous insufficiency prostate cancer status post radiation Ambulatory dysfunction past tobacco abuse DVT prophylaxis; Coumadin CODE STATUS DNR/DNI Time spent evaluating patient, direct bedside care, chart review, placing orders, interpretation of diagnostic studies, discussion with consultants, patient, and family members, as well as other required patient management activities is 60 minutes Please note the above document was generated using voice recognition software. It may contain grammatical, syntax or spelling errors. Any formal questions or concerns about the content, text or information contained within the body of this dictation should be directly addressed to the provider for clarification Admission and Anticipated Discharge Date Admission Date: November 26, 2022 Subjective Patient seen and examined at bedside. He is lying in the bed; appears to be in mild respiratory distress. Review of Systems Review of Systems: All systems reviewed & are unremarkable except as noted in Subjective Physical Exam Physical Exam: Constitutional: Awake; appears slightly lethargic. ENMT: Sutures intact in left ear. Respiratory: Bilateral basilar crackles. Cardiovascular: RRR, no murmur, no edema Vessels: no JVD or carotid bruit Chest: normal inspection of chest Abdomen: normal bowel sounds, soft, nontender, no hepatosplenomegaly. Right femoral temporary HD catheter in place. Musculoskeletal: no cyanosis or clubbing, extremities motor strength 5/5. Trace pitting edema Skin: no rashes, warm and dry normal turgor Neurologic: PERRL, EOMI, accommodation nl, no face palsy, no dysarthria CN's II- XI intact bilaterally and moves all extremities Psychiatric: A+Ox3, euthymic affect Lymphatic: no cervical or axillary lymphadenopathy : deferred Results & Data Results & Data Vital Signs (Past 12 Hours) Vital Signs Temp Pulse Pulse Pulse Resp BP BP 11/29/22 12:33 71 20 115/59 L 11/29/22 12:10 70 18 104/59 L 11/29/22 11:34 68 15 94/57 L 11/29/22 11:07 37.1 C 68 20 118/72 11/29/22 10:50 71 18 118/59 L 11/29/22 10:42 67 18 119/69 11/29/22 10:40 70 18 131/64 11/29/22 10:35 69 18 146/76 H 11/29/22 10:30 68 18 147/78 H 11/29/22 08:00 72 11/29/22 08:00 11/29/22 08:00 11/29/22 08:36 36.7 C 72 22 133/68 11/29/22 07:04 37.1 C 74 19 115/63 11/29/22 03:17 36.8 C 81 105/61 Pulse Ox Pulse Ox O2 Del Method O2 Del Method O2 Flow Rate O2 Flow Rate 11/29/22 12:33 94 Oxymask 7 11/29/22 12:10 94 Oxymask 7 11/29/22 11:34 93 Oxymask 7 11/29/22 11:07 92 Oxymask 7 11/29/22 10:50 93 Oxymask 10 11/29/22 10:42 93 Oxymask 10 11/29/22 10:40 92 Oxymask 10 11/29/22 10:35 92 Oxymask 10 11/29/22 10:30 94 Oxymask 6 11/29/22 08:00 11/29/22 08:00 Nasal Cannula 6 11/29/22 08:00 95 Nasal Cannula 6 11/29/22 08:36 91 Nasal Cannula 6 11/29/22 07:04 89 L Nasal Cannula 6 11/29/22 03:17 91 Nasal Cannula 4 Laboratory Results Laboratory Results WBC 5.22 K/ul (4.8-10.8) 11/29/22 06:56 RBC 2.94 M/uL (4.70-6.10) L 11/29/22 06:56 Hgb 9.7 g/dl (14.0-18.0) L 11/29/22 06:56 Hct 30.1 % (42.0-52.0) L 11/29/22 06:56 MCV 102.4 fL (80.0-100.0) H 11/29/22 06:56 MCH 33.0 pg (25.0-34.0) 11/29/22 06:56 MCHC 32.2 g/dL (32.0-36.0) 11/29/22 06:56 RDW Std Deviation 59.1 fL (36.4-46.3) H 11/29/22 06:56 RDW Coeff of Alan 15.7 % (11.5-14.5) H 11/29/22 06:56 Plt Count 159 K/uL (130-400) 11/29/22 06:56 MPV 11.2 fL (9.4-12.4) 11/29/22 06:56 Immature Gran % (Auto) 0.4 % 11/29/22 06:56 Neut % (Auto) 81.6 % 11/29/22 06:56 Lymph % (Auto) 7.5 % 11/29/22 06:56 [place] % (Auto) 8.2 % 11/29/22 06:56 Eos % (Auto) 1.9 % 11/29/22 06:56 Baso % (Auto) 0.4 % 11/29/22 06:56 Neut # (Auto) 4.26 K/uL (1.40-6.50) 11/29/22 06:56 Lymph # (Auto) 0.39 K/uL (1.2-3.4) L 11/29/22 06:56 [place] # (Auto) 0.43 K/uL (0.11-0.59) 11/29/22 06:56 Eos # (Auto) 0.10 K/uL (0-0.50) 11/29/22 06:56 Baso # (Auto) 0.02 K/uL (0-0.2) 11/29/22 06:56 Immature Gran # (Auto) 0.02 K/uL (0.01-0.20) 11/29/22 06:56 PT 17.0 Seconds (9.0-12.0) H 11/29/22 06:56 INR 1.6 (0.9-1.1) H 11/29/22 06:56 ABG pH 7.35 (7.35-7.45) 11/26/22 02:57 ABG pCO2 48 mmHg (35-46) H 11/26/22 02:57 ABG pO2 64 mmHg (80-95) L 11/26/22 02:57 ABG HCO3 27 mmol/L (19-24) H 11/26/22 02:57 ABG O2 Saturation 92.3 % (90-95) 11/26/22 02:57 ABG Base Excess 0.3 mEq/L (-9-1.8) 11/26/22 02:57 Devin Test Pos (Pos) 11/26/22 02:57 Oxygen Given 4L 11/26/22 02:57 Sodium 137 mmol/L (136-145) 11/29/22 06:56 Potassium 4.4 mmol/L (3.5-5.1) 11/29/22 06:56 Chloride 98 mmol/L (98-107) 11/29/22 06:56 Carbon Dioxide 27 mmol/L (21-32) 11/29/22 06:56 Anion Gap 12 (3-11) H 11/29/22 06:56 BUN 87 mg/dl (6-23) H 11/29/22 06:56 Creatinine 4.83 mg/dl (0.6-1.4) H* 11/29/22 06:56 Est Cr Clr Drug Dosing 12.8 ml/min 11/29/22 06:56 Est GFR ( Amer) 11.7 ml/min 11/29/22 06:56 Est GFR (Non-Af Amer) 10.1 ml/min 11/29/22 06:56 BUN/Creatinine Ratio 18.0 (10-20) 11/29/22 06:56 Glucose 82 mg/dl (70-99(Fasting)) 11/29/22 06:56 Calcium 9.1 mg/dl (8.6-10.3) 11/29/22 06:56 Magnesium 2.4 mg/dl (1.7-2.4) 11/25/22 20:50 Total Bilirubin 0.8 mg/dl (0.2-1.0) 11/29/22 06:56 AST 29 U/L (13-39) 11/29/22 06:56 ALT 22 U/L (7-52) 11/29/22 06:56 Alkaline Phosphatase 92 U/L (34-104) 11/29/22 06:56 Total Creatine Kinase 266 U/L (30-223) H 11/25/22 20:50 Troponin I High Sens 241.6 pg/ml (0-20) H* 11/27/22 07:56 B-Natriuretic Peptide 559 pg/ml (0-100) H 11/26/22 02:57 Total Protein 5.9 gm/dl (6.0-8.3) L 11/29/22 06:56 Albumin 3.2 gm/dl (3.4-5.0) L 11/29/22 06:56 Globulin 2.7 gm/dl (2.5-4.0) 11/29/22 06:56 Albumin/Globulin Ratio 1.2 (0.9-2) 11/29/22 06:56 SARS-CoV-2, RNA, NAAT NEGATIVE (NEGATIVE) 11/25/22 21:[address] 11/25/22 21:42 Exam(s): CT C SPINE EXAM: CT Cervical Spine Without Intravenous Contrast CLINICAL HISTORY: Trauma. TECHNIQUE: Axial computed tomography images of the cervical spine without intravenous contrast. Automated exposure control was utilized for the study. A dose lowering technique was utilized adhering to the principles of ALARA. COMPARISON: No relevant prior studies available. FINDINGS: Vertebrae: The vertebral bodies are intact without acute osseous traumatic injury. No anterolisthesis or retrolisthesis is identified. The facet joints are well aligned without subluxation or dislocation. The pedicles, transverse processes and spinous processes are intact. Facet hypertrophic changes noted at several levels, chronic in appearance. Discs/spinal canal/neural foramina: Disc space narrowing with marginal hypertrophic changes noted from C3-4 through C6-7. No acute osseous canal narrowing noted. Chronic appearing osseous neural foraminal encroachment noted at several levels bilaterally. Soft tissues: Unremarkable. IMPRESSION: No acute osseous traumatic injury or significant abnormal alignment involving the cervical spine. Incidental multilevel chronic degenerative changes. Electronically signed by: Sam Baldwin MD 11/25/22 22:[address] 11/25/22 21:42 Exam(s): CT HEAD Without Contrast EXAM: CT Head Without Intravenous Contrast CLINICAL HISTORY: Trauma. TECHNIQUE: Axial computed tomography images of the head/brain without intravenous contrast. Automated exposure control was utilized for the study. A dose lowering technique was utilized adhering to the principles of ALARA. COMPARISON: No relevant prior studies available. FINDINGS: Brain: No intracranial hemorrhage. No significant mass effect. No cortical infarct. Underlying parenchymal involutional changes and periventricular deep white matter hypodense changes noted. Ventricles: Unremarkable. No ventriculomegaly. Bones/joints: Unremarkable. No acute fracture. Soft tissues: No significant overlying acute traumatic soft tissue abnormality. No radiopaque foreign body. Sinuses: Unremarkable as visualized. No acute sinusitis. Mastoid air cells: Unremarkable as visualized. No mastoid effusion. IMPRESSION: No acute intracranial process identified. Chronic underlying presumed incidental age-related findings, as noted above. Electronically signed by: Sam Baldwin MD 11/25/22 22:[address] 11/25/22 21:42 Exam(s): CT L SPINE EXAM: CT Lumbar Spine Without Intravenous Contrast CLINICAL HISTORY: Trauma. TECHNIQUE: Axial computed tomography images of the lumbar spine without intravenous contrast. Automated exposure control was utilized for the study. A dose lowering technique was utilized adhering to the principles of ALARA. COMPARISON: No relevant prior studies available. FINDINGS: Vertebrae: No definite acute osseous traumatic injury. There is scoliosis, convex left, centered at the L3 vertebral body level with the modified Mendoza angle measuring 30 between the superior endplate of T12 and the superior endplate of L5. There is partial degenerative fusion of the right lateral L2-3 intervertebral disc. There is severe degenerative changes at L1-2. There is moderately severe degenerative changes at T12- L1 and mild degenerative changes of the L1-2. Discs/spinal canal/neural foramina: There is posterior fusion with pedicle screws and paraspinal rods from L3-L5 levels. Interbody cages noted at L4-5 level. Laminectomy defects are identified at these levels. Evaluation the central canal is limited without intrathecal contrast. However, there is suggestion of some canal narrowing at L1-2 level secondary to annular disc bulge and facet hypertrophic changes with a trefoil appearance. There is at least moderate osseous neural foraminal encroachment suggested involving the right L1-2 neural foramina. Soft tissues: No significant acute paraspinal soft tissue abnormality identified. IMPRESSION: 1. No acute osseous traumatic injury involving the lumbar spine. Postsurgical changes from L3-L5 with posterior fusion and laminectomies noted. 3. Multilevel chronic disc spondylosis, most severe at L1-2 level. Scoliosis, convex left. Chronic canal narrowing and neural foraminal encroachment, as noted above. No acute component suspected. Electronically signed by: Sam Baldwin MD 11/25/22 22:43 PM Chest X-Ray 11/26/22 02:13 XR chest 1V portable CLINICAL HISTORY: hypoxia TECHNIQUE: Single frontal radiograph of the chest was obtained. Comparison: Comparison is made to chest radiograph 07/15/2020 FINDINGS: Median sternotomy wires are unchanged. Cardiomegaly is noted. There is prominence and cephalization of the vasculature with Mary Lou B lines seen. Retrocardiac airspace opacity is seen. IMPRESSION: 1. Cardiomegaly and moderate pulmonary edema. 2. Left retrocardiac airspace opacity may represent atelectasis, pneumonia, and/or aspiration. ACT 112: Negative or not required by law. Electronically signed by: Gilberto Toth M.D. 11/26/2022 9:06 AM
--- NOTE | 2022-11-29 14:42 | Cardiology Progress Note ---
Date of Service November 29, 2022 Assessment & Plan (1) Acute hypoxemic respiratory failure: (2) CKD (chronic kidney disease) stage 4, GFR 15-29 ml/min: (3) Acute on chronic diastolic (congestive) heart failure: (4) Cardiorenal syndrome: Plan: -Cause of hypoxic respiratory failure multifactorial given end-stage renal disease resulting in fluid retention/acute on chronic HFpEF. Not responding well to IV diuretics. Nephrology following. (5) Afib: Plan: -Paroxysmal atrial fibrillation, known diagnosis. On Coumadin as an outpatient. Also on Coumadin due to history of DVT. -Currently maintaining sinus rhythm on monitor. Converted from A-fib to sinus rhythm with PACs on 11/27 around 8 AM. (6) LBBB (left bundle branch block): Plan: -Chronic (7) CAD (coronary artery disease): Plan: -History of coronary artery disease status post CABG in 2000. History of ischemic cardiomyopathy. LVEF preserved at 55 to 60% on recent echo. (8) Aortic stenosis: Plan: -Valvular heart disease with mild to moderate MR and TR in the past. Moderate to severe aortic stenosis with aortic regurgitation. Plan PLAN: Medically complex 87-year-old male with a past medical history of chronic diastolic CHF to secondary mixed valvular heart disease with preserved LV systolic function, history of coronary artery disease status post CABG as well as end-stage renal disease who presented with acute respiratory failure. 1. Appreciate nephrology input regarding IV diuretic dosing. Currently being evaluated for possible dialysis. 2. Elevated HS troponin in the setting of ESRD and volume overload- not consumer sales representative of ACS. No changes/recommendations from a cardiology standpoint at this time. Will continue to monitor valve as an outpatient. Agree with plans for dialysis as part of ongoing management will follow with adjustment in medical therapies as volume status improved Admission and Anticipated Discharge Date Admission Date: November 26, 2022 Subjective Patient seen and examined after recently returning from surgical placement of dialysis catheter No current complaints. Wearing oxygen due to mild hypoxia Review of Systems Review of Systems: Unobtainable due to cognitive status Physical Exam Constitutional: + obese; no acute distress Eyes: PERRL, conjunctivae normal, anicteric sclerae Neck: trachea midline, no thyromegaly normal visual inspection and trachea midline Respiratory: + tachypneic; no cough Auscultation: + diminished lung sounds Cardiovascular: Rate/Rhythm: regular rate and regular rhythm Heart Sounds: normal S1, normal S2 and + murmur (+3/6 systolic murmur) Vessels: + JVD Extremities: + edema (+2 BL pitting with venous stasis changes. ) Chest (Breasts): Additional Comments: Dialysis catheter in place Gastrointestinal (Abdomen): Inspection/Auscultation: + abdomen distended Skin: Trauma: + abrasion (LEFT arm, dressing intact ) Psychiatric: A+Ox3, euthymic affect Results & Data Vital Signs (Past 12 Hours) Vital Signs Temp Pulse Pulse Pulse Resp BP BP 11/29/22 12:33 71 20 115/59 L 11/29/22 12:10 70 18 104/59 L 11/29/22 11:34 68 15 94/57 L 11/29/22 11:07 37.1 C 68 20 118/72 11/29/22 10:50 71 18 118/59 L 11/29/22 10:42 67 18 119/69 11/29/22 10:40 70 18 131/64 11/29/22 10:35 69 18 146/76 H 11/29/22 10:30 68 18 147/78 H 11/29/22 08:00 72 11/29/22 08:00 11/29/22 08:00 11/29/22 08:36 36.7 C 72 22 133/68 11/29/22 07:04 37.1 C 74 19 115/63 11/29/22 03:17 36.8 C 81 105/61 Pulse Ox Pulse Ox O2 Del Method O2 Del Method O2 Flow Rate O2 Flow Rate 11/29/22 12:33 94 Oxymask 7 11/29/22 12:10 94 Oxymask 7 11/29/22 11:34 93 Oxymask 7 11/29/22 11:07 92 Oxymask 7 11/29/22 10:50 93 Oxymask 10 11/29/22 10:42 93 Oxymask 10 11/29/22 10:40 92 Oxymask 10 11/29/22 10:35 92 Oxymask 10 11/29/22 10:30 94 Oxymask 6 11/29/22 08:00 11/29/22 08:00 Nasal Cannula 6 11/29/22 08:00 95 Nasal Cannula 6 11/29/22 08:36 91 Nasal Cannula 6 11/29/22 07:04 89 L Nasal Cannula 6 11/29/22 03:17 91 Nasal Cannula 4 Laboratory Results Laboratory Results - last 24 hr 11/28/22 11/29/22 11/29/22 14:02 06:56 06:56 WBC 5.22 RBC 2.94 L Hgb 9.7 L Hct 30.1 L MCV 102.4 H MCH 33.0 MCHC 32.2 RDW Std Deviation 59.1 H RDW Coeff of Alan 15.7 H Plt Count 159 MPV 11.2 Immature Gran % (Auto) 0.4 Neut % (Auto) 81.6 Lymph % (Auto) 7.5 [place] % (Auto) 8.2 Eos % (Auto) 1.9 Baso % (Auto) 0.4 Neut # (Auto) 4.26 Lymph # (Auto) 0.39 L [place] # (Auto) 0.43 Eos # (Auto) 0.10 Baso # (Auto) 0.02 Immature Gran # (Auto) 0.02 PT 19.3 H INR 1.8 H Sodium 137 Potassium 4.4 Chloride 98 Carbon Dioxide 27 Anion Gap 12 H BUN 87 H Creatinine 4.83 H* Est Cr Clr Drug Dosing 12.8 Est GFR ( Amer) 11.7 Est GFR (Non-Af Amer) 10.1 BUN/Creatinine Ratio 18.0 Glucose 82 Calcium 9.1 Total Bilirubin 0.8 AST 29 ALT 22 Alkaline Phosphatase 92 Total Protein 5.9 L Albumin 3.2 L Globulin 2.7 Albumin/Globulin Ratio 1.2 11/29/22 06:56 WBC RBC Hgb Hct MCV MCH MCHC RDW Std Deviation RDW Coeff of Alan Plt Count MPV Immature Gran % (Auto) Neut % (Auto) Lymph % (Auto) [place] % (Auto) Eos % (Auto) Baso % (Auto) Neut # (Auto) Lymph # (Auto) [place] # (Auto) Eos # (Auto) Baso # (Auto) Immature Gran # (Auto) PT 17.0 H INR 1.6 H Sodium Potassium Chloride Carbon Dioxide Anion Gap BUN Creatinine Est Cr Clr Drug Dosing Est GFR ( Amer) Est GFR (Non-Af Amer) BUN/Creatinine Ratio Glucose Calcium Total Bilirubin AST ALT Alkaline Phosphatase Total Protein Albumin Globulin Albumin/Globulin Ratio
[2022-11-29] MEDS: MONTELUKAST SODIUM 10 MG TABLET PO SCH (20:56)
[2022-11-29] MEDS: ROSUVASTATIN CALCIUM 10 MG TAB PO SCH (20:57)
--- NOTE | 2022-11-29 21:34 | Dialysis Progress Note ---
Date of Service November 29, 2022 Assessment & Plan (1) ESRD (end stage renal disease): Plan: CKD5 w/ several years of nephrotic range proteinuria for several years>> volume overloaded with cardiorenal syndrome; PD had been planned but he is not a PD candidate d/t large hernia >failed diuretics and w/ worsening hypoxia > temp line placed 11/29 w/ first HD same day -he wishes for referral [facility] HD after hospital/rehab -will eval in AM for further HD >appreciate vascular eval both for possible TDC later this week -daily bmp, daily cbc >>daily STANDING weight ordered -cont tightened FR to 1.5L continue diuretics for now though alone they have minimal effect (2) Acute hypoxemic respiratory failure: Plan: 2/2 ckd Progression/ HF exacerbation - Diuretic as above and dialysis Admission and Anticipated Discharge Date Admission Date: November 26, 2022 Subjective was to get TDC today but too hypoxic; had groin line instead; seen and evaluated on HD; extremely confused Review of Systems Review of Systems: Unobtainable due to cognitive status Physical Exam Constitutional: well developed, well nourished, + altered mental status, + frail appearing and cooperative Eyes: EOM intact bilaterally ENMT: Ears: no external ear abnormality Nose: no external nose abnormality Mouth: + dry oral mucous membranes Neck: no nuchal rigidity Respiratory: normal respiratory effort Auscultation: + diminished lung sounds Cardiovascular: Rate/Rhythm: regular rate and regular rhythm Heart Sounds: + murmur Extremities: no edema Gastrointestinal (Abdomen): Inspection/Auscultation: normal bowel sounds Percussion/Palpation: abdomen soft; abdomen nontender Musculoskeletal: Extremities: strength 5/5 throughout Skin: no rashes, warm and dry Psychiatric: Orientation: alert and oriented to person Speech: normal rate/rhythm/volume of speech Insight: + limited insight Judgment: + limite d judgement Results & Data Vital Signs (Past 12 Hours) Vital Signs Temp Pulse Pulse Pulse Resp BP BP 11/29/22 19:31 75 20 11/29/22 18:05 36.6 C 80 11/29/22 17:30 66 121/59 L 11/29/22 17:00 60 112/76 11/29/22 16:30 52 L 100/60 11/29/22 16:00 52 L 138/75 11/29/22 15:30 54 L 104/58 L 11/29/22 15:00 73 117/68 11/29/22 14:53 36.5 C 72 11/29/22 15:59 73 11/29/22 12:33 71 20 115/59 L 11/29/22 12:10 70 18 104/59 L 11/29/22 11:34 68 15 94/57 L 11/29/22 11:07 37.1 C 68 20 118/72 11/29/22 10:50 71 18 11/29/22 10:42 67 18 11/29/22 10:40 70 18 11/29/22 10:35 69 18 11/29/22 10:30 68 18 BP Pulse Ox O2 Del Method O2 Flow Rate 11/29/22 19:31 101/67 92 Nasal Cannula 5.0 11/29/22 18:05 118/70 11/29/22 17:30 11/29/22 17:00 11/29/22 16:30 11/29/22 16:00 11/29/22 15:30 11/29/22 15:00 11/29/22 14:53 11/29/22 15:59 11/29/22 12:33 94 Oxymask 7 11/29/22 12:10 94 Oxymask 7 11/29/22 11:34 93 Oxymask 7 11/29/22 11:07 92 Oxymask 7 11/29/22 10:50 118/59 L 93 Oxymask 10 11/29/22 10:42 119/69 93 Oxymask 10 11/29/22 10:40 131/64 92 Oxymask 10 11/29/22 10:35 146/76 H 92 Oxymask 10 11/29/22 10:30 147/78 H 94 Oxymask 6 Laboratory Results 11/29/22 06:56 11/29/22 06:56
[2022-11-29] MEDS: MELATONIN 3 MG TAB PO PRN (23:26)
[2022-11-30] MEDS: BUMETANIDE 3 MG in SYRINGE 0 ML IV SCH ×3 (06:47→16:44)
[2022-11-30 06:57] LABS: Basophils # (auto) 0.02 K/uL (0-0.2); Basophils % (auto) 0.4 %; Eosinophils # (auto) 0.08 K/uL (0-0.50); Eosinophils % (auto) 1.7 %; Hematocrit (blood only) 31.6 % (42.0-52.0); Hemoglobin 10.4 g/dl (14.0-18.0); Immature Granulocytes # (auto) 0.02 K/uL (0.01-0.20); Immature Granulocytes % (auto) 0.4 %; Lymphocytes # (auto) 0.48 K/uL (1.2-3.4); Lymphocytes % (auto) 10.1 %; Mean Corpuscular Hemoglobin 33.1 pg (25.0-34.0); Mean Corpuscular Hgb Conc 32.9 g/dL (32.0-36.0); Mean Corpuscular Volume 100.6 fL (80.0-100.0); Monocytes # (auto) 0.54 K/uL (0.11-0.59); Monocytes % (auto) 11.4 %; Neutrophils # (auto) 3.61 K/uL (1.40-6.50); Platelet Count 174 K/uL (130-400); RDW Coefficient of Variation 15.6 % (11.5-14.5); RDW Standard Deviation 57.7 fL (36.4-46.3); Red Blood Count 3.14 M/uL (4.70-6.10); White Blood Count 4.75 K/ul (4.8-10.8)
[2022-11-30 07:15] LABS: Albumin Globulin Ratio 1.2 (0.9-2); Albumin Level 3.2 gm/dl (3.4-5.0); BUN Creatinine Ratio 16.7 (10-20); Bilirubin,Total 0.6 mg/dl (0.2-1.0); Calcium 9.1 mg/dl (8.6-10.3); Creatinine Clr Calc Pharmacy 15.8 ml/min; Est GFR (African American) 15.5 ml/min; Est GFR (Non-African American) 13.3 ml/min; Globulin 2.7 gm/dl (2.5-4.0); Potassium 4.1 mmol/L (3.5-5.1); Total Protein 5.9 gm/dl (6.0-8.3)
[2022-11-30 07:21] LABS: INR 1.6 (0.9-1.1); Prothrombin Time 16.7 Seconds (9.0-12.0)
[2022-11-30] MEDS: FAMOTIDINE 20 MG TAB PO PRN (07:42)
[2022-11-30] MEDS: MULTIVITAMIN CHEWABLE TAB PO SCH (07:42)
[2022-11-30] MEDS: METOPROLOL SUCC 25MG EXT REL TAB PO SCH (07:42)
[2022-11-30] MEDS: allopurinoL 100 MG TAB PO SCH (07:43)
[2022-11-30] MEDS: TAMSULOSIN HCL 0.4 MG CAP PO SCH ×2 (07:43→20:53)
[2022-11-30] MEDS: EZETIMIBE 10 MG TABLET PO SCH (07:43)
[2022-11-30] MEDS ORDERED: SODIUM CHLORIDE 0.9% 1000ML 1,000 ML IV PRN (07:53)
[2022-11-30] MEDS ORDERED: HEPARIN SOD (PORCINE) 1000 UNIT/ML IV SCH (08:00)
[2022-11-30] MEDS ORDERED: EPOETIN ALFA 10,000 UNITS/ML VIAL IV SCH (08:00)
[2022-11-30] MEDS: metOLazone 2.5 MG TABLET PO SCH (11:32)
--- NOTE | 2022-11-30 14:52 | Cardiology Progress Note ---
Date of Service November 30, 2022 Assessment & Plan (1) Acute hypoxemic respiratory failure: (2) CKD (chronic kidney disease) stage 4, GFR 15-29 ml/min: (3) Acute on chronic diastolic (congestive) heart failure: (4) Cardiorenal syndrome: Plan: -Cause of hypoxic respiratory failure multifactorial given end-stage renal disease resulting in fluid retention/acute on chronic HFpEF. Not responding well to IV diuretics. Nephrology following. (5) Afib: Plan: -Paroxysmal atrial fibrillation, known diagnosis. On Coumadin as an outpatient. Also on Coumadin due to history of DVT. (6) LBBB (left bundle branch block): Plan: -Chronic (7) CAD (coronary artery disease): Plan: -History of coronary artery disease status post CABG in 2000. History of ischemic cardiomyopathy. LVEF preserved at 55 to 60% on recent echo. (8) Aortic stenosis: Plan: -Valvular heart disease with mild to moderate MR and TR in the past. Moderate to severe aortic stenosis with aortic regurgitation. Plan PLAN: Medically complex 87-year-old male with a past medical history of chronic diastolic CHF to secondary mixed valvular heart disease with preserved LV systolic function, history of coronary artery disease status post CABG as well as end-stage renal disease who presented with acute respiratory failure. Has initiated dialysis. Hemodynamically and respiratory status improving Paroxysmal atrial fibrillation has been noted although asymptomatic. Patient chronically anticoagulated with warfarin but trending downward pending dialysis formal catheter insertion. Would resume full anticoagulation once complete Admission and Anticipated Discharge Date Admission Date: November 26, 2022 Subjective Patient seen and examined, chart, medications, telemetry reviewed Patient more alert and conversant today Telemetry did demonstrate change back into atrial fibrillation though with controlled ventricular sponsor rate this morning Physical Exam Constitutional: + obese; no acute distress Eyes: PERRL, conjunctivae normal, anicteric sclerae Neck: trachea midline, no thyromegaly normal visual inspection and trachea midline Respiratory: + tachypneic; no cough Auscultation: + diminished lung sounds Cardiovascular: Rate/Rhythm: regular rate and regular rhythm Heart Sounds: normal S1, normal S2 and + murmur (+3/6 systolic murmur) Vessels: + JVD Extremities: + edema (+2 BL pitting with venous stasis changes. ) Gastrointestinal (Abdomen): Inspection/Auscultation: + abdomen distended Skin: Trauma: + abrasion (LEFT arm, dressing intact ) Psychiatric: A+Ox3, euthymic affect Results & Data Vital Signs (Past 12 Hours) Vital Signs Temp Pulse Pulse Pulse Resp BP Pulse Ox 11/30/22 08:00 83 11/30/22 08:00 11/30/22 07:11 36.3 C L 82 22 119/85 96 11/30/22 03:08 36.5 C 79 20 109/62 93 O2 Del Method O2 Flow Rate 11/30/22 08:00 11/30/22 08:00 Nasal Cannula 6 11/30/22 07:11 Nasal Cannula 5 11/30/22 03:08 Nasal Cannula 5.0 Laboratory Results Laboratory Results - last 24 hr 11/30/22 11/30/22 11/30/22 06:03 06:03 06:03 WBC 4.75 L RBC 3.14 L Hgb 10.4 L Hct 31.6 L MCV 100.6 H MCH 33.1 MCHC 32.9 RDW Std Deviation 57.7 H RDW Coeff of Alan 15.6 H Plt Count 174 MPV 11.0 Immature Gran % (Auto) 0.4 Neut % (Auto) 76.0 Lymph % (Auto) 10.1 Chester % (Auto) 11.4 Eos % (Auto) 1.7 Baso % (Auto) 0.4 Neut # (Auto) 3.61 Lymph # (Auto) 0.48 L Chester # (Auto) 0.54 Eos # (Auto) 0.08 Baso # (Auto) 0.02 Immature Gran # (Auto) 0.02 PT 16.7 H INR 1.6 H Sodium 139 Potassium 4.1 Chloride 101 Carbon Dioxide 27 Anion Gap 11 BUN 64 H D Creatinine 3.84 H D Est Cr Clr Drug Dosing 15.8 Est GFR ( Amer) 15.5 Est GFR (Non-Af Amer) 13.3 BUN/Creatinine Ratio 16.7 Glucose 100 H Calcium 9.1 Total Bilirubin 0.6 AST 41 H ALT 23 Alkaline Phosphatase 97 Total Protein 5.9 L Albumin 3.2 L Globulin 2.7 Albumin/Globulin Ratio 1.2 Hep Bs Antigen Hep Bs Ag Confirmation Hep Bs Antibody, Quant Hep B Core IgM Ab 11/30/22 14:06 WBC RBC Hgb Hct MCV MCH MCHC RDW Std Deviation RDW Coeff of Alan Plt Count MPV Immature Gran % (Auto) Neut % (Auto) Lymph % (Auto) Chester % (Auto) Eos % (Auto) Baso % (Auto) Neut # (Auto) Lymph # (Auto) Chester # (Auto) Eos # (Auto) Baso # (Auto) Immature Gran # (Auto) PT INR Sodium Potassium Chloride Carbon Dioxide Anion Gap BUN Creatinine Est Cr Clr Drug Dosing Est GFR ( Amer) Est GFR (Non-Af Amer) BUN/Creatinine Ratio Glucose Calcium Total Bilirubin AST ALT Alkaline Phosphatase Total Protein Albumin Globulin Albumin/Globulin Ratio Hep Bs Antigen Pending Hep Bs Ag Confirmation Pending Hep Bs Antibody, Quant Pending Hep B Core IgM Ab Pending
--- NOTE | 2022-11-30 15:55 | Hospitalist Progress Note ---
Date of Service November 30, 2022 Assessment & Plan (1) Acute hypoxemic respiratory failure: Plan: per Dr. Patrick's notes with addendum: Secondary to acute decompensated heart failure CKD stage V status post temporary HD catheter placement on 11/29/2022 Past medical history of chronic diastolic heart failure, CAD status post CABG, valvular heart disease, a flutter, DVT on Coumadin, CKD (baseline creatinine of 4) presented to the hospital after a fall at home when his walker got caught on the carpet. No loss of consciousness/syncope. Also reported shortness of breath on presentation On presentation, he was saturating 81% in room air Underwent laceration repair on left ear in the ED Recently seen in cardiology office 3 days prior to admission. Cardiology contacted patient's nephrology to expedite dialysis in preparation. Chest x-ray on admission personally reviewed; cardiomegaly with pulmonary edema BNP of 559 Creatinine is stable at 4.83. Discussed with nephrology; patient underwent HD catheter placement today. Will undergo hemodialysis. Weaned off supplemental oxygenation as tolerated. Fluid restriction. PT OT recommended rehab; case management on board 11/30 Remains on 6 L of oxygen via nasal cannula For HD today Elevated troponin secondary to demand ischemia Moderate to severe EKG on admission personally reviewed; A-fib with ventricular rate of 72. QTc of 453. High sensitive troponin peaked to 282 and down trended to 241. He is maintaining sinus rhythm presently. 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 Discussed with cardiology; continue current management. 11/30 No chest pain Chronic conditions; A-fib/history of DVT on Coumadin -- INR 1.6 For permacath insertion tomorrow Hold Coumadin chronic back pain status post surgery chronic anemia, hemoglobin at baseline chronic venous insufficiency prostate cancer status post radiation Ambulatory dysfunction past tobacco abuse DVT prophylaxis; INR 1.6 Coumadin on hold for procedure tomorrow CODE STATUS DNR/DNI Admission and Anticipated Discharge Date Admission Date: November 26, 2022 Subjective Follow-up for acute respiratory failure, CHF exacerbation, CKD stage V, etc. Seen while HD is in progress Sleeping but easily awakened States he feels fine overall Reports some discomfort over the femoral catheter site no chest pain, dyspnea, palpitations, dizziness No other new symptom Review of Systems Review of Systems: all noted and negative except for above Physical Exam Physical Exam: General- oriented x 2, not in distress, speaks in sentences with no effort or accessory muscle use Eyes- anicteric Neck- no JVD Lungs- clear breath sounds bilaterally, no rales/wheezes Heart- normal rate, regular rhythm; no murmurs Abdomen- normal bowel sounds, nondistended, soft, nontender Extremities- no pretibial edema, no calf tenderness Neuro- alert, oriented x 2; no gross focal neurologic deficits Skin- warm & dry Results & Data Results & Data Vital Signs (Past 12 Hours) Vital Signs Temp Pulse Pulse Pulse Resp BP BP 11/30/22 15:30 92 H 95/64 L 11/30/22 15:00 91 H 102/73 11/30/22 14:30 91 H 102/67 11/30/22 14:00 89 114/74 11/30/22 13:30 101 H 122/84 11/30/22 13:07 36.5 C 77 11/30/22 08:00 83 11/30/22 08:00 11/30/22 07:11 36.3 C L 82 22 119/85 Pulse Ox O2 Del Method O2 Flow Rate 11/30/22 15:30 11/30/22 15:00 11/30/22 14:30 11/30/22 14:00 11/30/22 13:30 11/30/22 13:07 11/30/22 08:00 11/30/22 08:00 Nasal Cannula 6 11/30/22 07:11 96 Nasal Cannula 5 all noted and reviewed including below
[2022-11-30] MEDS ORDERED: WARFARIN SOD 2.5 MG TAB PO SCH (16:00)
[2022-11-30] MEDS: HEPARIN SOD (PORCINE) 1000 UNIT/ML IV SCH ×2 (16:27→16:28)
--- NOTE | 2022-11-30 18:17 | Dialysis Progress Note ---
Date of Service November 30, 2022 Assessment & Plan (1) ESRD (end stage renal disease): Plan: CKD5 w/ several years of nephrotic range proteinuria for several years>> volume overloaded with cardiorenal syndrome; PD had been planned but he is not a PD candidate d/t large abdominal wall hernia >failed diuretics and w/ worsening hypoxia > temp line placed /16 w/ first HD same day; today is second treatment -he wishes for referral [place] [facility] [place] HD after hospital/rehab -will eval in AM for further HD >appreciate vascular eval both for possible TDC later this week -daily bmp, daily cbc >>daily STANDING weight ordered -cont tightened FR to 1.5L continue diuretics for now though alone they have minimal effect >> UOP markedly improved now which is good as not tolerating much UF (2) Acute hypoxemic respiratory failure: Plan: 2/2 ckd Progression/ HF exacerbation - Diuretic as above and dialysis Admission and Anticipated Discharge Date Admission Date: November 26, 2022 Subjective seen on HD at about 1430; lying flat (insists on this) for treatment; 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; still confused Review of Systems Review of Systems: All systems reviewed & are unremarkable except as noted in Subjective Physical Exam Constitutional: well developed, well nourished, + altered mental status, + frail appearing and cooperative; no acute distress Eyes: EOM intact bilaterally ENMT: Ears: no external ear abnormality Nose: no external nose abnormality Mouth: + dry oral mucous membranes Neck: no nuchal rigidity Respiratory: normal respiratory effort Auscultation: + diminished lung sounds Cardiovascular: Rate/Rhythm: regular rate and regular rhythm Heart Sounds: + murmur Extremities: no edema Gastrointestinal (Abdomen): Inspection/Auscultation: normal bowel sounds Percussion/Palpation: abdomen soft; abdomen nontender Musculoskeletal: Extremities: strength 5/5 throughout Skin: no rashes, warm and dry Psychiatric: Orientation: alert, oriented x 3 and oriented to person Speech: normal rate/rhythm/volume of speech Insight: + limited insight Judgment: + limited judgement Results & Data Vital Signs (Past 12 Hours) Vital Signs Temp Pulse Pulse Pulse Resp BP BP 11/30/22 16:25 36.5 C 68 11/30/22 16:38 36.8 C 82 20 111/72 11/30/22 16:00 68 108/74 11/30/22 15:30 92 H 95/64 L 11/30/22 15:00 91 H 102/73 11/30/22 14:30 91 H 102/67 11/30/22 14:00 89 114/74 11/30/22 13:30 101 H 122/84 11/30/22 13:07 36.5 C 77 11/30/22 08:00 83 11/30/22 08:00 11/30/22 07:11 36.3 C L 82 22 119/85 BP Pulse Ox O2 Del Method O2 Flow Rate 11/30/22 16:25 106/74 11/30/22 16:38 96 Nasal Cannula 2 11/30/22 16:00 11/30/22 15:30 11/30/22 15:00 11/30/22 14:30 11/30/22 14:00 11/30/22 13:30 11/30/22 13:07 11/30/22 08:00 11/30/22 08:00 Nasal Cannula 6 11/30/22 07:11 96 Nasal Cannula 5 Laboratory Results 11/30/22 06:03 11/30/22 06:03
[2022-11-30] MEDS: ROSUVASTATIN CALCIUM 10 MG TAB PO SCH (20:53)
[2022-11-30] MEDS: MONTELUKAST SODIUM 10 MG TABLET PO SCH (20:53)
[2022-12-01] MEDS: BUMETANIDE 3 MG in SYRINGE 0 ML IV SCH ×3 (05:36→17:25)
[2022-12-01 06:41] LABS: Basophils # (auto) 0.04 K/uL (0-0.2); Basophils % (auto) 0.9 %; Eosinophils # (auto) 0.08 K/uL (0-0.50); Eosinophils % (auto) 1.9 %; Hematocrit (blood only) 29.9 % (42.0-52.0); Hemoglobin 9.6 g/dl (14.0-18.0); Immature Granulocytes # (auto) 0.01 K/uL (0.01-0.20); Immature Granulocytes % (auto) 0.2 %; Lymphocytes # (auto) 0.49 K/uL (1.2-3.4); Lymphocytes % (auto) 11.4 %; Mean Corpuscular Hemoglobin 33.1 pg (25.0-34.0); Mean Corpuscular Hgb Conc 32.1 g/dL (32.0-36.0); Mean Corpuscular Volume 103.1 fL (80.0-100.0); Mean Platelet Volume 10.5 fL (9.4-12.4); Monocytes # (auto) 0.66 K/uL (0.11-0.59); Monocytes % (auto) 15.4 %; Neutrophils # (auto) 3.01 K/uL (1.40-6.50); Neutrophils % (auto) 70.2 %; Platelet Count 147 K/uL (130-400); RDW Coefficient of Variation 15.6 % (11.5-14.5); RDW Standard Deviation 58.2 fL (36.4-46.3); White Blood Count 4.29 K/ul (4.8-10.8)
[2022-12-01 06:52] LABS: Albumin Globulin Ratio 1.1 (0.9-2); Albumin Level 3.1 gm/dl (3.4-5.0); BUN Creatinine Ratio 13.9 (10-20); Bilirubin,Total 0.6 mg/dl (0.2-1.0); Creatinine Clr Calc Pharmacy 18.6 ml/min; Est GFR (Non-African American) 16.4 ml/min; Globulin 2.7 gm/dl (2.5-4.0); Potassium 3.8 mmol/L (3.5-5.1); Total Protein 5.8 gm/dl (6.0-8.3)
[2022-12-01 07:21] LABS: INR 1.7 (0.9-1.1)
[2022-12-01] MEDS: EZETIMIBE 10 MG TABLET PO SCH (08:20)
[2022-12-01] MEDS: MULTIVITAMIN CHEWABLE TAB PO SCH (08:20)
[2022-12-01] MEDS: allopurinoL 100 MG TAB PO SCH (08:20)
[2022-12-01] MEDS: TAMSULOSIN HCL 0.4 MG CAP PO SCH ×2 (08:20→20:06)
[2022-12-01] MEDS: FAMOTIDINE 20 MG TAB PO PRN (08:21)
[2022-12-01] MEDS ORDERED: SODIUM CHLORIDE 0.9% 1000ML 1,000 ML IV PRN (08:21)
[2022-12-01] MEDS: METOPROLOL SUCC 25MG EXT REL TAB PO SCH (08:21)
--- NOTE | 2022-12-01 08:21 | Nephrology Progress Note ---
Date of Service December 01, 2022 Assessment & Plan (1) ESRD (end stage renal disease): Plan: CKD5 w/ several years of nephrotic range proteinuria for several years>> volume overloaded with cardiorenal syndrome; PD had been planned but he is not a PD candidate d/t large abdominal wall hernia >>> Still with significant hypoxia: Plan another short treatment today with goal toward optimizing oxygen needs in preparation for tunneled dialysis catheter which was deferred earlier this week due to high oxygen requirement >failed diuretics, though urine output has increased substantially since starting dialysis > temp line placed 5/16 w/ first HD same day; for TDC tomorrow -Please refer to [facility] center HD after hospital/rehab >appreciate vascular evals -daily bmp, daily cbc >>daily STANDING weight ordered -cont tightened FR to 1.5L continue diuretics for now though alone they have minimal effect >> UOP markedly improved now which is good as not tolerating much UF (2) Acute hypoxemic respiratory failure: Plan: 2/2 ckd Progression/ HF exacerbation - Diuretic as above and dialysis Admission and Anticipated Discharge Date Admission Date: November 26, 2022 Subjective for dialysis catheter tomorrow morning; remains on 5 L oxygen; tolerated 1 L UF yesterday with significant cramping; overall on the day 2.3 L negative; lying flat on 5L when I saw him; no c/o pain; confused/unreliable Review of Systems Review of Systems: All systems reviewed & are unremarkable except as noted in Subjective Physical Exam Constitutional: well developed, well nourished, + altered mental status, + frail appearing and cooperative; no acute distress Eyes: EOM intact bilaterally ENMT: Ears: no external ear abnormality Nose: no external nose abnormality Mouth: + dry oral mucous membranes Neck: no nuchal rigidity Respiratory: normal respiratory effort Auscultation: + diminished lung sounds Cardiovascular: Rate/Rhythm: regular rate and regular rhythm Heart Sounds: + murmur Extremities: no edema Gastrointestinal (Abdomen): Inspection/Auscultation: normal bowel sounds Percussion/Palpation: abdomen soft; abdomen nontender Musculoskeletal: Extremities: strength 5/5 throughout Skin: no rashes, warm and dry Psychiatric: Orientation: alert, oriented x 3 and oriented to person Speech: normal rate/rhythm/volume of speech Insight: + limited insight Judgment: + limited judgement Results & Data Vital Signs (Past 12 Hours) Vital Signs Temp Pulse Pulse Pulse Resp BP Pulse Ox 12/01/22 07:12 36.5 C 71 19 109/59 L 98 12/01/22 03:00 36.6 C 74 20 115/67 97 11/30/22 23:31 71 11/30/22 23:00 37.0 C 68 24 103/64 96 O2 Del Method O2 Flow Rate 12/01/22 07:12 Nasal Cannula 5 12/01/22 03:00 Nasal Cannula 11/30/22 23:31 11/30/22 23:00 Nasal Cannula Laboratory Results 12/01/22 05:52 12/01/22 05:52
[2022-12-01] MEDS ORDERED: HEPARIN SOD (PORCINE) 1000 UNIT/ML IV ONE (08:24)
[2022-12-01] MEDS ORDERED: EPOETIN ALFA 10,000 UNITS/ML VIAL IV ONE (08:25)
[2022-12-01] MEDS ORDERED: ceFAZolin 2000MG 2,000 MG/15 ML SYR IV SCH (08:43)
--- NOTE | 2022-12-01 08:44 | Communication Note ---
Date of Service: December 01, 2022 We plan on doing a PermCath tomorrow and removing the temporary femoral catheter tomorrow.
[2022-12-01] MEDS: metOLazone 2.5 MG TABLET PO SCH (11:10)
--- NOTE | 2022-12-01 18:00 | Hospitalist Progress Note ---
Date of Service December 01, 2022 Assessment & Plan (1) Acute hypoxemic respiratory failure: Plan: per Dr. Patrick's notes with addendum: Secondary to acute decompensated heart failure CKD stage V status post temporary HD catheter placement on 11/29/2022 Past medical history of chronic diastolic heart failure, CAD status post CABG, valvular heart disease, a flutter, DVT on Coumadin, CKD (baseline creatinine of 4) presented to the hospital after a fall at home when his walker got caught on the carpet. No loss of consciousness/syncope. Also reported shortness of breath on presentation On presentation, he was saturating 81% in room air Underwent laceration repair on left ear in the ED Recently seen in cardiology office 3 days prior to admission. Cardiology contacted patient's nephrology to expedite dialysis in preparation. Chest x-ray on admission personally reviewed; cardiomegaly with pulmonary edema BNP of 559 Creatinine is stable at 4.83. Discussed with nephrology; patient underwent HD catheter placement today. Will undergo hemodialysis. Weaned off supplemental oxygenation as tolerated. Fluid restriction. PT OT recommended rehab; case management on board 11/30 Remains on 5 L of oxygen via nasal cannula For permacath insertion tomorrow Elevated troponin secondary to demand ischemia Moderate to severe EKG on admission personally reviewed; A-fib with ventricular rate of 72. QTc of 453. High sensitive troponin peaked to 282 and down trended to 241. He is maintaining sinus rhythm presently. 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 Discussed with cardiology; continue current management. 12/01 No chest pain Chronic conditions; A-fib/history of DVT on Coumadin -- INR 1.7 For permacath insertion tomorrow Hold Coumadin chronic back pain status post surgery chronic anemia, hemoglobin at baseline chronic venous insufficiency prostate cancer status post radiation Ambulatory dysfunction past tobacco abuse DVT prophylaxis; INR 1.7 Coumadin on hold for procedure tomorrow CODE STATUS DNR/DNI Admission and Anticipated Discharge Date Admission Date: November 26, 2022 Subjective ff up for volume overload etc seen resting in bed, comfortable s/p HD today at bedside oriented x 2 answers most questions appropriately States he feels fine overall no chest pain, dyspnea, palpitations, dizziness No other new symptom Review of Systems Review of Systems: all noted and negative except for above Physical Exam Physical Exam: General- oriented x 2, not in distress, speaks in sentences with no effort or accessory muscle use Eyes- anicteric Neck- no JVD Lungs-mild rales at the bases Heart- normal rate, regular rhythm; no murmurs Abdomen- normal bowel sounds, nondistended, soft, nontender Extremities- no pretibial edema, no calf tenderness Neuro- alert, oriented x 2; no gross focal neurologic deficits Skin- warm & dry Results & Data Results & Data Vital Signs (Past 12 Hours) Vital Signs Temp Pulse Pulse Pulse Resp BP BP 12/01/22 15:25 36.7 C 70 12/01/22 15:00 66 111/66 12/01/22 14:30 65 109/68 12/01/22 15:55 36.3 C L 67 18 108/65 12/01/22 14:00 51 L 108/70 12/01/22 13:30 65 131/57 L 12/01/22 13:00 77 130/106 H 12/01/22 12:30 65 115/80 12/01/22 12:12 36.6 C 68 12/01/22 10:55 36.4 C L 67 19 129/67 12/01/22 08:00 66 12/01/22 08:00 12/01/22 07:12 36.5 C 71 19 109/59 L BP Pulse Ox O2 Del Method O2 Flow Rate 12/01/22 15:25 138/68 12/01/22 15:00 12/01/22 14:30 12/01/22 15:55 97 Nasal Cannula 5 12/01/22 14:00 12/01/22 13:30 12/01/22 13:00 12/01/22 12:30 12/01/22 12:12 12/01/22 10:55 95 Nasal Cannula 2 12/01/22 08:00 12/01/22 08:00 Nasal Cannula 5 12/01/22 07:12 98 Nasal Cannula 5 all noted and reviewed including below
[2022-12-01] MEDS: ACETAMINOPHEN 500 MG TAB PO PRN (20:05)
[2022-12-01] MEDS: ROSUVASTATIN CALCIUM 10 MG TAB PO SCH (20:06)
[2022-12-01] MEDS: MELATONIN 3 MG TAB PO PRN (20:06)
[2022-12-01] MEDS: MONTELUKAST SODIUM 10 MG TABLET PO SCH (20:06)
[2022-12-02] MEDS: BUMETANIDE 3 MG in SYRINGE 0 ML IV SCH ×3 (05:07→17:36)
[2022-12-02] MEDS ORDERED: ceFAZolin 2000MG 2,000 MG/15 ML SYR IV SCH (06:00)
[2022-12-02 06:27] LABS: Basophils # (auto) 0.01 K/uL (0-0.2); Basophils % (auto) 0.2 %; Eosinophils # (auto) 0.11 K/uL (0-0.50); Eosinophils % (auto) 2.5 %; Hematocrit (blood only) 29.8 % (42.0-52.0); Hemoglobin 9.6 g/dl (14.0-18.0); Immature Granulocytes # (auto) 0.01 K/uL (0.01-0.20); Immature Granulocytes % (auto) 0.2 %; Lymphocytes # (auto) 0.56 K/uL (1.2-3.4); Mean Corpuscular Hemoglobin 33.6 pg (25.0-34.0); Mean Corpuscular Hgb Conc 32.2 g/dL (32.0-36.0); Mean Corpuscular Volume 104.2 fL (80.0-100.0); Mean Platelet Volume 10.4 fL (9.4-12.4); Monocytes # (auto) 0.65 K/uL (0.11-0.59); Neutrophils # (auto) 2.98 K/uL (1.40-6.50); Neutrophils % (auto) 69.1 %; Platelet Count 139 K/uL (130-400); RDW Coefficient of Variation 15.7 % (11.5-14.5); Red Blood Count 2.86 M/uL (4.70-6.10); White Blood Count 4.32 K/ul (4.8-10.8)
[2022-12-02 06:49] LABS: INR 1.7 (0.9-1.1); Prothrombin Time 17.9 Seconds (9.0-12.0)
[2022-12-02 06:53] LABS: Albumin Globulin Ratio 1.2 (0.9-2); BUN Creatinine Ratio 10.9 (10-20); Bilirubin,Total 0.5 mg/dl (0.2-1.0); Calcium 9.1 mg/dl (8.6-10.3); Creatinine Clr Calc Pharmacy 21.2 ml/min; Est GFR (African American) 22.3 ml/min; Est GFR (Non-African American) 19.2 ml/min; Globulin 2.5 gm/dl (2.5-4.0); Potassium 3.9 mmol/L (3.5-5.1); Total Protein 5.5 gm/dl (6.0-8.3)
--- NOTE | 2022-12-02 07:41 | History & Physical Bridge Note ---
Date of Service December 02, 2022 History & Physical Bridge Note Patient for an insertion of a tunneled dialysis catheter today. I have discussed the risks options and benefits of the procedure with the patient. The patient understands the risks options and benefits and agrees to the procedure. I have examined the patient, reviewed the History & Physical and in the interval since the performance of the History & Physical I have noted the following changes of clinical significance: no changes noted
[2022-12-02] MEDS: FAMOTIDINE 20 MG TAB PO PRN (08:26)
[2022-12-02] MEDS: EZETIMIBE 10 MG TABLET PO SCH (08:26)
[2022-12-02] MEDS: MULTIVITAMIN CHEWABLE TAB PO SCH (08:26)
[2022-12-02] MEDS: allopurinoL 100 MG TAB PO SCH (08:26)
[2022-12-02] MEDS: METOPROLOL SUCC 25MG EXT REL TAB PO SCH (08:26)
[2022-12-02] MEDS: TAMSULOSIN HCL 0.4 MG CAP PO SCH ×2 (08:26→20:37)
[2022-12-02] MEDS ORDERED: MIDAZOLAM HCL 1 MG/ML 2ML VIAL ONE (09:02)
[2022-12-02] MEDS ORDERED: LIDOCAINE 1% LOCAL 20 ML VIAL ONE (09:02)
[2022-12-02] MEDS ORDERED: fentaNYL citrate PF 100 MCG/2 ML VIAL ONE (09:02)
[2022-12-02] MEDS ORDERED: HEPARIN SOD (PORCINE) 5,000 UNITS/ML VIAL ONE (09:02)
[2022-12-02] MEDS ORDERED: oxyCODONE/ACETAMINOPHEN 5mg/325mg TAB PO STA (09:21)
--- NOTE | 2022-12-02 09:26 | Pre Anesthesia Assessment ---
Date of Service December 02, 2022 Pre Sedation Assessment Vital Signs Temp Pulse Pulse Pulse Resp BP BP 12/02/22 08:47 36.6 C 67 20 121/61 12/02/22 07:49 36.9 C 60 20 131/64 12/02/22 03:00 37.3 C 65 20 112/68 12/01/22 23:47 67 12/01/22 23:00 36.9 C 70 21 100/53 L 12/01/22 20:30 12/01/22 19:07 36.5 C 68 18 121/69 12/01/22 15:25 36.7 C 70 12/01/22 15:00 66 111/66 12/01/22 14:30 65 109/68 12/01/22 15:55 36.3 C L 67 18 108/65 12/01/22 14:00 51 L 108/70 12/01/22 13:30 65 131/57 L 12/01/22 13:00 77 130/106 H 12/01/22 12:30 65 115/80 12/01/22 12:12 36.6 C 68 12/01/22 10:55 36.4 C L 67 19 129/67 BP Pulse Ox O2 Del Method O2 Flow Rate 12/02/22 08:47 97 Nasal Cannula 3 12/02/22 07:49 94 Room Air 12/02/22 03:00 92 Nasal Cannula 2 12/01/22 23:47 12/01/22 23:00 96 Nasal Cannula 2 12/01/22 20:30 Nasal Cannula 5 12/01/22 19:07 95 Nasal Cannula 2 12/01/22 15:25 138/68 12/01/22 15:00 12/01/22 14:30 12/01/22 15:55 97 Nasal Cannula 5 12/01/22 14:00 12/01/22 13:30 12/01/22 13:00 12/01/22 12:30 12/01/22 12:12 12/01/22 10:55 95 Nasal Cannula 2 Cardiovascular RRR, no murmur, no edema Respiratory normal respiratory effort, lungs clear to auscultation Pre-Sedation Airway Assessment Smoking Status: Former smoker Hx Sleep Apnea: No Short, Thick Neck: No Thyromental Distance: > or= 3.5 Finger Breadths Oral Cavity: + Dentures Mallampati Class: III ASA: ASA3 NPO Status Date of Last Intake of Fluids: 12/01/22 Time of Last Intake of Fluids: 23:00 Date of Last Intake of Solid Food: 12/01/22 Time of Last Intake of Solid Foods: 23:00 Procedure Planning Contraindications for Sedation: none Current Medications Reviewed: Yes Notes The planned sedation has been discussed with the patient. Informed Consent was obtained. I have identified the patient, determined the appropriateness of sedation and have assessed the patient immediately prior to the procedure. All medicine(s) and interventions are by my order.
--- NOTE | 2022-12-02 10:22 | Operative Report ---
Post Operative Report Pre & Post Diagnosis Operation Date: 12/02/22 09:10 Pre-Op Diagnosis: Acute Kidney Injury Post-Op Diagnosis: Acute Kidney Injury I identified the patient and participated in the time-out.: Yes Procedure Operation Date: 12/02/22 09:10 Actual Procedures p Attempted insertion permcath right internal jugular vein, Insertion of Perm Catheter, Left Jugular Approach, Ultrasound Localization of Left Internal Jugular Vein, Fluroscopy for Positioning, Removal of Temporary Dialysis Catheter, Moderate Sedation [id number](Right) - Benny Barroso MD Surgeon Benny Barroso MD Employment Clerk none Estimated Blood Loss 10 Findings Consistent with Post-Op Diagnosis Specimens none Anesthesia Type RN Sedation Complications none Disposition Accompanied Patient To Recovery: No Disposition: Recovery Room Indications This is a 87-year-old gentleman who had a temporary catheter placed in his right groin for dialysis on an emergent basis. He is now brought back for insertion of a PermCath and removal of temporary catheter. I have discussed the risks options and benefits of the procedure with the patient. The patient understands the risks options and benefits and agrees to the procedure. Description of Procedure Patient was taken to the angio suite and placed in the supine position. The right side of the neck and chest wall were prepped and draped in a sterile manner. The patient was identified and a timeout performed. Local anesthesia was then administered to the appropriate areas of the neck and chest wall. Ultrasound was then used to locate the right internal jugular vein. The right internal jugular vein proper was not seen. There was a few collaterals in this area. Under ultrasound guidance the collaterals punctured. A wire was passed but cannot be passed centrally. We then abandon the approach on the right side and decided to place a left internal jugular vein PermCath. The left side of the neck and chest wall were prepped and draped in a sterile manner. Local anesthesia was then administered to the appropriate areas of the neck and chest wall. Ultrasound was then used to locate the left internal jugular vein. The vein compressed easily, had no filing defects, and was patent. The vein was then punctured under direct ultrasound imaging. A guidewire was then passed centrally under fluoroscopic imaging. A stab wound was then made in the anterior chest wall and a 19 cm permcath was passed from the stab wound on the chest wall to the puncture site on the neck. The puncture site was then dilated till the 14Fr peel away sheath was inserted. The permcath was then inserted through the sheath to a central position in the distal superior vena cava. The peel away sheath was then removed. The catheter was then sutured in place using nylon sutures. The puncture was then closed using a 4-0 Vicryl subcuticular suture. Dermabond was used for a dressing on the puncture site. Both ports aspirated and flushed easily and were then packed with heparin. A sterile dressing was applied to the catheter. The patient left the operation room in satisfactory condition and tolerated the procedure well. All needle and sponge counts were correct at the end of the procedure. I attest to the content of the Intraoperative Record and any orders documented therein. Any exceptions are noted below.
--- NOTE | 2022-12-02 10:23 | Post Anesthesia Assessment ---
Date of Service December 02, 2022 Post Sedation Assessment Vital Signs Temp Pulse Pulse Pulse Resp BP BP 12/02/22 10:17 63 16 114/63 12/02/22 10:12 65 16 116/62 12/02/22 10:10 64 16 118/64 12/02/22 10:05 61 16 110/60 12/02/22 09:55 60 16 121/63 12/02/22 09:50 62 16 111/61 12/02/22 09:45 60 16 113/59 L 12/02/22 09:40 60 16 113/56 L 12/02/22 09:35 64 16 130/73 12/02/22 10:00 63 16 111/58 L 12/02/22 09:34 62 16 137/73 12/02/22 08:47 36.6 C 67 20 121/61 12/02/22 07:49 36.9 C 60 20 131/64 12/02/22 03:00 37.3 C 65 20 112/68 12/01/22 23:47 67 12/01/22 23:00 36.9 C 70 21 100/53 L 12/01/22 20:30 12/01/22 19:07 36.5 C 68 18 121/69 12/01/22 15:25 36.7 C 70 12/01/22 15:00 66 111/66 12/01/22 14:30 65 109/68 12/01/22 15:55 36.3 C L 67 18 108/65 12/01/22 14:00 51 L 108/70 12/01/22 13:30 65 131/57 L 12/01/22 13:00 77 130/106 H 12/01/22 12:30 65 115/80 12/01/22 12:12 36.6 C 68 12/01/22 10:55 36.4 C L 67 19 129/67 BP Pulse Ox O2 Del Method O2 Flow Rate 12/02/22 10:17 96 Oxymask 4 12/02/22 10:12 96 Oxymask 4 12/02/22 10:10 96 Oxymask 4 12/02/22 10:05 100 Oxymask 4 12/02/22 09:55 100 Oxymask 4 12/02/22 09:50 97 Oxymask 4 12/02/22 09:45 97 Oxymask 4 12/02/22 09:40 98 Oxymask 4 12/02/22 09:35 100 Oxymask 4 12/02/22 10:00 100 Oxymask 4 12/02/22 09:34 100 Oxymask 4 12/02/22 08:47 97 Nasal Cannula 3 12/02/22 07:49 94 Room Air 12/02/22 03:00 92 Nasal Cannula 2 12/01/22 23:47 12/01/22 23:00 96 Nasal Cannula 2 12/01/22 20:30 Nasal Cannula 5 12/01/22 19:07 95 Nasal Cannula 2 12/01/22 15:25 138/68 12/01/22 15:00 12/01/22 14:30 12/01/22 15:55 97 Nasal Cannula 5 12/01/22 14:00 12/01/22 13:30 12/01/22 13:00 12/01/22 12:30 12/01/22 12:12 12/01/22 10:55 95 Nasal Cannula 2 Recovery Score Activity: Moves 4 extremities Respiration: Deep Breath/Cough Circulation: +/-20% PreAnes Value Consciousness: Fully Awake Oxygen Saturation: <90% w/ supp O2 Post Anesthesia Score: 8 Discharge Sedation Level of Care: Fast Track Phase II Post Sedation Plan On clinical assessment, the patient appears to have tolerated the sedation without complications. Patient is recovering as anticipated. Patient will continue to be monitored by nursing and may be discharged when sedation discharge criteria are met per below protocol. Upon Completions of procedure up to 15 minutes continue every 5 minute vital signs and the P.A.R. score; then discharge to a Phase I or Fast Track to Phase II per the following guidelines: * Discharge Patient to appropriate Phase II area if PAR is 8 or greater or return to pre- procedure baseline. The post - procedure orders will be as directed. * If PAR score is less than 8 or not return to pre-procedure baseline then patient will follow Phase I monitoring till PAR is reached for Phase II. The Phase I may be done in procedure room or may call to secure a Phase I area. * If naloxone or flumazenil are used for reversal, hold in Phase I for continued monitoring from when last reversal dose was given for a minimum of 60 minutes or longer pending the nurse and/or physician discretion of patient condition before discharge to Phase II. Please call the Sedation Physician to re-evaluate and complete post-note for discharge to Phase II area. Do NOT discharge from procedure sedation or Phase 1 until post- sedation evaluation note is complete by procedure /sedation MD Sedation Discharge Instructions to be given to the patient at discharge to home.
[2022-12-02 10:47] LABS: HBSAG NON-REACTIVE (NON-REACTIVE); Hepatitis B Core Antibody IgM NON-REACTIVE (NON-REACTIVE); Hepatitis B Surface Ab, Quant <5 mIU/mL (> OR = 10)
--- NOTE | 2022-12-02 12:13 | Nephrology Progress Note ---
Date of Service December 02, 2022 Assessment & Plan (1) ESRD (end stage renal disease): Plan: CKD5 w/ several years of nephrotic range proteinuria for several years>> volume overloaded with cardiorenal syndrome; PD had been planned but he is not a PD candidate d/t large abdominal wall hernia >>> Still with significant hypoxia: for HD tomorrow then likely Tuesday 12/05 as IP here or at [facility] depending on transfer timing >failed diuretics, though urine output has increased substantially since starting dialysis > temp line placed 11/29 w/ first HD same day; had to have temp cath d/t in hypoxia before permacath -Please refer to [facility] Coles in center HD after hospital/rehab >appreciate vascular evals -daily bmp, daily cbc >>daily STANDING weight ordered -cont tightened FR to 1.5L continue diuretics for now though alone they have minimal effect >> UOP markedly improved now which is good as not tolerating much UF (2) Acute hypoxemic respiratory failure: Plan: 2/2 ckd Progression/ HF exacerbation - Diuretic as above and dialysis Admission and Anticipated Discharge Date Admission Date: November 26, 2022 Subjective got TDC today; eating lunch; no c/o; looking forward to getting moving Review of Systems Review of Systems: All systems reviewed & are unremarkable except as noted in Subjective Physical Exam Constitutional: well developed, well nourished, + altered mental status, + frail appearing and cooperative; no acute distress Eyes: EOM intact bilaterally ENMT: Ears: no external ear abnormality Nose: no external nose abnormality Mouth: + dry oral mucous membranes Neck: no nuchal rigidity Respiratory: normal respiratory effort Auscultation: + diminished lung sounds Cardiovascular: Rate/Rhythm: regular rate and regular rhythm Heart Sounds: + murmur Extremities: no edema Gastrointestinal (Abdomen): Inspection/Auscultation: normal bowel sounds Percussion/Palpation: abdomen soft; abdomen nontender Musculoskeletal: Extremities: strength 5/5 throughout Skin: no rashes, warm and dry Psychiatric: Orientation: alert and oriented x 3 Speech: normal rate/rhythm/volume of speech Insight: + limited insight Judgment: + limited judgement Results & Data Vital Signs (Past 12 Hours) Vital Signs Temp Pulse Pulse Pulse Resp BP Pulse Ox 12/02/22 11:57 36.5 C 59 L 20 127/63 90 12/02/22 10:17 63 16 114/63 96 12/02/22 10:12 65 16 116/62 96 12/02/22 10:10 64 16 118/64 96 12/02/22 10:05 61 16 110/60 100 12/02/22 09:55 60 16 121/63 100 12/02/22 09:50 62 16 111/61 97 12/02/22 09:45 60 16 113/59 L 97 12/02/22 09:40 60 16 113/56 L 98 12/02/22 09:35 64 16 130/73 100 12/02/22 10:00 63 16 111/58 L 100 12/02/22 09:34 62 16 137/73 100 12/02/22 08:47 36.6 C 67 20 121/61 97 12/02/22 07:49 36.9 C 60 20 131/64 94 12/02/22 03:00 37.3 C 65 20 112/68 92 O2 Del Method O2 Flow Rate 12/02/22 11:57 Nasal Cannula 4 12/02/22 10:17 Oxymask 4 12/02/22 10:12 Oxymask 4 12/02/22 10:10 Oxymask 4 12/02/22 10:05 Oxymask 4 12/02/22 09:55 Oxymask 4 12/02/22 09:50 Oxymask 4 12/02/22 09:45 Oxymask 4 12/02/22 09:40 Oxymask 4 12/02/22 09:35 Oxymask 4 12/02/22 10:00 Oxymask 4 12/02/22 09:34 Oxymask 4 12/02/22 08:47 Nasal Cannula 3 12/02/22 07:49 Room Air 12/02/22 03:00 Nasal Cannula 2 Laboratory Results 12/02/22 05:39 12/02/22 05:39
[2022-12-02] MEDS: metOLazone 2.5 MG TABLET PO SCH (12:33)
--- NOTE | 2022-12-02 16:06 | Cardiology Progress Note ---
Date of Service December 02, 2022 Assessment & Plan (1) Acute hypoxemic respiratory failure: (2) CKD (chronic kidney disease) stage 4, GFR 15-29 ml/min: (3) Acute on chronic diastolic (congestive) heart failure: (4) Cardiorenal syndrome: Plan: -Cause of hypoxic respiratory failure multifactorial given end-stage renal disease resulting in fluid retention/acute on chronic HFpEF. Not responding well to IV diuretics. Nephrology following. (5) Afib: Plan: -Paroxysmal atrial fibrillation, known diagnosis. On Coumadin as an outpatient. Also on Coumadin due to history of DVT. (6) LBBB (left bundle branch block): Plan: -Chronic (7) CAD (coronary artery disease): Plan: -History of coronary artery disease status post CABG in 2000. History of ischemic cardiomyopathy. LVEF preserved at 55 to 60% on recent echo. (8) Aortic stenosis: Plan: -Valvular heart disease with mild to moderate MR and TR in the past. Moderate to severe aortic stenosis with aortic regurgitation. Plan PLAN: Medically complex 87-year-old male with a past medical history of chronic diastolic CHF to secondary mixed valvular heart disease with preserved LV systolic function, history of coronary artery disease status post CABG as well as end-stage renal disease who presented with acute respiratory failure. Has initiated dialysis. Hemodynamically and respiratory status improving slowly Paroxysmal atrial fibrillation has been noted although asymptomatic. Patient chronically anticoagulated with warfarin held for procedures. Would resume during hospitalization if hemodynamically stable Admission and Anticipated Discharge Date Admission Date: November 26, 2022 Subjective Patient seen and examined, chart reviewed. Predominantly in sinus rhythm Confused today post dialysis catheter insertion but no acute complaints Review of Systems Review of Systems: Unobtainable due to cognitive status Physical Exam Constitutional: + obese; no acute distress Eyes: PERRL, conjunctivae normal, anicteric sclerae Neck: trachea midline, no thyromegaly normal visual inspection and trachea midline Respiratory: + tachypneic; no cough Auscultation: + diminished lung sounds Cardiovascular: Rate/Rhythm: regular rate and regular rhythm Heart Sounds: normal S1, normal S2 and + murmur (+3/6 systolic murmur) Vessels: + JVD Extremities: + edema (+2 BL pitting with venous stasis changes. ) Chest (Breasts): Additional Comments: Dialysis catheter left shoulder surrounding ecchymosis but no hematoma Gastrointestinal (Abdomen): Inspection/Auscultation: + abdomen distended (Mild) Skin: Trauma: + abrasion (LEFT arm, dressing intact ) Diffuse ecchymoses Psychiatric: A+Ox3, euthymic affect Results & Data Vital Signs (Past 12 Hours) Vital Signs Temp Pulse Pulse Pulse Resp BP Pulse Ox 12/02/22 15:55 57 L 12/02/22 15:53 36.5 C 58 L 18 123/60 92 12/02/22 08:00 69 12/02/22 08:00 12/02/22 11:57 36.5 C 59 L 20 127/63 90 12/02/22 10:17 63 16 114/63 96 12/02/22 10:12 65 16 116/62 96 12/02/22 10:10 64 16 118/64 96 12/02/22 10:05 61 16 110/60 100 12/02/22 09:55 60 16 121/63 100 12/02/22 09:50 62 16 111/61 97 12/02/22 09:45 60 16 113/59 L 97 12/02/22 09:40 60 16 113/56 L 98 12/02/22 09:35 64 16 130/73 100 12/02/22 10:00 63 16 111/58 L 100 12/02/22 09:34 62 16 137/73 100 12/02/22 08:47 36.6 C 67 20 121/61 97 12/02/22 07:49 36.9 C 60 20 131/64 94 O2 Del Method O2 Flow Rate 12/02/22 15:55 12/02/22 15:53 Room Air 12/02/22 08:00 12/02/22 08:00 Nasal Cannula 5 12/02/22 11:57 Nasal Cannula 4 12/02/22 10:17 Oxymask 4 12/02/22 10:12 Oxymask 4 12/02/22 10:10 Oxymask 4 12/02/22 10:05 Oxymask 4 12/02/22 09:55 Oxymask 4 12/02/22 09:50 Oxymask 4 12/02/22 09:45 Oxymask 4 12/02/22 09:40 Oxymask 4 12/02/22 09:35 Oxymask 4 12/02/22 10:00 Oxymask 4 12/02/22 09:34 Oxymask 4 12/02/22 08:47 Nasal Cannula 3 12/02/22 07:49 Room Air
--- NOTE | 2022-12-02 16:38 | Hospitalist Progress Note ---
Date of Service December 02, 2022 Assessment & Plan (1) Acute hypoxemic respiratory failure: Plan: per Dr. Patrick's notes with addendum: Secondary to acute decompensated heart failure CKD stage V status post temporary HD catheter placement on 11/29/2022 Past medical history of chronic diastolic heart failure, CAD status post CABG, valvular heart disease, a flutter, DVT on Coumadin, CKD (baseline creatinine of 4) presented to the hospital after a fall at home when his walker got caught on the carpet. No loss of consciousness/syncope. Also reported shortness of breath on presentation On presentation, he was saturating 81% in room air Underwent laceration repair on left ear in the ED Recently seen in cardiology office 3 days prior to admission. Cardiology contacted patient's nephrology to expedite dialysis in preparation. Chest x-ray on admission personally reviewed; cardiomegaly with pulmonary edema BNP of 559 Creatinine is stable at 4.83. Discussed with nephrology; patient underwent HD catheter placement today. Will undergo hemodialysis. Weaned off supplemental oxygenation as tolerated. Fluid restriction. PT OT recommended rehab; case management on board 12/02 s/p permcath insertion continue diuretics on room air this afternoon Elevated troponin secondary to demand ischemia Moderate to severe EKG on admission personally reviewed; A-fib with ventricular rate of 72. QTc of 453. High sensitive troponin peaked to 282 and down trended to 241. He is maintaining sinus rhythm presently. 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 Discussed with cardiology; continue current management. 12/02 No chest pain Chronic conditions; A-fib/history of DVT on Coumadin -- INR 1.7 resume coumadin tomorrow chronic back pain status post surgery chronic anemia, hemoglobin at baseline chronic venous insufficiency prostate cancer status post radiation Ambulatory dysfunction past tobacco abuse DVT prophylaxis; INR 1.7 resume coumadin tomorrow CODE STATUS DNR/DNI Admission and Anticipated Discharge Date Admission Date: November 26, 2022 Subjective ff up for volume overload, etc seen resting in bed, comfortable states he feels fine overall denies pain no chest pain, dyspnea, palpitations, dizziness no other new symptoms Review of Systems Review of Systems: all noted and negative except for above Physical Exam Physical Exam: General- oriented x2, not in distress, speaks in sentences with no effort or accessory muscle use Eyes- anicteric Neck- no JVD Lungs- clear breath sounds bilaterally, no rales/wheezes Permcath in place: left upper chest wall Heart- normal rate, regular rhythm; no murmurs Abdomen- normal bowel sounds, nondistended, soft, nontender Extremities- no pretibial edema, no calf tenderness Neuro- alert, oriented x 2; no gross focal neurologic deficits Skin- warm & dry Results & Data Results & Data Vital Signs (Past 12 Hours) Vital Signs Temp Pulse Pulse Pulse Resp BP Pulse Ox 12/02/22 15:55 57 L 12/02/22 15:53 36.5 C 58 L 18 123/60 92 12/02/22 08:00 69 12/02/22 08:00 12/02/22 11:57 36.5 C 59 L 20 127/63 90 12/02/22 10:17 63 16 114/63 96 12/02/22 10:12 65 16 116/62 96 12/02/22 10:10 64 16 118/64 96 12/02/22 10:05 61 16 110/60 100 12/02/22 09:55 60 16 121/63 100 12/02/22 09:50 62 16 111/61 97 12/02/22 09:45 60 16 113/59 L 97 12/02/22 09:40 60 16 113/56 L 98 12/02/22 09:35 64 16 130/73 100 12/02/22 10:00 63 16 111/58 L 100 12/02/22 09:34 62 16 137/73 100 12/02/22 08:47 36.6 C 67 20 121/61 97 12/02/22 07:49 36.9 C 60 20 131/64 94 O2 Del Method O2 Flow Rate 12/02/22 15:55 12/02/22 15:53 Room Air 12/02/22 08:00 12/02/22 08:00 Nasal Cannula 5 12/02/22 11:57 Nasal Cannula 4 12/02/22 10:17 Oxymask 4 12/02/22 10:12 Oxymask 4 12/02/22 10:10 Oxymask 4 12/02/22 10:05 Oxymask 4 12/02/22 09:55 Oxymask 4 12/02/22 09:50 Oxymask 4 12/02/22 09:45 Oxymask 4 12/02/22 09:40 Oxymask 4 12/02/22 09:35 Oxymask 4 12/02/22 10:00 Oxymask 4 12/02/22 09:34 Oxymask 4 12/02/22 08:47 Nasal Cannula 3 12/02/22 07:49 Room Air all noted and reviewed including below
[2022-12-02] MEDS: ROSUVASTATIN CALCIUM 10 MG TAB PO SCH (20:37)
[2022-12-02] MEDS: MONTELUKAST SODIUM 10 MG TABLET PO SCH (20:37)
[2022-12-03] MEDS: BUMETANIDE 3 MG in SYRINGE 0 ML IV SCH ×3 (05:38→17:32)
[2022-12-03 06:53] LABS: INR 1.8 (0.9-1.1); Prothrombin Time 18.6 Seconds (9.0-12.0)
[2022-12-03] MEDS ORDERED: HEPARIN SOD (PORCINE) 1000 UNIT/ML IV ONE (07:00)
[2022-12-03] MEDS ORDERED: SODIUM CHLORIDE 0.9% 1000ML 1,000 ML IV PRN (07:00)
[2022-12-03] MEDS ORDERED: EPOETIN ALFA 10,000 UNITS/ML VIAL IV ONE (07:00)
[2022-12-03] MEDS: METOPROLOL SUCC 25MG EXT REL TAB PO SCH (13:54)
[2022-12-03] MEDS: allopurinoL 100 MG TAB PO SCH (13:54)
[2022-12-03] MEDS: EZETIMIBE 10 MG TABLET PO SCH (13:54)
[2022-12-03] MEDS: metOLazone 2.5 MG TABLET PO SCH (13:55)
[2022-12-03] MEDS: MULTIVITAMIN CHEWABLE TAB PO SCH (13:55)
[2022-12-03] MEDS: TAMSULOSIN HCL 0.4 MG CAP PO SCH ×2 (13:55→20:29)
--- NOTE | 2022-12-03 14:39 | Cardiology Progress Note ---
Date of Service December 03, 2022 Assessment & Plan (1) Acute hypoxemic respiratory failure: (2) CKD (chronic kidney disease) stage 4, GFR 15-29 ml/min: (3) Acute on chronic diastolic (congestive) heart failure: (4) Cardiorenal syndrome: Plan: -Cause of hypoxic respiratory failure multifactorial given end-stage renal disease resulting in fluid retention/acute on chronic HFpEF. Continue HD , bumex, metolazone. (5) Afib: Plan: -Paroxysmal atrial fibrillation, known diagnosis. On Coumadin as an outpatient. Also on Coumadin due to history of DVT. (6) LBBB (left bundle branch block): Plan: -Chronic (7) CAD (coronary artery disease): Plan: -History of coronary artery disease status post CABG in 2000. History of ischemic cardiomyopathy. LVEF preserved at 55 to 60% on recent echo. (8) Aortic stenosis: Plan: -Valvular heart disease with mild to moderate MR and TR in the past. Moderate to severe aortic stenosis with aortic regurgitation. Plan PLAN: Medically complex 87-year-old male with a past medical history of chronic diastolic CHF to secondary mixed valvular heart disease with preserved LV systolic function, history of coronary artery disease status post CABG as well as end-stage renal disease who presented with acute respiratory failure. Has initiated dialysis. Hemodynamically and respiratory status improving slowly Paroxysmal atrial fibrillation has been noted although asymptomatic. Patient chronically anticoagulated with warfarin held for procedures. Resume coumadin , dose 2.5 mg today. Check INR tomorrow. Admission and Anticipated Discharge Date Admission Date: November 26, 2022 Subjective Patient without acute complaint. Underwent dialysis this am, and he knows he is a little confused however he was able to have a conversation with me. 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 He denies chest pain or shortness of breath. Denies palpitations. Telemetry reveals SR in the 70s with occasional PACs and PVCs. Brief episodes of PAF. Review of Systems Review of Systems: All systems reviewed & are unremarkable except as noted in HPI & below Physical Exam Constitutional: no acute distress Respiratory: normal respiratory effort, lungs clear to auscultation Cardiovascular: RRR, no murmur, no edema Chest (Breasts): Additional Comments: left sided tunnelled catheter without drainage at site. Gastrointestinal (Abdomen): normal bowel sounds, soft, nontender, no hepatosplenomegaly Neurologic: PERRL, EOMI, accommodation nl, no face palsy, no dysarthria Results & Data Vital Signs (Past 12 Hours) Vital Signs Temp Pulse Pulse Pulse Resp BP BP 12/03/22 13:45 36.8 C 58 L 18 96/61 L 12/03/22 12:59 36.4 C L 65 12/03/22 12:30 50 L 114/61 12/03/22 12:00 61 102/62 12/03/22 11:30 68 113/70 12/03/22 11:00 54 L 122/70 12/03/22 09:00 12/03/22 10:30 62 106/61 12/03/22 09:30 72 12/03/22 10:00 69 99/59 L 12/03/22 09:30 50 L 93/52 L 12/03/22 09:26 50 L 91/54 L 12/03/22 09:25 36.6 C 71 12/03/22 07:18 36.8 C 64 19 104/60 12/03/22 04:16 36.6 C 68 20 126/72 BP Pulse Ox O2 Del Method O2 Flow Rate 12/03/22 13:45 96 Nasal Cannula 4 12/03/22 12:59 114/67 12/03/22 12:30 12/03/22 12:00 12/03/22 11:30 12/03/22 11:00 12/03/22 09:00 Nasal Cannula 4 12/03/22 10:30 12/03/22 09:30 12/03/22 10:00 12/03/22 09:30 12/03/22 09:26 12/03/22 09:25 12/03/22 07:18 95 Nasal Cannula 4 12/03/22 04:16 97 Nasal Cannula 4 Laboratory Results Coagulation 12/03/22 Range/Units 06:03 PT 18.6 H (9.0-12.0) Seconds Intake and Output 12/02/22 12/03/22 12/03/22 22:59 06:59 14:59 Intake Total 120 / 120 240 / 240 Output Total 650 / 1650 350 / 1650 350 / 350 Balance -530 / -1530 -350 / -1530 -110 / -110 Intake: Oral 120 / 120 240 / 240 Output: Urine Amount (Catheter) 650 / 1650 350 / 1650 350 / 350 External 650 / 1650 350 / 1650 350 / 350 Other: Hemodialysis Ultrafiltration 2,200 Amount Weight 87.2 kg 87.2 kg Weight Measurement Method Built in [facility] Built in [facility] Patient Weight 12/04/22 06:59 Weight 87.2 kg
[2022-12-03] MEDS: WARFARIN SOD 2.5 MG TAB PO SCH (16:36)
--- NOTE | 2022-12-03 16:45 | Hospitalist Progress Note ---
Date of Service December 03, 2022 Assessment & Plan (1) Acute hypoxemic respiratory failure: Plan: per Dr. Patrick's notes with addendum: Secondary to acute decompensated heart failure CKD stage V status post temporary HD catheter placement on 11/29/2022 Past medical history of chronic diastolic heart failure, CAD status post CABG, valvular heart disease, a flutter, DVT on Coumadin, CKD (baseline creatinine of 4) presented to the hospital after a fall at home when his walker got caught on the carpet. No loss of consciousness/syncope. Also reported shortness of breath on presentation On presentation, he was saturating 81% in room air Underwent laceration repair on left ear in the ED Recently seen in cardiology office 3 days prior to admission. Cardiology contacted patient's nephrology to expedite dialysis in preparation. Chest x-ray on admission personally reviewed; cardiomegaly with pulmonary edema BNP of 559 Creatinine is stable at 4.83. Discussed with nephrology; patient underwent HD catheter placement today. Will undergo hemodialysis. Weaned off supplemental oxygenation as tolerated. Fluid restriction. PT OT recommended rehab; case management on board 12/03 s/p permcath insertion continue diuretics wean off o2 accordingly Elevated troponin secondary to demand ischemia Moderate to severe EKG on admission personally reviewed; A-fib with ventricular rate of 72. QTc of 453. High sensitive troponin peaked to 282 and down trended to 241. He is maintaining sinus rhythm presently. 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 Discussed with cardiology; continue current management. 12/03 No chest pain Chronic conditions; A-fib/history of DVT on Coumadin -- INR 1.8 resume coumadin tomorrow chronic back pain status post surgery chronic anemia, hemoglobin at baseline chronic venous insufficiency prostate cancer status post radiation Ambulatory dysfunction Past tobacco abuse DVT prophylaxis; INR 1.8 resume coumadin CODE STATUS DNR/DNI Admission and Anticipated Discharge Date Admission Date: November 26, 2022 Subjective ff up for volume overload, etc seen resting in bed, comfortable sitting up oriented, asking and answering questions appropriately states he feels no chest pain, dyspnea, palpitations, dizziness Review of Systems Review of Systems: all noted and negative except for above Physical Exam Physical Exam: General- oriented x 3, not in distress, speaks in sentences with no effort or accessory muscle use Eyes- anicteric Neck- no JVD Lungs- clear BS Bilaterally Heart- normal rate, regular rhythm; no murmurs Abdomen- normal bowel sounds, nondistended, soft, nontender Extremities- no pretibial edema, no calf tenderness Neuro- alert, oriented x 3; no gross focal neurologic deficits Skin- warm & dry Results & Data Results & Data Vital Signs (Past 12 Hours) Vital Signs Temp Pulse Pulse Pulse Resp BP BP 12/03/22 15:38 36.6 C 75 18 118/53 L 12/03/22 15:35 12/03/22 13:45 36.8 C 58 L 18 96/61 L 12/03/22 12:59 36.4 C L 65 12/03/22 12:30 50 L 114/61 12/03/22 12:00 61 102/62 12/03/22 11:30 68 113/70 12/03/22 11:00 54 L 122/70 12/03/22 09:00 12/03/22 10:30 62 106/61 12/03/22 09:30 72 12/03/22 10:00 69 99/59 L 12/03/22 09:30 50 L 93/52 L 12/03/22 09:26 50 L 91/54 L 12/03/22 09:25 36.6 C 71 12/03/22 07:18 36.8 C 64 19 104/60 BP Pulse Ox O2 Del Method O2 Flow Rate 12/03/22 15:38 95 Nasal Cannula 2 12/03/22 15:35 Nasal Cannula 2 12/03/22 13:45 96 Nasal Cannula 4 12/03/22 12:59 114/67 12/03/22 12:30 12/03/22 12:00 12/03/22 11:30 12/03/22 11:00 12/03/22 09:00 Nasal Cannula 4 12/03/22 10:30 12/03/22 09:30 12/03/22 10:00 12/03/22 09:30 12/03/22 09:26 12/03/22 09:25 12/03/22 07:18 95 Nasal Cannula 4 all noted and reviewed including below
[2022-12-03] MEDS ORDERED: SODIUM CHLORIDE 0.65% NA SOLN 45 ML (OCEAN) ONE (17:05)
[2022-12-03] MEDS: ROSUVASTATIN CALCIUM 10 MG TAB PO SCH (20:29)
[2022-12-03] MEDS: MONTELUKAST SODIUM 10 MG TABLET PO SCH (20:29)
[2022-12-04] MEDS: BUMETANIDE 3 MG in SYRINGE 0 ML IV SCH ×3 (06:30→19:11)
[2022-12-04 06:58] LABS: INR 1.5 (0.9-1.1); Prothrombin Time 16.4 Seconds (9.0-12.0)
[2022-12-04] MEDS: MULTIVITAMIN CHEWABLE TAB PO SCH (08:32)
[2022-12-04] MEDS: allopurinoL 100 MG TAB PO SCH (08:33)
[2022-12-04] MEDS: TAMSULOSIN HCL 0.4 MG CAP PO SCH ×2 (08:33→20:56)
[2022-12-04] MEDS: METOPROLOL SUCC 25MG EXT REL TAB PO SCH (08:33)
[2022-12-04] MEDS: EZETIMIBE 10 MG TABLET PO SCH (08:34)
[2022-12-04] MEDS: metOLazone 2.5 MG TABLET PO SCH (12:45)
--- NOTE | 2022-12-04 15:05 | Nephrology Progress Note ---
Date of Service December 04, 2022 Assessment & Plan Admission and Anticipated Discharge Date Admission Date: November 26, 2022 Subjective Assessment & Plan (1) ESRD (end stage renal disease): Plan: CKD5 w/ several years of nephrotic range proteinuria for several years>> volume overloaded with cardiorenal syndrome; PD had been planned but he is not a PD candidate d/t large abdominal wall hernia Stated on maintenance HD. getting HD first at [facility] and then at [facility]--both places do MWF so will do him tomorrow. cont tightened FR to 1.5L continue diuretics for now (2) Acute hypoxemic respiratory failure: Plan: 2/2 ckd Progression/ HF exacerbation - Diuretic same for now but at discharge can be torsemide 100 daily and metolazone 5 daily. s Subjective had Dialysis yesterday no issues. Feels weak. Still has the pop cath Review of Systems Review of Systems: All systems reviewed & are unremarkable except as noted in Subjective Physical Exam Constitutional: well developed, well nourished, + altered mental status, + frail appearing and cooperative; no acute distress Eyes: EOM intact bilaterally ENMT: Ears: no external ear abnormality Nose: no external nose abnormality Mouth: + dry oral mucous membranes Neck: no nuchal rigidity Respiratory: normal respiratory effort Auscultation: + diminished lung sounds Cardiovascular: Rate/Rhythm: regular rate and regular rhythm Heart Sounds: + murmur Extremities: no edema Gastrointestinal (Abdomen): Inspection/Auscultation: normal bowel sounds Percussion/Palpation: abdomen soft; abdomen nontender Musculoskeletal: Extremities: strength 5/5 throughout Skin: no rashes, warm and dry Psychiatric: Orientation: alert and oriented x 3 Speech: normal rate/rhythm/volume of speech Insight: + limited insight Judgment: + limited judgement Results & Data Vital Signs (Past 12 Hours) Vital Signs Temp Pulse Pulse Resp BP Pulse Ox O2 Del Method 12/04/22 11:19 94 Nasal Cannula 12/04/22 11:14 36.5 C 69 16 118/65 90 Room Air 12/04/22 07:35 36.9 C 60 18 107/64 94 Room Air O2 Flow Rate 12/04/22 11:19 2 12/04/22 11:14 12/04/22 07:35
--- NOTE | 2022-12-04 15:56 | Cardiology Progress Note ---
Date of Service December 04, 2022 Assessment & Plan (1) Acute hypoxemic respiratory failure: (2) CKD (chronic kidney disease) stage 4, GFR 15-29 ml/min: (3) Acute on chronic diastolic (congestive) heart failure: (4) Cardiorenal syndrome: Plan: -Cause of hypoxic respiratory failure multifactorial given end-stage renal disease resulting in fluid retention/acute on chronic HFpEF. Continue HD , bumex, metolazone. (5) Afib: Plan: -Paroxysmal atrial fibrillation, known diagnosis. On Coumadin as an outpatient. Also on Coumadin due to history of DVT. (6) LBBB (left bundle branch block): Plan: -Chronic (7) CAD (coronary artery disease): Plan: -History of coronary artery disease status post CABG in 2000. History of ischemic cardiomyopathy. LVEF preserved at 55 to 60% on recent echo. (8) Aortic stenosis: Plan: -Valvular heart disease with mild to moderate MR and TR in the past. Moderate to severe aortic stenosis with aortic regurgitation. Plan PLAN: Medically complex 87-year-old male with a past medical history of chronic diastolic CHF to secondary mixed valvular heart disease with preserved LV systolic function, history of coronary artery disease status post CABG as well as end-stage renal disease who presented with acute respiratory failure. Has initiated dialysis. Paroxysmal atrial fibrillation has been noted although asymptomatic. Patient chronically anticoagulated with warfarin held for procedures. Resume coumadin , dose 2.5 mg, administered on 12/03/2020, INR 1.5 today, 12/04/2022. Continue Coumadin 2.5 mg daily. Check INR tomorrow. Admission and Anticipated Discharge Date Admission Date: November 26, 2022 Subjective Patient seen in cardiology follow-up. Denies chest discomfort or shortness of breath. He states he feels like the clarity of his thinking and his overall energy is improved today compared to yesterday. Telemetry reveals sinus rhythm in the 70s with occasional PVCs. Physical Exam Constitutional: no acute distress Respiratory: normal respiratory effort, lungs clear to auscultation Cardiovascular: RRR, no murmur, no edema Gastrointestinal (Abdomen): normal bowel sounds, soft, nontender, no hepatosplenomegaly Neurologic: PERRL, EOMI, accommodation nl, no face palsy, no dysarthria Results & Data Vital Signs (Past 12 Hours) Vital Signs Temp Pulse Pulse Resp BP Pulse Ox O2 Del Method 12/04/22 15:19 36.5 C 70 16 111/65 95 Nasal Cannula 12/04/22 11:19 94 Nasal Cannula 12/04/22 11:14 36.5 C 69 16 118/65 90 Room Air 12/04/22 07:35 36.9 C 60 18 107/64 94 Room Air O2 Flow Rate 12/04/22 15:19 2 12/04/22 11:19 2 12/04/22 11:14 12/04/22 07:35 Laboratory Results INR today 12/04/2022: 1.5
--- NOTE | 2022-12-04 16:00 | Hospitalist Progress Note ---
Date of Service December 04, 2022 Assessment & Plan (1) Acute hypoxemic respiratory failure: Plan: per Dr. Patrick's notes with addendum: Secondary to acute decompensated heart failure CKD stage V status post temporary HD catheter placement on 11/29/2022 Past medical history of chronic diastolic heart failure, CAD status post CABG, valvular heart disease, a flutter, DVT on Coumadin, CKD (baseline creatinine of 4) presented to the hospital after a fall at home when his walker got caught on the carpet. No loss of consciousness/syncope. Also reported shortness of breath on presentation On presentation, he was saturating 81% in room air Underwent laceration repair on left ear in the ED Recently seen in cardiology office 3 days prior to admission. Cardiology contacted patient's nephrology to expedite dialysis in preparation. Chest x-ray on admission personally reviewed; cardiomegaly with pulmonary edema BNP of 559 Creatinine is stable at 4.83. Discussed with nephrology; patient underwent HD catheter placement today. Will undergo hemodialysis. Weaned off supplemental oxygenation as tolerated. Fluid restriction. PT OT recommended rehab; case management on board 12/02 s/p permcath insertion 12/04 continue diuretics wean off o2 accordingly Elevated troponin secondary to demand ischemia Moderate to severe EKG on admission personally reviewed; A-fib with ventricular rate of 72. QTc of 453. High sensitive troponin peaked to 282 and down trended to 241. He is maintaining sinus rhythm presently. 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 Discussed with cardiology; continue current management. 12/04 No chest pain Chronic conditions; A-fib/history of DVT on Coumadin -- INR 1.5 on coumadin chronic back pain status post surgery chronic anemia, hemoglobin at baseline chronic venous insufficiency prostate cancer status post radiation Ambulatory dysfunction Past tobacco abuse DVT prophylaxis;coumadin CODE STATUS DNR/DNI Admission and Anticipated Discharge Date Admission Date: November 26, 2022 Subjective ff up for volume overload, etc seen resting in bed, comfortable on 2 L states he feels fine overall no chest pain, dyspnea, palpitations, dizziness no pain no other new symptoms Review of Systems Review of Systems: all noted and negative except for above Physical Exam Physical Exam: General- oriented x 3, not in distress, speaks in sentences with no effort or accessory muscle use Eyes- anicteric Neck- no JVD Lungs- clear BS BL Permcath on L upper chest wall: no signs of infection, bleeding Heart- normal rate, regular rhythm; no murmurs Abdomen- normal bowel sounds, nondistended, soft, nontender Extremities- no pretibial edema, no calf tenderness Neuro- alert, oriented x 3; no gross focal neurologic deficits Skin- warm & dry Results & Data Results & Data Vital Signs (Past 12 Hours) Vital Signs Temp Pulse Pulse Resp BP Pulse Ox O2 Del Method 12/04/22 15:19 36.5 C 70 16 111/65 95 Nasal Cannula 12/04/22 11:19 94 Nasal Cannula 12/04/22 11:14 36.5 C 69 16 118/65 90 Room Air 12/04/22 07:35 36.9 C 60 18 107/64 94 Room Air O2 Flow Rate 12/04/22 15:19 2 12/04/22 11:19 2 12/04/22 11:14 12/04/22 07:35 all noted and reviewed including below
[2022-12-04] MEDS: WARFARIN SOD 2.5 MG TAB PO SCH (16:21)
[2022-12-04] MEDS: MONTELUKAST SODIUM 10 MG TABLET PO SCH (20:56)
[2022-12-04] MEDS: ROSUVASTATIN CALCIUM 10 MG TAB PO SCH (20:57)
[2022-12-05] MEDS: BUMETANIDE 3 MG in SYRINGE 0 ML IV SCH ×3 (06:15→17:34)
[2022-12-05] MEDS ORDERED: EPOETIN ALFA 4,000 UNIT/ML VIAL IV ONE (07:00)
[2022-12-05] MEDS ORDERED: SODIUM CHLORIDE 0.9% 1000ML 1,000 ML IV PRN (07:00)
[2022-12-05 07:29] LABS: INR 1.4 (0.9-1.1); Prothrombin Time 15.3 Seconds (9.0-12.0)
--- NOTE | 2022-12-05 10:25 | Dialysis Progress Note ---
Date of Service December 05, 2022 Assessment & Plan Admission and Anticipated Discharge Date Admission Date: November 26, 2022 Subjective Assessment & Plan (1) ESRD (end stage renal disease): Plan: CKD5 w/ several years of nephrotic range proteinuria for several years>> volume overloaded with cardiorenal syndrome; PD had been planned but he is not a PD candidate d/t large abdominal wall hernia Stated on maintenance HD. Getting HD first at [facility] and then at [facility]--both places do MWF so will do him tomorrow. cont tightened FR to 1.5L continue diuretics for now Will do labs tomorrow. (2) Acute hypoxemic respiratory failure: Plan: 2/2 ckd Progression/ HF exacerbation Diuretic same for now but at discharge can be torsemide 100 daily and metolazone 5 daily. s Subjective Seen in dialysis. feels fine but BP is low as usual. Review of Systems Review of Systems: All systems reviewed & are unremarkable except as noted in Subjective Physical Exam Constitutional: well developed, well nourished, + altered mental status, + frail appearing and cooperative; no acute distress Eyes: EOM intact bilaterally ENMT: Ears: no external ear abnormality Nose: no external nose abnormality Mouth: + dry oral mucous membranes Neck: no nuchal rigidity Respiratory: normal respiratory effort Auscultation: + diminished lung sounds Cardiovascular: Rate/Rhythm: regular rate and regular rhythm Heart Sounds: + murmur Extremities: no edema Gastrointestinal (Abdomen): Inspection/Auscultation: normal bowel sounds Percussion/Palpation: abdomen soft; abdomen nontender Musculoskeletal: Extremities: strength 5/5 throughout Skin: no rashes, warm and dry Psychiatric: Orientation: alert and oriented x 3 Speech: normal rate/rhythm/volume of speech Insight: + limited insight Judgment: + limited judgement Results & Data Vital Signs (Past 12 Hours) Vital Signs Temp Pulse Pulse Pulse Resp BP BP 12/05/22 10:00 64 105/61 12/05/22 09:30 62 91/52 L 12/05/22 07:30 12/05/22 09:00 70 77/56 L 12/05/22 08:30 63 82/49 L 12/05/22 08:15 74 74/49 L 12/05/22 08:07 36.9 C 79 12/05/22 07:21 37.1 C 62 16 104/58 L 12/05/22 02:58 36.7 C 62 20 115/64 12/04/22 22:42 36.6 C 69 18 BP Pulse Ox O2 Del Method O2 Flow Rate 12/05/22 10:00 12/05/22 09:30 12/05/22 07:30 Room Air 12/05/22 09:00 12/05/22 08:30 12/05/22 08:15 12/05/22 08:07 12/05/22 07:21 94 Nasal Cannula 2 12/05/22 02:58 95 Nasal Cannula 2 12/04/22 22:42 117/76 99 Nasal Cannula 2
[2022-12-05] MEDS: allopurinoL 100 MG TAB PO SCH (12:29)
[2022-12-05] MEDS: TAMSULOSIN HCL 0.4 MG CAP PO SCH ×2 (12:29→21:26)
[2022-12-05] MEDS: metOLazone 2.5 MG TABLET PO SCH (12:29)
[2022-12-05] MEDS: EZETIMIBE 10 MG TABLET PO SCH (12:29)
[2022-12-05] MEDS: METOPROLOL SUCC 25MG EXT REL TAB PO SCH (12:30)
[2022-12-05] MEDS: MULTIVITAMIN CHEWABLE TAB PO SCH (12:30)
--- NOTE | 2022-12-05 15:46 | Cardiology Progress Note ---
Date of Service December 05, 2022 Assessment & Plan (1) CHF (congestive heart failure): (2) ESRD (end stage renal disease): (3) LBBB (left bundle branch block): (4) CAD (coronary artery disease): (5) Aortic stenosis: (6) Afib: Plan: History of paroxysmal atrial fibrillation, Coumadin has been held for invasive procedures including temporary dialysis line and tunneled dialysis line. Coumadin been reinitiated at a dose of 2.5 mg daily, prior to hospital dose was 5 mg daily. His INR continues to trend down to 1.4 today. Agree with increasing Coumadin dose to 5 mg daily. Check INR tomorrow. Patient tolerated dialysis well this morning 12/05/2021. Continue current treatment with metolazone Bumex. Dc catheter remains in place. Continue metoprolol succinate 12.5 mg daily, rosuvastatin 10 mg daily, ezetimibe 10 mg daily. Admission and Anticipated Discharge Date Admission Date: November 26, 2022 Subjective Patient seen in cardiology follow-up. He is comfortable, no shortness of breath. Telemetry reveals sinus rhythm in the 70s. Physical Exam Constitutional: WD/WN, vitals as above Respiratory: normal respiratory effort, lungs clear to auscultation Cardiovascular: Rate/Rhythm: regular rate and regular rhythm Heart Sounds: + murmur (2/6 systolic murmur) Extremities: no edema Neurologic: PERRL, EOMI, accommodation nl, no face palsy, no dysarthria Results & Data Vital Signs (Past 12 Hours) Vital Signs Temp Pulse Pulse Pulse Resp BP BP 12/05/22 15:06 36.8 C 68 21 113/62 12/05/22 11:48 36.9 C 68 12/05/22 11:30 58 L 105/67 12/05/22 11:00 58 L 96/48 L 12/05/22 10:30 58 L 91/58 L 12/05/22 10:00 64 105/61 12/05/22 09:30 62 91/52 L 12/05/22 07:30 12/05/22 09:00 70 77/56 L 12/05/22 08:30 63 82/49 L 12/05/22 08:15 74 74/49 L 12/05/22 08:07 36.9 C 79 12/05/22 07:21 37.1 C 62 16 104/58 L BP Pulse Ox O2 Del Method O2 Flow Rate 12/05/22 15:06 93 Room Air 12/05/22 11:48 103/60 12/05/22 11:30 12/05/22 11:00 12/05/22 10:30 12/05/22 10:00 12/05/22 09:30 12/05/22 07:30 Room Air 12/05/22 09:00 12/05/22 08:30 12/05/22 08:15 12/05/22 08:07 12/05/22 07:21 94 Nasal Cannula 2 Laboratory Results Coagulation 12/05/22 Range/Units 06:00 PT 15.3 H (9.0-12.0) Seconds Intake and Output 12/05/22 12/05/22 12/05/22 06:59 14:59 22:59 Intake Total 180 / 180 Output Total 450 / 1100 250 / 250 Balance -450 / -490 -70 / -70 Intake: Oral 180 / 180 Output: Urine Amount (Catheter) 450 / 1100 250 / 250 External 450 / 1100 250 / 250 Other: Hemodialysis Ultrafiltration 2,000 Amount Weight 84.3 kg 84.3 kg Weight Measurement Method Built in [facility] Patient Weight 12/06/22 06:59 Weight 84.3 kg
--- NOTE | 2022-12-05 15:58 | Hospitalist Progress Note ---
Date of Service December 05, 2022 Assessment & Plan (1) Acute hypoxemic respiratory failure: Plan: per Dr. Patrick's notes with addendum: Secondary to acute decompensated heart failure CKD stage V status post temporary HD catheter placement on 11/29/2022 Past medical history of chronic diastolic heart failure, CAD status post CABG, valvular heart disease, a flutter, DVT on Coumadin, CKD (baseline creatinine of 4) presented to the hospital after a fall at home when his walker got caught on the carpet. No loss of consciousness/syncope. Also reported shortness of breath on presentation On presentation, he was saturating 81% in room air Underwent laceration repair on left ear in the ED Recently seen in cardiology office 3 days prior to admission. Cardiology contacted patient's nephrology to expedite dialysis in preparation. Chest x-ray on admission personally reviewed; cardiomegaly with pulmonary edema BNP of 559 Creatinine is stable at 4.83. Discussed with nephrology; patient underwent HD catheter placement today. Will undergo hemodialysis. Weaned off supplemental oxygenation as tolerated. Fluid restriction. PT OT recommended rehab; case management on board 12/02 s/p permcath insertion 12/04 continue diuretics wean off o2 accordingly 12/05 s/p HD today continue diuretics Elevated troponin secondary to demand ischemia Moderate to severe EKG on admission personally reviewed; A-fib with ventricular rate of 72. QTc of 453. High sensitive troponin peaked to 282 and down trended to 241. He is maintaining sinus rhythm presently. 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 Discussed with cardiology; continue current management. 12/05 No chest pain Chronic conditions; A-fib/history of DVT on Coumadin -- INR 1.4 on coumadin 5 mg chronic back pain status post surgery chronic anemia, hemoglobin at baseline chronic venous insufficiency prostate cancer status post radiation Ambulatory dysfunction Past tobacco abuse DVT prophylaxis;coumadin CODE STATUS DNR/DNI Admission and Anticipated Discharge Date Admission Date: November 26, 2022 Subjective ff up for volume overload esrd, etc seen resting in bed sitting up having PT states he feels fine overall no chest pain, dyspnea, palpitations, dizziness no other new symptoms Review of Systems Review of Systems: all noted and negative except for above Physical Exam Physical Exam: General- oriented x 3, not in distress, speaks in sentences with no effort or accessory muscle use Eyes- anicteric Neck- no JVD Lungs- clear BS bilaterally, no rales/wheezes Heart- normal rate, regular rhythm; no murmurs Abdomen- normal bowel sounds, nondistended, soft, nontender Extremities- no pretibial edema, no calf tenderness Neuro- alert, oriented x 3; no gross focal neurologic deficits Skin- warm & dry Results & Data Results & Data Vital Signs (Past 12 Hours) Vital Signs Temp Pulse Pulse Pulse Resp BP BP 12/05/22 15:06 36.8 C 68 21 113/62 12/05/22 11:48 36.9 C 68 12/05/22 11:30 58 L 105/67 12/05/22 11:00 58 L 96/48 L 12/05/22 10:30 58 L 91/58 L 12/05/22 10:00 64 105/61 12/05/22 09:30 62 91/52 L 12/05/22 07:30 12/05/22 09:00 70 77/56 L 12/05/22 08:30 63 82/49 L 12/05/22 08:15 74 74/49 L 12/05/22 08:07 36.9 C 79 12/05/22 07:21 37.1 C 62 16 104/58 L BP Pulse Ox O2 Del Method O2 Flow Rate 12/05/22 15:06 93 Room Air 12/05/22 11:48 103/60 12/05/22 11:30 12/05/22 11:00 12/05/22 10:30 12/05/22 10:00 12/05/22 09:30 12/05/22 07:30 Room Air 12/05/22 09:00 12/05/22 08:30 12/05/22 08:15 12/05/22 08:07 12/05/22 07:21 94 Nasal Cannula 2 all noted and reviewed including below
[2022-12-05] MEDS ORDERED: WARFARIN SOD 5 MG TAB PO ONE (16:00)
[2022-12-05] MEDS: ACETAMINOPHEN 500 MG TAB PO PRN (21:25)
[2022-12-05] MEDS: ROSUVASTATIN CALCIUM 10 MG TAB PO SCH (21:26)
[2022-12-05] MEDS: MONTELUKAST SODIUM 10 MG TABLET PO SCH (21:26)
[2022-12-06] MEDS: BUMETANIDE 3 MG in SYRINGE 0 ML IV SCH ×3 (06:14→18:25)
[2022-12-06 06:29] LABS: INR 1.4 (0.9-1.1); Prothrombin Time 15.4 Seconds (9.0-12.0)
[2022-12-06 06:42] LABS: BUN Creatinine Ratio 12.2 (10-20); Calcium 8.9 mg/dl (8.6-10.3); Creatinine Clr Calc Pharmacy 17.6 ml/min; Est GFR (African American) 19.9 ml/min; Est GFR (Non-African American) 17.2 ml/min; Phosphorus 3.2 mg/dl (2.5-4.9); Potassium 3.6 mmol/L (3.5-5.1)
[2022-12-06] MEDS: METOPROLOL SUCC 25MG EXT REL TAB PO SCH (07:57)
[2022-12-06] MEDS: FAMOTIDINE 20 MG TAB PO PRN (07:57)
[2022-12-06] MEDS: allopurinoL 100 MG TAB PO SCH (07:57)
[2022-12-06] MEDS: TAMSULOSIN HCL 0.4 MG CAP PO SCH ×2 (07:58→20:25)
[2022-12-06] MEDS: EZETIMIBE 10 MG TABLET PO SCH (07:58)
[2022-12-06] MEDS: MULTIVITAMIN CHEWABLE TAB PO SCH (07:58)
[2022-12-06] MEDS: metOLazone 2.5 MG TABLET PO SCH (11:33)
--- NOTE | 2022-12-06 16:54 | Hospitalist Progress Note ---
Date of Service December 06, 2022 Assessment & Plan (1) Acute hypoxemic respiratory failure: Plan: per Dr. Patrick's notes with addendum: Secondary to acute decompensated heart failure CKD stage V status post temporary HD catheter placement on 11/29/2022 Past medical history of chronic diastolic heart failure, CAD status post CABG, valvular heart disease, a flutter, DVT on Coumadin, CKD (baseline creatinine of 4) presented to the hospital after a fall at home when his walker got caught on the carpet. No loss of consciousness/syncope. Also reported shortness of breath on presentation On presentation, he was saturating 81% in room air Underwent laceration repair on left ear in the ED Recently seen in cardiology office 3 days prior to admission. Cardiology contacted patient's nephrology to expedite dialysis in preparation. Chest x-ray on admission personally reviewed; cardiomegaly with pulmonary edema BNP of 559 Creatinine is stable at 4.83. 12/02 s/p permcath insertion 12/06 Weaned off oxygen supplement Continue HD for volume management Upon discharge nephrology service recommends torsemide 100 mg p.o. daily and metolazone 5 mg p.o. daily Awaiting insurance Auth for [facility] facility Elevated troponin secondary to demand ischemia Moderate to severe EKG on admission personally reviewed; A-fib with ventricular rate of 72. QTc of 453. High sensitive troponin peaked to 282 and down trended to 241. He is maintaining sinus rhythm presently. 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 Discussed with cardiology; continue current management. 12/06 No chest pain Chronic conditions; A-fib/history of DVT on Coumadin -- INR 1.4 coumadin 5 mg today -- Continue metoprolol 12.5 mg p.o. daily chronic back pain status post surgery chronic anemia, hemoglobin at baseline chronic venous insufficiency prostate cancer status post radiation Ambulatory dysfunction Past tobacco abuse DVT prophylaxis;coumadin CODE STATUS DNR/DNI Disposition Discharge to [facility] facility when insurance Auth has been Admission and Anticipated Discharge Date Admission Date: November 26, 2022 Subjective Follow-up for end-stage renal disease, volume overload, etc. Seen resting in bed, comfortable, not in distress In good spirits States he feels fine overall next no chest pain, dyspnea, palpitations, dizziness No other new symptoms Review of Systems Review of Systems: all noted and negative except for above Physical Exam Physical Exam: General- oriented x 2, not in distress, speaks in sentences with no effort or accessory muscle use Eyes- anicteric Neck- no JVD Lungs- clear breath sounds bilaterally Heart- normal rate, regular rhythm; no murmurs Abdomen- normal bowel sounds, nondistended, soft, nontender Extremities- no pretibial edema, no calf tenderness Neuro- alert, oriented x 2; no gross focal neurologic deficits Skin- warm & dry Results & Data Results & Data Vital Signs (Past 12 Hours) Vital Signs Temp Pulse Resp BP Pulse Ox O2 Del Method O2 Flow Rate 12/06/22 15:35 36.5 C 76 17 104/53 L 91 Room Air 12/06/22 11:43 36.5 C 70 17 115/63 91 Room Air 12/06/22 09:06 Room Air 12/06/22 07:15 36.3 C L 74 18 107/55 L 94 Nasal Cannula 2 all noted and reviewed including below
[2022-12-06] MEDS ORDERED: WARFARIN SOD 5 MG TAB PO ONE (17:15)
--- NOTE | 2022-12-06 18:03 | Cardiology Progress Note ---
Date of Service December 06, 2022 Assessment & Plan (1) CHF (congestive heart failure): (2) ESRD (end stage renal disease): (3) LBBB (left bundle branch block): (4) CAD (coronary artery disease): (5) Aortic stenosis: (6) Afib: Plan: -INR continues to be subtherapeutic at 1.4. Received Coumadin 5 mg on 12/05/2022 and again today 12/06/2022. Repeat INR tomorrow. Patient tolerated dialysis well on 12/05/2021. Next session due 12/07/2022. Continue current treatment with metolazone Bumex. Dc catheter remains in place. Continue metoprolol succinate 12.5 mg daily, rosuvastatin 10 mg daily, ezetimibe 10 mg daily. Dc catheter remains in place. Per case management note, authorization submitted for [facility], [facility]. Planning for transfer after authorization obtained, perhaps 12/07/2022. Admission and Anticipated Discharge Date Admission Date: November 26, 2022 Subjective Patient seen in cardiology follow-up. He feels well. He is somewhat frustrated with still being in the hospital and is looking forward to discharge. Telemetry reveals sinus rhythm in the 70s to 80s. Physical Exam Constitutional: WD/WN, vitals as above no acute distress Respiratory: normal respiratory effort, lungs clear to auscultation Cardiovascular: RRR, no murmur, no edema Rate/Rhythm: regular rate and regular rhythm Heart Sounds: + murmur (2/6 systolic murmur) Extremities: no edema Gastrointestinal (Abdomen): normal bowel sounds, soft, nontender, no hepatosplenomegaly Neurologic: PERRL, EOMI, accommodation nl, no face palsy, no dysarthria Results & Data Vital Signs (Past 12 Hours) Vital Signs Temp Pulse Resp BP Pulse Ox O2 Del Method O2 Flow Rate 12/06/22 15:35 36.5 C 76 17 104/53 L 91 Room Air 12/06/22 11:43 36.5 C 70 17 115/63 91 Room Air 12/06/22 09:06 Room Air 12/06/22 07:15 36.3 C L 74 18 107/55 L 94 Nasal Cannula 2 Laboratory Results Coagulation 12/06/22 Range/Units 05:56 PT 15.4 H (9.0-12.0) Seconds INR: 1.4 Comprehensive Metabolic Panel 12/06/22 Range/Units 05:56 Sodium 137 (136-145) mmol/L Potassium 3.6 (3.5-5.1) mmol/L Chloride 100 (98-107) mmol/L Carbon Dioxide 31 (21-32) mmol/L BUN 38 H (6-23) mg/dl Creatinine 3.11 H (0.6-1.4) mg/dl Glucose 91 (70-99(Fasting)) mg/dl Calcium 8.9 (8.6-10.3) mg/dl Albumin 3.0 L (3.4-5.0) gm/dl Intake and Output 12/06/22 12/06/22 12/06/22 06:59 14:59 22:59 Intake Total 50 / 920 240 / 240 Output Total 375 / 1050 400 / 400 Balance -325 / -130 -160 / -160 Intake: Oral 50 / 920 240 / 240 Output: Urine 375 / 375 Urine Amount (Catheter) 400 / 400 External 400 / 400 Other: Weight 81.9 kg Weight Measurement Method Built in [facility]
[2022-12-06] MEDS: MONTELUKAST SODIUM 10 MG TABLET PO SCH (20:25)
[2022-12-06] MEDS: ROSUVASTATIN CALCIUM 10 MG TAB PO SCH (20:25)
[2022-12-07] MEDS: ACETAMINOPHEN 500 MG TAB PO PRN (04:29)
[2022-12-07] MEDS: BUMETANIDE 3 MG in SYRINGE 0 ML IV SCH (05:43)
[2022-12-07 06:34] LABS: Albumin Level 2.9 gm/dl (3.4-5.0); BUN Creatinine Ratio 13.5 (10-20); Calcium 8.8 mg/dl (8.6-10.3); Creatinine Clr Calc Pharmacy 14.2 ml/min; Est GFR (African American) 15.4 ml/min; Est GFR (Non-African American) 13.3 ml/min; Phosphorus 3.3 mg/dl (2.5-4.9); Potassium 3.7 mmol/L (3.5-5.1)
[2022-12-07 06:44] LABS: INR 1.6 (0.9-1.1); Prothrombin Time 17.1 Seconds (9.0-12.0)
[2022-12-07] MEDS ORDERED: SODIUM CHLORIDE 0.9% 1000ML 1,000 ML IV PRN (07:00)
[2022-12-07] MEDS ORDERED: EPOETIN ALFA 4,000 UNIT/ML VIAL IV ONE (07:00)
[2022-12-07] MEDS ORDERED: WARFARIN SOD 7.5 MG TAB PO ONE (08:30)
--- NOTE | 2022-12-07 09:46 | Dialysis Progress Note ---
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 Getting HD first at [facility] and then at [facility]--both places do MWF so will do him tomorrow. cont tightened FR to 1.5L continue diuretics for now. for discharge usse torsemide 100 daily and metolazone 5 daily Will do labs tomorrow. HD at [facility]--MWF. (2) Acute hypoxemic respiratory failure: Plan: 2/2 ckd Progression/ HF exacerbation Diuretic same for now but at discharge can be torsemide 100 daily and metolazone 5 daily. s Subjective Seen in dialysis. feels fine but BP is low as usual. Review of Systems Review of Systems: All systems reviewed & are unremarkable except as noted in Subjective Physical Exam Constitutional: well developed, well nourished, + altered mental status, + frail appearing and cooperative; no acute distress Eyes: EOM intact bilaterally ENMT: Ears: no external ear abnormality Nose: no external nose abnormality Mouth: + dry oral mucous membranes Neck: no nuchal rigidity Respiratory: normal respiratory effort Auscultation: + diminished lung sounds Cardiovascular: Rate/Rhythm: regular rate and regular rhythm Heart Sounds: + murmur Extremities: no edema Gastrointestinal (Abdomen): Inspection/Auscultation: normal bowel sounds Percussion/Palpation: abdomen soft; abdomen nontender Musculoskeletal: Extremities: strength 5/5 throughout Skin: no rashes, warm and dry Psychiatric: Orientation: alert and oriented x 3 Speech: normal rate/rhythm/volume of speech Insight: + limited insight Judgment: + limited judgement Results & Data Vital Signs (Past 12 Hours) Vital Signs Temp Pulse Pulse Pulse Resp BP Pulse Ox 12/07/22 08:00 37.1 C 93 H 22 90/42 L 96 12/07/22 04:01 36.9 C 75 18 92/52 L 92 12/06/22 22:48 89 12/06/22 23:51 36.8 C 82 16 105/61 90 O2 Del Method O2 Flow Rate 12/07/22 08:00 Nasal Cannula 2 12/07/22 04:01 Nasal Cannula 2 12/06/22 22:48 12/06/22 23:51 Room Air
--- NOTE | 2022-12-07 10:34 | Discharge Summary ---
Date of Service December 07, 2022 Admission HPI Per Admitting Provider History obtained from patient and records. Medical history significant for chronic diastolic heart failure (EF 55-59%, TTE 2022), CAD status post CABG, valvular heart disease (moderate /AR, mild MR/MS), HTN, atrial flutter/history of DVT on Coumadin, pulmonary hypertension as per records, CRI (baseline creatinine 4s), chronic back pain status post surgery, chronic anemia (baseline hemoglobin 10-11), chronic venous insufficiency, prostate cancer status post radiation, past tobacco abuse. Last confinement August 06 for decompensated heart failure, cardiorenal syndrome. Patient falling at home the last few weeks. Shortness of breath on exertion/fatigue with motion. Fluid retention. Patient denies chest pain. Trying to comply with instructions from envelope addresser. Some discussion about peritoneal dialysis as per patient. Patient seen by Patrice shop laborer at the office 3 days ago. Volume overload attributed to end-stage kidney disease, mixed valvular heart disease. Warehouse Engineer was to contact patient's envelope addresser to expedite dialysis preparations as per documentation. Last night, patient walker got caught on the carpet causing him to fall over. Left sided head trauma resulting in left ear laceration and left forearm skin tears. No syncope/LOC. Patient denies chest pain. Usual SOB. Achy back pain. Patient brought to the ER for evaluation. Left ear and forearm lacerations repaired. O2 sats noted to be 80s on room air. 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 Admission Exam Per Admitting Provider GENERAL: pleasant, obese, hard of hearing, minimal respiratory distress SKIN: Pallor, warm HEENT: Pale palpebral conjunctivae, no ptosis, dry buccal mucosa, nasal cannula in place NECK : Supple, short neck, no tenderness CHEST : Decreased breath sounds, scattered crackles, no tenderness HEART : Irregular, systolic murmur ABDOMEN: Some distention, nontender EXTREMITIES : Bilateral LE swelling, no LE tenderness, no other conspicuous deformities noted NEUROLOGIC : Coherent, no facial asymmetry, hard of hearing, gait and stance not assessed Principal Diagnosis Acute CHF (diastolic) ESRD on HD aortic stenosis, atrial fib LBBB Discharge Exam General- elderly male in NAD, on RA (pt seen on HD) Eyes- EOMI, anicteric Neck- no JVD Lungs- clear breath sounds bilaterally Heart- normal rate, regular rhythm; + syst. murmur Abdomen- normal bowel sounds, nondistended, soft, nontender Extremities- no pretibial edema, moves extremities Neuro- awake and alert, answering appropriately, moves extremities Skin- warm & dry Discharge Data Allergies Allergy/AdvReac Type Severity Reaction Status Date / Time amlodipine [From [facility]] Allergy Intermediate Edema Verified 11/26/22 03:03 bismuth subsalicylate Allergy Unknown Unknown Verified 11/26/22 03:03 naproxen AdvReac Mild GI UPSET, Verified 11/26/22 03:03 HODGES THROAT Consultations 11/26/22 06:05 Consult Nephrology Routine 11/28/22 07:26 Consult Cardiology Routine 11/28/22 07:54 Consult Vascular Surgery Routine Procedures Performed Operation Date: 12/02/22 09:10 Actual Procedures p Insertion of Perm Catheter, Left Jugular Approach, Ultrasound Localization of Left Internal Jugular Vein, Fluroscopy for Positioning, Removal of Temporary Dialysis Catheter, Moderate Sedation [id number](Right) - Benny Barroso MD Ordered Studies 11/25/22 21:42 CT cervical spine wo con Stat FINDINGS: Vertebrae: The vertebral bodies are intact without acute osseous traumatic injury. No anterolisthesis or retrolisthesis is identified. The facet joints are well aligned without subluxation or dislocation. The pedicles, transverse processes and spinous processes are intact. Facet hypertrophic changes noted at several levels, chronic in appearance. Discs/spinal canal/neural foramina: Disc space narrowing with marginal hypertrophic changes noted from C3-4 through C6-7. No acute osseous canal narrowing noted. Chronic appearing osseous neural foraminal encroachment noted at several levels bilaterally. Soft tissues: Unremarkable. IMPRESSION: No acute osseous traumatic injury or significant abnormal alignment involving the cervical spine. Incidental multilevel chronic degenerative changes. CT head/brain wo con Stat FINDINGS: Brain: No intracranial hemorrhage. No significant mass effect. No cortical infarct. Underlying parenchymal involutional changes and periventricular deep white matter hypodense changes noted. Ventricles: Unremarkable. No ventriculomegaly. Bones/joints: Unremarkable. No acute fracture. Soft tissues: No significant overlying acute traumatic soft tissue abnormality. No radiopaque foreign body. Sinuses: Unremarkable as visualized. No acute sinusitis. Mastoid air cells: Unremarkable as visualized. No mastoid effusion. IMPRESSION: No acute intracranial process identified. Chronic underlying presumed incidental age-related findings, as noted above. CT lumbar spine wo con Stat FINDINGS: Vertebrae: No definite acute osseous traumatic injury. There is scoliosis, convex left, centered at the L3 vertebral body level with the modified Mendoza angle measuring 30 between the superior endplate of T12 and the superior endplate of L5. There is partial degenerative fusion of the right lateral L2-3 intervertebral disc. There is severe degenerative changes at L1-2. There is moderately severe degenerative changes at T12- L1 and mild degenerative changes of the L1-2. Discs/spinal canal/neural foramina: There is posterior fusion with pedicle screws and paraspinal rods from L3-L5 levels. Interbody cages noted at L4-5 level. Laminectomy defects are identified at these levels. Evaluation the central canal is limited without intrathecal contrast. However, there is suggestion of some canal narrowing at L1-2 level secondary to annular disc bulge and facet hypertrophic changes with a trefoil appearance. There is at least moderate osseous neural foraminal encroachment suggested involving the right L1-2 neural foramina. Soft tissues: No significant acute paraspinal soft tissue abnormality identified. IMPRESSION: 1. No acute osseous traumatic injury involving the lumbar spine. Postsurgical changes from L3-L5 with posterior fusion and laminectomies noted. 3. Multilevel chronic disc spondylosis, most severe at L1-2 level. Scoliosis, convex left. Chronic canal narrowing and neural foraminal encroachment, as noted above. No acute component suspected. 11/29/22 07:26 EV cvc insrt tunnel wo prt/director of community services Routine US EV guide vascular access Routine 12/02/22 07:09 EV cvc insrt tunnel wo prt/director of community services Routine US EV guide vascular access Routine Hospital Course (1) Acute hypoxemic respiratory failure: Secondary to acute decompensated heart failure CKD stage V status post temporary HD catheter placement on 11/29/2022 Past medical history of chronic diastolic heart failure, CAD status post CABG, valvular heart disease, a flutter, DVT on Coumadin, CKD (baseline creatinine of 4) presented to the hospital after a fall at home when his walker got caught on the carpet. No loss of consciousness/syncope. Also reported shortness of breath on presentation On presentation, he was saturating 81% on room air Underwent laceration repair on left ear in the ED Recently seen in cardiology office 3 days prior to admission. Cardiology contacted patient's nephrology to expedite dialysis in preparation. Chest x-ray on admission personally reviewed; cardiomegaly with pulmonary edema BNP of 559 Creatinine is stable at 4.83. 12/02 s/p permcath insertion 12/06 Weaned off oxygen supplement Continue HD for volume management Upon discharge nephrology service recommends torsemide 100 mg p.o. daily and metolazone 5 mg p.o. daily 12/07 Plan to discharge to detention facility- discussed w/ nephrology and cardiology Elevated troponin secondary to demand ischemia Moderate to severe EKG on admission personally reviewed; A-fib with ventricular rate of 72. QTc of 453. High sensitive troponin peaked to 282 and down trended to 241. He is maintaining sinus rhythm presently. 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 Discussed with cardiology; continue current management. 12/06 No chest pain Chronic conditions; A-fib/history of DVT on Coumadin -- INR 1.6 coumadin 7.5mg today -> then 5 mg tomorrow Check INR 1-2 days after discharge -- Continue metoprolol succinate 12.5 mg p.o. daily -cont. rosuvastatin, ezetimibe chronic back pain status post surgery chronic anemia, hemoglobin at baseline chronic venous insufficiency prostate cancer status post radiation Ambulatory dysfunction Past tobacco abuse DVT prophylaxis;coumadin Disposition [facility] Total Time Total Time Spent Total Time Spent (In Minutes): 40 Discharge Plan Discharge Items Patient Disposition: Transfer Care Home Fac Reason For Visit: RESP FAILURE Discharge Diagnosis: Acute CHF (diastolic) ESRD on HD aortic stenosis, atrial fib LBBB Activity: Per Instructions section Non-emergency contact: Primary Care Provider, Warehouse Engineer and Labor Service Representative Call non-emergency contact if: you have any medication questions and your symptoms worsen Follow-up/Referrals: Wojciech Palmer MD [Primary Care Provider] - Diet: Dialysis Renal Fluids: 1500ml (6 cups) Addtl Attending Provider Instructions: Follow-up with primary care physician, cardiology, and nephrology. You should be seen by primary care physician within 1 week. You were started on dialysis here in the hospital. You will also need to continue taking diuretics, torsemide 100 mg daily and metolazone 5 mg daily. Fluid restriction 1.5 L. Do not take Lasix. Continue taking metoprolol succinate, rosuvastatin, ezetimibe, as previously prescribed. Continue taking Coumadin and have your INR checked in 1 to 2 days. Addtl Divine Healer Provider Instructions: Call your Primary Care doctor if any of the following symptoms or problems start or get worse: * Shortness of breath or difficulty breathing * Wake up at night short of breath * Chest pain * Cough * Swelling of your hands, feet, or legs * More fatigued or tired with your normal activity * Palpitations - sudden fast heart beats WEIGHT * Weigh yourself every morning after using the bathroom. * Use the same scale. * Wear the same amount of clothing. * Write your weight down on a chart. * Call your Primary Care doctor if you gain more than 2-3 pounds in 1-2 days. MEDICATIONS * Use this discharge instruction sheet for medication instructions. * Take your medications at the time your doctor ordered. * Do not skip a dose of your medicines. * If you miss a dose of medicine, take it as soon as possible, but DO NOT DOUBLE A DOSE. * Read your medicine information when you get home. * Know all of the side effects of your medicine. If in doubt, ask your pharmacist * Call your Primary Care doctor's office if you have any side effects. * Be sure all of your doctors know what medicine and herbs you take (including cold, flu, and herbal medicine). Take the following with you to your follow-up doctor appointments: * Weight Chart * Medication List * List of questions Do not drink excessive alcohol, beer or wine. Pending Studies at Discharge: No Stand-Alone Forms: My [facility] Skilled Items Patient informed of condition?: Yes DNR: Yes Discharge Level of Care: Skilled Communicable Disease: No Discharge Prognosis: Stable Lines: [place] Urinary Catheter: Yes Medications and DC Order Prescriptions: New torsemide 100 mg Tablet 100 mg PO QAM Qty: 30 0RF metolazone 5 mg Tablet 5 mg PO DAILY@1200 Qty: 30 0RF Continued tamsulosin 0.4 mg capsule 0.4 mg PO BID metoprolol succinate 25 mg tablet extended release 24 hr 12.5 mg PO DAILY Rx Instructions: TAKE HALF A TABLET (12.5 MG) DAILY ezetimibe 10 mg tablet 10 mg PO DAILY rosuvastatin 10 mg tablet 10 mg PO HS cyclobenzaprine 10 mg Tablet 10 mg PO TID PRN (Reason: Muscle Spasm) acetaminophen 500 mg Tablet 500 mg PO Q6H PRN (Reason: Pain) famotidine 20 mg Tablet 20 mg PO DAILY PRN (Reason: Acid Reflux) warfarin 5 mg Tablet 5 mg PO DIRECTED Rx Instructions: DIRECTED TO TAKE BY ANTICOAGULATION CLINIC/ multivitamin,[id number]-min Tablet 1 tab PO DAILY cholecalciferol (vitamin D3) [Vitamin D3] 50 mcg (2,000 unit) Capsule 50 mcg PO DAILY amoxicillin 500 mg capsule See Rx Instructions .ROUTE .COMPLEX PRN (Reason: Prior to Dental Appointments) Rx Instructions: TAKE 4 CAPSULES (2000 MG) ONE HOUR PRIOR TO DENTAL APPOINTMENT allopurinol 100 mg tablet 200 mg PO QAM triamcinolone acetonide 0.1 % ointment 1 applic TOPICAL BID PRN (Reason: .itchy legs) montelukast 10 mg tablet 10 mg PO QPM CeraVe Cream 1 applic TOPICAL DIRECTED PRN (Reason: .affected area) diclofenac sodium 1 % gel 1 ea TOPICAL BID PRN (Reason: .back pain, muscle pain) melatonin 5 mg Tablet 5 mg PO HS PRN (Reason: Sleep) Discontinued furosemide 80 mg tablet 80 mg PO BID Discharge Orders: Discharge Order- CHF (Routine); Ordered 12/07/22 Ordered By: Elias Sher Admission Data Admit Date/Time: 11/26/22 03:36 Attending Provider: Elias Sher Admit Provider: Rajiv Mcmahon Primary Care Provider: Wojciech Palmer Other Providers: Michael Kaiser [facility] ; [facility] ; Connor Patrick ; Stephy Figueroa ; Khoi Kam ; Jocelyne Ojeda ; Donte Bergman ; Andre Hardin ; Irma Shaikh ; Tina Guzman ; Cody Nguyen ; Bimal Jordan ; Jesse Camarena ; Elvin Norman ; Yogesh Murphy ; Laura Luque ; Fiorella Jefferson ; Tina Earl ; Agus Keating ; Martin Figueroa ; Benny Barroso ; Basilio Taylor
[2022-12-07] MEDS ORDERED: metOLazone 5 MG TABLET PO SCH (12:00)
[2022-12-07] MEDS: METOPROLOL SUCC 25MG EXT REL TAB PO SCH (13:31)
[2022-12-07] MEDS: MULTIVITAMIN CHEWABLE TAB PO SCH (13:32)
[2022-12-07] MEDS: allopurinoL 100 MG TAB PO SCH (13:32)
[2022-12-07] MEDS: TAMSULOSIN HCL 0.4 MG CAP PO SCH (13:33)
[2022-12-07] MEDS: EZETIMIBE 10 MG TABLET PO SCH (13:33)
[2022-12-08] MEDS ORDERED: TORSEMIDE 100 MG TAB PO SCH (09:00)
[2022-12-08] MEDS ORDERED: WARFARIN SOD 5 MG TAB PO SCH (16:00)
== END 2022-12-07 16:11 | DRG 291 ==
LOC: ED 20:35 → SUATTDRO 11-26 03:36 → 2E 11-26 03:36

== ENCOUNTER 2022-12-21 09:03 | Inpatient (IN) ==
[2022-12-21] MEDS ORDERED: CEFEPIME 2,000 MG/20 ML VIAL IV STA (09:19)
--- NOTE | 2022-12-21 09:23 | Emergency Department Note ---
Impression & Plan Sepsis, Hypotension, Acute UTI, Dialysis patient ED Provider Note NAME: SIGIFREDO FU AGE: 87 SEX: M : 1935 ARRIVES VIA: Ambulance INFORMANT: [Patient][ems] ED PROVIDER(S): [[facility] MD] CHIEF COMPLAINT: Hypotension HISTORY OF PRESENT ILLNESS: The patient is an 87-year-old male who presents to the ER with a low blood pressure. He is on hemodialysis on Monday and Monday. They would not do dialysis today because of his low blood pressure. The patient has felt dizzy and weak for a few days. He has been lightheaded. He was told that he had a UTI and was given antibiotics. The patient states that he did have some burning with urination, the burning is no longer present. The patient currently denies any shortness of breath or chest pain. No abdom inal pain. He has not had a fever. As per EMS, the patient received a 700 cc saline bolus on the way to the hospital. PMHx/PSHx: See Below SOCIAL HISTORY: See Below. PHYSICAL EXAM: GENERAL: Patient is in no acute distress. HEENT: No acute trauma, normocephalic atraumatic, mucous membranes dry, no nasal congestion. NECK: No stridor, no adenopathy, no meningismus, trachea is midline. LUNGS: Clear to auscultation bilaterally, no wheeze, no rhonchi, breath sounds equal. HEART: 3/6 systolic murmur heard best at the right sternal border. Normal rate, irregular rhythm. ABDOMEN: Soft, nontender, bowel sounds positive, no peritonitis. EXTREMITIES: No cyanosis or edema, full range of motion of all the joints wi thout pain or difficulty, no signs for acute trauma. Chronic lower extremity skin changes noted. NEUROLOGIC: Oriented x 3, no acute motor or sensory deficits, no focal weakness. SKIN: No rash, no jaundice, no diaphoresis. Pale. DIFFERENTIAL DIAGNOSIS: Bacteremia or sepsis, UTI, dehydration, SC, dysrhythmia, electrolyte imbalance, anemia, viral illness, among others. EMERGENCY DEPARTMENT COURSE/PROCEDURES: Prior/Outside records reviewed: EMS notes, recent discharge summary. ECG per my interpretation: Indication was possible sepsis. The ECG shows atrial fibrillation with a rate of 75. PVCs are seen. There is no concerning ST elevation. There is some baseline artifact. There is a left bundle branch block. The QTc is 469. Continuous Cardiac Monitoring per my interpretation: An order was placed for continuous cardiac monitoring. The monitor shows a rate of 79 with atrial fibrillation. Critical Care Note: I have personally spent 55 minutes of critical care time in the direct management of this patient. This includes bedside care, interp retation of diagnostic studies, and testing, discussion with consultants, patient, and family members, and other required patient management activities. This 55 minutes is in excess of all separately billable procedures. MEDICAL DECISION MAKING: There is a mild leukocytosis, this would be consistent with infection. The patient is anemic but this is baseline looking back at previous testing. There was a normal platelet count. INR was somewhat elevated at 1.6, this is subtherapeutic for someone using Coumadin. Sodium was low at 130. Potassium was slightly low but not in need of emergent correction. BUN and creatinine were both elevated consistent with his dialysis need. Lactic acid level was not not elevated making severe sepsis less likely. No concerning liver enzyme elevation. Procalcitonin level was elevated consistent with bacterial infection. ECG shows atrial fibrillation, no ischemia. Cardiac enzyme testing x1 is elevated. This elevation could be secondary to his renal disease, mismatch or potentially cardiac injury. Urinalysis is consistent with infection. COVID test returned negative. Chest film shows some chronic changes to the left lower lung. There was no CHF or pneumonia per my review. Abdominal and pelvis CT did not show any urinary obstruction. Bladder thickening was seen consistent with cystitis. Patient received IV cefepime as empiric antibiotic coverage. The patient had received 700 cc of fluid prior to arrival in the ED. I did order for 1500 cc of IV saline to be given. Thus, a total of 2200 cc of saline was given. The patient did not receive 30 cc/kg of saline as he is on chronic dialysis and there was serious concern for the development of CHF. Given the persistently lower blood pressure, I did order for IV Levophed. The patient's blood pressure has improved from the 60s systolic to around 90-100 systolic. The patient is feeling improved. The patient is in need of a hospital stay. He appears to be septic from a urinary infection. I spoke with the patient and case management, the on-call hospitalist was consulted. DISPOSITION: The patient's presentation and findings warrant a hospital stay. 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 Required: No Beliefs That Will Affect Care: None marital status: Current Living Situation: Spouse Current Living Situation Comment: Feels Safe at Home: Yes Diet: low salt caffeine: Yes during the past year weight has: remained stable Assistive Devices: Hearing Aid - Bilateral and Walker Allergies Allergies Allergy/AdvReac Type Severity Reaction Status Date / Time amlodipine [From [facility]] Allergy Intermediate Edema Verified 11/26/22 03:03 bismuth subsalicylate Allergy Unknown Unknown Verified 11/26/22 03:03 naproxen AdvReac Mild GI UPSET, Verified 11/26/22 03:03 HODGES THROAT Home Meds Home Medications Medication Instructions Recorded Confirmed amoxicillin 500 mg capsule See Rx Instructions .Route 07/15/20 12/21/22 .COMPLEX PRN Prior to Dental Appointments cholecalciferol (vitamin D3) 50 50 mcg PO DAILY 07/15/20 12/21/22 mcg (2,000 unit) capsule (Vitamin D3) cyclobenzaprine 10 mg tablet 10 mg PO TID PRN Muscle Spasm 07/15/20 12/21/22 ezetimibe 10 mg tablet 10 mg PO DAILY 07/15/20 12/21/22 famotidine 20 mg tablet 20 mg PO DAILY PRN Acid Reflux 07/15/20 12/21/22 metoprolol succinate 25 mg 12.5 mg PO DAILY 07/15/20 12/21/22 tablet,extended release 24 hr multivitamin,gh-wgge-Xj-FA-min 1 tab PO DAILY 07/15/20 12/21/22 rosuvastatin 10 mg tablet 10 mg PO HS 07/15/20 12/21/22 tamsulosin 0.4 mg capsule 0.4 mg PO BID 07/15/20 12/21/22 warfarin 5 mg tablet 2.5 mg PO DIRECTED 07/15/20 12/21/22 allopurinol 100 mg tablet 200 mg PO QAM 11/26/22 12/21/22 ceramides 1,3,6-II (CeraVe topical 1 applic topical DIRECTED PRN 11/26/22 12/21/22 cream) .affected area diclofenac sodium 1 % topical gel 1 ea topical BID PRN .back pain, 11/26/22 12/21/22 muscle pain melatonin 5 mg tablet 5 mg PO HS PRN Sleep 11/26/22 12/21/22 montelukast 10 mg tablet 10 mg PO QPM 11/26/22 12/21/22 triamcinolone acetonide 0.1 % 1 applic topical BID PRN .itchy 11/26/22 12/21/22 topical ointment legs benzonatate 100 mg capsule 200 mg PO TID 12/21/22 12/21/22 ceftriaxone 1 gram with lidocaine 1 ea IM DAILY 12/21/22 12/21/22 1 % intramuscular kit fluticasone propionate 50 2 spray intranasal DAILY 12/21/22 12/21/22 mcg/actuation nasal spray,suspension (Flonase Allergy Relief) menthol 0.44 %-zinc oxide 20.6 % 1 applic topical BID PRN Skin 12/21/22 12/21/22 topical ointment (Calmoseptine) Irritation Previous Rx's Medication Instructions Recorded metolazone 5 mg tablet 5 mg PO DAILY@1200 #30 tabs 12/07/22 torsemide 100 mg tablet 100 mg PO QAM #30 tabs 12/07/22 Results & Data (ED) Vital Signs Vital Signs - 24 hr 12/21/22 09:14 12/21/22 09:20 12/21/22 09:14 Temperature 36.6 C Temperature Source Oral Pulse Rate 79 74 71 Pulse Rate from SpO2 Sensor 68 Respiratory Rate 23 18 Respiratory Effort / Characteristics Non-Labored Spontaneous Respiratory Depth Normal Blood Pressure 61/36 L 65/44 L Blood Pressure Mean 44 51 Pulse Oximetry 94 94 Oxygen Delivery Method Nasal Cannula Nasal Cannula Oxygen Flow Rate 3 3 Sepsis Recent Fever Within 48 Hours No Sepsis New/Unexplained Change in Mental Status N/A Sepsis Action Taken by Nursing Physician Notified 12/21/22 09:41 12/21/22 09:45 12/21/22 10:00 Temperature Temperature Source Pulse Rate 75 72 72 Pulse Rate from SpO2 Sensor 74 71 74 Respiratory Rate 18 21 14 Respiratory Effort / Characteristics Respiratory Depth Blood Pressure 81/53 L 81/52 L 80/55 L Blood Pressure Mean 62 61 63 Pulse Oximetry 95 95 94 Oxygen Delivery Method Nasal Cannula Nasal Cannula Nasal Cannula Oxygen Flow Rate 3 3 3 Sepsis Recent Fever Within 48 Hours Sepsis New/Unexplained Change in Mental Status Sepsis Action Taken by Nursing 12/21/22 10:15 12/21/22 10:30 12/21/22 10:45 Temperature Temperature Source Pulse Rate 74 76 73 Pulse Rate from SpO2 Sensor 74 82 72 Respiratory Rate 15 20 19 Respiratory Effort / Characteristics Respiratory Depth Blood Pressure 87/53 L 93/67 L 87/56 L Blood Pressure Mean 64 75 66 Pulse Oximetry 92 95 92 Oxygen Delivery Method Nasal Cannula Nasal Cannula Nasal Cannula Oxygen Flow Rate 3 3 3 Sepsis Recent Fever Within 48 Hours Sepsis New/Unexplained Change in Mental Status Sepsis Action Taken by Nursing 12/21/22 11:00 12/21/22 11:00 Temperature Temperature Source Pulse Rate 76 Pulse Rate from SpO2 Sensor 76 Respiratory Rate 19 Respiratory Effort / Characteristics Respiratory Depth Blood Pressure 96/50 L 96/50 L Blood Pressure Mean 65 58 Pulse Oximetry 95 Oxygen Delivery Method Nasal Cannula Oxygen Flow Rate 3 Sepsis Recent Fever Within 48 Hours Sepsis New/Unexplained Change in Mental Status Sepsis Action Taken by [facility] Medications Current Medication List: was personally reviewed by me Laboratory Data Attestation: I reviewed the patient's lab results. 12/21/22 09:32 12/21/22 15:25 Lab Results 12/21/22 12/21/22 12/21/22 Range/Units 09:32 09:32 09:32 WBC 13.44 H (4.8-10.8) K/ul RBC 2.83 L (4.70-6.10) M/uL Hgb 9.3 L (14.0-18.0) g/dl Hct 29.0 L (42.0-52.0) % MCV 102.5 H (80.0-100.0) fL MCH 32.9 (25.0-34.0) pg MCHC 32.1 (32.0-36.0) g/dL RDW Std Deviation 61.0 H (36.4-46.3) fL RDW Coeff of Alan 16.3 H (11.5-14.5) % Plt Count 188 (130-400) K/uL MPV 11.0 (9.4-12.4) fL Immature Gran % (Auto) 0.7 % Neut % (Auto) 94.4 % Lymph % (Auto) 1.8 % [place] % (Auto) 2.5 % Eos % (Auto) 0.2 % Baso % (Auto) 0.4 % Neut # (Auto) 12.69 H (1.40-6.50) K/uL Lymph # (Auto) 0.24 L (1.2-3.4) K/uL [place] # (Auto) 0.33 (0.11-0.59) K/uL Eos # (Auto) 0.03 (0-0.50) K/uL Baso # (Auto) 0.06 (0-0.2) K/uL Immature Gran # (Auto) 0.09 (0.01-0.20) K/uL PT 17.3 H (9.0-12.0) Seconds INR 1.6 H (0.9-1.1) APTT 29.7 (21.0-31.0) Seconds PTT Ratio 1.1 Sodium 130 L (136-145) mmol/L Potassium 3.3 L (3.5-5.1) mmol/L Chloride 92 L (98-107) mmol/L Carbon Dioxide 28 (21-32) mmol/L Anion Gap 10 (3-11) BUN 77 H (6-23) mg/dl Creatinine 4.29 H (0.6-1.4) mg/dl Est Cr Clr Drug Dosing 12.4 ml/min Est GFR ( Amer) 13.5 ml/min Est GFR (Non-Af Amer) 11.7 ml/min BUN/Creatinine Ratio 17.9 (10-20) Glucose 147 H (70-99(Fasting)) mg/dl Lactate (0.4-2.0) mmol/L Calcium 8.3 L (8.6-10.3) mg/dl Magnesium 2.0 (1.7-2.4) mg/dl Total Bilirubin 0.5 (0.2-1.0) mg/dl Direct Bilirubin 0.2 (0-0.2) mg/dl AST 27 (13-39) U/L ALT 13 (7-52) U/L Alkaline Phosphatase 95 (34-104) U/L Troponin I High Sens 864.8 H* (0-20) pg/ml Total Protein 5.3 L (6.0-8.3) gm/dl Albumin 2.7 L (3.4-5.0) gm/dl Procalcitonin (0-0.5) ng/ml Urine Color Urine Appearance (Clear) Urine pH (4.5-7.5) Ur Specific [place] (1.000-1.030) Urine Protein (Negative) Urine Glucose (UA) (Negative) Urine Ketones (Negative) Urine Blood (Negative) Urine Nitrite (Negative) Urine Bilirubin (Negative) Urine Urobilinogen (Negative) Ur Leukocyte Esterase (Negative) Urine WBC (Auto) (0-5) /hpf Urine RBC (Auto) (0-4) /hpf U Hyaline Cast (Auto) (0-5) /lpf U Epithel Cells (Auto) (0-5) /lpf Urine Bacteria (Auto) (Negative) Urine Yeast SARS-CoV-2, RNA, NAAT (NEGATIVE) 12/21/22 12/21/22 12/21/22 Range/Units 09:32 09:32 09:43 WBC (4.8-10.8) K/ul RBC (4.70-6.10) M/uL Hgb (14.0-18.0) g/dl Hct (42.0-52.0) % MCV (80.0-100.0) fL MCH (25.0-34.0) pg MCHC (32.0-36.0) g/dL RDW Std Deviation (36.4-46.3) fL RDW Coeff of Alan (11.5-14.5) % Plt Count (130-400) K/uL MPV (9.4-12.4) fL Immature Gran % (Auto) % Neut % (Auto) % Lymph % (Auto) % [place] % (Auto) % Eos % (Auto) % Baso % (Auto) % Neut # (Auto) (1.40-6.50) K/uL Lymph # (Auto) (1.2-3.4) K/uL [place] # (Auto) (0.11-0.59) K/uL Eos # (Auto) (0-0.50) K/uL Baso # (Auto) (0-0.2) K/uL Immature Gran # (Auto) (0.01-0.20) K/uL PT (9.0-12.0) Seconds INR (0.9-1.1) APTT (21.0-31.0) Seconds PTT Ratio Sodium (136-145) mmol/L Potassium (3.5-5.1) mmol/L Chloride (98-107) mmol/L Carbon Dioxide (21-32) mmol/L Anion Gap (3-11) BUN (6-23) mg/dl Creatinine (0.6-1.4) mg/dl Est Cr Clr Drug Dosing ml/min Est GFR ( Amer) ml/min Est GFR (Non-Af Amer) ml/min BUN/Creatinine Ratio (10-20) Glucose (70-99(Fasting)) mg/dl Lactate 1.8 (0.4-2.0) mmol/L Calcium (8.6-10.3) mg/dl Magnesium (1.7-2.4) mg/dl Total Bilirubin (0.2-1.0) mg/dl Direct Bilirubin (0-0.2) mg/dl AST (13-39) U/L ALT (7-52) U/L Alkaline Phosphatase (34-104) U/L Troponin I High Sens (0-20) pg/ml Total Protein (6.0-8.3) gm/dl Albumin (3.4-5.0) gm/dl Procalcitonin 27.98 H (0-0.5) ng/ml Urine Color Urine Appearance (Clear) Urine pH (4.5-7.5) Ur Specific [place] (1.000-1.030) Urine Protein (Negative) Urine Glucose (UA) (Negative) Urine Ketones (Negative) Urine Blood (Negative) Urine Nitrite (Negative) Urine Bilirubin (Negative) Urine Urobilinogen (Negative) Ur Leukocyte Esterase (Negative) Urine WBC (Auto) (0-5) /hpf Urine RBC (Auto) (0-4) /hpf U Hyaline Cast (Auto) (0-5) /lpf U Epithel Cells (Auto) (0-5) /lpf Urine Bacteria (Auto) (Negative) Urine Yeast SARS-CoV-2, RNA, NAAT NEGATIVE (NEGATIVE) 12/21/22 Range/Units 09:44 WBC (4.8-10.8) K/ul RBC (4.70-6.10) M/uL Hgb (14.0-18.0) g/dl Hct (42.0-52.0) % MCV (80.0-100.0) fL MCH (25.0-34.0) pg MCHC (32.0-36.0) g/dL RDW Std Deviation (36.4-46.3) fL RDW Coeff of Alan (11.5-14.5) % Plt Count (130-400) K/uL MPV (9.4-12.4) fL Immature Gran % (Auto) % Neut % (Auto) % Lymph % (Auto) % [place] % (Auto) % Eos % (Auto) % Baso % (Auto) % Neut # (Auto) (1.40-6.50) K/uL Lymph # (Auto) (1.2-3.4) K/uL [place] # (Auto) (0.11-0.59) K/uL Eos # (Auto) (0-0.50) K/uL Baso # (Auto) (0-0.2) K/uL Immature Gran # (Auto) (0.01-0.20) K/uL PT (9.0-12.0) Seconds INR (0.9-1.1) APTT (21.0-31.0) Seconds PTT Ratio Sodium (136-145) mmol/L Potassium (3.5-5.1) mmol/L Chloride (98-107) mmol/L Carbon Dioxide (21-32) mmol/L Anion Gap (3-11) BUN (6-23) mg/dl Creatinine (0.6-1.4) mg/dl Est Cr Clr Drug Dosing ml/min Est GFR ( Amer) ml/min Est GFR (Non-Af Amer) ml/min BUN/Creatinine Ratio (10-20) Glucose (70-99(Fasting)) mg/dl Lactate (0.4-2.0) mmol/L Calcium (8.6-10.3) mg/dl Magnesium (1.7-2.4) mg/dl Total Bilirubin (0.2-1.0) mg/dl Direct Bilirubin (0-0.2) mg/dl AST (13-39) U/L ALT (7-52) U/L Alkaline Phosphatase (34-104) U/L Troponin I High Sens (0-20) pg/ml Total Protein (6.0-8.3) gm/dl Albumin (3.4-5.0) gm/dl Procalcitonin (0-0.5) ng/ml Urine Color Yellow Urine Appearance Turbid A (Clear) Urine pH 6.0 (4.5-7.5) Ur Specific [place] 1.010 (1.000-1.030) Urine Protein 2+ H (Negative) Urine Glucose (UA) Negative (Negative) Urine Ketones Negative (Negative) Urine Blood 2+ H (Negative) Urine Nitrite Negative (Negative) Urine Bilirubin Negative (Negative) Urine Urobilinogen Negative (Negative) Ur Leukocyte Esterase 3+ H (Negative) Urine WBC (Auto) >30 H (0-5) /hpf Urine RBC (Auto) 0-4 (0-4) /hpf U Hyaline Cast (Auto) 0 (0-5) /lpf U Epithel Cells (Auto) 0-5 (0-5) /lpf Urine Bacteria (Auto) 2+ H (Negative) Urine Yeast Not Reportable SARS-CoV-2, RNA, NAAT (NEGATIVE) Administered Medications Norepinephrine Bitartrate (Levophed/D5w) 4 mg in 250 mls @ 28.215 mls/hr IV .[id number] [facility]; Protocol Stop: 01/20/23 10:59 Last Titration: 12/21/22 14:30 Dose: 0.09 mcg/kg/min, 28.2 mls/hr Documented By: Titration: 12/21/22 13:06 Dose: 0.07 mcg/kg/min, 21.9 mls/hr Documented By: Admin: 12/21/22 11:39 Dose: 0.05 mcg/kg/min, 15.7 mls/hr Documented By: YENY Co-signed By: SP Midodrine (Midodrine Hcl 2.5 Mg Tab) 5 mg PO TID@0800,1200,1700 KRISTINE Stop: 01/20/23 16:59 Last Admin: 12/21/22 16:32 Dose: 5 mg Documented By: LEXUS Miscellaneous ([facility] Protocol For Hyperglycemia) 1 each N/A ACHS KRISTINE Stop: 12/23/22 13:00 Last Admin: 12/21/22 13:26 Dose: Not Given Documented By: YENY Discontinued Medications Cefepime HCl (Maxipime) 2,000 mg in 20 mls @ 5 mls/min IV NOW STA; Protocol Stop: 12/21/22 09:22 Last Admin: 12/21/22 09:39 Dose: 5 mls/min Documented By: YOUNG Sodium Chloride (Nss 1000ml) 1,000 mls @ 999 mls/hr IV .Q1H1M KRISTINE Stop: 12/21/22 10:30 Last Infusion: 12/21/22 12:03 Dose: 0 mls/hr Documented By: Admin: 12/21/22 09:39 Dose: 999 mls/hr Documented By: YOUNG Sodium Chloride (Nss 1000ml) 500 mls @ 999 mls/hr IV .Q31M ONE Stop: 12/21/22 11:11 Last Infusion: 12/21/22 12:23 Dose: 0 mls/hr Documented By: Admin: 12/21/22 11:40 Dose: 999 mls/hr Documented By: YENY Sodium Chloride (Nss 1000ml) 250 mls @ 999 mls/hr IV .Q16M ONE Stop: 12/21/22 12:49 Last Infusion: 12/21/22 15:03 Dose: 0 mls/hr Documented By: Admin: 12/21/22 13:07 Dose: 999 mls/hr Documented By: YENY Piperacillin Sod/Tazobactam (Sod 4.5 gm/ Dextrose) 120 mls @ 240 mls/hr IV ONE ONE; Protocol Stop: 12/21/22 15:59 Last Infusion: 12/21/22 16:27 Dose: 0 mls/hr Documented By: Admin: 12/21/22 15:55 Dose: 240 mls/hr Documented By: LEXUS Imaging Data Radiologist's Impression: Chest X-Ray 12/21/22 09:19 XR chest 1V portable CLINICAL HISTORY: Sepsis TECHNIQUE: Single frontal radiograph of the chest was obtained. Comparison: Comparison is made to chest radiograph 11/26/2022 FINDINGS: Median sternotomy wires are unchanged. Cardiomegaly is noted. The lungs are clear. There is a small left pleural effusion. IMPRESSION: Cardiomegaly is seen. Previously noted pulmonary edema has improved. There is a small left pleural effusion. ACT 112: Negative or not required by law. Electronically signed by: Gilberto Toth M.D. 12/21/2022 10:17 AM Abdomen/Pelvis CT 12/21/22 10:52 CT abd pelvis wo con CLINICAL HISTORY: poss urinary obstruction TECHNIQUE: Helical axial images of the abdomen and pelvis were obtained. Automated dose lowering techniques and/or adjustment according to patient size were utilized for this exam. This exam was performed without intravenous contrast. CT DOSE: 1020.57 mGy.cm COMPARISON: Comparison is made to CT abdomen pelvis 07/16/2020 FINDINGS: Lower chest: Cardiomegaly is partially visualized. Bilateral small pleural effusions with atelectasis and peripheral interstitial thickening. Partial visualization of calcified plaques. Liver: Unremarkable. No focal lesions are seen. Gallbladder and biliary tree: No calcified gallstones. Normal caliber wall. No intra- or extrahepatic biliary ductal dilation. Pancreas: Unremarkable, no focal lesions. Spleen: Unremarkable. Adrenals: Bilateral adrenal gland thickening is seen. Kidneys and ureters: Left extrarenal pelvis is again seen. Bladder: Diffuse homogeneous wall thickening is seen. Reproductive organs: Intrauterine device is noted. Bowel: Diverticulosis is seen without diverticulitis. The appendix is normal. There is a small hiatal hernia. Lymph nodes Retroperitoneal: Subcentimeter lymph nodes are noted. Pelvic: Unremarkable. Mesenteric: Unremarkable. Peritoneum: Normal. Vessels: Atherosclerotic calcifications are seen. Abdominal wall: There is an umbilical hernia containing nondilated loops of bowel. Interval improvement in previously noted anasarca. Bones: Degenerative changes in the visualized spine. Posterior fixation hardware spanning L3-L5. Bilateral total hip arthroplasty is seen. IMPRESSION: 1. No acute abnormalities apart from bladder wall thickening compatible with known UTI. 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 2. Bilateral pleural effusions. Previously noted anasarca is improved. 3. Umbilical hernia with a few nondistended bowel loops. 4. Additional findings as above. ACT 112: Negative or not required by law. Electronically signed by: Gilberto Toth M.D. 12/21/2022 11:44 AM Discharge Plan Visit Data Chief Complaint: Hypotension Stated Complaint: HYPOTENSION ED Provider: [place] [facility] Discharge Problem: Sepsis, Hypotension, Acute UTI, Dialysis patient Patient Disposition: Admitted As Inpatient Condition: Serious Discharge Instructions Interventions: ED Discharge Assessment Last Done: 12/21/22 13:48
[2022-12-21] MEDS ORDERED: SODIUM CHLORIDE 0.9% 1000ML 1,000 ML IV SCH (09:30)
--- NOTE | 2022-12-21 10:18 | XRay Report ---
XR chest 1V portable CLINICAL HISTORY: Sepsis TECHNIQUE: Single frontal radiograph of the chest was obtained. Comparison: Comparison is made to chest radiograph 11/26/2022 FINDINGS: Median sternotomy wires are unchanged. Cardiomegaly is noted. The lungs are clear. There is a small l eft pleural effusion. IMPRESSION: Cardiomegaly is seen. Previously noted pulmonary edema has improved. There is a small left pleural ef fusion. ACT 112: Negative or not required by law. Electronically signed by: Gilberto Toth M.D. 12/21/2022 10:17 AM
[2022-12-21 10:19] LABS: Appearance Urine Turbid (Clear); Bilirubin Urine Negative (Negative); Blood Urine 2+ (Negative); Cast Urine Automated 0 /lpf (0-5); Color Urine Yellow; Epithelial Cell Urine Auto 0-5 /lpf (0-5); Glucose Urine UA Negative (Negative); Ketones Urine Negative (Negative); Leukocyte Esterase Urine 3+ (Negative); Nitrite Urine Negative (Negative); Protein Urine 2+ (Negative); RBC Urine Automated 0-4 /hpf (0-4); Urobilinogen Urine Negative (Negative); WBC Urine Automated >30 /hpf (0-5)
[2022-12-21 10:29] LABS: Albumin Level 2.7 gm/dl (3.4-5.0); BUN Creatinine Ratio 17.9 (10-20); Bilirubin Direct 0.2 mg/dl (0-0.2); Bilirubin,Total 0.5 mg/dl (0.2-1.0); Calcium 8.3 mg/dl (8.6-10.3); Creatinine Clr Calc Pharmacy 12.4 ml/min; Est GFR (African American) 13.5 ml/min; Est GFR (Non-African American) 11.7 ml/min; Potassium 3.3 mmol/L (3.5-5.1); Total Protein 5.3 gm/dl (6.0-8.3)
[2022-12-21 10:35] LABS: Hemoglobin 9.3 g/dl (14.0-18.0); Mean Corpuscular Hemoglobin 32.9 pg (25.0-34.0); Mean Corpuscular Hgb Conc 32.1 g/dL (32.0-36.0); Mean Corpuscular Volume 102.5 fL (80.0-100.0); Platelet Count 188 K/uL (130-400); RDW Coefficient of Variation 16.3 % (11.5-14.5); Red Blood Count 2.83 M/uL (4.70-6.10); Troponin I High Sensitivity 864.8 pg/ml (0-20); White Blood Count 13.44 K/ul (4.8-10.8)
[2022-12-21 10:41] LABS: INR 1.6 (0.9-1.1); Partial Thromboplastin Ratio 1.1; Partial Thromboplastin Time 29.7 Seconds (21.0-31.0); Prothrombin Time 17.3 Seconds (9.0-12.0)
[2022-12-21] MEDS ORDERED: SODIUM CHLORIDE 0.9% 1000ML 500 ML IV ONE (10:41)
[2022-12-21 10:42] LABS: Bacteria Urine Automated 2+ (Negative)
[2022-12-21 11:14] LABS: Basophils # (auto) 0.06 K/uL (0-0.2); Basophils % (auto) 0.4 %; Eosinophils # (auto) 0.03 K/uL (0-0.50); Eosinophils % (auto) 0.2 %; Immature Granulocytes # (auto) 0.09 K/uL (0.01-0.20); Immature Granulocytes % (auto) 0.7 %; Lymphocytes # (auto) 0.24 K/uL (1.2-3.4); Lymphocytes % (auto) 1.8 %; Monocytes # (auto) 0.33 K/uL (0.11-0.59); Monocytes % (auto) 2.5 %; Neutrophils # (auto) 12.69 K/uL (1.40-6.50); Neutrophils % (auto) 94.4 %
[2022-12-21] MEDS: Standard Conc; 4mg in 250mL IV SCH ×2 (11:39→20:58)
--- NOTE | 2022-12-21 11:41 | History & Physical Report ---
Date of Service December 21, 2022 Assessment & Plan (1) ESRD (end stage renal disease): (2) Arterial hypotension: (3) Complicated UTI (urinary tract infection): (4) CAD (coronary artery disease): (5) Aortic stenosis: (6) Afib: Plan This is an 87 yr old M who has a significant PMH of Chronic HFpEF, CAD, hx of CABG, HTN, HLD, Hyperparathyroidism, end-stage renal disease now on dialysis, moderate to severe aortic stenosis, chronic atrial fibrillation on warfarin, remote history of DVT, chronic LBBB, chronic anemia in setting of renal disease who presents to ED secondary to hypotension. Hypotension End-stage renal disease newly established on hemodialysis Complicated UTI Elevated troponin Patient currently admitted to intensive care unit due to requiring vasopressors to maintain blood pressure Patient received 1.5 L of IV fluid in ED Initial concern for possible sepsis in setting of known UTI with leukocytosis and persistent hypotension despite fluids. Fluids cautiously given in ED in setting of dialysis patient and therefore nor epi was started. Discussed with tower helper who feels patient likely intolerant of hemodialysis and therefore starting patient on midodrine with hopes to wean off vasopressor Continue with broad-spectrum antibiotics cefepime and wait for blood and urine culture to result MRSA screen ordered Elevated troponin likely in setting of demand ischemia, will trend, recent echocardiogram results preserved ejection fraction with moderate to severe aortic stenosis Nephrology consulted for dialysis needs Patient with subtherapeutic INR; however, per tower helper hold warfarin due to hemodynamic instability as well as antibiotic use Please defer for other treatment to tower helper at this time DVT ppx: SCDS DNR/DNI PCP: Wojciech Palmer Pt was seen and examined in collaboration with Dr. Sanchez, please see addendum History of Present Illness Chief Complaint: Ill feeling and low blood pressure x 3 days. Primary Care Provider: Wojciech Palmer MD This is an 87 yr old M who has a significant PMH of Chronic HFpEF, CAD, hx of CABG, HTN, HLD, Hyperparathyroidism, end-stage renal disease now on dialysis, moderate to severe aortic stenosis, chronic atrial fibrillation on warfarin, remote history of DVT, chronic LBBB, chronic anemia in setting of renal disease who presents to ED secondary to hypotension. Pt transferred to [facility] after recent hospitalization. Of significance patient was recently hospitalized here from 11/26 to 12/07 in setting of decompensated heart failure and CKD stage V. He underwent temporary hemodialysis catheter placement on 12/02. Echocardiogram during hospitalization revealed preserved EF with moderate to severe aortic stenosis. He recently was started on HD. Over last few days his blood pressure has been on lower side. He also complained of dysuria over last few days. is at bedside. DITCHER he felt lightheaded, but feels after IVF his symptoms are improving. According to at bedside temperature was elevated at skilled nursing, but unknown to what degree. He generally feels weak. He denies any chest pain, sob, cough, uri sx, n/v/d, abd pain, hematuria, melena or hematochezia. Patient was due for dialysis today. In ED patient was hypotensive with concerns for septic shock due to leukocytosis. He received 1.5 L of IV fluid in ED and a small bolus in route. ED provider then started norepinephrine due to volume challenge in setting of hemodialysis patient. Case was discussed with nephrology as well who agreed with plan. Empirically is being started on IV antibiotics. Allergies Allergy/AdvReac Type Severity Reaction Status Date / Time amlodipine [From [facility]] Allergy Intermediate Edema Verified 11/26/22 03:03 bismuth subsalicylate Allergy Unknown Unknown Verified 11/26/22 03:03 naproxen AdvReac Mild GI UPSET, Verified 11/26/22 03:03 HODGES THROAT Home Medications Medication Instructions Recorded Confirmed Type amoxicillin 500 mg capsule See Rx Instructions .Route 07/15/20 12/21/22 History .COMPLEX PRN Prior to Dental Appointments cholecalciferol (vitamin D3) 50 50 mcg PO DAILY 07/15/20 12/21/22 History mcg (2,000 unit) capsule (Vitamin D3) cyclobenzaprine 10 mg tablet 10 mg PO TID PRN Muscle Spasm 07/15/20 12/21/22 History ezetimibe 10 mg tablet 10 mg PO DAILY 07/15/20 12/21/22 History famotidine 20 mg tablet 20 mg PO DAILY PRN Acid Reflux 07/15/20 12/21/22 History metoprolol succinate 25 mg 12.5 mg PO DAILY 07/15/20 12/21/22 History tablet,extended release 24 hr multivitamin,lm-wbvs-Jw-FA-min 1 tab PO DAILY 07/15/20 12/21/22 History rosuvastatin 10 mg tablet 10 mg PO HS 07/15/20 12/21/22 History tamsulosin 0.4 mg capsule 0.4 mg PO BID 07/15/20 12/21/22 History warfarin 5 mg tablet 2.5 mg PO DIRECTED 07/15/20 12/21/22 History allopurinol 100 mg tablet 200 mg PO QAM 11/26/22 12/21/22 History ceramides 1,3,6-II (CeraVe topical 1 applic topical DIRECTED PRN 11/26/22 12/21/22 History cream) .affected area diclofenac sodium 1 % topical gel 1 ea topical BID PRN .back pain, 11/26/22 12/21/22 History muscle pain melatonin 5 mg tablet 5 mg PO HS PRN Sleep 11/26/22 12/21/22 History montelukast 10 mg tablet 10 mg PO QPM 11/26/22 12/21/22 History triamcinolone acetonide 0.1 % 1 applic topical BID PRN .itchy 11/26/22 12/21/22 History topical ointment legs metolazone 5 mg tablet 5 mg PO DAILY@1200 #30 tabs 12/07/22 12/21/22 Rx torsemide 100 mg tablet 100 mg PO QAM #30 tabs 12/07/22 12/21/22 Rx benzonatate 100 mg capsule 200 mg PO TID 12/21/22 12/21/22 History ceftriaxone 1 gram with lidocaine 1 ea IM DAILY 12/21/22 12/21/22 History 1 % intramuscular kit fluticasone propionate 50 2 spray intranasal DAILY 12/21/22 12/21/22 History mcg/actuation nasal spray,suspension (Flonase Allergy Relief) menthol 0.44 %-zinc oxide 20.6 % 1 applic topical BID PRN Skin 12/21/22 12/21/22 History topical ointment (Calmoseptine) Irritation Past Med/Surg History Medical History (Updated 12/21/22 @ 12:42 by Raoul Orr MD) Arterial hypotension CHF (congestive heart failure) Complicated UTI (urinary tract infection) Decompensated heart failure ESRD (end stage renal disease) No pertinent family history Surgical History No pertinent past surgical history Social History Smoking Status: Never smoker Tobacco Type: Smokeless Tobacco (Dip or Chew) Second Hand Exposure: No; Do You Dip or Chew Tobacco: No; Hx Alcohol Use: No Hx Substance Use: No Preferred Language: [place] Communication Ability: Effective Hearing Ability: Use of Hearing Aid Civil Drafter Required: No Beliefs That Will Affect Care: None marital status: Current Living Situation: Spouse Current Living Situation Comment: Feels Safe at Home: Yes Diet: low salt caffeine: Yes during the past year weight has: remained stable Assistive Devices: Hearing Aid - Bilateral and Walker Review of Systems Review of Systems: All systems reviewed & are unremarkable except as noted in HPI & below Physical Exam Physical Exam: please refer to Dr. Sanchez addendum for physical exam findings. Results & Data Results & Data Vital Signs (Past 12 Hours) Vital Signs Temp Pulse Resp BP Pulse Ox O2 Del Method O2 Flow Rate 12/21/22 11:00 76 19 96/50 L 95 Nasal Cannula 3 12/21/22 10:45 73 19 87/56 L 92 Nasal Cannula 3 12/21/22 10:30 76 20 93/67 L 95 Nasal Cannula 3 12/21/22 10:15 74 15 87/53 L 92 Nasal Cannula 3 12/21/22 10:00 72 14 80/55 L 94 Nasal Cannula 3 12/21/22 09:45 72 21 81/52 L 95 Nasal Cannula 3 12/21/22 09:41 75 18 81/53 L 95 Nasal Cannula 3 12/21/22 09:14 71 18 65/44 L 94 Nasal Cannula 3 12/21/22 09:20 36.6 C 74 23 61/36 L 94 Nasal Cannula 3 12/21/22 09:14 79 Diagnostic Findings Chest X-Ray 12/21/22 09:19 XR chest 1V portable CLINICAL HISTORY: Sepsis TECHNIQUE: Single frontal radiograph of the chest was obtained. Comparison: Comparison is made to chest radiograph 11/26/2022 FINDINGS: Median sternotomy wires are unchanged. Cardiomegaly is noted. The lungs are clear. There is a small left pleural effusion. IMPRESSION: Cardiomegaly is seen. Previously noted pulmonary edema has improved. There is a small left pleural effusion. ACT 112: Negative or not required by law. Electronically signed by: Gilberto Toth M.D. 12/21/2022 10:17 AM Medications Administered Medication List Discontinued Medications Cefepime HCl (Maxipime) 2,000 mg in 20 mls @ 5 mls/min IV NOW STA; Protocol Stop: 12/21/22 09:22 Last Admin: 12/21/22 09:39 Dose: 5 mls/min Documented By: YOUNG Sodium Chloride (Nss 1000ml) 1,000 mls @ 999 mls/hr IV .Q1H1M KRISTINE Stop: 12/21/22 10:30 Last Admin: 12/21/22 09:39 Dose: 999 mls/hr Documented By: YOUNG ECG Rate (beats per minute): 75 Rhythm: atrial fibrillation Additional Comments: LBBB Code Status & VTE Plan Code Status DNR/DNI VTE Prophylaxis Plan VTE Prophylaxis will be ordered: No Reason for no VTE drug order: Treatment not indicated Supervising Physician Co-Signing Physician Notes Neuro: AAOx4, PERRLA, HEENT: head normocephalic. CV: S1/S2+ , systolic murmur+ indwelling dialysis catheter + Resp: Air entry present bilaterally, no crackles GI: Abdomen soft non tender . Musculoskeletal: No gait disturbance Skin: (-) rashes , (-) erythema. Psych: normal affect. 87 year old male recently on dialysis put on pressors at this time with concerns for sepsis. Patient put on IV antibiotics will be monitored in icu while on pressors. Patient is scheduled for dialysis, . Dialysis on hold for now
--- NOTE | 2022-12-21 11:46 | CT Scan Report ---
CT abd pelvis wo con CLINICAL HISTORY: poss urinary obstruction TECHNIQUE: Helical axial images of the abdomen and pelvis were obtained. Automated dose lowering tech niques and/or adjustment according to patient size were utilized for this exam. This exam was perfor med without intravenous contrast. CT DOSE: 1020.57 mGy.cm COMPARISON: Comparison is made to CT abdomen pelvis 07/16/2020 FINDINGS: Lower chest: Cardiomegaly is partially visualized. Bilateral small pleural effusions with atelectasi s and peripheral interstitial thickening. Partial visualization of calcified plaques. Liver: Unremarkable. No focal lesions are seen. Gallbladder and biliary tree: No calcified gallstones. Normal caliber wall. No intra- or extrahepatic biliary ductal dilation. Pancreas: Unremarkable, no focal lesions. Spleen: Unremarkable. Adrenals: Bilateral adrenal gland thickening is seen. Kidneys and ureters: Left extrarenal pelvis is again seen. Bladder: Diffuse homogeneous wall thickening is seen. Reproductive organs: Intrauterine device is noted. Bowel: Diverticulosis is seen without diverticulitis. The appendix is normal. There is a small hiatal hernia. Lymph nodes Retroperitoneal: Subcentimeter lymph nodes are noted. Pelvic: Unremarkable. Mesenteric: Unremarkable. Peritoneum: Normal. Vessels: Atherosclerotic calcifications are seen. Abdominal wall: There is an umbilical hernia containing nondilated loops of bowel. Interval improveme nt in previously noted anasarca. Bones: Degenerative changes in the visualized spine. Posterior fixation hardware spanning L3-L5. Bila teral total hip arthroplasty is seen. IMPRESSION: 1. No acute abnormalities apart from bladder wall thickening compatible with known UTI. Chronic ramiro ectasis in the left kidney. 2. Bilateral pleural effusions. Previously noted anasarca is improved. 3. Umbilical hernia with a few nondistended bowel loops. 4. Additional findings as above. ACT 112: Negative or not required by law. Electronically signed by: Gilberto Toth M.D. 12/21/2022 11:44 AM
[2022-12-21] MEDS ORDERED: SODIUM CHLORIDE 0.9% 1000ML 250 ML IV ONE (12:34)
--- NOTE | 2022-12-21 12:36 | Critical Care Consultation ---
Date of Consultation December 21, 2022 Assessment & Plan (1) ESRD (end stage renal disease): (2) Aortic stenosis: (3) Arterial hypotension: (4) Complicated UTI (urinary tract infection): Plan 87-year-old male with a history of moderate aortic stenosis, atrial fibrillation and ESRD on hemodialysis presenting to the hospital due to arterial hypertension and concerns for possible complicated UTI. Neurologic: No acute issues at this time. Avoid sedating medications. Pulmonary: Currently requiring low-flow oxygen at a rate of 2 to 3 L. Chest x-ray with evidence of left effusion and atelectasis. Maintain head of the bed elevated above 35 degrees. Encourage pulmonary toilet with IS. Cardiovascular: Patient with known cardiac disease with a history of moderate to severe aortic stenosis and A-fib. Currently rate controlled. Avoid antihypertensives. Maintain MAP above 65. We will give an additional bolus of 250 mL saline given ongoing hypotension. Continue to wean Levophed off as able. We will start midodrine, 5 mg 3 times daily. I suspect that physiologically he likely has a lower blood pressure at baseline now that he is on dialysis and has aortic stenosis. Troponin elevated likely secondary to demand ischemia. Will need to consider placement of a central line and arterial line if worsening hypotension. Gastrointestinal: CT abdomen without acute process. Maintain n.p.o. today given vasopressor requirements. LFTs unremarkable. Renal: ESRD on hemodialysis every Monday, Monday and Monday. We will hold dialysis today given ongoing hypotension. Consult nephrology. Judicious use of fluids. Infectious disease: Continue broad-spectrum antibiotics. Obtain urine and blood cultures. MRSA screen. Hematologic: Patient with anemia of chronic disease secondary to ESRD. Mild leukocytosis seen. Patient chronically anticoagulated with warfarin. INR subtherapeutic. Hold warfarin today given the use of antibiotics and hemodynamic instability. Endocrine: Maintain glucose under 180. Lines and tubes: Peripheral IVs in place with Dc catheter. VTE prophylaxis: SCDs CODE STATUS: Lengthy discussion with the patient's and patient at bedside. We discussed goals of care including ACLS procedures. Patient indicates that he would not want aggressive measures such as CPR and mechanical ventilation in the event he has a cardiopulmonary arrest which is reasonable at this time. We will continue with usual ICU care otherwise. Family at bedside: updated at bedside. Disposition: ICU. Discussed with hospitalist service. I have personally spent 49 minutes of critical care time in the direct management of this patient. This is a life/limb threatening event. This includes time spent evaluating patient, direct bedside care, chart review, placing orders, interpretation of diagnostic studies, discussion with consultants, patient, and family members, as well as other required patient management activities. This time is exclusive of all separately billable procedures, and teaching time and separate from and in addition to any other critical care service time. Thank you for allowing us to participate in the care of this patient. History of Present Illness Reason for Consultation: Hypotension requiring vasopressors History of Present Illness 87-year-old male with a history of atrial fibrillation on warfarin who presented to the hospital via ambulance from nursing facility due to hypotension. Patient notes increased burning upon urination. He denies any fevers or chills. He denies any chest pain or shortness of breath. He was placed on Levophed in the ER due to ongoing hypotension. He received roughly 1.5 L of crystalloid fluids. ICU was consulted due to ongoing pressor requirements. CT abdomen pelvis was obtained in the ER which did not reveal any acute findings aside from bladder wall thickening compatible with the known UTI. Chest x-ray revealed blunting of the left costophrenic diaphragm with possible superimposed atelectasis. Aguilar catheter in place. Allergies Allergy/AdvReac Type Severity Reaction Status Date / Time amlodipine [From [facility]] Allergy Intermediate Edema Verified 11/26/22 03:03 bismuth subsalicylate Allergy Unknown Unknown Verified 11/26/22 03:03 naproxen AdvReac Mild GI UPSET, Verified 11/26/22 03:03 HODGES THROAT Home Medications Medication Instructions Recorded Confirmed Type amoxicillin 500 mg capsule See Rx Instructions .Route 07/15/20 12/21/22 History .COMPLEX PRN Prior to Dental Appointments cholecalciferol (vitamin D3) 50 50 mcg PO DAILY 07/15/20 12/21/22 History mcg (2,000 unit) capsule (Vitamin D3) cyclobenzaprine 10 mg tablet 10 mg PO TID PRN Muscle Spasm 07/15/20 12/21/22 History ezetimibe 10 mg tablet 10 mg PO DAILY 07/15/20 12/21/22 History famotidine 20 mg tablet 20 mg PO DAILY PRN Acid Reflux 07/15/20 12/21/22 History metoprolol succinate 25 mg 12.5 mg PO DAILY 07/15/20 12/21/22 History tablet,extended release 24 hr multivitamin,bb-woms-Bq-FA-min 1 tab PO DAILY 07/15/20 12/21/22 History rosuvastatin 10 mg tablet 10 mg PO HS 07/15/20 12/21/22 History tamsulosin 0.4 mg capsule 0.4 mg PO BID 07/15/20 12/21/22 History warfarin 5 mg tablet 2.5 mg PO DIRECTED 07/15/20 12/21/22 History allopurinol 100 mg tablet 200 mg PO QAM 11/26/22 12/21/22 History ceramides 1,3,6-II (CeraVe topical 1 applic topical DIRECTED PRN 11/26/22 12/21/22 History cream) .affected area diclofenac sodium 1 % topical gel 1 ea topical BID PRN .back pain, 11/26/22 12/21/22 History muscle pain melatonin 5 mg tablet 5 mg PO HS PRN Sleep 11/26/22 12/21/22 History montelukast 10 mg tablet 10 mg PO QPM 11/26/22 12/21/22 History triamcinolone acetonide 0.1 % 1 applic topical BID PRN .itchy 11/26/22 12/21/22 History topical ointment legs metolazone 5 mg tablet 5 mg PO DAILY@1200 #30 tabs 12/07/22 12/21/22 Rx torsemide 100 mg tablet 100 mg PO QAM #30 tabs 12/07/22 12/21/22 Rx benzonatate 100 mg capsule 200 mg PO TID 12/21/22 12/21/22 History ceftriaxone 1 gram with lidocaine 1 ea IM DAILY 12/21/22 12/21/22 History 1 % intramuscular kit fluticasone propionate 50 2 spray intranasal DAILY 12/21/22 12/21/22 History mcg/actuation nasal spray,suspension (Flonase Allergy Relief) menthol 0.44 %-zinc oxide 20.6 % 1 applic topical BID PRN Skin 12/21/22 12/21/22 History topical ointment (Calmoseptine) Irritation Patient History Medical History (Updated 12/21/22 @ 12:42 by Raoul Orr MD) Arterial hypotension CHF (congestive heart failure) Complicated UTI (urinary tract infection) Decompensated heart failure ESRD (end stage renal disease) No pertinent family history Surgical History No pertinent past surgical history Social History Smoking Status: Never smoker Tobacco Type: Smokeless Tobacco (Dip or Chew) Second Hand Exposure: No; Do You Dip or Chew Tobacco: No; Hx Substance Use: No Preferred Language: German Communication Ability: Effective Hearing Ability: Use of Hearing Aid Histologist Required: No Beliefs That Will Affect Care: Gnosticism marital status: Current Living Situation: Spouse Current Living Situation Comment: Feels Safe at Home: Yes Diet: low salt caffeine: Yes during the past year weight has: remained stable Assistive Devices: Walker Review of Systems Review of Systems: All systems reviewed & are unremarkable except as noted in HPI & below Physical Exam Physical Exam: Constitutional: Patient appears to be of their stated age. Patient is in no apparent distress. Patient is well-developed. Elderly appearing male. Eyes: Pupils are equal round and reactive to light. Conjunctivae are normal. Anicteric sclera. Ears nose, mouth and throat: Mallampati class 1. Normal posterior oropharynx. Uvula is midline. Neck: Trachea is midline. Visual inspection is normal. Respiratory: Diminished at the left lung base. No tachypnea. Cardiovascular: 3 out of 6 systolic flow murmur. Irregular rhythm. No edema. Gastrointestinal: Normal bowel sounds, soft, nontender and nondistended. No hepatosplenomegaly noted. Musculoskeletal: No cyanosis. Patient is able to move all extremities. Strength is 5 out of 5 in the upper and lower extremities. Skin: No rashes, warm dry and intact. Aguilar catheter in place on the left chest with no evidence of fluctuance or erythema. Neurologic: No obvious focal neurological deficits seen. Psychiatric: Alert and oriented x3 with a euthymic affect. Results & Data Results & Data Vital Signs (Past 12 Hours) Vital Signs Temp Pulse Resp BP Pulse Ox O2 Del Method O2 Flow Rate 12/21/22 12:17 74 18 96 Nasal Cannula 3 12/21/22 12:17 96/52 L 12/21/22 12:15 88 16 93 12/21/22 12:15 77/61 L 12/21/22 12:05 99/70 L 12/21/22 12:05 74 21 96 12/21/22 12:00 70 16 95 12/21/22 12:00 84/61 L 12/21/22 11:46 80/53 L 12/21/22 11:46 84 17 98 Nasal Cannula 3 12/21/22 11:45 84 28 H 91 12/21/22 11:37 74 18 90 12/21/22 11:37 79/52 L 12/21/22 11:30 84 15 12/21/22 11:00 96/50 L 12/21/22 11:00 76 19 96/50 L 95 Nasal Cannula 3 12/21/22 10:45 73 19 87/56 L 92 Nasal Cannula 3 12/21/22 10:30 76 20 93/67 L 95 Nasal Cannula 3 12/21/22 10:15 74 15 87/53 L 92 Nasal Cannula 3 12/21/22 10:00 72 14 80/55 L 94 Nasal Cannula 3 12/21/22 09:45 72 21 81/52 L 95 Nasal Cannula 3 12/21/22 09:41 75 18 81/53 L 95 Nasal Cannula 3 12/21/22 09:14 71 18 65/44 L 94 Nasal Cannula 3 12/21/22 09:20 36.6 C 74 23 61/36 L 94 Nasal Cannula 3 12/21/22 09:14 79 Coding Level of Care Code 55443 CRITICAL CARE 1ST 30-74M Diagnoses ESRD (end stage renal disease) N18.6 Aortic stenosis I35.0 Arterial hypotension I95.9 Complicated UTI (urinary tract infection) N39.0 Time Spent (min) 49
[2022-12-21] MEDS ORDERED: CYCLOBENZAPRINE HCL 10 MG TAB PO PRN (13:01)
[2022-12-21] MEDS: ICU Protocol for HYPERglycemia SCH ×3 (13:26→21:21)
[2022-12-21] MEDS ORDERED: PIPERACILLIN/TAZOBACTAM 4.5 GM in DEXTROSE 5% 100 ML IV ONE (15:30)
[2022-12-21] MEDS ORDERED: WARFARIN SOD 2.5 MG TAB PO SCH (16:00)
[2022-12-21 16:14] LABS: Calcium 8.8 mg/dl (8.6-10.3); Creatinine Clr Calc Pharmacy 12.8 ml/min; Est GFR (African American) 14.1 ml/min; Est GFR (Non-African American) 12.1 ml/min; Potassium 3.4 mmol/L (3.5-5.1)
[2022-12-21 16:25] LABS: Troponin I High Sensitivity 860.9 pg/ml (0-20)
[2022-12-21] MEDS: MIDODRINE HCL 2.5 MG TAB PO SCH (16:32)
--- NOTE | 2022-12-21 19:21 | Nephrology Consultation ---
Date of Consultation December 21, 2022 Assessment & Plan (1) Dialysis patient: last HD was 12/19. OP HD has been going well. on MWF HD via [facility] at [facility] currently; then for admission to [facility] longer term. chemistries acceptable/k even low; oxygen needs noted as well as BP trends reviewed; no indication for urgent HD today; -hold HD today -reeval in AM for HD -note no current phos binders needed todate (2) Sepsis: w/ enterococcal UTI and multiple other cxs pending -pressors and abtx as per primary service -strict I/O >> presumptive oligoanuria -try to avoid further IVF pending next HD tx -continue levophed and try to wean -coninue midodrine History of Present Illness Reason for Consultation: ESRD on HD Requesting Physician: Dr Sanchez Attending Physician: Jerry Sanchez MD History of Present Illness 87 y/o M whom I'm asked to see for dialysis care was sent from rehab today d/t SBP in 70s, chills, abrupt onset of generalized weakness, worsened urinary frequency. 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 Also hx of chronic LLE ulcer. He had an extended hospital stay here from 11/26 - 12/07 for management of volume overload, including initiation of in center HD via tunnelled dialysis catheter and for management of his LBBB, HF, CAD in this setting. He was d/c to [facility] where he has been dialyzing. Plan was for d/c tomorrow from centre care to home but woke this am w/ sx above. We were initially planning peritoneal dialysis; however his umbilical hernia precludes this. He started hemodialysis with a tunnelled catheter. hypotensive on arrival and needed pressor support > currently in ICU on phenylephrine after pressures did not recover w/ serial boluses of totaling 1.75L NS. He was started on midodrine in hopes of weaning off pressor. He is also on cefepime pending blood/urine culture results. CT a/p w/o acute issues though bladder wall thickening noted. Admission UA w/ bacteria, WBC, LE, turbidity. urine cx already growing enterococcus tells me he'd been feeling/doing well at rehab w/ his generalized weakness improving. but then woke this am w/ abrupt onset of generalized weakness as well as sx above. Still makes urine but not every day. denies dyspnea or edema. no n/v. no specific voiding sx except urge incontinence which is not new. no chest pain, no f or rigors. does c/o hunger (NPO currently). dialysis treatments ahve been going well. I have been in touch w/ outpatient dialysis team as well as admitting team through the day today: consensus was that he is currently too unstable for hemodialysis. Allergies Allergy/AdvReac Type Severity Reaction Status Date / Time amlodipine [From [facility]] Allergy Intermediate Edema Verified 11/26/22 03:03 bismuth subsalicylate Allergy Unknown Unknown Verified 11/26/22 03:03 naproxen AdvReac Mild GI UPSET, Verified 11/26/22 03:03 HODGES THROAT Home Medications Medication Instructions Recorded Confirmed Type amoxicillin 500 mg capsule See Rx Instructions .Route 07/15/20 12/21/22 History .COMPLEX PRN Prior to Dental Appointments cholecalciferol (vitamin D3) 50 50 mcg PO DAILY 07/15/20 12/21/22 History mcg (2,000 unit) capsule (Vitamin D3) cyclobenzaprine 10 mg tablet 10 mg PO TID PRN Muscle Spasm 07/15/20 12/21/22 History ezetimibe 10 mg tablet 10 mg PO DAILY 07/15/20 12/21/22 History famotidine 20 mg tablet 20 mg PO DAILY PRN Acid Reflux 07/15/20 12/21/22 History metoprolol succinate 25 mg 12.5 mg PO DAILY 07/15/20 12/21/22 History tablet,extended release 24 hr multivitamin,gr-kpyd-Fs-FA-min 1 tab PO DAILY 07/15/20 12/21/22 History rosuvastatin 10 mg tablet 10 mg PO HS 07/15/20 12/21/22 History tamsulosin 0.4 mg capsule 0.4 mg PO BID 07/15/20 12/21/22 History warfarin 5 mg tablet 2.5 mg PO DIRECTED 07/15/20 12/21/22 History allopurinol 100 mg tablet 200 mg PO QAM 11/26/22 12/21/22 History ceramides 1,3,6-II (CeraVe topical 1 applic topical DIRECTED PRN 11/26/22 12/21/22 History cream) .affected area diclofenac sodium 1 % topical gel 1 ea topical BID PRN .back pain, 11/26/22 12/21/22 History muscle pain melatonin 5 mg tablet 5 mg PO HS PRN Sleep 11/26/22 12/21/22 History montelukast 10 mg tablet 10 mg PO QPM 11/26/22 12/21/22 History triamcinolone acetonide 0.1 % 1 applic topical BID PRN .itchy 11/26/22 12/21/22 History topical ointment legs metolazone 5 mg tablet 5 mg PO DAILY@1200 #30 tabs 12/07/22 12/21/22 Rx torsemide 100 mg tablet 100 mg PO QAM #30 tabs 12/07/22 12/21/22 Rx benzonatate 100 mg capsule 200 mg PO TID 12/21/22 12/21/22 History ceftriaxone 1 gram with lidocaine 1 ea IM DAILY 12/21/22 12/21/22 History 1 % intramuscular kit fluticasone propionate 50 2 spray intranasal DAILY 12/21/22 12/21/22 History mcg/actuation nasal spray,suspension (Flonase Allergy Relief) menthol 0.44 %-zinc oxide 20.6 % 1 applic topical BID PRN Skin 12/21/22 12/21/22 History topical ointment (Calmoseptine) Irritation Patient History Medical History Arterial hypotension CHF (congestive heart failure) Complicated UTI (urinary tract infection) Decompensated heart failure ESRD (end stage renal disease) No pertinent family history Surgical History No pertinent past surgical history Social History Smoking Status: Never smoker Tobacco Type: Smokeless Tobacco (Dip or Chew) Second Hand Exposure: No; Do You Dip or Chew Tobacco: No; Hx Alcohol Use: No Hx Substance Use: No Preferred Language: Kyrgyz Communication Ability: Effective Hearing Ability: Use of Hearing Aid Computing Architect Required: No Beliefs That Will Affect Care: None marital status: Current Living Situation: Spouse Current Living Situation Comment: Feels Safe at Home: Yes Diet: low salt caffeine: Yes during the past year weight has: remained stable Assistive Devices: Hearing Aid - Bilateral and Walker Review of Systems Review of Systems: All systems reviewed & are unremarkable except as noted in HPI & below Physical Exam Constitutional: well developed, + thin, + frail appearing and cooperative; no acute distress lying in bed HOB elevated 30 degrees on 02NC 2L Eyes: EOM intact bilaterally ENMT: Ears: no external ear abnormality Nose: no external nose abnormality Mouth: + dry oral mucous membranes Neck: no nuchal rigidity Respiratory: normal respiratory effort Auscultation: + diminished lung sounds Cardiovascular: Rate/Rhythm: regular rate and regular rhythm Heart Sounds: + murmur Extremities: normal capillary refill; no edema Gastrointestinal (Abdomen): Inspection/Auscultation: normal bowel sounds Percussion/Palpation: abdomen soft; abdomen nontender Musculoskeletal: Extremities: + abnormal strength (generalized weakness) Skin: no rashes, warm and dry Neurologic: cabral, fluent and appropriate speech, no tremor Psychiatric: Orientation: alert and oriented x 3 Speech: normal rate/rhythm/volume of speech Genitourinary: pop w/ no urine Results & Data Vital Signs (Past 12 Hours) Vital Signs Temp Pulse Pulse Resp BP BP Pulse Ox 12/21/22 18:45 91 H 24 94 12/21/22 18:45 92/56 L 12/21/22 18:30 81 22 94 12/21/22 18:30 97/56 L 12/21/22 18:15 89 22 95 12/21/22 18:15 92/58 L 12/21/22 18:00 90 24 95 12/21/22 18:00 106/60 12/21/22 17:45 79 22 94 12/21/22 17:45 110/55 L 12/21/22 17:30 83 95 12/21/22 17:30 89/51 L 12/21/22 17:15 86 14 98 12/21/22 17:00 84 20 96 12/21/22 17:00 110/57 L 12/21/22 16:45 85 24 98 12/21/22 16:35 80 19 97 06/07/23 16:35 102/64 12/21/22 16:32 81 22 97 12/21/22 16:32 80/47 L 12/21/22 16:30 80 20 12/21/22 16:16 95 H 16 12/21/22 16:16 102/68 12/21/22 16:15 77 21 12/21/22 16:00 73 22 96 12/21/22 16:00 112/62 12/21/22 15:46 78 20 97 12/21/22 15:46 108/54 L 12/21/22 15:45 83 20 96 12/21/22 15:30 90 21 98 12/21/22 15:30 94/62 L 12/21/22 15:16 94 H 15 97 12/21/22 15:16 91/56 L 12/21/22 15:15 85 22 97 12/21/22 15:00 80 23 98 12/21/22 15:00 97/52 L 12/21/22 14:45 77 20 99 12/21/22 14:45 100/61 12/21/22 14:30 96 H 22 98 12/21/22 14:30 119/70 12/21/22 14:27 96/55 L 12/21/22 14:27 84 26 H 98 12/21/22 14:20 87/59 L 12/21/22 14:20 82 22 98 12/21/22 14:16 90 21 12/21/22 14:16 78/43 L 12/21/22 14:15 85 23 93 12/21/22 14:13 88 12/21/22 14:40 37 C 77 18 119/70 94 12/21/22 14:43 12/21/22 14:15 37 C 12/21/22 13:40 100/60 12/21/22 13:30 82 21 97 12/21/22 13:15 76 19 94 12/21/22 13:15 101/63 12/21/22 13:00 80 21 98 12/21/22 13:00 93/61 L 12/21/22 12:45 82 21 96 12/21/22 12:45 93/63 L 12/21/22 12:30 79 23 96 12/21/22 12:30 87/50 L 12/21/22 12:17 74 18 96 12/21/22 12:17 96/52 L 12/21/22 12:15 88 16 93 12/21/22 12:15 77/61 L 12/21/22 12:05 99/70 L 12/21/22 12:05 74 21 96 12/21/22 12:00 70 16 95 12/21/22 12:00 84/61 L 12/21/22 11:46 80/53 L 12/21/22 11:46 84 17 98 12/21/22 11:45 84 28 H 91 12/21/22 11:37 74 18 90 12/21/22 11:37 79/52 L 12/21/22 11:30 84 15 12/21/22 11:00 96/50 L 12/21/22 11:00 76 19 96/50 L 95 12/21/22 10:45 73 19 87/56 L 92 12/21/22 10:30 76 20 93/67 L 95 12/21/22 10:15 74 15 87/53 L 92 12/21/22 10:00 72 14 80/55 L 94 12/21/22 09:45 72 21 81/52 L 95 12/21/22 09:41 75 18 81/53 L 95 12/21/22 09:14 71 18 65/44 L 94 12/21/22 09:20 36.6 C 74 23 61/36 L 94 12/21/22 09:14 79 O2 Del Method O2 Flow Rate 12/21/22 18:45 12/21/22 18:45 12/21/22 18:30 12/21/22 18:30 12/21/22 18:15 Nasal Cannula 2 12/21/22 18:15 12/21/22 18:00 12/21/22 18:00 12/21/22 17:45 12/21/22 17:45 12/21/22 17:30 12/21/22 17:30 12/21/22 17:15 12/21/22 17:00 12/21/22 17:00 12/21/22 16:45 12/21/22 16:35 12/21/22 16:35 12/21/22 16:32 Nasal Cannula 2 12/21/22 16:32 12/21/22 16:30 12/21/22 16:16 12/21/22 16:16 12/21/22 16:15 12/21/22 16:00 12/21/22 16:00 12/21/22 15:46 12/21/22 15:46 12/21/22 15:45 12/21/22 15:30 12/21/22 15:30 12/21/22 15:16 12/21/22 15:16 12/21/22 15:15 Nasal Cannula 2 12/21/22 15:00 12/21/22 15:00 12/21/22 14:45 12/21/22 14:45 12/21/22 14:30 Nasal Cannula 3 12/21/22 14:30 12/21/22 14:27 12/21/22 14:27 12/21/22 14:20 12/21/22 14:20 12/21/22 14:16 12/21/22 14:16 12/21/22 14:15 12/21/22 14:13 12/21/22 14:40 Nasal Cannula 3 12/21/22 14:43 Nasal Cannula 3 12/21/22 14:15 12/21/22 13:40 12/21/22 13:30 Nasal Cannula 3 12/21/22 13:15 12/21/22 13:15 12/21/22 13:00 12/21/22 13:00 12/21/22 12:45 12/21/22 12:45 12/21/22 12:30 12/21/22 12:30 12/21/22 12:17 Nasal Cannula 3 12/21/22 12:17 12/21/22 12:15 12/21/22 12:15 12/21/22 12:05 12/21/22 12:05 12/21/22 12:00 12/21/22 12:00 12/21/22 11:46 12/21/22 11:46 Nasal Cannula 3 12/21/22 11:45 12/21/22 11:37 12/21/22 11:37 12/21/22 11:30 12/21/22 11:00 12/21/22 11:00 Nasal Cannula 3 12/21/22 10:45 Nasal Cannula 3 12/21/22 10:30 Nasal Cannula 3 12/21/22 10:15 Nasal Cannula 3 12/21/22 10:00 Nasal Cannula 3 12/21/22 09:45 Nasal Cannula 3 12/21/22 09:41 Nasal Cannula 3 12/21/22 09:14 Nasal Cannula 3 12/21/22 09:20 Nasal Cannula 3 12/21/22 09:14 Laboratory Results 12/21/22 09:32 12/21/22 15:[address] a/p non con Lower chest: Cardiomegaly is partially visualized. Bilateral small pleural effusions with atelectasis and peripheral interstitial thickening. Partial visualization of calcified plaques. Liver: Unremarkable. No focal lesions are seen. Gallbladder and biliary tree: No calcified gallstones. Normal caliber wall. No intra- or extrahepatic biliary ductal dilation. Pancreas: Unremarkable, no focal lesions. Spleen: Unremarkable. Adrenals: Bilateral adrenal gland thickening is seen. Kidneys and ureters: Left extrarenal pelvis is again seen. Bladder: Diffuse homogeneous wall thickening is seen. Reproductive organs: Intrauterine device is noted. Bowel: Diverticulosis is seen without diverticulitis. The appendix is normal. There is a small hiatal hernia. Lymph nodes Retroperitoneal: Subcentimeter lymph nodes are noted. Pelvic: Unremarkable. Mesenteric: Unremarkable. Peritoneum: Normal. Vessels: Atherosclerotic calcifications are seen. Abdominal wall: There is an umbilical hernia containing nondilated loops of bowel. Interval improvement in previously noted anasarca. Bones: Degenerative changes in the visualized spine. Posterior fixation hardware spanning L3-L5. Bilateral total hip arthroplasty is seen. IMPRESSION: 1. No acute abnormalities apart from bladder wall thickening compatible with known UTI. 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 2. Bilateral pleural effusions. Previously noted anasarca is improved. 3. Umbilical hernia with a few nondistended bowel loops CXR Cardiomegaly is seen. Previously noted pulmonary edema has improved. There is a small left pleural effusion.. (2) Sepsis Sepsis acute organ dysfunction status: without acute organ dysfunction Sepsis type: sepsis due to unspecified organism Qualified Code(s): A41.9 - Sepsis, unspecified organism
[2022-12-21] MEDS: MONTELUKAST SODIUM 10 MG TABLET PO SCH (20:57)
[2022-12-21] MEDS: ROSUVASTATIN CALCIUM 10 MG TAB PO SCH (20:57)
[2022-12-21] MEDS ORDERED: CEFEPIME 1,000 MG in SYRINGE 0 ML IV SCH (21:00)
[2022-12-21] MEDS ORDERED: TAMSULOSIN HCL 0.4 MG CAP PO SCH (21:00)
[2022-12-22] MEDS: PIPERACILLIN/TAZOBACTAM 4.5 GM in DEXTROSE 5% 100 ML IV SCH ×2 (00:09→12:59)
[2022-12-22] MEDS: Standard Conc; 4mg in 250mL IV SCH ×4 (00:10→21:11)
[2022-12-22 03:51] LABS: Basophils # (auto) 0.03 K/uL (0-0.2); Basophils % (auto) 0.3 %; Eosinophils # (auto) 0.03 K/uL (0-0.50); Eosinophils % (auto) 0.3 %; Hematocrit (blood only) 30.1 % (42.0-52.0); Hemoglobin 9.9 g/dl (14.0-18.0); Immature Granulocytes # (auto) 0.06 K/uL (0.01-0.20); Immature Granulocytes % (auto) 0.6 %; Lymphocytes # (auto) 0.49 K/uL (1.2-3.4); Lymphocytes % (auto) 4.5 %; Mean Corpuscular Hgb Conc 32.9 g/dL (32.0-36.0); Mean Corpuscular Volume 100.3 fL (80.0-100.0); Mean Platelet Volume 10.6 fL (9.4-12.4); Monocytes % (auto) 6.5 %; Neutrophils # (auto) 9.51 K/uL (1.40-6.50); Neutrophils % (auto) 87.8 %; Platelet Count 194 K/uL (130-400); RDW Coefficient of Variation 15.9 % (11.5-14.5); RDW Standard Deviation 59.1 fL (36.4-46.3); White Blood Count 10.82 K/ul (4.8-10.8)
[2022-12-22 04:08] LABS: Albumin Globulin Ratio 0.9 (0.9-2); Albumin Level 2.7 gm/dl (3.4-5.0); BUN Creatinine Ratio 17.9 (10-20); Bilirubin,Total 0.5 mg/dl (0.2-1.0); Calcium 8.6 mg/dl (8.6-10.3); Creatinine Clr Calc Pharmacy 11.6 ml/min; Est GFR (African American) 12.5 ml/min; Est GFR (Non-African American) 10.8 ml/min; Potassium 3.5 mmol/L (3.5-5.1); Total Protein 5.7 gm/dl (6.0-8.3)
[2022-12-22 04:13] LABS: INR 1.8 (0.9-1.1); Prothrombin Time 18.8 Seconds (9.0-12.0)
[2022-12-22 04:17] LABS: A calco-baum cmplx NotReported Not Detected (NotDetected); Bact fragilis Not Reported Not Detected (NotDetected); C auris Not Reported Not Detected (NotDetected); Calbicans Not Reported Not Detected (NotDetected); Candida glabrata Not Reported Not Detected (NotDetected); Candida krusei Not Reported Not Detected (NotDetected); Cneoformans/gatti Not Reported Not Detected (NotDetected); Cparapsilosis Not Reported Not Detected (NotDetected); Ctropicalis Not Reported Not Detected (NotDetected); E cloacae compx Not Reported Not Detected (NotDetected); Efaecalis Not Reported DETECTED (NotDetected); Efaecium Not Reported Not Detected (NotDetected); Enterobacterales Not Reported Not Detected (NotDetected); Escherichia coli Not Reported Not Detected (NotDetected); H influenzae Not Reported Not Detected (NotDetected); K aerogenes Not Reported Not Detected (NotDetected); Koxytoca Not Reported Not Detected (NotDetected); Kpneumoniae grp Not Reported Not Detected (NotDetected); Lmonocyt Not Reported Not Detected (NotDetected); N meningitidis Not Reported Not Detected (NotDetected); P aeruginosa Not Reported Not Detected (NotDetected); Proteus spp Not Reported Not Detected (NotDetected); Salmonella spp Not Reported Not Detected (NotDetected); Smarcescens Not Reported Not Detected (NotDetected); Staph lugdunensis Not Reported Not Detected (NotDetected); Staph spp. Not Reported DETECTED (NotDetected); Staphaureus Not Reported Not Detected (NotDetected); Staphepi Not Reported DETECTED (NotDetected); Staphylococcus spp. DETECTED (NotDetected); Stenmaltophilia Not Reported Not Detected (NotDetected); Strep agal(GrpB) Not Reported Not Detected (NotDetected); Strep pneum Not Reported Not Detected (NotDetected); Strep pyog (GrpA) Not Reported Not Detected (NotDetected); Strep spp Not Reported Not Detected (NotDetected); VanAB Resistant Gene VRE Not Detected (NotDetected); mecAC Resistant Gene DETECTED (NotDetected)
[2022-12-22 04:34] LABS: Enterococcus faecalis DETECTED (NotDetected); Staphylococcus epidermidis DETECTED (NotDetected)
[2022-12-22] MEDS ORDERED: VANCOMYCIN CONSULT ACTIVE PRN (07:18)
[2022-12-22] MEDS ORDERED: VANCOMYCIN HCL 1,500 MG in SODIUM CHLORIDE 0.9% 500 ML IV ONE ×2 (07:18→07:30)
[2022-12-22] MEDS: ICU Protocol for HYPERglycemia SCH ×4 (08:12→21:41)
--- NOTE | 2022-12-22 08:29 | Hospitalist Progress Note ---
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 Hypotension End-stage renal disease newly established on hemodialysis Complicated UTI Elevated troponin Patient currently admitted to intensive care unit due to requiring vasopressors to maintain blood pressure Patient received 1.5 L of IV fluid in ED Initial concern for possible sepsis in setting of known UTI with leukocytosis and persistent hypotension despite fluids. Fluids cautiously given in ED in setting of dialysis patient and therefore nor epi was started. Discussed with assistant professor of nursing who feels patient likely intolerant of hemodialysis and therefore starting patient on midodrine with hopes to wean off vasopressor Continue with broad-spectrum antibiotics cefepime and wait for blood and urine culture to result Urine cultx -probable Enterococcus MRSA screen ordered Antibiotics changed to zosyn + vanco Blood cultx - gram posit. cocci in chains - poss. contaminant?, blood cultx repeated Management per ICU team Elevated troponin likely in setting of demand ischemia, trended. recent echocardiogram results preserved ejection fraction with moderate to severe aortic stenosis Nephrology consulted for dialysis needs Patient with subtherapeutic INR; warfarin given today Please defer for other treatment to assistant professor of nursing at this time DVT ppx: SCDS DNR/DNI PCP: Wojciech Palmer Admission and Anticipated Discharge Date Admission Date: December 21, 2022 Subjective Pt seen in follow up of hypotension, sepsis - in the setting of recent start of HD Currently laying in bed, in no acute distress Denies any pain specifically denies any chest pain or abdominal pain, no shortness of breath, however using some supplemental oxygen He is very hard of hearing, his is present at the bedside Nephrology also present at the bedside Review of Systems Review of Systems: All systems reviewed & are unremarkable except as noted in Subjective Physical Exam Physical Exam: General: elderly M in NAD, on suppl. O2 via NC HEENT: head normocephalic. CV: S1/S2, + systolic murmur, + indwelling dialysis catheter Resp: Air entry present bilaterally, no crackles GI: Abdomen soft non tender . Musculoskeletal: moves extremities Neuro:awake,alert, oriented, answering appropriately, speech fluent, moves extremities Skin: (-) rashes , (-) erythema. Results & Data Results & Data Vital Signs (Past 12 Hours) Vital Signs Temp Pulse Pulse Resp BP BP Pulse Ox 12/22/22 08:20 81 18 97 12/22/22 08:15 80 20 88 L 12/22/22 08:15 101/60 12/22/22 08:10 77 20 94 12/22/22 08:05 74 15 97 12/22/22 08:00 93 H 21 94 12/22/22 08:00 95/58 L 12/22/22 07:55 85 23 97 12/22/22 07:54 81 23 107/54 L 93 12/22/22 07:20 85 18 98 12/22/22 07:05 68 10 L 97 12/22/22 08:23 36.7 C 12/21/22 22:00 12/22/22 00:00 36.8 C 78 18 96/50 L 99 12/22/22 06:47 83 19 98 12/22/22 06:47 92/62 L 12/22/22 06:45 84 25 H 98 12/22/22 06:30 89 21 95 12/22/22 06:30 84/46 L 12/22/22 06:16 89 18 98 12/22/22 06:15 81 18 99 12/22/22 06:02 85 24 98 12/22/22 06:00 78 21 95 12/22/22 05:45 81 22 96 12/22/22 05:30 79 13 96 12/22/22 05:30 103/68 12/22/22 05:15 81 21 97 12/22/22 05:15 87/54 L 12/22/22 05:00 73 19 93 12/22/22 05:00 101/61 12/22/22 04:45 79 18 93 12/22/22 04:45 99/63 L 12/22/22 04:30 83 5 L 98 12/22/22 04:30 97/55 L 12/22/22 04:15 91 H 21 93 06/08/23 04:15 99/50 L 12/22/22 04:01 81 20 94 12/22/22 04:01 90/52 L 12/22/22 04:00 84 26 H 95 12/22/22 03:45 81 20 92 12/22/22 03:45 95/62 L 12/22/22 03:30 84 22 95 12/22/22 03:30 91/57 L 12/22/22 03:15 68 20 96 12/22/22 03:15 91/52 L 12/22/22 03:00 85 23 93 12/22/22 03:00 93/49 L 12/22/22 02:45 86 24 92 12/22/22 02:45 101/58 L 12/22/22 02:30 79 23 93 12/22/22 02:30 93/56 L 12/22/22 02:15 91 H 22 94 12/22/22 02:15 89/59 L 12/22/22 02:00 89 19 94 12/22/22 02:00 87/58 L 12/22/22 01:45 80 22 96 12/22/22 01:45 88/52 L 12/22/22 01:30 88 18 95 12/22/22 01:30 96/57 L 12/22/22 01:15 82 21 95 12/22/22 01:15 90/57 L 12/22/22 01:00 85 21 95 12/22/22 04:00 37 C 86 26 H 90/52 L 95 O2 Del Method O2 Flow Rate 12/22/22 08:20 12/22/22 08:15 12/22/22 08:15 12/22/22 08:10 12/22/22 08:05 12/22/22 08:00 12/22/22 08:00 12/22/22 07:55 12/22/22 07:54 Nasal Cannula 1.5 12/22/22 07:20 12/22/22 07:05 12/22/22 08:23 12/21/22 22:00 Nasal Cannula 2 12/22/22 00:00 Nasal Cannula 2 12/22/22 06:47 12/22/22 06:47 12/22/22 06:45 12/22/22 06:30 12/22/22 06:30 12/22/22 06:16 12/22/22 06:15 12/22/22 06:02 12/22/22 06:00 12/22/22 05:45 12/22/22 05:30 12/22/22 05:30 12/22/22 05:15 12/22/22 05:15 12/22/22 05:00 12/22/22 05:00 12/22/22 04:45 12/22/22 04:45 12/22/22 04:30 12/22/22 04:30 12/22/22 04:15 12/22/22 04:15 12/22/22 04:01 12/22/22 04:01 12/22/22 04:00 12/22/22 03:45 12/22/22 03:45 12/22/22 03:30 12/22/22 03:30 12/22/22 03:15 12/22/22 03:15 12/22/22 03:00 12/22/22 03:00 12/22/22 02:45 12/22/22 02:45 12/22/22 02:30 12/22/22 02:30 12/22/22 02:15 12/22/22 02:15 12/22/22 02:00 12/22/22 02:00 12/22/22 01:45 12/22/22 01:45 12/22/22 01:30 12/22/22 01:30 12/22/22 01:15 12/22/22 01:15 12/22/22 01:00 12/22/22 04:00 Nasal Cannula 2 Laboratory Results 12/22/22 12/22/22 12/22/22 Range/Units 03:37 03:37 03:37 WBC (4.8-10.8) K/ul RBC (4.70-6.10) M/uL Hgb (14.0-18.0) g/dl Hct (42.0-52.0) % MCV (80.0-100.0) fL MCH (25.0-34.0) pg MCHC (32.0-36.0) g/dL RDW Std Deviation (36.4-46.3) fL RDW Coeff of Aaln (11.5-14.5) % Plt Count (130-400) K/uL MPV (9.4-12.4) fL Immature Gran % (Auto) % Neut % (Auto) % Lymph % (Auto) % [place] % (Auto) % Eos % (Auto) % Baso % (Auto) % Neut # (Auto) (1.40-6.50) K/uL Lymph # (Auto) (1.2-3.4) K/uL [place] # (Auto) (0.11-0.59) K/uL Eos # (Auto) (0-0.50) K/uL Baso # (Auto) (0-0.2) K/uL Immature Gran # (Auto) (0.01-0.20) K/uL PT 18.8 H (9.0-12.0) Seconds INR 1.8 H (0.9-1.1) APTT (21.0-31.0) Seconds PTT Ratio Sodium 131 L (136-145) mmol/L Potassium 3.5 (3.5-5.1) mmol/L Chloride 92 L (98-107) mmol/L Carbon Dioxide 26 (21-32) mmol/L Anion Gap 13 H (3-11) BUN 82 H (6-23) mg/dl Creatinine 4.58 H* D (0.6-1.4) mg/dl Est Cr Clr Drug Dosing 11.6 ml/min Est GFR ( Amer) 12.5 ml/min Est GFR (Non-Af Amer) 10.8 ml/min BUN/Creatinine Ratio 17.9 (10-20) Glucose 114 H (70-99(Fasting)) mg/dl POC Glucose (70-99) mg/dl Lactate (0.4-2.0) mmol/L Calcium 8.6 (8.6-10.3) mg/dl Magnesium 2.0 (1.7-2.4) mg/dl Total Bilirubin 0.5 (0.2-1.0) mg/dl Direct Bilirubin (0-0.2) mg/dl AST 31 (13-39) U/L ALT 15 (7-52) U/L Alkaline Phosphatase 97 (34-104) U/L Troponin I High Sens (0-20) pg/ml Total Protein 5.7 L (6.0-8.3) gm/dl Albumin 2.7 L (3.4-5.0) gm/dl Globulin 3.0 (2.5-4.0) gm/dl Albumin/Globulin Ratio 0.9 (0.9-2) Procalcitonin 28.89 H (0-0.5) ng/ml Urine Color Urine Appearance (Clear) Urine pH (4.5-7.5) Ur Specific [place] (1.000-1.030) Urine Protein (Negative) Urine Glucose (UA) (Negative) Urine Ketones (Negative) Urine Blood (Negative) Urine Nitrite (Negative) Urine Bilirubin (Negative) Urine Urobilinogen (Negative) Ur Leukocyte Esterase (Negative) Urine WBC (Auto) (0-5) /hpf Urine RBC (Auto) (0-4) /hpf U Hyaline Cast (Auto) (0-5) /lpf U Epithel Cells (Auto) (0-5) /lpf Urine Bacteria (Auto) (Negative) Urine Yeast Nasal Screen MRSA (PCR) (Negative) Enterococc faecalis PCR (NotDetected) SARS-CoV-2, RNA, NAAT (NEGATIVE) Staphylococcus sp PCR (NotDetected) mecA/C-Methicil Resis Gene (NotDetected) Staph epidermidis (PCR) (NotDetected) Han/B-Vanco Res Genes (NotDetected) Bld Cult ID Panel PCR (NotDetected) 12/22/22 12/22/22 12/21/22 Range/Units 03:37 03:37 23:24 WBC 10.82 H (4.8-10.8) K/ul RBC 3.00 L (4.70-6.10) M/uL Hgb 9.9 L (14.0-18.0) g/dl Hct 30.1 L (42.0-52.0) % MCV 100.3 H (80.0-100.0) fL MCH 33.0 (25.0-34.0) pg MCHC 32.9 (32.0-36.0) g/dL RDW Std Deviation 59.1 H (36.4-46.3) fL RDW Coeff of Alan 15.9 H (11.5-14.5) % Plt Count 194 (130-400) K/uL MPV 10.6 (9.4-12.4) fL Immature Gran % (Auto) 0.6 % Neut % (Auto) 87.8 % Lymph % (Auto) 4.5 % [place] % (Auto) 6.5 % Eos % (Auto) 0.3 % Baso % (Auto) 0.3 % Neut # (Auto) 9.51 H (1.40-6.50) K/uL Lymph # (Auto) 0.49 L (1.2-3.4) K/uL [place] # (Auto) 0.70 H (0.11-0.59) K/uL Eos # (Auto) 0.03 (0-0.50) K/uL Baso # (Auto) 0.03 (0-0.2) K/uL Immature Gran # (Auto) 0.06 (0.01-0.20) K/uL PT (9.0-12.0) Seconds INR (0.9-1.1) APTT (21.0-31.0) Seconds PTT Ratio Sodium (136-145) mmol/L Potassium (3.5-5.1) mmol/L Chloride (98-107) mmol/L Carbon Dioxide (21-32) mmol/L Anion Gap (3-11) BUN (6-23) mg/dl Creatinine (0.6-1.4) mg/dl Est Cr Clr Drug Dosing ml/min Est GFR ( Amer) ml/min Est GFR (Non-Af Amer) ml/min BUN/Creatinine Ratio (10-20) Glucose (70-99(Fasting)) mg/dl POC Glucose 113 H (70-99) mg/dl Lactate (0.4-2.0) mmol/L Calcium (8.6-10.3) mg/dl Magnesium (1.7-2.4) mg/dl Total Bilirubin (0.2-1.0) mg/dl Direct Bilirubin (0-0.2) mg/dl AST (13-39) U/L ALT (7-52) U/L Alkaline Phosphatase (34-104) U/L Troponin I High Sens 833.8 H* (0-20) pg/ml Total Protein (6.0-8.3) gm/dl Albumin (3.4-5.0) gm/dl Globulin (2.5-4.0) gm/dl Albumin/Globulin Ratio (0.9-2) Procalcitonin (0-0.5) ng/ml Urine Color Urine Appearance (Clear) Urine pH (4.5-7.5) Ur Specific [place] (1.000-1.030) Urine Protein (Negative) Urine Glucose (UA) (Negative) Urine Ketones (Negative) Urine Blood (Negative) Urine Nitrite (Negative) Urine Bilirubin (Negative) Urine Urobilinogen (Negative) Ur Leukocyte Esterase (Negative) Urine WBC (Auto) (0-5) /hpf Urine RBC (Auto) (0-4) /hpf U Hyaline Cast (Auto) (0-5) /lpf U Epithel Cells (Auto) (0-5) /lpf Urine Bacteria (Auto) (Negative) Urine Yeast Nasal Screen MRSA (PCR) (Negative) Enterococc faecalis PCR (NotDetected) SARS-CoV-2, RNA, NAAT (NEGATIVE) Staphylococcus sp PCR (NotDetected) mecA/C-Methicil Resis Gene (NotDetected) Staph epidermidis (PCR) (NotDetected) Han/B-Vanco Res Genes (NotDetected) Bld Cult ID Panel PCR (NotDetected) 12/21/22 12/21/22 12/21/22 Range/Units 21:22 18:00 15:44 WBC (4.8-10.8) K/ul RBC (4.70-6.10) M/uL Hgb (14.0-18.0) g/dl Hct (42.0-52.0) % MCV (80.0-100.0) fL MCH (25.0-34.0) pg MCHC (32.0-36.0) g/dL RDW Std Deviation (36.4-46.3) fL RDW Coeff of Alan (11.5-14.5) % Plt Count (130-400) K/uL MPV (9.4-12.4) fL Immature Gran % (Auto) % Neut % (Auto) % Lymph % (Auto) % [place] % (Auto) % Eos % (Auto) % Baso % (Auto) % Neut # (Auto) (1.40-6.50) K/uL Lymph # (Auto) (1.2-3.4) K/uL [place] # (Auto) (0.11-0.59) K/uL Eos # (Auto) (0-0.50) K/uL Baso # (Auto) (0-0.2) K/uL Immature Gran # (Auto) (0.01-0.20) K/uL PT (9.0-12.0) Seconds INR (0.9-1.1) APTT (21.0-31.0) Seconds PTT Ratio Sodium (136-145) mmol/L Potassium (3.5-5.1) mmol/L Chloride (98-107) mmol/L Carbon Dioxide (21-32) mmol/L Anion Gap (3-11) BUN (6-23) mg/dl Creatinine (0.6-1.4) mg/dl Est Cr Clr Drug Dosing ml/min Est GFR ( Amer) ml/min Est GFR (Non-Af Amer) ml/min BUN/Creatinine Ratio (10-20) Glucose (70-99(Fasting)) mg/dl POC Glucose 129 H (70-99) mg/dl Lactate 1.3 (0.4-2.0) mmol/L Calcium (8.6-10.3) mg/dl Magnesium (1.7-2.4) mg/dl Total Bilirubin (0.2-1.0) mg/dl Direct Bilirubin (0-0.2) mg/dl AST (13-39) U/L ALT (7-52) U/L Alkaline Phosphatase (34-104) U/L Troponin I High Sens 837.8 H* (0-20) pg/ml Total Protein (6.0-8.3) gm/dl Albumin (3.4-5.0) gm/dl Globulin (2.5-4.0) gm/dl Albumin/Globulin Ratio (0.9-2) Procalcitonin (0-0.5) ng/ml Urine Color Urine Appearance (Clear) Urine pH (4.5-7.5) Ur Specific [place] (1.000-1.030) Urine Protein (Negative) Urine Glucose (UA) (Negative) Urine Ketones (Negative) Urine Blood (Negative) Urine Nitrite (Negative) Urine Bilirubin (Negative) Urine Urobilinogen (Negative) Ur Leukocyte Esterase (Negative) Urine WBC (Auto) (0-5) /hpf Urine RBC (Auto) (0-4) /hpf U Hyaline Cast (Auto) (0-5) /lpf U Epithel Cells (Auto) (0-5) /lpf Urine Bacteria (Auto) (Negative) Urine Yeast Nasal Screen MRSA (PCR) (Negative) Enterococc faecalis PCR (NotDetected) SARS-CoV-2, RNA, NAAT (NEGATIVE) Staphylococcus sp PCR (NotDetected) mecA/C-Methicil Resis Gene (NotDetected) Staph epidermidis (PCR) (NotDetected) Han/B-Vanco Res Genes (NotDetected) Bld Cult ID Panel PCR (NotDetected) 12/21/22 12/21/22 12/21/22 Range/Units 15:25 13:25 13:20 WBC (4.8-10.8) K/ul RBC (4.70-6.10) M/uL Hgb (14.0-18.0) g/dl Hct (42.0-52.0) % MCV (80.0-100.0) fL MCH (25.0-34.0) pg MCHC (32.0-36.0) g/dL RDW Std Deviation (36.4-46.3) fL RDW Coeff of Alan (11.5-14.5) % Plt Count (130-400) K/uL MPV (9.4-12.4) fL Immature Gran % (Auto) % Neut % (Auto) % Lymph % (Auto) % [place] % (Auto) % Eos % (Auto) % Baso % (Auto) % Neut # (Auto) (1.40-6.50) K/uL Lymph # (Auto) (1.2-3.4) K/uL [place] # (Auto) (0.11-0.59) K/uL Eos # (Auto) (0-0.50) K/uL Baso # (Auto) (0-0.2) K/uL Immature Gran # (Auto) (0.01-0.20) K/uL PT (9.0-12.0) Seconds INR (0.9-1.1) APTT (21.0-31.0) Seconds PTT Ratio Sodium 130 L (136-145) mmol/L Potassium 3.4 L (3.5-5.1) mmol/L Chloride 93 L (98-107) mmol/L Carbon Dioxide 25 (21-32) mmol/L Anion Gap 12 H (3-11) BUN 79 H (6-23) mg/dl Creatinine 4.15 H (0.6-1.4) mg/dl Est Cr Clr Drug Dosing 12.8 ml/min Est GFR ( Amer) 14.1 ml/min Est GFR (Non-Af Amer) 12.1 ml/min BUN/Creatinine Ratio 19.0 (10-20) Glucose 108 H (70-99(Fasting)) mg/dl POC Glucose 108 H (70-99) mg/dl Lactate (0.4-2.0) mmol/L Calcium 8.8 (8.6-10.3) mg/dl Magnesium (1.7-2.4) mg/dl Total Bilirubin (0.2-1.0) mg/dl Direct Bilirubin (0-0.2) mg/dl AST (13-39) U/L ALT (7-52) U/L Alkaline Phosphatase (34-104) U/L Troponin I High Sens 860.9 H* (0-20) pg/ml Total Protein (6.0-8.3) gm/dl Albumin (3.4-5.0) gm/dl Globulin (2.5-4.0) gm/dl Albumin/Globulin Ratio (0.9-2) Procalcitonin (0-0.5) ng/ml Urine Color Urine Appearance (Clear) Urine pH (4.5-7.5) Ur Specific [place] (1.000-1.030) Urine Protein (Negative) Urine Glucose (UA) (Negative) Urine Ketones (Negative) Urine Blood (Negative) Urine Nitrite (Negative) Urine Bilirubin (Negative) Urine Urobilinogen (Negative) Ur Leukocyte Esterase (Negative) Urine WBC (Auto) (0-5) /hpf Urine RBC (Auto) (0-4) /hpf U Hyaline Cast (Auto) (0-5) /lpf U Epithel Cells (Auto) (0-5) /lpf Urine Bacteria (Auto) (Negative) Urine Yeast Nasal Screen MRSA (PCR) Negative (Negative) Enterococc faecalis PCR (NotDetected) SARS-CoV-2, RNA, NAAT (NEGATIVE) Staphylococcus sp PCR (NotDetected) mecA/C-Methicil Resis Gene (NotDetected) Staph epidermidis (PCR) (NotDetected) Han/B-Vanco Res Genes (NotDetected) Bld Cult ID Panel PCR (NotDetected) 12/21/22 12/21/22 12/21/22 Range/Units 09:44 09:43 09:32 WBC (4.8-10.8) K/ul RBC (4.70-6.10) M/uL Hgb (14.0-18.0) g/dl Hct (42.0-52.0) % MCV (80.0-100.0) fL MCH (25.0-34.0) pg MCHC (32.0-36.0) g/dL RDW Std Deviation (36.4-46.3) fL RDW Coeff of Alan (11.5-14.5) % Plt Count (130-400) K/uL MPV (9.4-12.4) fL Immature Gran % (Auto) % Neut % (Auto) % Lymph % (Auto) % [place] % (Auto) % Eos % (Auto) % Baso % (Auto) % Neut # (Auto) (1.40-6.50) K/uL Lymph # (Auto) (1.2-3.4) K/uL [place] # (Auto) (0.11-0.59) K/uL Eos # (Auto) (0-0.50) K/uL Baso # (Auto) (0-0.2) K/uL Immature Gran # (Auto) (0.01-0.20) K/uL PT (9.0-12.0) Seconds INR (0.9-1.1) APTT (21.0-31.0) Seconds PTT Ratio Sodium (136-145) mmol/L Potassium (3.5-5.1) mmol/L Chloride (98-107) mmol/L Carbon Dioxide (21-32) mmol/L Anion Gap (3-11) BUN (6-23) mg/dl Creatinine (0.6-1.4) mg/dl Est Cr Clr Drug Dosing ml/min Est GFR ( Amer) ml/min Est GFR (Non-Af Amer) ml/min BUN/Creatinine Ratio (10-20) Glucose (70-99(Fasting)) mg/dl POC Glucose (70-99) mg/dl Lactate (0.4-2.0) mmol/L Calcium (8.6-10.3) mg/dl Magnesium (1.7-2.4) mg/dl Total Bilirubin (0.2-1.0) mg/dl Direct Bilirubin (0-0.2) mg/dl AST (13-39) U/L ALT (7-52) U/L Alkaline Phosphatase (34-104) U/L Troponin I High Sens (0-20) pg/ml Total Protein (6.0-8.3) gm/dl Albumin (3.4-5.0) gm/dl Globulin (2.5-4.0) gm/dl Albumin/Globulin Ratio (0.9-2) Procalcitonin (0-0.5) ng/ml Urine Color Yellow Urine Appearance Turbid A (Clear) Urine pH 6.0 (4.5-7.5) Ur Specific [place] 1.010 (1.000-1.030) Urine Protein 2+ H (Negative) Urine Glucose (UA) Negative (Negative) Urine Ketones Negative (Negative) Urine Blood 2+ H (Negative) Urine Nitrite Negative (Negative) Urine Bilirubin Negative (Negative) Urine Urobilinogen Negative (Negative) Ur Leukocyte Esterase 3+ H (Negative) Urine WBC (Auto) >30 H (0-5) /hpf Urine RBC (Auto) 0-4 (0-4) /hpf U Hyaline Cast (Auto) 0 (0-5) /lpf U Epithel Cells (Auto) 0-5 (0-5) /lpf Urine Bacteria (Auto) 2+ H (Negative) Urine Yeast Not Reportable Nasal Screen MRSA (PCR) (Negative) Enterococc faecalis PCR DETECTED A (NotDetected) SARS-CoV-2, RNA, NAAT NEGATIVE (NEGATIVE) Staphylococcus sp PCR DETECTED A (NotDetected) mecA/C-Methicil Resis Gene DETECTED A (NotDetected) Staph epidermidis (PCR) DETECTED A (NotDetected) Han/B-Vanco Res Genes VRE Not Detected (NotDetected) Bld Cult ID Panel PCR See PCR Comment (NotDetected) 12/21/22 12/21/22 12/21/22 Range/Units 09:32 09:32 09:32 WBC (4.8-10.8) K/ul RBC (4.70-6.10) M/uL Hgb (14.0-18.0) g/dl Hct (42.0-52.0) % MCV (80.0-100.0) fL MCH (25.0-34.0) pg MCHC (32.0-36.0) g/dL RDW Std Deviation (36.4-46.3) fL RDW Coeff of Alan (11.5-14.5) % Plt Count (130-400) K/uL MPV (9.4-12.4) fL Immature Gran % (Auto) % Neut % (Auto) % Lymph % (Auto) % [place] % (Auto) % Eos % (Auto) % Baso % (Auto) % Neut # (Auto) (1.40-6.50) K/uL Lymph # (Auto) (1.2-3.4) K/uL [place] # (Auto) (0.11-0.59) K/uL Eos # (Auto) (0-0.50) K/uL Baso # (Auto) (0-0.2) K/uL Immature Gran # (Auto) (0.01-0.20) K/uL PT (9.0-12.0) Seconds INR (0.9-1.1) APTT (21.0-31.0) Seconds PTT Ratio Sodium 130 L (136-145) mmol/L Potassium 3.3 L (3.5-5.1) mmol/L Chloride 92 L (98-107) mmol/L Carbon Dioxide 28 (21-32) mmol/L Anion Gap 10 (3-11) BUN 77 H (6-23) mg/dl Creatinine 4.29 H (0.6-1.4) mg/dl Est Cr Clr Drug Dosing 12.4 ml/min Est GFR ( Amer) 13.5 ml/min Est GFR (Non-Af Amer) 11.7 ml/min BUN/Creatinine Ratio 17.9 (10-20) Glucose 147 H (70-99(Fasting)) mg/dl POC Glucose (70-99) mg/dl Lactate 1.8 (0.4-2.0) mmol/L Calcium 8.3 L (8.6-10.3) mg/dl Magnesium 2.0 (1.7-2.4) mg/dl Total Bilirubin 0.5 (0.2-1.0) mg/dl Direct Bilirubin 0.2 (0-0.2) mg/dl AST 27 (13-39) U/L ALT 13 (7-52) U/L Alkaline Phosphatase 95 (34-104) U/L Troponin I High Sens 864.8 H* (0-20) pg/ml Total Protein 5.3 L (6.0-8.3) gm/dl Albumin 2.7 L (3.4-5.0) gm/dl Globulin (2.5-4.0) gm/dl Albumin/Globulin Ratio (0.9-2) Procalcitonin 27.98 H (0-0.5) ng/ml Urine Color Urine Appearance (Clear) Urine pH (4.5-7.5) Ur Specific [place] (1.000-1.030) Urine Protein (Negative) Urine Glucose (UA) (Negative) Urine Ketones (Negative) Urine Blood (Negative) Urine Nitrite (Negative) Urine Bilirubin (Negative) Urine Urobilinogen (Negative) Ur Leukocyte Esterase (Negative) Urine WBC (Auto) (0-5) /hpf Urine RBC (Auto) (0-4) /hpf U Hyaline Cast (Auto) (0-5) /lpf U Epithel Cells (Auto) (0-5) /lpf Urine Bacteria (Auto) (Negative) Urine Yeast Nasal Screen MRSA (PCR) (Negative) Enterococc faecalis PCR (NotDetected) SARS-CoV-2, RNA, NAAT (NEGATIVE) Staphylococcus sp PCR (NotDetected) mecA/C-Methicil Resis Gene (NotDetected) Staph epidermidis (PCR) (NotDetected) Han/B-Vanco Res Genes (NotDetected) Bld Cult ID Panel PCR (NotDetected) 12/21/22 12/21/22 Range/Units 09:32 09:32 WBC 13.44 H (4.8-10.8) K/ul RBC 2.83 L (4.70-6.10) M/uL Hgb 9.3 L (14.0-18.0) g/dl Hct 29.0 L (42.0-52.0) % MCV 102.5 H (80.0-100.0) fL MCH 32.9 (25.0-34.0) pg MCHC 32.1 (32.0-36.0) g/dL RDW Std Deviation 61.0 H (36.4-46.3) fL RDW Coeff of Alan 16.3 H (11.5-14.5) % Plt Count 188 (130-400) K/uL MPV 11.0 (9.4-12.4) fL Immature Gran % (Auto) 0.7 % Neut % (Auto) 94.4 % Lymph % (Auto) 1.8 % [place] % (Auto) 2.5 % Eos % (Auto) 0.2 % Baso % (Auto) 0.4 % Neut # (Auto) 12.69 H (1.40-6.50) K/uL Lymph # (Auto) 0.24 L (1.2-3.4) K/uL [place] # (Auto) 0.33 (0.11-0.59) K/uL Eos # (Auto) 0.03 (0-0.50) K/uL Baso # (Auto) 0.06 (0-0.2) K/uL Immature Gran # (Auto) 0.09 (0.01-0.20) K/uL PT 17.3 H (9.0-12.0) Seconds INR 1.6 H (0.9-1.1) APTT 29.7 (21.0-31.0) Seconds PTT Ratio 1.1 Sodium (136-145) mmol/L Potassium (3.5-5.1) mmol/L Chloride (98-107) mmol/L Carbon Dioxide (21-32) mmol/L Anion Gap (3-11) BUN (6-23) mg/dl Creatinine (0.6-1.4) mg/dl Est Cr Clr Drug Dosing ml/min Est GFR ( Amer) ml/min Est GFR (Non-Af Amer) ml/min BUN/Creatinine Ratio (10-20) Glucose (70-99(Fasting)) mg/dl POC Glucose (70-99) mg/dl Lactate (0.4-2.0) mmol/L Calcium (8.6-10.3) mg/dl Magnesium (1.7-2.4) mg/dl Total Bilirubin (0.2-1.0) mg/dl Direct Bilirubin (0-0.2) mg/dl AST (13-39) U/L ALT (7-52) U/L Alkaline Phosphatase (34-104) U/L Troponin I High Sens (0-20) pg/ml Total Protein (6.0-8.3) gm/dl Albumin (3.4-5.0) gm/dl Globulin (2.5-4.0) gm/dl Albumin/Globulin Ratio (0.9-2) Procalcitonin (0-0.5) ng/ml Urine Color Urine Appearance (Clear) Urine pH (4.5-7.5) Ur Specific [place] (1.000-1.030) Urine Protein (Negative) Urine Glucose (UA) (Negative) Urine Ketones (Negative) Urine Blood (Negative) Urine Nitrite (Negative) Urine Bilirubin (Negative) Urine Urobilinogen (Negative) Ur Leukocyte Esterase (Negative) Urine WBC (Auto) (0-5) /hpf Urine RBC (Auto) (0-4) /hpf U Hyaline Cast (Auto) (0-5) /lpf U Epithel Cells (Auto) (0-5) /lpf Urine Bacteria (Auto) (Negative) Urine Yeast Nasal Screen MRSA (PCR) (Negative) Enterococc faecalis PCR (NotDetected) SARS-CoV-2, RNA, NAAT (NEGATIVE) Staphylococcus sp PCR (NotDetected) mecA/C-Methicil Resis Gene (NotDetected) Staph epidermidis (PCR) (NotDetected) Han/B-Vanco Res Genes (NotDetected) Bld Cult ID Panel PCR (NotDetected) Medications Administered Current Inpatient Medications Allopurinol (Allopurinol 100 Mg Tab) 200 mg PO QAM [facility] Stop: 01/21/23 08:59 Cyclobenzaprine HCl (Cyclobenzaprine Hcl 10 Mg Tab) 10 mg PO TID PRN PRN Reason: Muscle Spasm Stop: 01/20/23 13:00 Ezetimibe (Ezetimibe 10 Mg Tablet) 10 mg PO DAILY [facility]STINE Stop: 01/21/23 08:59 Norepinephrine Bitartrate (Levophed/D5w) 4 mg in 250 mls @ 25.08 mls/hr IV .[id number] [facility]; Protocol Stop: 01/20/23 10:59 Last Titration: 12/22/22 07:15 Dose: 0.08 mcg/kg/min, 25.1 mls/hr Piperacillin Sod/Tazobactam (Sod 4.5 gm/ Dextrose) 120 mls @ 30 mls/hr IV Q12H [facility]; Protocol Stop: 01/01/23 00:00 Last Infusion: 12/22/22 06:31 Dose: Infused Vancomycin HCl 1,500 mg/ (Sodium Chloride) 530 mls @ 200 mls/hr IV NOW ONE; Protocol Stop: 12/22/22 10:08 Last Admin: 12/22/22 08:12 Dose: 200 mls/hr Metoprolol Succinate (Metoprolol Succ 25mg Ext Rel Tab) 12.5 mg PO DAILY [facility] Stop: 01/21/23 08:59 Midodrine (Midodrine Hcl 2.5 Mg Tab) 5 mg PO TID@0800,1200,1700 [facility] Stop: 01/20/23 16:59 Last Admin: 12/21/22 16:32 Dose: 5 mg Miscellaneous (Icu Protocol For Hyperglycemia) 1 each N/A ACHS [facility] Stop: 12/23/22 13:00 Last Admin: 12/22/22 08:12 Dose: Not Given Miscellaneous Information (Vancomycin Consult Active) 1 each N/A UD PRN PRN Reason: Consult Stop: 01/21/23 07:17 Montelukast Sodium (Montelukast Sodium 10 Mg Tablet) 10 mg PO QPM [facility] Stop: 01/20/23 20:59 Last Admin: 12/21/22 20:57 Dose: 10 mg Multivitamins (Multivitamin Tab) 1 tab PO DAILY [facility] Stop: 01/21/23 08:59 Rosuvastatin Calcium (Rosuvastatin Calcium 10 Mg Tab) 10 mg PO HS [facility] Stop: 01/20/23 20:59 Last Admin: 12/21/22 20:57 Dose: 10 mg Vitamin D (Cholecalciferol 1,000 Units 25 Mcg Tab) 2,000 units PO DAILY [facility] Stop: 01/21/23 08:59 Warfarin Sodium (Warfarin Sod 2.5 Mg Tab) 2.5 mg PO DAILY@1600 [facility] Stop: 01/20/23 15:59
[2022-12-22] MEDS: allopurinoL 100 MG TAB PO SCH (08:44)
[2022-12-22] MEDS: MIDODRINE HCL 2.5 MG TAB PO SCH ×3 (08:44→16:59)
[2022-12-22] MEDS: EZETIMIBE 10 MG TABLET PO SCH (08:44)
[2022-12-22] MEDS: MULTIVITAMIN TAB PO SCH (08:45)
[2022-12-22] MEDS: CHOLECALCIFEROL 1,000 UNITS 25 MCG TAB PO SCH (08:45)
[2022-12-22] MEDS ORDERED: METOPROLOL SUCC 25MG EXT REL TAB PO SCH (09:00)
--- NOTE | 2022-12-22 09:26 | Critical Care Progress Note ---
Date of Service December 22, 2022 Assessment & Plan (1) ESRD (end stage renal disease): (2) Aortic stenosis: (3) Arterial hypotension: (4) Complicated UTI (urinary tract infection): Plan 87-year-old male with a history of moderate aortic stenosis, atrial fibrillation and ESRD on hemodialysis presenting to the hospital due to arterial hypertension and concerns for possible complicated UTI. Neurologic: No acute issues at this time. Avoid sedating medications. Pulmonary: Currently requiring low-flow oxygen. Chest x-ray with evidence of left effusion and atelectasis. Maintain head of the bed elevated above 35 degrees. Encourage pulmonary toilet with IS. Cardiovascular: Patient with known cardiac disease with a history of moderate to severe aortic stenosis and A-fib. Currently rate controlled. Avoid antihypertensives. Maintain MAP above 65. Continue to wean Levophed off as able. Possible element of septic shock. We will start midodrine, 5 mg 3 times daily. I suspect that physiologically he likely has a lower blood pressure at baseline now that he is on dialysis and has aortic stenosis. Troponin elevated likely secondary to demand ischemia. Will need to consider placement of a central line and arterial line if worsening hypotension. Gastrointestinal: CT abdomen without acute process. Maintain n.p.o. today given vasopressor requirements. LFTs unremarkable. Renal: ESRD on hemodialysis every Monday, Monday and Monday. Nephrology following. Palliative care consulted due to the patient's inability to tolerate hemodialysis. Lactate x2 was negative. Infectious disease: Continue broad-spectrum antibiotics. Blood cultures growing gram-positive cocci in chains. Suspect blood cultures are contaminant. Patient with possible complicated UTI. Urine cultures growing Enterococcus. PCR positive for staph epi from blood culture which is methicillin-resistant. Continue Vanco and Zosyn. Hematologic: Patient with anemia of chronic disease secondary to ESRD. Mild leukocytosis seen. Patient chronically anticoagulated with warfarin. INR subtherapeutic. We will give a dose of 2.5 mg warfarin today. Endocrine: Maintain glucose under 180. Lines and tubes: Peripheral IVs in place with Dc catheter. VTE prophylaxis: SCDs CODE STATUS: DNR/DNI Family at bedside: updated at bedside. Disposition: ICU. I have personally spent 38 minutes of critical care time in the direct management of this patient. This is a life/limb threatening event. This includes time spent evaluating patient, direct bedside care, chart review, placing orders, interpretation of diagnostic studies, discussion with consultants, patient, and family members, as well as other required patient management activities. This time is exclusive of all separately billable procedures, and teaching time and separate from and in addition to any other critical care service time. Thank you for allowing us to participate in the care of this patient. Admission and Anticipated Discharge Date Admission Date: December 21, 2022 Subjective No acute events overnight. Patient requires low-dose Levophed. Review of Systems Review of Systems: All systems reviewed & are unremarkable except as noted in HPI & below Physical Exam 2 Physical Exam: Constitutional: Patient appears to be of their stated age. Patient is in no apparent distress. Patient is well-developed. Elderly appearing male. Eyes: Pupils are equal round and reactive to light. Conjunctivae are normal. Anicteric sclera. Ears nose, mouth and throat: Mallampati class 1. Normal posterior oropharynx. Uvula is midline. Neck: Trachea is midline. Visual inspection is normal. Respiratory: Diminished at the left lung base. No tachypnea. Cardiovascular: 3 out of 6 systolic flow murmur. Irregular rhythm. No edema. Gastrointestinal: Normal bowel sounds, soft, nontender and nondistended. No hepatosplenomegaly noted. Musculoskeletal: No cyanosis. Patient is able to move all extremities. Strength is 5 out of 5 in the upper and lower extremities. Skin: No rashes, warm dry and intact. Aguilar catheter in place on the left chest with no evidence of fluctuance or erythema. Neurologic: No obvious focal neurological deficits seen. Psychiatric: Alert and oriented x3 with a euthymic affect. Results & Data Results & Data Vital Signs (Past 12 Hours) Vital Signs Temp Pulse Pulse Resp BP BP Pulse Ox 12/22/22 08:20 81 18 97 12/22/22 08:15 80 20 88 L 12/22/22 08:15 101/60 12/22/22 08:10 77 20 94 12/22/22 08:05 74 15 97 12/22/22 08:00 93 H 21 94 12/22/22 08:00 95/58 L 12/22/22 07:55 85 23 97 12/22/22 07:54 81 23 107/54 L 93 12/22/22 07:20 85 18 98 12/22/22 07:05 68 10 L 97 12/22/22 08:23 36.7 C 12/21/22 22:00 12/22/22 00:00 36.8 C 78 18 96/50 L 99 12/22/22 06:47 83 19 98 12/22/22 06:47 92/62 L 12/22/22 06:45 84 25 H 98 12/22/22 06:30 89 21 95 12/22/22 06:30 84/46 L 12/22/22 06:16 89 18 98 12/22/22 06:15 81 18 99 12/22/22 06:02 85 24 98 12/22/22 06:00 78 21 95 12/22/22 05:45 81 22 96 12/22/22 05:30 79 13 96 12/22/22 05:30 103/68 12/22/22 05:15 81 21 97 12/22/22 05:15 87/54 L 12/22/22 05:00 73 19 93 12/22/22 05:00 101/61 12/22/22 04:45 79 18 93 12/22/22 04:45 99/63 L 12/22/22 04:30 83 5 L 98 12/22/22 04:30 97/55 L 12/22/22 04:15 91 H 21 93 12/22/22 04:15 99/50 L 12/22/22 04:01 81 20 94 12/22/22 04:01 90/52 L 12/22/22 04:00 84 26 H 95 12/22/22 03:45 81 20 92 12/22/22 03:45 95/62 L 12/22/22 03:30 84 22 95 12/22/22 03:30 91/57 L 12/22/22 03:15 68 20 96 12/22/22 03:15 91/52 L 12/22/22 03:00 85 23 93 12/22/22 03:00 93/49 L 12/22/22 02:45 86 24 92 12/22/22 02:45 101/58 L 12/22/22 02:30 79 23 93 12/22/22 02:30 93/56 L 12/22/22 02:15 91 H 22 94 12/22/22 02:15 89/59 L 12/22/22 02:00 89 19 94 12/22/22 02:00 87/58 L 12/22/22 01:45 80 22 96 12/22/22 01:45 88/52 L 12/22/22 01:30 88 18 95 12/22/22 01:30 96/57 L 12/22/22 01:15 82 21 95 12/22/22 01:15 90/57 L 12/22/22 01:00 85 21 95 12/22/22 04:00 37 C 86 26 H 90/52 L 95 O2 Del Method O2 Flow Rate 12/22/22 08:20 12/22/22 08:15 12/22/22 08:15 12/22/22 08:10 12/22/22 08:05 12/22/22 08:00 12/22/22 08:00 12/22/22 07:55 12/22/22 07:54 Nasal Cannula 1.5 12/22/22 07:20 12/22/22 07:05 12/22/22 08:23 12/21/22 22:00 Nasal Cannula 2 12/22/22 00:00 Nasal Cannula 2 12/22/22 06:47 12/22/22 06:47 12/22/22 06:45 12/22/22 06:30 12/22/22 06:30 12/22/22 06:16 12/22/22 06:15 12/22/22 06:02 12/22/22 06:00 12/22/22 05:45 12/22/22 05:30 12/22/22 05:30 12/22/22 05:15 12/22/22 05:15 12/22/22 05:00 12/22/22 05:00 12/22/22 04:45 12/22/22 04:45 12/22/22 04:30 12/22/22 04:30 12/22/22 04:15 12/22/22 04:15 12/22/22 04:01 12/22/22 04:01 12/22/22 04:00 12/22/22 03:45 12/22/22 03:45 12/22/22 03:30 12/22/22 03:30 12/22/22 03:15 12/22/22 03:15 12/22/22 03:00 12/22/22 03:00 12/22/22 02:45 12/22/22 02:45 12/22/22 02:30 12/22/22 02:30 12/22/22 02:15 12/22/22 02:15 12/22/22 02:00 12/22/22 02:00 12/22/22 01:45 12/22/22 01:45 12/22/22 01:30 12/22/22 01:30 12/22/22 01:15 12/22/22 01:15 12/22/22 01:00 12/22/22 04:00 Nasal Cannula 2 Coding Level of Care Code 56631 CRITICAL CARE 1ST 30-74M Diagnoses ESRD (end stage renal disease) N18.6 Aortic stenosis I35.0 Arterial hypotension I95.9 Complicated UTI (urinary tract infection) N39.0 Time Spent (min) 38
--- NOTE | 2022-12-22 11:09 | Palliative Care Consultation ---
Date of Consultation December 22, 2022 Assessment & Plan (1) Palliative care encounter: I met with Mr. Carrion and his at bedside. They also had the opportunity to speak with Dr. Figueroa and have good understanding of the severity of his illness. As we discussed goals for his care, he immediately told me that he did not have a good experience at SNF and that his goal is to return home. We talked about what that would look like to him. He very methodically tells me that if we fix the infection, he can get out of the ICU to a regular bed and then get better enough to go home with home nursing, PT and OT. We discussed concern that he has not tolerated weaning from BP support and there are multiple factors, some not reversible, that can be contributing to his low blood pressure. Following his conversation with Dr. Figueroa, we discussed concern that if he is not able to receive dialysis, he will likely within days to a couple weeks. He tells me that he understands this but that he wants to fight. I asked him what that means to me and he returned to his wish to get home. He talked about his frustration with prolonged illness and repeat hospitalization. He understands that this would likely be the way things are for him moving forward, if he is able to improve from his current status. He described feeling like he is on a cycle. At this time, he does want to continue on that cycle but knows that he may be too ill to continue or that he can choose to stop the cycle at any time and focus on comfort and symptom management. 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 He is DNR/DNI but his wish is to continue medical treatment with the hope of being stable enough to return home for nursing care and therapy. He also notes that if he is not able to improve, his wish would be to go home to . We discussed concern that he may not be stable enough to tolerate transition to home. He is agreeable to ongoing discussion as his treatment evolves. Palliative care will follow. History of Present Illness Reason for Consultation: goals of care Requesting Physician: Dr. Orr Attending Physician: Elias Sher MD History of Present Illness 87 yo gentleman with history of CKD, diastolic heart failure, afib, moderate to severe aortic stenosis and CAdD who was hospitalized last month with acute respiratory failure due to decompensated heart failure. During that admission, he was started on hemodialysis for progressive renal failure. He had been at SNF for rehab but was found to be hypotensive and transferred to ER. He notes that he had difficulty voiding with dysuria prior to admission. Workup indicates that he has complicated UTI. Blood cultures are pending with one positive GPC and urine culture preliminary probable enterococcus. He did have some response to fluid bolus and has been on pressor support in ICU. Dialysis yesterday was deferred due to hypotension. Mr. Carrion is awake and alert. He has no complaints of pain or dyspnea. He remains on pressor support and has not tolerated wean attempts at this time. Allergies Allergy/AdvReac Type Severity Reaction Status Date / Time amlodipine [From [facility]] Allergy Intermediate Edema Verified 11/26/22 03:03 bismuth subsalicylate Allergy Unknown Unknown Verified 11/26/22 03:03 naproxen AdvReac Mild GI UPSET, Verified 11/26/22 03:03 HODGES THROAT Home Medications Medication Instructions Recorded Confirmed Type amoxicillin 500 mg capsule See Rx Instructions .Route 07/15/20 12/21/22 History .COMPLEX PRN Prior to Dental Appointments cholecalciferol (vitamin D3) 50 50 mcg PO DAILY 07/15/20 12/21/22 History mcg (2,000 unit) capsule (Vitamin D3) cyclobenzaprine 10 mg tablet 10 mg PO TID PRN Muscle Spasm 07/15/20 12/21/22 History ezetimibe 10 mg tablet 10 mg PO DAILY 07/15/20 12/21/22 History famotidine 20 mg tablet 20 mg PO DAILY PRN Acid Reflux 07/15/20 12/21/22 History metoprolol succinate 25 mg 12.5 mg PO DAILY 07/15/20 12/21/22 History tablet,extended release 24 hr multivitamin,oy-urmv-Ae-FA-min 1 tab PO DAILY 07/15/20 12/21/22 History rosuvastatin 10 mg tablet 10 mg PO HS 07/15/20 12/21/22 History tamsulosin 0.4 mg capsule 0.4 mg PO BID 07/15/20 12/21/22 History warfarin 5 mg tablet 2.5 mg PO DIRECTED 07/15/20 12/21/22 History allopurinol 100 mg tablet 200 mg PO QAM 11/26/22 12/21/22 History ceramides 1,3,6-II (CeraVe topical 1 applic topical DIRECTED PRN 11/26/22 12/21/22 History cream) .affected area diclofenac sodium 1 % topical gel 1 ea topical BID PRN .back pain, 11/26/22 12/21/22 History muscle pain melatonin 5 mg tablet 5 mg PO HS PRN Sleep 11/26/22 12/21/22 History montelukast 10 mg tablet 10 mg PO QPM 11/26/22 12/21/22 History triamcinolone acetonide 0.1 % 1 applic topical BID PRN .itchy 11/26/22 12/21/22 History topical ointment legs metolazone 5 mg tablet 5 mg PO DAILY@1200 #30 tabs 12/07/22 12/21/22 Rx torsemide 100 mg tablet 100 mg PO QAM #30 tabs 12/07/22 12/21/22 Rx benzonatate 100 mg capsule 200 mg PO TID 12/21/22 12/21/22 History ceftriaxone 1 gram with lidocaine 1 ea IM DAILY 12/21/22 12/21/22 History 1 % intramuscular kit fluticasone propionate 50 2 spray intranasal DAILY 12/21/22 12/21/22 History mcg/actuation nasal spray,suspension (Flonase Allergy Relief) menthol 0.44 %-zinc oxide 20.6 % 1 applic topical BID PRN Skin 12/21/22 12/21/22 History topical ointment (Calmoseptine) Irritation Patient History Medical History Arterial hypotension CHF (congestive heart failure) Complicated UTI (urinary tract infection) Decompensated heart failure ESRD (end stage renal disease) No pertinent family history Surgical History No pertinent past surgical history Social History Smoking Status: Never smoker Tobacco Type: Smokeless Tobacco (Dip or Chew) Second Hand Exposure: No; Do You Dip or Chew Tobacco: No; Hx Alcohol Use: No Hx Substance Use: No Preferred Language: Fijian Communication Ability: Effective Hearing Ability: Use of Hearing Aid Tube Knitter Required: No Beliefs That Will Affect Care: None marital status: Current Living Situation: Spouse Current Living Situation Comment: Feels Safe at Home: Yes Diet: low salt caffeine: Yes during the past year weight has: remained stable Assistive Devices: Hearing Aid - Bilateral and Walker Review of Systems Review of Systems: ESAS Pain 0/3 Dyspnea 0/3 Nausea 0/3 Drowsiness 0/3 Anxiety 1/3 Physical Exam Constitutional: no acute distress Respiratory: normal respiratory effort; no labored breathing Cardiovascular: irregular, ventricular ectopy on monitor with brief PVC runs Musculoskeletal: Extremities: extremities normal to inspection Neurologic: Speech / Cognition: normal cognition Results & Data Vital Signs (Past 12 Hours) Vital Signs Temp Pulse Pulse Resp BP BP Pulse Ox 12/22/22 08:00 77 12/22/22 08:20 81 18 97 12/22/22 08:15 80 20 88 L 12/22/22 08:15 101/60 12/22/22 08:10 77 20 94 12/22/22 08:05 74 15 97 12/22/22 08:00 93 H 21 94 12/22/22 08:00 95/58 L 12/22/22 07:55 85 23 97 12/22/22 07:54 81 23 107/54 L 93 12/22/22 07:20 85 18 98 12/22/22 07:05 68 10 L 97 12/22/22 08:23 98.1 F 12/22/22 00:00 98.2 F 78 18 96/50 L 99 12/22/22 06:47 83 19 98 12/22/22 06:47 92/62 L 12/22/22 06:45 84 25 H 98 12/22/22 06:30 89 21 95 12/22/22 06:30 84/46 L 12/22/22 06:16 89 18 98 12/22/22 06:15 81 18 99 12/22/22 06:02 85 24 98 12/22/22 06:00 78 21 95 12/22/22 05:45 81 22 96 12/22/22 05:30 79 13 96 12/22/22 05:30 103/68 12/22/22 05:15 81 21 97 12/22/22 05:15 87/54 L 12/22/22 05:00 73 19 93 06/08/23 05:00 101/61 12/22/22 04:45 79 18 93 12/22/22 04:45 99/63 L 12/22/22 04:30 83 5 L 98 12/22/22 04:30 97/55 L 12/22/22 04:15 91 H 21 93 12/22/22 04:15 99/50 L 12/22/22 04:01 81 20 94 12/22/22 04:01 90/52 L 12/22/22 04:00 84 26 H 95 12/22/22 03:45 81 20 92 12/22/22 03:45 95/62 L 12/22/22 03:30 84 22 95 12/22/22 03:30 91/57 L 12/22/22 03:15 68 20 96 12/22/22 03:15 91/52 L 12/22/22 03:00 85 23 93 12/22/22 03:00 93/49 L 12/22/22 02:45 86 24 92 12/22/22 02:45 101/58 L 12/22/22 02:30 79 23 93 12/22/22 02:30 93/56 L 12/22/22 02:15 91 H 22 94 12/22/22 02:15 89/59 L 12/22/22 02:00 89 19 94 12/22/22 02:00 87/58 L 12/22/22 01:45 80 22 96 12/22/22 01:45 88/52 L 12/22/22 01:30 88 18 95 12/22/22 01:30 96/57 L 12/22/22 01:15 82 21 95 12/22/22 01:15 90/57 L 12/22/22 01:00 85 21 95 12/22/22 04:00 98.6 F 86 26 H 90/52 L 95 O2 Del Method O2 Flow Rate 12/22/22 08:00 12/22/22 08:20 12/22/22 08:15 12/22/22 08:15 12/22/22 08:10 12/22/22 08:05 12/22/22 08:00 12/22/22 08:00 12/22/22 07:55 12/22/22 07:54 Nasal Cannula 1.5 12/22/22 07:20 12/22/22 07:05 12/22/22 08:23 12/22/22 00:00 Nasal Cannula 2 12/22/22 06:47 12/22/22 06:47 12/22/22 06:45 12/22/22 06:30 12/22/22 06:30 12/22/22 06:16 12/22/22 06:15 12/22/22 06:02 12/22/22 06:00 12/22/22 05:45 12/22/22 05:30 12/22/22 05:30 12/22/22 05:15 12/22/22 05:15 12/22/22 05:00 12/22/22 05:00 12/22/22 04:45 12/22/22 04:45 12/22/22 04:30 12/22/22 04:30 12/22/22 04:15 12/22/22 04:15 12/22/22 04:01 12/22/22 04:01 12/22/22 04:00 12/22/22 03:45 12/22/22 03:45 12/22/22 03:30 12/22/22 03:30 12/22/22 03:15 12/22/22 03:15 12/22/22 03:00 12/22/22 03:00 12/22/22 02:45 12/22/22 02:45 12/22/22 02:30 12/22/22 02:30 12/22/22 02:15 12/22/22 02:15 12/22/22 02:00 12/22/22 02:00 12/22/22 01:45 12/22/22 01:45 12/22/22 01:30 12/22/22 01:30 12/22/22 01:15 12/22/22 01:15 12/22/22 01:00 12/22/22 04:00 Nasal Cannula 2 PG Care Time/CCT Total # of Minutes Spent Total Time Spent: 88 Total Time Spent with Patient: Total time spent is greater than 50% in coordination of care (as documented) at patient's floor/unit and/or counseling patient:[id number] goals of care, prognosis, what to expect, patient and family education and support Coding Level of Care Code 51008 INT INP/OBS CARE MIN Diagnoses Palliative care encounter Z51.5
--- NOTE | 2022-12-22 11:17 | Pharmacy Report ---
Pharmacy Vanc AUC Short Note - Date of Service December 22, 2022 - Assessment & Plan Assessment * 87 year old M receiving VANCOMYCIN + ZOSYN for treatment of septic shock secondary to complicated UTI. * Pertinent microbiologic data includes: gm + cocci in chains growing in 1 of 2 BLCXs, blood BioFire reveals enterococcus faecalis (not VRE) as well as MRSE; urine cx growing probable enterococcus * Pt remains on Norepi for pressor support * Patient is ESRD and receives HD 3 x weekly; unclear how much urine pt produces. No orders for HD provided this AM, however nephrology has not rounded on this patient yet. Plan Vancomycin * AUC/ROBB is the preferred PK/PD target for vancomycin, however pt is not a candidate for this method due to ESRD on 3x weekly HD * Pt received 1500mg loading dose x 1 this AM, will check random level with AM labs tomorrow. Plan to redose when level </= 15-20 or anticipated to be so following HD treatment. Zosyn * 4.5gm EI Q 12 hrs is appropriate Pharmacy will continue to follow and will adjust dose/frequency as necessary. Thank you.
--- NOTE | 2022-12-22 17:02 | Nephrology Progress Note ---
Date of Service December 22, 2022 Assessment & Plan (1) Dialysis patient: Plan: last HD was 12/19. OP HD has been going reasonably well. on MWF HD via [facility] at [facility] currently where he had been rehabbing; then for admission to [facility] longer term > was to start there tomorrow if he hadn't developed this infection in interim chemistries acceptable/k even low; oxygen needs noted as well as BP trends reviewed; no indication for urgent HD today; -hold HD today again >> SBP soft despite midodrine; still on NE at 0.08 mcg/min -reeval in AM for HD -note no current phos binders needed to date > will check phos in am >when taking po need to consider gentle fluid limit (2) Sepsis: Plan: w/ enterococcal UTI and multiple other cxs pending >> serologies/cxs concerning for meth Res E faecalis >>vancomycin added today to zosyn -pressors and abtx as per primary service -strict I/O >> presumptive oliguria but helps to measure while he has no HD -try to limit IVF pending next HD tx -continue levophed and try to wean -coninue midodrine -may need line holiday and / or dialysis catheter exchange which will have to be coordinated with outside hospital most likely (3) Goals of care, counseling/discussion: Plan: we talked about clinical challenges he's faced over past few weeks and his goal of getting home and staying out of hospital. we talked about how much we have yet to learn about his infection but that it may be quite serious, involve line holiday or even his heart valves. we talked about how he could go home on hospice and not have more hospital care or procedures; or we could continue current care (with no plans to escalate) and see if we can treat his infection, resume therapy, work at getting home. We talked about how being a dialysis patient brings possibility of more procedures, more admissions, longer/slower recovery. We talked about how quality of life matters here as well. he would likely have days to weeks to live if he stopped dialysis (assuming infection cleared) and an unknown amount of time but possibly more than weeks (however w/ more hospital time/procedures) if he opts to continue dialysis. Palliative came in for discussion toward the end of our conversation. we will continue to discuss goals of care together. appreciate palliative work on this too. I spent 40 minutes talking w/ patient and his : conversation slow/challenging in part d/t his poor hearing/hearing aids but he did participate actively /appropriately. OVERALL I spent 55 minutes on this patient today reviewing chart, coordinating care with Sanket Vo and Christos, working on discussion above with patient. Admission and Anticipated Discharge Date Admission Date: December 21, 2022 Subjective ongoing hypotension and pressor dependence. pt frustrated at long hospital stay (second admissoin w/ rehab in between) and just wants to go home as he has stated at previous visits. tired and still q/ generalized weakness but no sob, no chest pain, no rigors/F. voiding some urine. blood cxs / serologies concerning for meth R E faecalis. Review of Systems Review of Systems: All systems reviewed & are unremarkable except as noted in Subjective Physical Exam Constitutional: well developed, + thin, + frail appearing and cooperative; no acute distress Eyes: EOM intact bilaterally ENMT: Ears: + hearing impairment; no external ear abnormality Nose: no external nose abnormality Mouth: + dry oral mucous membranes Neck: no nuchal rigidity Respiratory: normal respiratory effort; no labored breathing (lying flat on 2L NC w/o distress) Auscultation: + diminished lung sounds Cardiovascular: Rate/Rhythm: regular rate and regular rhythm Heart Sounds: + murmur Extremities: no edema Gastrointestinal (Abdomen): Inspection/Auscultation: normal bowel sounds Percussion/Palpation: abdomen soft; abdomen nontender Musculoskeletal: Extremities: + abnormal strength (generalized weakness) Skin: no rashes, warm and dry Psychiatric: Orientation: alert and oriented x 3 Speech: normal rate/rhythm/volume of speech Results & Data Vital Signs (Past 12 Hours) Vital Signs Temp Pulse Resp BP Pulse Ox O2 Del Method O2 Flow Rate 12/22/22 15:00 77 15 101/65 91 12/22/22 14:00 78 21 105/60 92 Room Air 12/22/22 13:00 79 20 95 12/22/22 13:00 100/62 12/22/22 12:45 112/68 12/22/22 12:45 76 15 97 12/22/22 12:30 81 18 96 12/22/22 12:30 108/61 12/22/22 12:15 84 13 95 12/22/22 12:15 104/69 12/22/22 12:00 80 16 100/65 96 12/22/22 11:00 85 26 H 95/69 L 96 12/22/22 10:00 72 19 106/64 92 12/22/22 09:00 87 22 101/72 94 12/22/22 08:00 Nasal Cannula 1.5 12/22/22 08:00 77 12/22/22 08:20 81 18 97 12/22/22 08:15 80 20 88 L 12/22/22 08:15 101/60 12/22/22 08:10 77 20 94 12/22/22 08:05 74 15 97 12/22/22 08:00 93 H 21 94 12/22/22 08:00 95/58 L 12/22/22 07:55 85 23 97 12/22/22 07:54 81 23 107/54 L 93 Nasal Cannula 1.5 12/22/22 07:20 85 18 98 12/22/22 07:05 68 10 L 97 12/22/22 08:23 36.7 C 12/22/22 06:47 83 19 98 12/22/22 06:47 92/62 L 12/22/22 06:45 84 25 H 98 12/22/22 06:30 89 21 95 12/22/22 06:30 84/46 L 12/22/22 06:16 89 18 98 12/22/22 06:15 81 18 99 12/22/22 06:02 85 24 98 12/22/22 06:00 78 21 95 12/22/22 05:45 81 22 96 12/22/22 05:30 79 13 96 12/22/22 05:30 103/68 12/22/22 05:15 81 21 97 12/22/22 05:15 87/54 L 12/22/22 05:00 73 19 93 12/22/22 05:00 101/61 Laboratory Results 12/22/22 03:37 12/22/22 03:37 cxs reviewed (2) Sepsis Sepsis acute organ dysfunction status: without acute organ dysfunction Sepsis type: sepsis due to unspecified organism Qualified Code(s): A41.9 - Sepsis, unspecified organism
[2022-12-22] MEDS ORDERED: CARBOHYDRATES FOR HYPOGLYCEMIA PO ONE (17:34)
[2022-12-22] MEDS: MONTELUKAST SODIUM 10 MG TABLET PO SCH (21:10)
[2022-12-22] MEDS: ROSUVASTATIN CALCIUM 10 MG TAB PO SCH (21:10)
[2022-12-23] MEDS: PIPERACILLIN/TAZOBACTAM 4.5 GM in DEXTROSE 5% 100 ML IV SCH ×2 (00:10→11:53)
[2022-12-23 05:05] LABS: Hematocrit (blood only) 30.8 % (42.0-52.0); Hemoglobin 10.2 g/dl (14.0-18.0); Mean Corpuscular Hgb Conc 33.1 g/dL (32.0-36.0); Mean Corpuscular Volume 99.7 fL (80.0-100.0); Platelet Count 191 K/uL (130-400); RDW Coefficient of Variation 15.8 % (11.5-14.5); Red Blood Count 3.09 M/uL (4.70-6.10); White Blood Count 7.68 K/ul (4.8-10.8)
[2022-12-23 05:23] LABS: BUN Creatinine Ratio 19.5 (10-20); Calcium 8.4 mg/dl (8.6-10.3); Creatinine Clr Calc Pharmacy 11.4 ml/min; Est GFR (African American) 12.2 ml/min; Est GFR (Non-African American) 10.5 ml/min; Magnesium 2.1 mg/dl (1.7-2.4); Phosphorus 5.5 mg/dl (2.5-4.9); Potassium 3.2 mmol/L (3.5-5.1)
[2022-12-23 05:32] LABS: INR 2.3 (0.9-1.1)
--- NOTE | 2022-12-23 05:35 | Electrocardiogram Report ---
Test Reason : Blood Pressure : / mmHG Vent. Rate : 075 BPM Atrial Rate : 000 BPM P-R Int : 000 ms QRS Dur : 154 ms QT Int : 420 ms P-R-T Axes : 000 -65 031 degrees QTc Int : 469 ms Atrial fibrillation with premature ventricular or aberrantly conducted complexes Left axis deviation Left bundle branch block Abnormal ECG When compared with ECG of 27-NOV-2022 14:35, Atrial fibrillation has replaced Sinus rhythm Confirmed by Pedro Santiago ([id number]) on 12/23/2022 5:35:26 AM Referred By: [facility] Confirmed By:Pedro Santiago
[2022-12-23] MEDS ORDERED: VANCOMYCIN HCL 1,500 MG in SODIUM CHLORIDE 0.9% 500 ML IV STA (07:51)
--- NOTE | 2022-12-23 08:17 | Procedure Note ---
Procedure Note Date of Service December 23, 2022 Note INTERNAL JUGULAR CENTRAL LINE PROCEDURE NOTE: Procedure: Left internal Jugular Central Line Placement Indication: Central Drug Administration, Poor Venous Access, Multiple Lab Draws Necessary, etc. Anesthesia: None/10 mL lidocaine 1% Consent was signed and placed on the chart prior to procedure. Indication, risks, and benefits were explained at length. A time-out was completed verifying correct patient, procedure, site, positioning, and implants(s) or special equipment if applicable. Patients left neck was cleansed and draped in the typical sterile fashion using Chloraprep. The Internal Jugular Vein and Carotid Artery were identified using ultrasound. The superficial tissue was anesthetized using 10 mL of 1% lidocaine without epinephrine under direct visualization with the ultrasound. After adequate anesthetization was achieved, the Internal Jugular vein was cannulated under direct ultrasound guidance using an introducer needle on a syringe. Good venous blood return was maintained prior to removal of syringe from introducer needle. Using Seldinger Technique, a guide wire was advanced through the introducer needle without resistance. The introducer needle was removed and ultrasound images were obtained of the guide wire within the Internal Jugular Vein and saved to the patients medical record. A small incision was made in penetrating fashion at the guide wire insertion site utilizing an 11 blade scalpel. The dilator was advanced to the vessel without resistance. The dilator was exchanged for the triple lumen catheter which was advanced into the vessel without resistance. The guide wire was removed intact from the catheter without issue. Claves were placed on each catheter tip with confirmation of good blood flow from each lumen. Each port was easily flushed with sterile saline. The catheter was placed at 60 cm and sutured in place. BioPatch was applied to the catheter and a sterile Tegaderm dressing was applied over the catheter with careful attention to sterility. Patient tolerated procedure well. No immediate complications were met. Post procedure x-ray ordered. Images obtained are saved for permanent record Coding CPT Codes Tubes, Drains, and Vasc Access - Tubes, Drains, and Vasc Access: [id number] Place catheter in vein superior or inferior vena cava ([id number]) Tubes, Drains, and Vasc Access - Tubes, Drains, and Vasc Access: [id number] Ultrasonic Guide For Needle Placement ([id number]) [facility] [place] Procedure Codes (Charges) Tubes, Drains, and Vasc Access Procedure 1: Tubes, Drains, and Vasc Access: [id number] Place catheter in vein superior or inferior vena cava Procedure 2: Tubes, Drains, and Vasc Access: [id number] Ultrasonic Guide For Needle Placement
[2022-12-23] MEDS: Standard Conc; 4mg in 250mL IV SCH (08:30)
[2022-12-23] MEDS: ICU Protocol for HYPERglycemia SCH ×2 (08:31→11:52)
[2022-12-23] MEDS: MIDODRINE HCL 2.5 MG TAB PO SCH ×3 (08:31→17:14)
[2022-12-23] MEDS: EZETIMIBE 10 MG TABLET PO SCH (08:32)
[2022-12-23] MEDS: allopurinoL 100 MG TAB PO SCH (08:32)
[2022-12-23] MEDS: CHOLECALCIFEROL 1,000 UNITS 25 MCG TAB PO SCH (08:32)
[2022-12-23] MEDS: MULTIVITAMIN TAB PO SCH (08:33)
--- NOTE | 2022-12-23 08:33 | Critical Care Progress Note ---
Date of Service December 23, 2022 Assessment & Plan (1) ESRD (end stage renal disease): (2) Aortic stenosis: (3) Arterial hypotension: (4) Complicated UTI (urinary tract infection): (5) Septic shock: (6) Bacteremia due to Enterococcus: (7) Line sepsis associated with dialysis catheter: (8) Dialysis patient: Plan 87-year-old male with a history of moderate aortic stenosis, atrial fibrillation and ESRD on hemodialysis presenting to the hospital due to arterial hypertension and concerns for possible complicated UTI. Neurologic: No acute issues at this time. Avoid sedating medications. Pulmonary: Currently requiring low-flow oxygen. Chest x-ray with evidence of left effusion and atelectasis. Maintain head of the bed elevated above 35 degrees. Encourage pulmonary toilet with IS. Cardiovascular: Patient with known cardiac disease with a history of moderate to severe aortic stenosis and A-fib. Currently rate controlled. Avoid antihypertensives. Maintain MAP above 65. Continue to wean Levophed off as able. Unfortunately it appears that the patient has persistent septic shock. Gastrointestinal: CT abdomen without acute process. Diet advanced. LFTs unremarkable. Renal: ESRD on hemodialysis every Monday, Monday and Monday. Nephrology following. Palliative care consulted due to the patient's inability to tolerate hemodialysis. Lactate x2 was negative. Infectious disease: Patient with Enterococcus bacteremia which is also growing in his urine. Co ntinue vancomycin and Zosyn. ID consult placed. Unfortunately has a tunneled dialysis catheter which may be seeded. I had to place a left IJ as well today due to access issues. We will obtain echocardiogram to evaluate for endocarditis. Hematologic: Patient with anemia of chronic disease secondary to ESRD. Mild leukocytosis seen. Patient chronically anticoagulated with warfarin. Continue warfarin 2.5 mg daily. INR therapeutic today. Endocrine: Maintain glucose under 180. Lines and tubes: Peripheral IVs in place with Dc catheter. VTE prophylaxis: Warfarin CODE STATUS: DNR/DNI Family at bedside: updated over the phone. Prognosis overall remains very poor especially with enterococcal bacteremia. Situation is difficult given his need for tunneled dialysis catheter. Disposition: ICU. I have personally spent 43 minutes of critical care time in the direct management of this patient. This is a life/limb threatening event. This includes time spent evaluating patient, direct bedside care, chart review, placing orders, interpretation of diagnostic studies, discussion with consultants, patient, and family members, as well as other required patient management activities. This time is exclusive of all separately billable procedures, and teaching time and separate from and in addition to any other critical care service time. Thank you for allowing us to participate in the care of this patient. Admission and Anticipated Discharge Date Admission Date: December 21, 2022 Subjective Unfortunately the patient's IV with Levophed infiltrated in the right forearm this morning. He is having mild pain in that arm. Otherwise he notes that he slept poorly and overall feels lethargic. He denies any chest pain. Placed a left IJ central line due to access issues. Unfortunately the right IJ site did not appear to be accessible given clear stenosis. Review of Systems Review of Systems: All systems reviewed & are unremarkable except as noted in HPI & below Physical Exam Physical Exam: Constitutional: Patient appears to be of their stated age. Patient is in no ap parent distress. Patient is well-developed. Elderly appearing male. Eyes: Pupils are equal round and reactive to light. Conjunctivae are normal. Anicteric sclera. Ears nose, mouth and throat: Mallampati class 1. Normal posterior oropharynx. Uvula is midline. Neck: Trachea is midline. Visual inspection is normal. Respiratory: Diminished at the left lung base. No tachypnea. Cardiovascular: 3 out of 6 systolic flow murmur. Irregular rhythm. No edema. Gastrointestinal: Normal bowel sounds, soft, nontender and nondistended. No hepatosplenomegaly noted. Musculoskeletal: No cyanosis. Patient is able to move all extremities. Strength is 5 out of 5 in the upper and lower extremities. Skin: No rashes, warm dry and intact. Aguilar catheter in place on the left chest with no evidence of fluctuance or erythema. Neurologic: No obvious focal neurological deficits seen. Psychiatric: Alert and oriented x3 with a euthymic affect. Results & Data Results & Data Vital Signs (Past 12 Hours) Vital Signs Temp Pulse Resp BP Pulse Ox 12/23/22 06:00 78 31 H 94 12/23/22 06:00 109/69 12/23/22 05:45 77 16 90 12/23/22 05:45 116/66 12/23/22 05:31 112/53 L 12/23/22 05:31 94 H 25 H 89 L 12/23/22 05:30 81 18 91 12/23/22 05:15 83 24 94 12/23/22 05:15 116/70 12/23/22 05:00 76 22 92 12/23/22 05:00 116/60 12/23/22 04:45 78 27 H 93 12/23/22 04:45 112/70 12/23/22 04:30 77 24 93 12/23/22 04:30 109/59 L 12/23/22 04:15 85 21 95 12/23/22 04:15 106/66 12/23/22 04:00 73 17 89 L 12/23/22 04:00 99/65 L 12/23/22 03:45 78 21 94 12/23/22 03:45 97/62 L 12/23/22 03:30 82 23 94 12/23/22 03:30 103/63 12/23/22 03:15 82 22 94 12/23/22 03:15 115/66 12/23/22 03:00 76 18 94 12/23/22 03:00 94/64 L 12/23/22 02:45 75 12 92 12/23/22 02:45 104/61 12/23/22 02:30 80 19 90 12/23/22 02:30 103/57 L 12/23/22 02:15 75 18 93 12/23/22 02:15 113/65 12/23/22 02:01 109/58 L 12/23/22 02:01 77 22 94 12/23/22 02:00 76 22 95 12/23/22 01:45 76 25 H 95 12/23/22 01:45 111/66 12/23/22 01:30 73 21 93 12/23/22 01:30 105/61 12/23/22 01:15 65 20 94 12/23/22 01:15 102/58 L 12/23/22 01:07 106/61 12/23/22 01:07 77 15 88 L 12/23/22 01:05 77 19 96 12/23/22 01:05 66/47 L 12/23/22 01:00 71 19 92 12/23/22 01:00 86/42 L 12/23/22 00:45 80 21 93 12/23/22 00:45 90/48 L 12/23/22 00:31 85 12 91 12/23/22 00:31 75/45 L 12/23/22 00:30 79 23 89 L 12/23/22 00:15 78 16 93 12/23/22 00:15 89/49 L 12/23/22 00:00 83 21 93 12/23/22 00:00 96/57 L 12/22/22 23:46 74 16 91 12/22/22 23:46 90/62 L 12/22/22 23:45 82 26 H 94 12/22/22 23:30 78 17 93 12/22/22 23:15 81 24 89 L 12/22/22 23:15 100/61 12/23/22 00:35 36.6 C 12/23/22 00:00 73 12/22/22 23:00 71 25 H 92 12/22/22 23:00 114/65 12/22/22 22:45 84 22 89 L 12/22/22 22:45 115/69 12/22/22 22:30 77 28 H 90 12/22/22 22:30 99/54 L 12/22/22 22:15 75 16 94 12/22/22 22:15 109/72 12/22/22 22:00 89 92 12/22/22 22:00 110/66 12/22/22 21:45 92/53 L 12/22/22 21:45 79 33 H 95 12/22/22 21:36 78/39 L 12/22/22 21:36 72 10 L 91 12/22/22 21:33 70 6 L 93 12/22/22 21:31 77 4 L 94 12/22/22 21:30 78 13 94 12/22/22 21:15 77 25 H 95 12/22/22 21:15 92/61 L 12/22/22 21:00 82 24 93 12/22/22 21:00 105/62 12/22/22 20:45 80 24 92 12/22/22 20:45 101/61 12/22/22 20:30 71 6 L 96 12/22/22 20:30 93/63 L 12/22/22 22:17 36.6 C Coding Level of Care Code 88452 CRITICAL CARE 1ST 30-74M Diagnoses ESRD (end stage renal disease) N18.6 Aortic stenosis I35.0 Arterial hypotension I95.9 Complicated UTI (urinary tract infection) N39.0 Septic shock A41.9; R65.21 Bacteremia due to Enterococcus R78.81; B95.2 Line sepsis associated with dialysis catheter T82.7XXA; A41.9 Dialysis patient Z99.2 Time Spent (min) 43
--- NOTE | 2022-12-23 08:54 | XRay Report ---
SINGLE VIEW CHEST CLINICAL HISTORY: Since venous catheter placement. FINDINGS: An AP, portable, upright chest radiograph is compared to study dated 12/21/2022. The left int ernal jugular central venous catheter seen on 12/21/2022 is unchanged in position. A second left resident intern al jugular central venous catheter has been placed. The tip projects over the SVC. The patient is sta tus post midline sternotomy. The heart is enlarged noting atherosclerotic calcification of the thorac ic aorta. There is pulmonary vascular congestion with interstitial edema. There are left larger than right pleural effusions with dependent consolidation skeletal. No pneumothorax is seen. The lumbar os teopenic. The bony thorax is grossly intact. IMPRESSION: 1. There are 2 left internal jugular central venous catheter is in place as above, one of which is ne w from 12/21/2022. No pneumothorax is seen post procedure. 2. Cardiomegaly with evidence of congestive failure and pulmonary edema. This has worsened as compare d to 12/21/2022. 3. Left larger than right pleural effusions with dependent consolidation. ACT 112: Negative or not required by law. Electronically signed by: West Leonard M.D. 12/23/2022 8:53 AM
--- NOTE | 2022-12-23 09:18 | Hospitalist Progress Note ---
Date of Service December 23, 2022 Assessment & Plan (1) ESRD (end stage renal disease): (2) Arterial hypotension: (3) Complicated UTI (urinary tract infection): (4) CAD (coronary artery disease): (5) Aortic stenosis: (6) Afib: Plan This is an 87 yr old M who has a significant PMH of Chronic HFpEF, CAD, hx of CABG, HTN, HLD, Hyperparathyroidism, end-stage renal disease now on dialysis, moderate to severe aortic stenosis, chronic atrial fibrillation on warfarin, remote history of DVT, chronic LBBB, chronic anemia in setting of renal disease who presents to ED secondary to hypotension. Hypotension End-stage renal disease newly established on hemodialysis Complicated UTI Elevated troponin Patient currently admitted to intensive care unit due to requiring vasopressors to maintain blood pressure Patient received 1.5 L of IV fluid in ED Initial concern for possible sepsis in setting of known UTI with leukocytosis and persistent hypotension despite fluids. Fluids cautiously given in ED in setting of dialysis patient and therefore nor epi was started. Discussed with drosser who feels patient likely intolerant of hemodialysis and therefore starting patient on midodrine with hopes to wean off vasopressor Initially Continued with broad-spectrum antibiotics cefepime and wait for blood and urine culture to result MRSA swab negative Urine cultx - positive for Enterococcus faecalis Blood cultx - gram posit. cocci in chains, probable Enterococcus Antibiotics changed to zosyn + vanco Management per ICU team ID consulted Echo obtained - no vegetations seen on TTE Elevated troponin likely in setting of demand ischemia, trended. recent echocardiogram results preserved ejection fraction with moderate to severe aortic stenosis Nephrology consulted for dialysis needs INR therapeutic; on warfarin Please defer for other treatment to drosser at this time DVT ppx: SCDS DNR/DNI PCP: Wojciech Palmer Admission and Anticipated Discharge Date Admission Date: December 21, 2022 Subjective Pt seen in follow up of hypotension, sepsis - in the setting of recent start of HD This AM Left IJ placed by ICU team, d/t access issues Currently laying in bed, in no acute distress + cough Denies any pain specifically denies any chest pain or abdominal pain, no shortness of breath He is very hard of hearing, his is present at the bedside ID consulted Palliative medicine also present at the bedside Nephrology consulted and following closely Review of Systems Review of Systems: All systems reviewed & are unremarkable except as noted in Subjective Physical Exam Physical Exam: General: elderly M in NAD HEENT: head normocephalic. Neck: L Ij placed this AM (12/23/22) CV: S1/S2, + systolic murmur, + indwelling dialysis catheter Resp: + rhonchi, + crackles, + cough GI: Abdomen soft non tender . Musculoskeletal: moves extremities Neuro:awake,alert, oriented, answering appropriately, speech fluent, moves extremities Skin: (-) rashes , (-) erythema. Results & Data Results & Data Vital Signs (Past 12 Hours) Vital Signs Temp Pulse Resp BP Pulse Ox 12/23/22 08:00 70 12/23/22 06:00 78 31 H 94 12/23/22 06:00 109/69 12/23/22 05:45 77 16 90 12/23/22 05:45 116/66 12/23/22 05:31 112/53 L 12/23/22 05:31 94 H 25 H 89 L 12/23/22 05:30 81 18 91 12/23/22 05:15 83 24 94 12/23/22 05:15 116/70 12/23/22 05:00 76 22 92 12/23/22 05:00 116/60 12/23/22 04:45 78 27 H 93 12/23/22 04:45 112/70 12/23/22 04:30 77 24 93 12/23/22 04:30 109/59 L 12/23/22 04:15 85 21 95 12/23/22 04:15 106/66 12/23/22 04:00 73 17 89 L 12/23/22 04:00 99/65 L 12/23/22 03:45 78 21 94 12/23/22 03:45 97/62 L 12/23/22 03:30 82 23 94 12/23/22 03:30 103/63 12/23/22 03:15 82 22 94 12/23/22 03:15 115/66 12/23/22 03:00 76 18 94 12/23/22 03:00 94/64 L 12/23/22 02:45 75 12 92 12/23/22 02:45 104/61 12/23/22 02:30 80 19 90 12/23/22 02:30 103/57 L 12/23/22 02:15 75 18 93 12/23/22 02:15 113/65 12/23/22 02:01 109/58 L 12/23/22 02:01 77 22 94 12/23/22 02:00 76 22 95 12/23/22 01:45 76 25 H 95 12/23/22 01:45 111/66 12/23/22 01:30 73 21 93 12/23/22 01:30 105/61 12/23/22 01:15 65 20 94 12/23/22 01:15 102/58 L 12/23/22 01:07 106/61 12/23/22 01:07 77 15 88 L 12/23/22 01:05 77 19 96 12/23/22 01:05 66/47 L 12/23/22 01:00 71 19 92 12/23/22 01:00 86/42 L 12/23/22 00:45 80 21 93 12/23/22 00:45 90/48 L 12/23/22 00:31 85 12 91 12/23/22 00:31 75/45 L 12/23/22 00:30 79 23 89 L 12/23/22 00:15 78 16 93 12/23/22 00:15 89/49 L 12/23/22 00:00 83 21 93 12/23/22 00:00 96/57 L 12/22/22 23:46 74 16 91 12/22/22 23:46 90/62 L 12/22/22 23:45 82 26 H 94 12/22/22 23:30 78 17 93 12/22/22 23:15 81 24 89 L 12/22/22 23:15 100/61 12/23/22 00:35 36.6 C 12/23/22 00:00 73 12/22/22 23:00 71 25 H 92 12/22/22 23:00 114/65 12/22/22 22:45 84 22 89 L 12/22/22 22:45 115/69 12/22/22 22:30 77 28 H 90 12/22/22 22:30 99/54 L 12/22/22 22:15 75 16 94 12/22/22 22:15 109/72 12/22/22 22:00 89 92 12/22/22 22:00 110/66 12/22/22 21:45 92/53 L 12/22/22 21:45 79 33 H 95 12/22/22 21:36 78/39 L 12/22/22 21:36 72 10 L 91 12/22/22 21:33 70 6 L 93 12/22/22 21:31 77 4 L 94 12/22/22 21:30 78 13 94 12/22/22 21:15 77 25 H 95 12/22/22 21:15 92/61 L 12/22/22 22:17 36.6 C Laboratory Results 12/23/22 12/23/22 12/23/22 Range/Units 07:29 04:38 04:38 WBC (4.8-10.8) K/ul RBC (4.70-6.10) M/uL Hgb (14.0-18.0) g/dl Hct (42.0-52.0) % MCV (80.0-100.0) fL MCH (25.0-34.0) pg MCHC (32.0-36.0) g/dL RDW Std Deviation (36.4-46.3) fL RDW Coeff of Alan (11.5-14.5) % Plt Count (130-400) K/uL MPV (9.4-12.4) fL PT 24.0 H (9.0-12.0) Seconds INR 2.3 H (0.9-1.1) Sodium (136-145) mmol/L Potassium (3.5-5.1) mmol/L Chloride (98-107) mmol/L Carbon Dioxide (21-32) mmol/L Anion Gap (3-11) BUN (6-23) mg/dl Creatinine (0.6-1.4) mg/dl Est Cr Clr Drug Dosing ml/min Est GFR ( Amer) ml/min Est GFR (Non-Af Amer) ml/min BUN/Creatinine Ratio (10-20) Glucose (70-99(Fasting)) mg/dl POC Glucose 100 H (70-99) mg/dl Calcium (8.6-10.3) mg/dl Phosphorus (2.5-4.9) mg/dl Magnesium (1.7-2.4) mg/dl Random Vancomycin 9.9 L (10-20) mcg/ml 12/23/22 12/23/22 12/22/22 Range/Units 04:38 04:38 21:19 WBC 7.68 (4.8-10.8) K/ul RBC 3.09 L (4.70-6.10) M/uL Hgb 10.2 L (14.0-18.0) g/dl Hct 30.8 L (42.0-52.0) % MCV 99.7 (80.0-100.0) fL MCH 33.0 (25.0-34.0) pg MCHC 33.1 (32.0-36.0) g/dL RDW Std Deviation 58.0 H (36.4-46.3) fL RDW Coeff of Alan 15.8 H (11.5-14.5) % Plt Count 191 (130-400) K/uL MPV 11.0 (9.4-12.4) fL PT (9.0-12.0) Seconds INR (0.9-1.1) Sodium 129 L (136-145) mmol/L Potassium 3.2 L (3.5-5.1) mmol/L Chloride 91 L (98-107) mmol/L Carbon Dioxide 25 (21-32) mmol/L Anion Gap 13 H (3-11) BUN 91 H (6-23) mg/dl Creatinine 4.67 H* (0.6-1.4) mg/dl Est Cr Clr Drug Dosing 11.4 ml/min Est GFR ( Amer) 12.2 ml/min Est GFR (Non-Af Amer) 10.5 ml/min BUN/Creatinine Ratio 19.5 (10-20) Glucose 101 H (70-99(Fasting)) mg/dl POC Glucose 101 H (70-99) mg/dl Calcium 8.4 L (8.6-10.3) mg/dl Phosphorus 5.5 H (2.5-4.9) mg/dl Magnesium 2.1 (1.7-2.4) mg/dl Random Vancomycin (10-20) mcg/ml 12/22/22 12/22/22 12/22/22 Range/Units 17:51 17:32 13:16 WBC (4.8-10.8) K/ul RBC (4.70-6.10) M/uL Hgb (14.0-18.0) g/dl Hct (42.0-52.0) % MCV (80.0-100.0) fL MCH (25.0-34.0) pg MCHC (32.0-36.0) g/dL RDW Std Deviation (36.4-46.3) fL RDW Coeff of Alan (11.5-14.5) % Plt Count (130-400) K/uL MPV (9.4-12.4) fL PT (9.0-12.0) Seconds INR (0.9-1.1) Sodium (136-145) mmol/L Potassium (3.5-5.1) mmol/L Chloride (98-107) mmol/L Carbon Dioxide (21-32) mmol/L Anion Gap (3-11) BUN (6-23) mg/dl Creatinine (0.6-1.4) mg/dl Est Cr Clr Drug Dosing ml/min Est GFR ( Amer) ml/min Est GFR (Non-Af Amer) ml/min BUN/Creatinine Ratio (10-20) Glucose (70-99(Fasting)) mg/dl POC Glucose 116 H 61 L* 102 H (70-99) mg/dl Calcium (8.6-10.3) mg/dl Phosphorus (2.5-4.9) mg/dl Magnesium (1.7-2.4) mg/dl Random Vancomycin (10-20) mcg/ml Medications Administered Current Inpatient Medications Allopurinol (Allopurinol 100 Mg Tab) 200 mg PO QAM [facility] Stop: 01/21/23 08:59 Last Admin: 12/23/22 08:32 Dose: 200 mg Cyclobenzaprine HCl (Cyclobenzaprine Hcl 10 Mg Tab) 10 mg PO TID PRN PRN Reason: Muscle Spasm Stop: 01/20/23 13:00 Ezetimibe (Ezetimibe 10 Mg Tablet) 10 mg PO DAILY [facility] Stop: 01/21/23 08:59 Last Admin: 12/23/22 08:32 Dose: 10 mg Norepinephrine Bitartrate (Levophed/D5w) 4 mg in 250 mls @ 12.54 mls/hr IV .[id number] [facility]; Protocol Stop: 01/20/23 10:59 Last Admin: 12/23/22 08:30 Dose: 0.04 mcg/kg/min, 12.5 mls/hr Piperacillin Sod/Tazobactam (Sod 4.5 gm/ Dextrose) 120 mls @ 30 mls/hr IV Q12H [facility]; Protocol Stop: 01/01/23 00:00 Last Infusion: 12/23/22 04:10 Dose: Infused Vancomycin HCl 1,500 mg/ (Sodium Chloride) 530 mls @ 200 mls/hr IV NOW STA Stop: 12/23/22 10:29 Last Admin: 12/23/22 08:31 Dose: 200 mls/hr Metoprolol Succinate (Metoprolol Succ 25mg Ext Rel Tab) 12.5 mg PO DAILY [facility] Stop: 01/21/23 08:59 Last Admin: 12/22/22 08:45 Dose: Not Given Midodrine (Midodrine Hcl 2.5 Mg Tab) 7.5 mg PO TID@0800,1200,1700 [facility] Stop: 01/21/23 16:59 Last Admin: 12/23/22 08:31 Dose: 7.5 mg Miscellaneous (Icu Protocol For Hyperglycemia) 1 each N/A ACHS [facility] Stop: 12/23/22 13:00 Last Admin: 12/23/22 08:31 Dose: Not Given Miscellaneous Information (Vancomycin Consult Active) 1 each N/A UD PRN PRN Reason: Consult Stop: 01/21/23 07:17 Montelukast Sodium (Montelukast Sodium 10 Mg Tablet) 10 mg PO QPM [facility] Stop: 01/20/23 20:59 Last Admin: 12/22/22 21:10 Dose: 10 mg Multivitamins (Multivitamin Tab) 1 tab PO DAILY [facility] Stop: 01/21/23 08:59 Last Admin: 12/23/22 08:33 Dose: 1 tab Rosuvastatin Calcium (Rosuvastatin Calcium 10 Mg Tab) 10 mg PO HS [facility] Stop: 01/20/23 20:59 Last Admin: 12/22/22 21:10 Dose: 10 mg Vitamin D (Cholecalciferol 1,000 Units 25 Mcg Tab) 2,000 units PO DAILY [facility]ST[facility] Stop: 01/21/23 08:59 Last Admin: 12/23/22 08:32 Dose: 2,000 units Warfarin Sodium (Warfarin Sod 2.5 Mg Tab) 2.5 mg PO DAILY@1600 [facility] Stop: 01/20/23 15:59 Last Admin: 12/22/22 16:58 Dose: 2.5 mg
--- NOTE | 2022-12-23 10:52 | Nephrology Progress Note ---
Date of Service December 23, 2022 Assessment & Plan (1) Dialysis patient: Plan: last HD was 12/19. OP HD has been going reasonably well. on MWF HD via TDC at [facility] currently where he had been rehabbing; then for admission to [facility] longer term > was to start there 12/23 if he hadn't developed this infection in interim chemistries acceptable except k even low; oxygen needs noted as well as BP trends reviewed; >> favor HD today bedside >>reeval in AM for further HD >>monitor response to vanco and f/u ID recs >> if still pressor dependent off HD tomorrow then may need to pull TDC for line holiday; vascular not available tomorrow or next week >> may need gen surg to pull line; may need transfer (?for day versus d/k-zmr-iqwau-there) to [facility] for line insertion >>orders in for 4h tx w/ goal 3L UF and titrate up pressor as needed >>may need same tx w/ pressor tomorrow >mini heparin w/ HD ; 3K bath >> sodium, K should improve w/ UF; no anemia meds indicated currently >> SBP improving but still soft despite midodrine; still on NE at 0.02mcg/min -reeval daily for need for HD -note no current phos binders needed to date > based on phos this am none needed yet >back on dialysis diet >> added FR 1.8L though he comes no where near this >>even w/ his > 1L daily UOP and slight improvement in BP, improvement to RA he has marked volume overload, is likely to need fluid removal w/ HD ------ Patient unfortunately with dialysis catheter showing unacceptably high pressures, w/ symptomatic hypotension and not tolerating pressor uptitration (having runs of VT per learning center instructor). customer service consultant unable to run pt despite multiple attempts. now with triple lumen in L IJ along w/ TDC since R IJ occluded >>may need femoral catheter for dialysis >>needs CRRT Discussed w/ Drs. Orr and Christos and recommend transfer to center w/ CRRT >> [facility] or [facility]. Also discussed line exchange options earlier in the day w/ [facility] hospitalist. (2) Sepsis: Plan: w/ enterococcal UTI and bacteremia >> serologies/cxs concerning for meth Res E faecalis >>vancomycin added 12/22 to zosyn -pressors and abtx as per primary service -strict I/O >> not oliguric but helps to measure while he has limited access to HD -try to limit IVF pending next HD tx -continue levophed and try to wean -coninue midodrine -needs line holiday and / or dialysis catheter exchange which will have to be coordinated with outside hospital most likely (3) Goals of care, counseling/discussion: Plan: above plan including HD today/tomorrow, possible line holiday and logistics thereof d/w pt. He remains interested in more dialysis. continues to hope intermediate manager to get home this time w/ OP rehab; I told him that avoiding rehab an ambitious goal and may not work but let's focus first on getting well enough to get out of ICU. He agrees; will cont to discuss. conversation slow/challenging in part d/t his poor hearing/hearing aids but he did participate actively /appropriately. Admission and Anticipated Discharge Date Admission Date: December 21, 2022 Subjective e faecalis bacteremia; BP improved; remains on NE but lower at 0.02 mcg; 1.3L UOP noted. vanco level low yet. pt more sob, more prominent thick cough states "I need dialysis; it makes me feel better" worries about edema. Review of Systems Review of Systems: All systems reviewed & are unremarkable except as noted in Subjective Physical Exam Constitutional: well developed, + thin, + frail appearing and cooperative; no acute distress (sitting today w/ HOB at 60 degrees w/ sentences interrupted by thick wet co) Eyes: EOM intact bilaterally ENMT: Ears: + hearing impairment; no external ear abnormality Nose: no external nose abnormality Mouth: + dry oral mucous membranes Neck: no nuchal rigidity Respiratory: + labored breathing (HOB as above on 02nc slight ly laboed w/ speec), + cough and + tachypneic Auscultation: + diminished lung sounds and + crackles Cardiovascular: Rate/Rhythm: regular rate and regular rhythm Heart Sounds: + murmur Extremities: normal capillary refill; no edema Gastrointestinal (Abdomen): Inspection/Auscultation: normal bowel sounds Percussion/Palpation: abdomen soft; abdomen nontender Musculoskeletal: Extremities: + abnormal strength (generalized weakness) Skin: no rashes, warm and dry Psychiatric: Orientation: alert and oriented x 3 Speech: normal rate/rhythm/volume of speech Results & Data Vital Signs (Past 12 Hours) Vital Signs Temp Pulse Resp BP Pulse Ox O2 Del Method 12/23/22 09:55 36.5 C 12/23/22 09:45 121/68 12/23/22 09:45 85 23 96 12/23/22 09:30 77 21 96 12/23/22 09:30 104/76 12/23/22 09:15 131/77 12/23/22 09:15 79 23 95 12/23/22 09:00 69 17 116/72 95 12/23/22 08:00 72 18 117/65 96 12/23/22 07:00 76 22 91/55 L 92 Room Air 12/23/22 07:00 Room Air 12/23/22 08:00 70 12/23/22 06:00 78 31 H 94 12/23/22 06:00 109/69 12/23/22 05:45 77 16 90 12/23/22 05:45 116/66 12/23/22 05:31 112/53 L 12/23/22 05:31 94 H 25 H 89 L 12/23/22 05:30 81 18 91 12/23/22 05:15 83 24 94 12/23/22 05:15 116/70 12/23/22 05:00 76 22 92 12/23/22 05:00 116/60 12/23/22 04:45 78 27 H 93 12/23/22 04:45 112/70 12/23/22 04:30 77 24 93 12/23/22 04:30 109/59 L 12/23/22 04:15 85 21 95 12/23/22 04:15 106/66 12/23/22 04:00 73 17 89 L 12/23/22 04:00 99/65 L 12/23/22 03:45 78 21 94 12/23/22 03:45 97/62 L 12/23/22 03:30 82 23 94 12/23/22 03:30 103/63 12/23/22 03:15 82 22 94 12/23/22 03:15 115/66 12/23/22 03:00 76 18 94 12/23/22 03:00 94/64 L 12/23/22 02:45 75 12 92 12/23/22 02:45 104/61 12/23/22 02:30 80 19 90 12/23/22 02:30 103/57 L 12/23/22 02:15 75 18 93 12/23/22 02:15 113/65 12/23/22 02:01 109/58 L 12/23/22 02:01 77 22 94 12/23/22 02:00 76 22 95 12/23/22 01:45 76 25 H 95 12/23/22 01:45 111/66 12/23/22 01:30 73 21 93 12/23/22 01:30 105/61 12/23/22 01:15 65 20 94 12/23/22 01:15 102/58 L 12/23/22 01:07 106/61 12/23/22 01:07 77 15 88 L 12/23/22 01:05 77 19 96 12/23/22 01:05 66/47 L 12/23/22 01:00 71 19 92 12/23/22 01:00 86/42 L 12/23/22 00:45 80 21 93 12/23/22 00:45 90/48 L 12/23/22 00:31 85 12 91 12/23/22 00:31 75/45 L 12/23/22 00:30 79 23 89 L 12/23/22 00:15 78 16 93 12/23/22 00:15 89/49 L 12/23/22 00:00 83 21 93 12/23/22 00:00 96/57 L 12/22/22 23:46 74 16 91 12/22/22 23:46 90/62 L 12/22/22 23:45 82 26 H 94 12/22/22 23:30 78 17 93 12/22/22 23:15 81 24 89 L 12/22/22 23:15 100/61 12/23/22 00:35 36.6 C 12/23/22 00:00 73 12/22/22 23:00 71 25 H 92 12/22/22 23:00 114/65 Laboratory Results 12/23/22 04:38 12/23/22 04:38 Diagnostic Findings cxr today reviewed TTE reviewed > EF preserved, no vegetations; (2) Sepsis Sepsis acute organ dysfunction status: without acute organ dysfunction Sepsis type: sepsis due to unspecified organism Qualified Code(s): A41.9 - Sepsis, unspecified organism
--- NOTE | 2022-12-23 11:14 | Palliative Care Progress Note ---
Date of Service December 23, 2022 Assessment & Plan (1) Palliative care encounter: Plan: Mr. Carrion has an understanding of his illness and remains focused on going home rather than back to SNF. We talked about multiple steps in his care here in the hospital before we would consider sending him home. He is tolerating pressor wean a little better today but there is still concern about access for further dialysis. ARELIS pending to r/o vegetation with possible enterococcus bacteremia. Cultures also pending. He feels very strongly that he wants to be at home and is hopeful that would be for rehab and ongoing dialysis treatments. If he is not able to do that, his wish would be to be at home for his dying time if at all possible. Admission and Anticipated Discharge Date Admission Date: December 21, 2022 Subjective Awake and alert. Complains of productive cough. Also had some right arm pain last night but denies pain or discomfort now. Review of Systems Review of Systems: ESAS Pain 0/3 Dyspnea 0/3 Nausea 0/3 Anxiety 0/3 Drowsiness 0/3 Physical Exam Constitutional: no acute distress Neck: New IJ catheter left neck Respiratory: normal respiratory effort; no labored breathing Cardiovascular: irregular Skin: warm and dry Neurologic: Speech / Cognition: normal cognition Results & Data Vital Signs (Past 12 Hours) Vital Signs Temp Pulse Resp BP BP Pulse Ox O2 Del Method 12/23/22 10:45 98/65 L 12/23/22 10:00 85 20 103/68 95 12/23/22 09:45 121/68 12/23/22 09:55 97.7 F 12/23/22 09:45 121/68 12/23/22 09:45 85 23 96 12/23/22 09:30 77 21 96 12/23/22 09:30 104/76 12/23/22 09:15 131/77 12/23/22 09:15 79 23 95 12/23/22 09:00 69 17 116/72 95 12/23/22 08:00 72 18 117/65 96 12/23/22 07:00 76 22 91/55 L 92 Room Air 12/23/22 07:00 Room Air 12/23/22 08:00 70 12/23/22 06:00 78 31 H 94 12/23/22 06:00 109/69 12/23/22 05:45 77 16 90 12/23/22 05:45 116/66 12/23/22 05:31 112/53 L 12/23/22 05:31 94 H 25 H 89 L 12/23/22 05:30 81 18 91 12/23/22 05:15 83 24 94 12/23/22 05:15 116/70 12/23/22 05:00 76 22 92 12/23/22 05:00 116/60 12/23/22 04:45 78 27 H 93 12/23/22 04:45 112/70 12/23/22 04:30 77 24 93 12/23/22 04:30 109/59 L 12/23/22 04:15 85 21 95 12/23/22 04:15 106/66 12/23/22 04:00 73 17 89 L 12/23/22 04:00 99/65 L 12/23/22 03:45 78 21 94 12/23/22 03:45 97/62 L 12/23/22 03:30 82 23 94 12/23/22 03:30 103/63 12/23/22 03:15 82 22 94 12/23/22 03:15 115/66 12/23/22 03:00 76 18 94 12/23/22 03:00 94/64 L 12/23/22 02:45 75 12 92 12/23/22 02:45 104/61 12/23/22 02:30 80 19 90 12/23/22 02:30 103/57 L 12/23/22 02:15 75 18 93 12/23/22 02:15 113/65 12/23/22 02:01 109/58 L 12/23/22 02:01 77 22 94 12/23/22 02:00 76 22 95 12/23/22 01:45 76 25 H 95 12/23/22 01:45 111/66 12/23/22 01:30 73 21 93 12/23/22 01:30 105/61 12/23/22 01:15 65 20 94 12/23/22 01:15 102/58 L 12/23/22 01:07 106/61 12/23/22 01:07 77 15 88 L 12/23/22 01:05 77 19 96 12/23/22 01:05 66/47 L 12/23/22 01:00 71 19 92 12/23/22 01:00 86/42 L 12/23/22 00:45 80 21 93 12/23/22 00:45 90/48 L 12/23/22 00:31 85 12 91 12/23/22 00:31 75/45 L 12/23/22 00:30 79 23 89 L 12/23/22 00:15 78 16 93 12/23/22 00:15 89/49 L 12/23/22 00:00 83 21 93 12/23/22 00:00 96/57 L 12/22/22 23:46 74 16 91 12/22/22 23:46 90/62 L 12/22/22 23:45 82 26 H 94 12/22/22 23:30 78 17 93 12/22/22 23:15 81 24 89 L 12/22/22 23:15 100/61 12/23/22 00:35 97.9 F 12/23/22 00:00 73 PG Care Time/CCT Total # of Minutes Spent Total Time Spent with Patient: Total time spent is greater than 50% in coordination of care (as documented) at patient's floor/unit and/or counseling patient: Coding Level of Care Code 09410 SUB INP/OBS CARE 08/10MIN Diagnoses Palliative care encounter Z51.5
[2022-12-23] MEDS ORDERED: guaiFENesin 600 MG TABCR PO SCH (11:15)
[2022-12-23] MEDS ORDERED: COUGH DROP (SUGAR FREE) LOZ 24 LOZ/1 BOX BUCCAL PRN (12:15)
[2022-12-23] MEDS ORDERED: HEPARIN SOD (PORCINE) 1000 UNIT/ML IV ONE (12:37)
[2022-12-23] MEDS ORDERED: SODIUM CHLORIDE 0.9% 1000ML 1,000 ML IV PRN (12:37)
--- NOTE | 2022-12-23 13:17 | Pharmacy Report ---
Pharmacy [facility] Short Note - Date of Service December 23, 2022 - Assessment & Plan Assessment * 87 year old M receiving VANCOMYCIN + ZOSYN for treatment of septic shock, E. faecalis (and possibly MRSE) bacteremia, and E. faecalis complicated UTI. Possible tunneled cath and/or heart valve involvement. Patient remains in ICU on pressors. Palliative care involved. * Pertinent microbiologic data includes: 1 of 2 blood cultures with probable Enterococcus and Staph species. 2nd blood culture with GPC in chains. The Staph (MRSE per BCID2) may be a contaminant as not Staph has been identified in Gram stain of the 2nd blood culture, but treatment is reasonable at this time nonetheless. * ID consulted * Pt remains on Norepi for pressor support, although lower dose * Patient is ESRD and receives HD 3 x weekly - none yet, but planning for 4 hours today. Patient has produced a significant amount of urine (> 1 liter) Vancomycin * Non-HD clearance of vancomycin anticipated (and may be substantial) given large UOP plus lower vancomycin level this AM * Random AM level today subtherapeutic at 9.9 mcg/mL. This was after a 20 mg/kg loading dose yesterday. * Targeting a level tomorrow AM closer to 20 mcg/mL given severity of illness therefore will repeat 20 mg/kg dose this AM (infused prior to HD) * *Planning* for 4 hours HD today, but unsure if patient will *tolerate* given current pressor requirement. Will dose additional vancomycin based on how long / if the patient tolerates HD. Plan * Vancomycin 1500 mg IV x1 this AM * Additional vancomycin this PM dependent on how long/if patient tolerates HD as follows: * 1-2.5 hours HD: 500 mg * >2.5 hours HD: 750 mg * Will leave out for 2nd shift assessment Pharmacy will continue to follow and will adjust dose/frequency as necessary. Thank you.
[2022-12-23] MEDS: HEPARIN SOD (PORCINE) 1000 UNIT/ML IV SCH ×2 (16:41→18:13)
--- NOTE | 2022-12-23 17:23 | Discharge Summary ---
Date of Service December 23, 2022 Admission HPI Per Admitting Provider This is an 87 yr old M who has a significant PMH of Chronic HFpEF, CAD, hx of CABG, HTN, HLD, Hyperparathyroidism, end-stage renal disease now on dialysis, moderate to severe aortic stenosis, chronic atrial fibrillation on warfarin, remote history of DVT, chronic LBBB, chronic anemia in setting of renal disease who presents to ED secondary to hypotension. Pt transferred to [facility] after recent hospitalization. Of significance patient was recently hospitalized here from 11/26 to 12/07 in setting of decompensated heart failure and CKD stage V. He underwent temporary hemodialysis catheter placement on 12/02. Ech ocardiogram during hospitalization revealed preserved EF with moderate to severe aortic stenosis. He recently was started on HD. Over last few days his blood pressure has been on lower side. He also complained of dysuria over last few days. is at bedside. 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 According to at bedside temperature was [facility], but unknown to what degree. He generally feels weak. He denies any chest pain, sob, cough, uri sx, n/v/d, abd pain, hematuria, melena or hematochezia. Patient was due for dialysis today. In ED patient was hypotensive with concerns for septic shock due to leukocytosis. He received 1.5 L of IV fluid in ED and a small bolus in route. ED provider then started norepinephrine due to volume challenge in setting of hemodialysis patient. Case was discussed with nephrology as well who agreed with plan. Empirically is being started on IV antibiotics. Admission Exam Per Admitting Provider Neuro: AAOx4, DARONLA, HEENT: head normocephalic. CV: S1/S2+ , systolic murmur+ indwelling dialysis catheter + Resp: Air entry present bilaterally, no crackles GI: Abdomen soft non tender . Musculoskeletal: No gait disturbance Skin: (-) rashes , (-) erythema. Psych: normal affect. Principal Diagnosis Sepsis, septic shock, UTI/ bacteremia ESRD on HD Discharge Exam General: elderly M in NAD HEENT: head normocephalic. Neck: L IJ placed this AM (12/23/22) CV: S1/S2, + systolic murmur, + indwelling dialysis catheter Resp: + rhonchi, + crackles, + cough GI: Abdomen soft non tender . Musculoskeletal: moves extremities Neuro:awake,alert, oriented, answering appropriately, speech fluent, moves extremities Skin: (-) rashes , (-) erythema. Discharge Data Allergies Allergy/AdvReac Type Severity Reaction Status Date / Time amlodipine [From [facility]] Allergy Intermediate Edema Verified 11/26/22 03:03 bismuth subsalicylate Allergy Unknown Unknown Verified 11/26/22 03:03 naproxen AdvReac Mild GI UPSET, Verified 11/26/22 03:03 HODGES THROAT Consultations 12/21/22 11:10 ED Decision to Admit Stat 12/21/22 11:19 Consult Head Teller Routine Consult Nephrology Routine 12/22/22 08:32 Consult Palliative Care Routine 12/23/22 08:25 Consult Infectious Diseases Routine 12/23/22 17:11 Burn CD for patient Stat Ordered Studies 12/21/22 10:52 CT abd pelvis wo con Stat FINDINGS: Lower chest: Cardiomegaly is partially visualized. Bilateral small pleural effusions with atelectasis and peripheral interstitial thickening. Partial visualization of calcified plaques. Liver: Unremarkable. No focal lesions are seen. Gallbladder and biliary tree: No calcified gallstones. Normal caliber wall. No intra- or extrahepatic biliary ductal dilation. Pancreas: Unremarkable, no focal lesions. Spleen: Unremarkable. Adrenals: Bilateral adrenal gland thickening is seen. Kidneys and ureters: Left extrarenal pelvis is again seen. Bladder: Diffuse homogeneous wall thickening is seen. Reproductive organs: Intrauterine device is noted. Bowel: Diverticulosis is seen without diverticulitis. The appendix is normal. There is a small hiatal hernia. Lymph nodes Retroperitoneal: Subcentimeter lymph nodes are noted. Pelvic: Unremarkable. Mesenteric: Unremarkable. Peritoneum: Normal. Vessels: Atherosclerotic calcifications are seen. Abdominal wall: There is an umbilical hernia containing nondilated loops of bowel. Interval improvement in previously noted anasarca. Bones: Degenerative changes in the visualized spine. Posterior fixation hardware spanning L3-L5. Bilateral total hip arthroplasty is seen. IMPRESSION: 1. No acute abnormalities apart from bladder wall thickening compatible with known UTI. 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 2. Bilateral pleural effusions. Previously noted anasarca is improved. 3. Umbilical hernia with a few nondistended bowel loops. 4. Additional findings as above. 12/23/22 07:44 US point of care ultrasound Stat Hospital Course (1) ESRD (end stage renal disease): (2) Arterial hypotension: (3) Complicated UTI (urinary tract infection): (4) CAD (coronary artery disease): (5) Aortic stenosis: (6) Afib: Plan This is an 87 yr old M who has a significant PMH of Chronic HFpEF, CAD, hx of CABG, HTN, HLD, Hyperparathyroidism, end-stage renal disease now on dialysis, moderate to severe aortic stenosis, chronic atrial fibrillation on warfarin, remote history of DVT, chronic LBBB, chronic anemia in setting of renal disease who presents to ED secondary to hypotension. Hypotension End-stage renal disease newly established on hemodialysis Complicated UTI Elevated troponin Patient currently admitted to intensive care unit due to requiring vasopressors to maintain blood pressure Patient received 1.5 L of IV fluid in ED Initial concern for possible sepsis in setting of known UTI with leukocytosis and persistent hypotension despite fluids. Fluids cautiously given in ED in setting of dialysis patient and therefore nor epi was started. Discussed with flood control engineer who feels patient likely intolerant of hemodialysis and therefore starting patient on midodrine with hopes to wean off vasopressor Initially on cefepime MRSA swab negative Urine cultx - positive for Enterococcus faecalis Blood cultx - gram posit. cocci in chains, probable Enterococcus Antibiotics changed to zosyn + vanco Management per ICU team ID consulted - pt will likely need dialysis catheter removed / exchanged Echo obtained - no vegetations seen on TTE Elevated troponin likely in setting of demand ischemia, trended. recent echocardiogram results preserved ejection fraction with moderate to severe aortic stenosis Nephrology consulted for dialysis needs - 12/23/2022 -dialysis attempted while in ICU, on Levophed, however patient hypotensive even on pressor support. Patient is on p.o. midodrine as well. Levophed increased during dialysis, however patient then went into V. tach. Nephrology was contacted as well, and recommend transfer for CRRT. Discussed with [facility], and patient is accepted to [facility] discussed with ICU physician and kindergarten paraprofessional there. INR therapeutic; on warfarin Please defer for other treatment to flood control engineer at this time Total Time Total Time Spent Total Time Spent (In Minutes): 40 Discharge Plan Discharge Items Patient Disposition: Transfer Acute Care Hospital Reason For Visit: SEPTIC SHOCK, UROSEPSIS Discharge Diagnosis: Sepsis, UTI/ bacteremia ESRD on HD Condition on Discharge: Serious Activity: Per Instructions section Non-emergency contact: Hospitalist, Specialist and Dietary Tech Call non-emergency contact if: you have any medication questions and your symptoms worsen Follow-up/Referrals: Wojciech Palmer MD [Primary Care Provider] - Diet: Dialysis Renal Fluids: 1800ml (7 cups) Addtl Attending Provider Instructions: Patient with bacteremia/sepsis, on dialysis, not tolerating dialysis and in need of CRRT. Patient is currently on vasopressors. Patient will be transferred to [facility] for further evaluation and care. Patient will likely also need dialysis catheter removal/exchange, and infectious disease consultation. Pending Studies at Discharge: Yes Studies:: final blood culture results Stand-Alone Forms: [facility] Skilled Items Patient informed of condition?: Yes DNR: Yes Discharge Level of Care: Other Communicable Disease: No Discharge Prognosis: Other Lines: [place] Medications and DC Order Prescriptions: Continued tamsulosin 0.4 mg capsule 0.4 mg PO BID metoprolol succinate 25 mg tablet extended release 24 hr 12.5 mg PO DAILY Rx Instructions: TAKE HALF A TABLET (12.5 MG) DAILY ezetimibe 10 mg tablet 10 mg PO DAILY rosuvastatin 10 mg tablet 10 mg PO HS cyclobenzaprine 10 mg Tablet 10 mg PO TID PRN (Reason: Muscle Spasm) famotidine 20 mg Tablet 20 mg PO DAILY PRN (Reason: Acid Reflux) warfarin 5 mg Tablet 2.5 mg PO DIRECTED Rx Instructions: DIRECTED TO TAKE BY ANTICOAGULATION CLINIC/ multivitamin,qf-skfr-[id number]-FA-min Tablet 1 tab PO DAILY cholecalciferol (vitamin D3) [Vitamin D3] 50 mcg (2,000 unit) Capsule 50 mcg PO DAILY amoxicillin 500 mg capsule See Rx Instructions .ROUTE .COMPLEX PRN (Reason: Prior to Dental Appointments) Rx Instructions: TAKE 4 CAPSULES (2000 MG) ONE HOUR PRIOR TO DENTAL APPOINTMENT allopurinol 100 mg tablet 200 mg PO QAM triamcinolone acetonide 0.1 % ointment 1 applic TOPICAL BID PRN (Reason: .itchy legs) montelukast 10 mg tablet 10 mg PO QPM CeraVe Cream 1 applic TOPICAL DIRECTED PRN (Reason: .affected area) diclofenac sodium 1 % gel 1 ea TOPICAL BID PRN (Reason: .back pain, muscle pain) melatonin 5 mg Tablet 5 mg PO HS PRN (Reason: Sleep) torsemide 100 mg Tablet 100 mg PO QAM Qty: 30 0RF metolazone 5 mg Tablet 5 mg PO DAILY@1200 Qty: 30 0RF ceftriaxone-lidocaine 1-1 gram-% Kit 1 ea IM DAILY Rx Instructions: Inject 1 gram intramuscularly in the evening for UTI for 7 days. benzonatate 100 mg Capsule 200 mg PO TID fluticasone propionate [Flonase Allergy Relief] 50 mcg/actuation [place],Suspension 2 spray INTRANASAL DAILY Rx Instructions: administer into each nostril menthol-zinc oxide [Calmoseptine] 0.44-20.6 % Ointment 1 applic TOPICAL BID PRN (Reason: Skin Irritation) Discharge Orders: Discharge Order (Routine); Ordered 12/23/22 Ordered By: Elias Sher Admission Data Admit Date/Time: 12/21/22 11:19 Attending Provider: Elias Sher Admit Provider: Jerry Sanchez Primary Care Provider: Wojciech Palmer Other Providers: Raoul Orr ; Stephy Figueroa ; Jerry Sanchez ; Adrianna Vo ; Manda Fernández ; Kathy Jeong ; Francis Rolon ; Esthela Clark ; Edwin Ang ; Jessy Carrasquillo ; Wendy Abbott ; Anna Barajas ; Que Metzger ; Shanell Dixon
--- NOTE | 2022-12-23 18:46 | Infectious Disease Consult ---
Date of Consultation December 23, 2022 Assessment & Plan (1) Line sepsis associated with dialysis catheter: (2) Bacteremia due to Enterococcus: Plan #E. faecalis bacteremia, resolved septic shock #MRSE bacteremia #Likely Urosepsis #ESRD with HD via L chest line 87 yo M with PMH CHF, CAD s/p CABG, aortic stenosis, Afib on warfarin, chronic LBBB, HTN, HLD, Hyperparathyroidism, ESRD on HD with L subclavian catheter now on dialysis, brought from nursing resid[facility] on 12/21 to ED secondary to hypotension.ID consulted for bacteremia. Patient was hospitalized 11/26 -12/07 in setting of decompensated heart failure and CKD . He underwent temporary hemodialysis catheter placement on 12/02. Echocardiogram during hospitalization revealed preserved EF with moderate to severe aortic stenosis. He recently was started on HD. Over last few days his blood pressure has been on lower side. He also complained of dysuria over last few days with fever per 's report. In ED patient was hypotensive and with leukocytosis, concern for septic shock req pressor support. Initial 12/21 blood cultures ultimately grew AmpSensitive E. faecalis in 2/4 bottles and 1/4 bottles probable staph species. BCID MRSE, E. faecalis. UA with pyuria and 12/20 Ucx grew amp sensitive Enterococcus faecalis >100,000 CFU/ml CXR negative and CT A/P showed thickning of bladder c/w UTI Patient clinically improved on Vancomycin and Zosyn. ID Consulted today Recommend Suspect MRSE is contaminant however given line placement will follow repeat blood cultures Can c/w Vancomycin for now, pharmacy following Would dc Zosyn I suspect he had a UTI induced sepsis He has a L chest dialysis catheter and L IJ line, would recommend removal with line holiday Follow 12/22 blood cultures If MRSE does not grow may be able to narrow off of Vanco but may be difficult with ESRD dosing ID will follow with you Please page otw with questions, Dr. Clark to start service on Monday Wendy Abbott MD Infectious Diseases Consultation Information Consultation was provided via telemedicine using two-way real-time interactive telecommunication between the patient and the telemedicine provider. For the duration of the visit, the provider was performing the assessment from a different facility than the patient. This includesuse of bluetooth stethoscope forauscultationperformed by the telepresenter that the telemedicine provider c an hear if described in the physical exam. Electric Lineman contact information: Please call [facility] [phone]. (Phone Number For Physician Use Only) After establishing a telemedicine visit, patient was: Patient was verified with two unique identifiers, Patient/authorized rep acknowledged consent and understanding and Gave permission to continue telehealth session Time Spent with Patient: Initial => 55 min History of Present Illness Reason for Consultation: bacteremia Requesting Physician: Dr. Sher Attending Physician: Elias Sher MD History of Present Illness 87 yo M with PMH CHF, CAD s/p CABG, aortic stenosis, Afib on warfarin, chronic LBBB, HTN, HLD, Hyperparathyroidism, ESRD on HD with L subclavian catheter now on dialysis, brought from nursing resid[facility] on 12/21 to ED secondary to hypotension.ID consulted for bacteremia. Patient was hospitalized 11/26 -12/07 in setting of decompensated heart failure and CKD . He underwent temporary hemodialysis catheter placement on 12/02. Echocardiogram during hospitalization revealed preserved EF with moderate to severe aortic stenosis. He recently was started on HD. Over last few days his blood pressure has been on lower side. He also complained of dysuria over last few days with fever per 's report. In ED patient was hypotensive and with leukocytosis, concern for septic shock req pressor support. Initial 12/21 blood cultures ultimately grew AmpSensitive E. faecalis in 2/4 bottles and 1/4 bottles probable staph species. BCID MRSE, E. faecalis. UA with pyuria and 12/20 Ucx grew amp sensitive Enterococcus faecalis >100,000 CFU/ml CXR negative and CT A/P showed thickning of bladder c/w UTI Patient clinically improved on Vancomycin and Zosyn. ID Consulted today Today at bedside. patient is pleasant without complaints. No hardware, feels well overall. Allergies Allergy/AdvReac Type Severity Reaction Status Date / Time amlodipine [From Norvas] Allergy Intermediate Edema Verified 11/26/22 03:03 bismuth subsalicylate Allergy Unknown Unknown Verified 11/26/22 03:03 naproxen AdvReac Mild GI UPSET, Verified 11/26/22 03:03 HODGES THROAT Home Medications Medication Instructions Recorded Confirmed Type amoxicillin 500 mg capsule See Rx Instructions .Route 07/15/20 12/21/22 History .COMPLEX PRN Prior to Dental Appointments cholecalciferol (vitamin D3) 50 50 mcg PO DAILY 07/15/20 12/21/22 History mcg (2,000 unit) capsule (Vitamin D3) cyclobenzaprine 10 mg tablet 10 mg PO TID PRN Muscle Spasm 07/15/20 12/21/22 History ezetimibe 10 mg tablet 10 mg PO DAILY 07/15/20 12/21/22 History famotidine 20 mg tablet 20 mg PO DAILY PRN Acid Reflux 07/15/20 12/21/22 History metoprolol succinate 25 mg 12.5 mg PO DAILY 07/15/20 12/21/22 History tablet,extended release 24 hr multivitamin,zy-uvaq-Cx-FA-min 1 tab PO DAILY 07/15/20 12/21/22 History rosuvastatin 10 mg tablet 10 mg PO HS 07/15/20 12/21/22 History tamsulosin 0.4 mg capsule 0.4 mg PO BID 07/15/20 12/21/22 History warfarin 5 mg tablet 2.5 mg PO DIRECTED 07/15/20 12/21/22 History allopurinol 100 mg tablet 200 mg PO QAM 11/26/22 12/21/22 History ceramides 1,3,6-II (CeraVe topical 1 applic topical DIRECTED PRN 11/26/22 12/21/22 History cream) .affected area diclofenac sodium 1 % topical gel 1 ea topical BID PRN .back pain, 11/26/22 12/21/22 History muscle pain melatonin 5 mg tablet 5 mg PO HS PRN Sleep 11/26/22 12/21/22 History montelukast 10 mg tablet 10 mg PO QPM 11/26/22 12/21/22 History triamcinolone acetonide 0.1 % 1 applic topical BID PRN .itchy 11/26/22 12/21/22 History topical ointment legs metolazone 5 mg tablet 5 mg PO DAILY@1200 #30 tabs 12/07/22 12/21/22 Rx torsemide 100 mg tablet 100 mg PO QAM #30 tabs 12/07/22 12/21/22 Rx benzonatate 100 mg capsule 200 mg PO TID 12/21/22 12/21/22 History ceftriaxone 1 gram with lidocaine 1 ea IM DAILY 12/21/22 12/21/22 History 1 % intramuscular kit fluticasone propionate 50 2 spray intranasal DAILY 12/21/22 12/21/22 History mcg/actuation nasal spray,suspension (Flonase Allergy Relief) menthol 0.44 %-zinc oxide 20.6 % 1 applic topical BID PRN Skin 12/21/22 12/21/22 History topical ointment (Calmoseptine) Irritation Patient History Medical History (HFpEF) heart failure with preserved ejection fraction Aortic stenosis Arterial hypotension Bacteremia due to Enterococcus CAD (coronary artery disease) Complicated UTI (urinary tract infection) Decompensated heart failure ESRD (end stage renal disease) Line sepsis associated with dialysis catheter No pertinent family history Septic shock Surgical History No pertinent past surgical history Social History Smoking Status: Never smoker Tobacco Type: Smokeless Tobacco (Dip or Chew) Second Hand Exposure: No; Do You Dip or Chew Tobacco: No; Hx Alcohol Use: No Hx Substance Use: No Preferred Language: Kinyarwanda Communication Ability: Effective Hearing Ability: Use of Hearing Aid Customer Service And Sales Consultant Required: No Beliefs That Will Affect Care: None marital status: Current Living Situation: Spouse Current Living Situation Comment: Feels Safe at Home: Yes Diet: low salt caffeine: Yes during the past year weight has: remained stable Assistive Devices: Hearing Aid - Bilateral and Walker Review of System as per HPI Physical Exam Physical Exam: NAD L neck IJ L chest dialysis catheter Soft nt nd Results & Data Vital Signs (Past 12 Hours) Vital Signs Temp Pulse Pulse Pulse Resp BP BP 12/23/22 18:00 85 16 114/70 12/23/22 17:00 76 22 120/73 12/23/22 16:00 73 30 H 110/62 12/23/22 15:17 151/84 H 12/23/22 15:00 78/53 L 12/23/22 14:00 72 25 H 98/62 L 12/23/22 13:01 75 17 110/47 L 12/23/22 18:32 118/69 12/23/22 18:17 36.5 C 86 75 22 123/70 12/23/22 16:00 77 12/23/22 15:13 36.5 C 12/23/22 15:00 50 L 94/57 L 12/23/22 14:36 60 101/49 L 12/23/22 14:29 36.5 C 75 12/23/22 15:26 123/70 12/23/22 15:10 78/53 L 12/23/22 12:00 73 22 109/74 12/23/22 11:00 82 19 103/61 12/23/22 10:45 98/65 L 12/23/22 10:00 85 20 103/68 12/23/22 09:45 121/68 12/23/22 09:55 36.5 C 12/23/22 09:45 121/68 12/23/22 09:45 85 23 12/23/22 09:30 77 21 12/23/22 09:30 104/76 12/23/22 09:15 131/77 12/23/22 09:15 79 23 12/23/22 09:00 69 17 116/72 12/23/22 08:00 72 18 117/65 12/23/22 07:00 76 22 91/55 L 12/23/22 07:00 12/23/22 08:00 70 BP Pulse Ox O2 Del Method 12/23/22 18:00 95 12/23/22 17:00 96 12/23/22 16:00 93 12/23/22 15:17 12/23/22 15:00 12/23/22 14:00 90 12/23/22 13:01 91 12/23/22 18:32 12/23/22 18:17 111/71 96 12/23/22 16:00 12/23/22 15:13 111/71 12/23/22 15:00 12/23/22 14:36 12/23/22 14:29 12/23/22 15:26 12/23/22 15:10 12/23/22 12:00 96 12/23/22 11:00 95 12/23/22 10:45 12/23/22 10:00 95 12/23/22 09:45 12/23/22 09:55 12/23/22 09:45 12/23/22 09:45 96 12/23/22 09:30 96 12/23/22 09:30 12/23/22 09:15 12/23/22 09:15 95 12/23/22 09:00 95 12/23/22 08:00 96 12/23/22 07:00 92 Room Air 12/23/22 07:00 Room Air 12/23/22 08:00 Laboratory Results Laboratory Results - last 48 hr 12/21/22 12/21/22 12/21/22 09:32 21:22 23:24 WBC RBC Hgb Hct MCV MCH MCHC RDW Std Deviation RDW Coeff of Alan Plt Count MPV Immature Gran % (Auto) Neut % (Auto) Lymph % (Auto) [place] % (Auto) Eos % (Auto) Baso % (Auto) Neut # (Auto) Lymph # (Auto) [place] # (Auto) Eos # (Auto) Baso # (Auto) Immature Gran # (Auto) PT INR Sodium Potassium Chloride Carbon Dioxide Anion Gap BUN Creatinine Est Cr Clr Drug Dosing Est GFR ( Amer) Est GFR (Non-Af Amer) BUN/Creatinine Ratio Glucose POC Glucose 113 H Calcium Phosphorus Magnesium Total Bilirubin AST ALT Alkaline Phosphatase Troponin I High Sens 837.8 H* Total Protein Albumin Globulin Albumin/Globulin Ratio Procalcitonin Random Vancomycin Enterococc faecalis PCR DETECTED A Staphylococcus sp PCR DETECTED A mecA/C-Methicil Resis Gene DETECTED A Staph epidermidis (PCR) DETECTED A Han/B-Vanco Res Genes VRE Not Detected Bld Cult ID Panel PCR See PCR Comment 12/22/22 12/22/22 12/22/22 03:37 03:37 03:37 WBC 10.82 H RBC 3.00 L Hgb 9.9 L Hct 30.1 L MCV 100.3 H MCH 33.0 MCHC 32.9 RDW Std Deviation 59.1 H RDW Coeff of Alan 15.9 H Plt Count 194 MPV 10.6 Immature Gran % (Auto) 0.6 Neut % (Auto) 87.8 Lymph % (Auto) 4.5 [place] % (Auto) 6.5 Eos % (Auto) 0.3 Baso % (Auto) 0.3 Neut # (Auto) 9.51 H Lymph # (Auto) 0.49 L [place] # (Auto) 0.70 H Eos # (Auto) 0.03 Baso # (Auto) 0.03 Immature Gran # (Auto) 0.06 PT 18.8 H INR 1.8 H Sodium Potassium Chloride Carbon Dioxide Anion Gap BUN Creatinine Est Cr Clr Drug Dosing Est GFR ( Amer) Est GFR (Non-Af Amer) BUN/Creatinine Ratio Glucose POC Glucose Calcium Phosphorus Magnesium Total Bilirubin AST ALT Alkaline Phosphatase Troponin I High Sens 833.8 H* Total Protein Albumin Globulin Albumin/Globulin Ratio Procalcitonin Random Vancomycin Enterococc faecalis PCR Staphylococcus sp PCR mecA/C-Methicil Resis Gene Staph epidermidis (PCR) Han/B-Vanco Res Genes Bld Cult ID Panel PCR 12/22/22 12/22/22 12/22/22 03:37 03:37 13:16 WBC RBC Hgb Hct MCV MCH MCHC RDW Std Deviation RDW Coeff of Alan Plt Count MPV Immature Gran % (Auto) Neut % (Auto) Lymph % (Auto) [place] % (Auto) Eos % (Auto) Baso % (Auto) Neut # (Auto) Lymph # (Auto) [place] # (Auto) Eos # (Auto) Baso # (Auto) Immature Gran # (Auto) PT INR Sodium 131 L Potassium 3.5 Chloride 92 L Carbon Dioxide 26 Anion Gap 13 H BUN 82 H Creatinine 4.58 H* D Est Cr Clr Drug Dosing 11.6 Est GFR ( Amer) 12.5 Est GFR (Non-Af Amer) 10.8 BUN/Creatinine Ratio 17.9 Glucose 114 H POC Glucose 102 H Calcium 8.6 Phosphorus Magnesium 2.0 Total Bilirubin 0.5 AST 31 ALT 15 Alkaline Phosphatase 97 Troponin I High Sens Total Protein 5.7 L Albumin 2.7 L Globulin 3.0 Albumin/Globulin Ratio 0.9 Procalcitonin 28.89 H Random Vancomycin Enterococc faecalis PCR Staphylococcus sp PCR mecA/C-Methicil Resis Gene Staph epidermidis (PCR) Han/B-Vanco Res Genes Bld Cult ID Panel PCR 12/22/22 12/22/22 12/22/22 17:32 17:51 21:19 WBC RBC Hgb Hct MCV MCH MCHC RDW Std Deviation RDW Coeff of Alan Plt Count MPV Immature Gran % (Auto) Neut % (Auto) Lymph % (Auto) [place] % (Auto) Eos % (Auto) Baso % (Auto) Neut # (Auto) Lymph # (Auto) [place] # (Auto) Eos # (Auto) Baso # (Auto) Immature Gran # (Auto) PT INR Sodium Potassium Chloride Carbon Dioxide Anion Gap BUN Creatinine Est Cr Clr Drug Dosing Est GFR ( Amer) Est GFR (Non-Af Amer) BUN/Creatinine Ratio Glucose POC Glucose 61 L* 116 H 101 H Calcium Phosphorus Magnesium Total Bilirubin AST ALT Alkaline Phosphatase Troponin I High Sens Total Protein Albumin Globulin Albumin/Globulin Ratio Procalcitonin Random Vancomycin Enterococc faecalis PCR Staphylococcus sp PCR mecA/C-Methicil Resis Gene Staph epidermidis (PCR) Han/B-Vanco Res Genes Bld Cult ID Panel PCR 12/23/22 12/23/22 12/23/22 04:38 04:38 04:38 WBC 7.68 RBC 3.09 L Hgb 10.2 L Hct 30.8 L MCV 99.7 MCH 33.0 MCHC 33.1 RDW Std Deviation 58.0 H RDW Coeff of Alan 15.8 H Plt Count 191 MPV 11.0 Immature Gran % (Auto) Neut % (Auto) Lymph % (Auto) [place] % (Auto) Eos % (Auto) Baso % (Auto) Neut # (Auto) Lymph # (Auto) [place] # (Auto) Eos # (Auto) Baso # (Auto) Immature Gran # (Auto) PT INR Sodium 129 L Potassium 3.2 L Chloride 91 L Carbon Dioxide 25 Anion Gap 13 H BUN 91 H Creatinine 4.67 H* Est Cr Clr Drug Dosing 11.4 Est GFR ( Amer) 12.2 Est GFR (Non-Af Amer) 10.5 BUN/Creatinine Ratio 19.5 Glucose 101 H POC Glucose Calcium 8.4 L Phosphorus 5.5 H Magnesium 2.1 Total Bilirubin AST ALT Alkaline Phosphatase Troponin I High Sens Total Protein Albumin Globulin Albumin/Globulin Ratio Procalcitonin Random Vancomycin 9.9 L Enterococc faecalis PCR Staphylococcus sp PCR mecA/C-Methicil Resis Gene Staph epidermidis (PCR) Han/B-Vanco Res Genes Bld Cult ID Panel PCR 12/23/22 12/23/22 12/23/22 04:38 07:29 11:51 WBC RBC Hgb Hct MCV MCH MCHC RDW Std Deviation RDW Coeff of Alan Plt Count MPV Immature Gran % (Auto) Neut % (Auto) Lymph % (Auto) [place] % (Auto) Eos % (Auto) Baso % (Auto) Neut # (Auto) Lymph # (Auto) [place] # (Auto) Eos # (Auto) Baso # (Auto) Immature Gran # (Auto) PT 24.0 H INR 2.3 H Sodium Potassium Chloride Carbon Dioxide Anion Gap BUN Creatinine Est Cr Clr Drug Dosing Est GFR ( Amer) Est GFR (Non-Af Amer) BUN/Creatinine Ratio Glucose POC Glucose 100 H 100 H Calcium Phosphorus Magnesium Total Bilirubin AST ALT Alkaline Phosphatase Troponin I High Sens Total Protein Albumin Globulin Albumin/Globulin Ratio Procalcitonin Random Vancomycin Enterococc faecalis PCR Staphylococcus sp PCR mecA/C-Methicil Resis Gene Staph epidermidis (PCR) Han/B-Vanco Res Genes Bld Cult ID Panel PCR Microbiology 12/21/22 09:44 Urine,Straight Cath Urine Culture - Final Enterococcus faecalis 12/22/22 10:40 Blood Aerobic Blood Culture - Preliminary No growth in Aerobic bottle after 24 hours. 12/22/22 10:40 Blood Anaerobic Blood Culture - Preliminary No growth in Anaerobic bottle after 24 hours. 12/22/22 10:48 Blood Aerobic Blood Culture - Preliminary No growth in Aerobic bottle after 24 hours. 12/22/22 10:48 Blood Anaerobic Blood Culture - Preliminary No growth in Anaerobic bottle after 24 hours. 12/21/22 09:32 Blood Aerobic Blood Culture - Preliminary Probable Enterococcus Staphylococcus species 12/21/22 09:32 Blood Anaerobic Blood Culture - Final 12/21/22 09:29 Blood Aerobic Blood Culture - Preliminary No growth in Aerobic bottle after 48 hours. 12/21/22 09:29 Blood Anaerobic Blood Culture - Preliminary Gram positive cocci in chains Diagnostic Findings Chest X-Ray 12/21/22 09:19 XR chest 1V portable CLINICAL HISTORY: Sepsis TECHNIQUE: Single frontal radiograph of the chest was obtained. Comparison: Comparison is made to chest radiograph 11/26/2022 FINDINGS: Median sternotomy wires are unchanged. Cardiomegaly is noted. The lungs are clear. There is a small left pleural effusion. IMPRESSION: Cardiomegaly is seen. Previously noted pulmonary edema has improved. There is a small left pleural effusion. ACT 112: Negative or not required by law. Electronically signed by: Gilberto Toth M.D. 12/21/2022 10:17 AM Abdomen/Pelvis CT 12/21/22 10:52 CT abd pelvis wo con CLINICAL HISTORY: poss urinary obstruction TECHNIQUE: Helical axial images of the abdomen and pelvis were obtained. Automated dose lowering techniques and/or adjustment according to patient size were utilized for this exam. This exam was performed without intravenous contrast. CT DOSE: 1020.57 mGy.cm COMPARISON: Comparison is made to CT abdomen pelvis 07/16/2020 FINDINGS: Lower chest: Cardiomegaly is partially visualized. Bilateral small pleural effusions with atelectasis and peripheral interstitial thickening. Partial visualization of calcified plaques. Liver: Unremarkable. No focal lesions are seen. Gallbladder and biliary tree: No calcified gallstones. Normal caliber wall. No intra- or extrahepatic biliary ductal dilation. Pancreas: Unremarkable, no focal lesions. Spleen: Unremarkable. Adrenals: Bilateral adrenal gland thickening is seen. Kidneys and ureters: Left extrarenal pelvis is again seen. Bladder: Diffuse homogeneous wall thickening is seen. Reproductive organs: Intrauterine device is noted. Bowel: Diverticulosis is seen without diverticulitis. The appendix is normal. There is a small hiatal hernia. Lymph nodes Retroperitoneal: Subcentimeter lymph nodes are noted. Pelvic: Unremarkable. Mesenteric: Unremarkable. Peritoneum: Normal. Vessels: Atherosclerotic calcifications are seen. Abdominal wall: There is an umbilical hernia containing nondilated loops of bowel. Interval improvement in previously noted anasarca. Bones: Degenerative changes in the visualized spine. Posterior fixation hardware spanning L3-L5. Bilateral total hip arthroplasty is seen. IMPRESSION: 1. No acute abnormalities apart from bladder wall thickening compatible with known UTI. 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 2. Bilateral pleural effusions. Previously noted anasarca is improved. 3. Umbilical hernia with a few nondistended bowel loops. 4. Additional findings as above. ACT 112: Negative or not required by law. Electronically signed by: Gilberto Toth M.D. 12/21/2022 11:44 AM Chest X-Ray 12/23/22 08:13 SINGLE VIEW CHEST CLINICAL HISTORY: Since venous catheter placement. FINDINGS: An AP, portable, upright chest radiograph is compared to study dated 12/21/2022. The left internal jugular central venous catheter seen on 12/21/2022 is unchanged in position. A second left internal jugular central venous catheter has been placed. The tip projects over the SVC. The patient is status post midline sternotomy. The heart is enlarged noting atherosclerotic calcification of the thoracic aorta. There is pulmonary vascular congestion with interstitial edema. There are left larger than right pleural effusions with dependent consolidation skeletal. No pneumothorax is seen. The lumbar osteopenic. The bony thorax is grossly intact. IMPRESSION: 1. There are 2 left internal jugular central venous catheter is in place as above, one of which is new from 12/21/2022. No pneumothorax is seen post procedure. 2. Cardiomegaly with evidence of congestive failure and pulmonary edema. This has worsened as compared to 12/21/2022. 3. Left larger than right pleural effusions with dependent consolidation. ACT 112: Negative or not required by law. Electronically signed by: [place] M.D. 12/23/2022 8:53 AM Medications Administered Current Inpatient Medications Allopurinol (Allopurinol 100 Mg Tab) [address] [facility] Stop: 01/21/23 08:59 Last Admin: 12/23/22 08:32 Dose: 200 mg Cyclobenzaprine HCl (Cyclobenzaprine Hcl 10 Mg Tab) 10 mg PO TID PRN PRN Reason: Muscle Spasm Stop: 01/20/23 13:00 Ezetimibe (Ezetimibe 10 Mg Tablet) [address] [facility] Stop: 01/21/23 08:59 Last Admin: 12/23/22 08:32 Dose: 10 mg Guaifenesin (Guaifenesin 600 Mg Tabcr) 600 mg PO Q12 [facility] Stop: 01/22/23 11:14 Last Admin: 12/23/22 11:51 Dose: 600 mg Norepinephrine Bitartrate (Levophed/D5w) 4 mg in 250 mls @ 12.54 mls/hr IV .[id number] [facility]; Protocol Stop: 01/20/23 10:59 Last Titration: 12/23/22 18:31 Dose: 0.03 mcg/kg/min, 9.4 mls/hr Piperacillin Sod/Tazobactam (Sod 4.5 gm/ Dextrose) 120 mls @ 30 mls/hr IV Q12H [facility]; Protocol Stop: 01/01/23 00:00 Last Infusion: 12/23/22 15:53 Dose: Infused Menthol (Cough Drop (Sugar Free) Lacey 24 Lacey/1 Box) 1 lacey BUCCAL NOW PRN PRN Reason: Sore Throat Stop: 01/22/23 12:14 Last Admin: 12/23/22 12:24 Dose: 1 lacey Metoprolol Succinate (Metoprolol Succ 25mg Ext Rel Tab) 12.5 mg PO DAILY [facility] Stop: 01/21/23 08:59 Last Admin: 12/22/22 08:45 Dose: Not Given Midodrine (Midodrine Hcl 2.5 Mg Tab) 7.5 mg PO TID@0800,1200,1700 K[facility]ST[facility] Stop: 01/21/23 16:59 Last Admin: 12/23/22 17:14 Dose: 7.5 mg Miscellaneous Information (Vancomycin Consult Active) 1 each N/A UD PRN PRN Reason: Consult Stop: 01/21/23 07:17 Montelukast Sodium (Montelukast Sodium 10 Mg Tablet) 10 mg PO QPM [facility] Stop: 01/20/23 20:59 Last Admin: 12/22/22 21:10 Dose: 10 mg Multivitamins (Multivitamin Tab) 1 tab PO DAILY [facility] Stop: 01/21/23 08:59 Last Admin: 12/23/22 08:33 Dose: 1 tab Rosuvastatin Calcium (Rosuvastatin Calcium 10 Mg Tab) 10 mg PO HS [facility] Stop: 01/20/23 20:59 Last Admin: 12/22/22 21:10 Dose: 10 mg Vitamin D (Cholecalciferol 1,000 Units 25 Mcg Tab) 2,000 units PO DAILY [facility] Stop: 01/21/23 08:59 Last Admin: 12/23/22 08:32 Dose: 2,000 units Warfarin Sodium (Warfarin Sod 2.5 Mg Tab) 2.5 mg PO DAILY@1600 [facility] Stop: 01/20/23 15:59 Last Admin: 12/22/22 16:58 Dose: 2.5 mg
--- NOTE | 2022-12-26 07:03 | Coding Query ---
PRESENT ON ADMISSION QUERY To promote full compliance with coding requirements relating to pateint care, physician participation is requested in all cases of special investigator uncertainty. Please assist us with the question(s) below: Please place an X within the parenthesis (x). The following diagnosis(es) listed in this patient's medical record require physician assistance to determine if they were present on admission (POA) or not. Please advise for each diagnosis whether it was present on admission, not present on admission, or if it was clinically undetermined. 1.(Line sepsis - 12/23 Progress note and 12/23 ID consultation) ( x) Present On Admission ( ) Not Present On Admission ( ) Clinically Undetermined Thank you Gay Flores *Definition of the present on admission (POA)-Present on admission is defined as present at the time the order for inpatient admission occurs. Conditions that develop during an outpatient encounter prior to a written order for inpatient admission (including emergency department, observation, or outpatient surgery) are considered present on admission. ISRAELD
== END 2022-12-23 20:45 | disposition short-term general hospital (02) | DRG 314 ==
LOC: ED 09:03 → EDINP 11:19 → SUATTDRO 11:19 → 1E 13:48